=== PATIENT | female | born 1955 | race Caucasian/White ===

== ENCOUNTER → 2016-08-16 | Outpatient (CLI) | payer BC ==
[~2016-08-16] MED LIST: BUPR-79 PO; CALC600T9 PO; MISCTAB78 PO; OMEG10007 PO
== END | disposition home or self-care (01) ==
LOC: C.PAPS 11:47
PROVIDERS: ATTEND Obstetrics & Gynecology
DX: Z01.419 Encounter for gynecological examination (general) (routine) without abnormal findings (principal)

== ENCOUNTER → 2016-09-20 | Outpatient (CLI) | payer BC ==
--- NOTE | 2016-09-20 08:57 | DIAGNOSTIC IMAGING REPORT ---
ULTRASOUND OF THE THYROID GLAND CLINICAL HISTORY: Multinodular nontoxic goiter. COMPARISON STUDY: Prior thyroid ultrasounds, most recently dated 10/31/2015 an 06/17/2014. TECHNIQUE: Real-time, grayscale, and color flow sonography of the thyroid gland is performed utilizing a high-frequency linear transducer. Images are reviewed in the transverse and longitudinal planes. FINDINGS: Right lobe: The right lobe of the thyroid gland is mildly enlarged and heterogeneous in echotexture, measuring 6.3 x 2.2 x 2.4 cm. The right lobe appears hyperemic on color imaging. There are numerous nodules identified. The largest nodule is present in the mid pole and measures 2.5 x 1.9 x 2.0 cm (previously measuring 2.3 x 1.7 x 2.0 cm). This contains small internal calcifications. There are at least 3 additional solid nodules in the mid to lower pole measuring up to 10 mm. Left lobe: The left lobe of the thyroid gland is enlarged and heterogeneous in echotexture, measuring 6.8 x 3.3 I2.8 cm. There are numerous nodules identified. A solid and cystic nodule in the midpole measures 2.7 x 2.2 x 3.8 cm and a more cystic nodule immediately adjacent measures 1.8 x 1.9 x 1.9 cm (producing measured as an area nodule measuring 5.2 x 2.7 x 4.7 cm). This is unchanged from previous. An additional nodule in the posterior midpole measures 1.6 x 0.9 x 1.4 cm (producing measured 1.7 x 0.8 x 1.2 cm). Isthmus: The thyroid isthmus is thickened and measures 0.7 cm in AP diameter. IMPRESSION: 1. The thyroid gland appears mildly enlarged and heterogeneous, and demonstrates hyperemia on color imaging. The appearance suggests thyroiditis. Correlation with serum thyroid function studies will be required. 2. The thyroid gland is infiltrated by numerous nodules as detailed above. These are similar in appearance to prior studies. Electronically signed by: Nicanor Cleary M.D. 09/20/2016 8:55 AM Dictated Date/Time: 09/20/2016 8:50 AM
== END | disposition home or self-care (01) ==
LOC: C.ULTR 08:19
PROVIDERS: ATTEND Internal Medicine Endocrinology, Diabetes & Metabolism
DX: E04.2 Nontoxic 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 goiter (principal)

== ENCOUNTER → 2016-10-29 | Outpatient (CLI) | payer BC ==
[2016-10-29 15:59] LABS: THYROID STIMULATING HORMONE 0.403 uIu/ml (0.300-4.500)
== END | disposition home or self-care (01) ==
LOC: C.LAB1850 14:06
PROVIDERS: ATTEND Physician Assistant
DX: E04.2 Nontoxic 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 goiter (principal)

== ENCOUNTER → 2016-11-19 | Outpatient (CLI) | payer BC ==
--- NOTE | 2016-11-19 14:58 | MAMMOGRAPHY REPORT ---
BILATERAL DIGITAL SCREENING MAMMOGRAM WITH CAD: 11/19/2016 CLINICAL HISTORY: Routine screening. Patient has no complaints. TECHNIQUE: Current study was also evaluated with a Computer Aided Detection (CAD) system. Bilatera l CC and MLO views were obtained. COMPARISON: Comparison is made to exams dated: 11/17/2015 mammogram, 11/29/2014 mammogram, 11/13/2013 m ammogram, 11/07/2012 mammogram, and 10/26/2010 mammogram - [facility]. BREAST COMPOSITION: There are scattered areas of fibroglandular density in both breasts. FINDINGS: No suspicious masses, calcifications, or areas of architectural distortion are noted in e ither breast. There has been no significant interval change compared to prior exams. Asymmetries in the left lateral breast are stable compared to prior exams including the 2014 exams, and felt to re present normal fibroglandular tissue. A few scattered bilateral benign appearing calcifications are not significantly changed. IMPRESSION: ACR BI-RADS CATEGORY 2: BENIGN There is no mammographic evidence of malignancy. A 1 year screening mammogram is recommended. The p atient will receive written notification of the results. Approximately 10% of breast cancers are not detected with mammography. A negative mammographic repor t should not delay biopsy if a clinically suggestive mass is present. Iliana Wright M.D. /:11/19/2016 10:27:29 Dental Laboratory Assistant: Birdie Oswald, [facility] letter sent: Normal 1/2 BI-RADS Code: ACR BI-RADS Category 2: Benign
== END | disposition home or self-care (01) ==
LOC: C.MAMM 08:55
PROVIDERS: ATTEND Obstetrics & Gynecology
DX: Z12.31 Encounter for screening mammogram for malignant neoplasm of breast (principal)

== ENCOUNTER → 2017-01-03 | Outpatient (CLI) | payer BC ==
[2017-01-03 10:58] LABS: ALT/SGPT 23 U/L (12-78); AST/SGOT 16 U/L (15-37); BLOOD UREA NITROGEN 9 mg/dl (7-18); BUN/CREATININE RATIO 13.2 (10-20); CARBON DIOXIDE 25 mmol/L (21-32); CHLORIDE 102 mmol/L (98-107); CHOLESTEROL 214 mg/dl (0-200); CREATININE 0.71 mg/dl (0.60-1.20); GLUCOSE 96 mg/dl (70-99); POTASSIUM 3.6 mmol/L (3.5-5.1); SODIUM 137 mmol/L (136-145); TRIGLYCERIDES 39 mg/dl (0-150); VERY LOW DENSITY LIPOPROT CALC 8 mg/dl
[2017-01-03 11:02] LABS: CHOLESTEROL/HDL RATIO 2.1; HDL CHOLESTEROL 103 mg/dl; LDL CHOLESTEROL CALCULATED 103 mg/dl
[2017-01-03 11:18] LABS: CALCIUM 9.1 mg/dl (8.5-10.1)
== END | disposition home or self-care (01) ==
LOC: C.LAB1850 09:06
PROVIDERS: ATTEND Internal Medicine
DX: R73.9 Hyperglycemia, unspecified (principal); E78.5 Hyperlipidemia, unspecified; E55.9 Vitamin D deficiency, unspecified

== ENCOUNTER → 2017-06-29 | Outpatient (CLI) | payer BC ==
[2017-06-29 13:53] LABS: ESTIMATED AVERAGE GLUCOSE 105 mg/dl; HA1C FLAG Normal (Normal)
[2017-06-29 13:55] LABS: BLOOD UREA NITROGEN 13 mg/dl (7-18); BUN/CREATININE RATIO 22.8 (10-20); CALCIUM 8.8 mg/dl (8.5-10.1); CARBON DIOXIDE 28 mmol/L (21-32); CHLORIDE 103 mmol/L (98-107); CREATININE 0.57 mg/dl (0.60-1.20); GLUCOSE 121 mg/dl (70-99); POTASSIUM 3.5 mmol/L (3.5-5.1); SODIUM 135 mmol/L (136-145)
== END | disposition home or self-care (01) ==
LOC: C.LAB1850 12:05
PROVIDERS: ATTEND Internal Medicine
DX: R73.9 Hyperglycemia, unspecified (principal); E55.9 Vitamin D deficiency, unspecified

== ENCOUNTER → 2017-09-13 | Outpatient (CLI) | payer BC | END | disposition home or self-care (01) | LOC: C.LAB1850 11:40 | PROVIDERS: ATTEND Physician Assistant | DX: E04.2 Nontoxic 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 goiter (principal) ==

== ENCOUNTER → 2017-11-23 | Outpatient (CLI) | payer BC ==
--- NOTE | 2017-11-24 12:42 | MAMMOGRAPHY REPORT ---
BILATERAL DIGITAL SCREENING MAMMOGRAM TOMOSYNTHESIS WITH CAD: 11/23/2017 CLINICAL HISTORY: Routine screening. Patient has no complaints. TECHNIQUE: Breast tomosynthesis in addition to standard 2D mammography was performed. Current study was also evaluated with a Computer Aided Detection (CAD) system. COMPARISON: Comparison is made to exams dated: 11/19/2016 mammogram, 11/17/2015 mammogram, 05/29/2015 m ammogram, 11/29/2014 mammogram, 11/14/2014 mammogram, and 11/13/2013 mammogram - [facility]ter. BREAST COMPOSITION: There are scattered areas of fibroglandular density in both breasts. FINDINGS: There is a nodular 4 mm asymmetry seen within the left lateral breast on the cc view only, which may represent normal overlapping fibroglandular tissue although spot compression tomosynthesis views, true lateral view, and possible breast ultrasound are recommended for further evaluation. The remainder of both breasts are stable compared to prior exams, without suspicious masses, calcific ations, or areas of architectural distortion noted. Scattered bilateral benign-appearing calcificati ons are not significantly changed. Nodular 5 mm asymmetry within the left superior breast on the MLO view is stable compared to multiple prior exams including the 2010 exam and is therefore benign and may represent an intramammary lymph node. IMPRESSION: ACR BI-RADS CATEGORY 0: INCOMPLETE EVALUATION: NEED ADDITIONAL IMAGING EVALUATION Left breast asymmetry, for which additional imaging evaluation is recommended. The patient will be c alled to schedule an appointment. Approximately 10% of breast cancers are not detected with mammography. A negative mammographic report should not delay biopsy if a clinically suggestive mass is present. Iliana Wright M.D. ah/:11/23/2017 15:53:36 Intelligence Officer Basic: Rubina TEJADA(Nilesh)(Hayden)([place]), [facility] letter sent: Addl Imaging 0 BI-RADS Code: ACR BI-RADS Category 0: Incomplete Evaluation: Need Additional Imaging Evaluation
== END | disposition home or self-care (01) ==
LOC: C.MAMM 09:00
PROVIDERS: ATTEND Obstetrics & Gynecology
DX: Z12.31 Encounter for screening mammogram for malignant neoplasm of breast (principal); R92.8 Other abnormal and inconclusive findings on diagnostic imaging of breast

== ENCOUNTER → 2017-12-06 | Outpatient (CLI) | payer BC ==
--- NOTE | 2017-12-06 15:04 | MAMMOGRAPHY REPORT ---
UNILATERAL LEFT DIGITAL DIAGNOSTIC MAMMOGRAM TOMOSYNTHESIS AND TARGETED LEFT ULTRASOUND: 12/06/2017 CLINICAL HISTORY: 62-year-old woman called back from screening mammography for a 4 mm nodular asymmet ry in the lateral, middle to posterior left breast, best seen on the CC view. Patient reports no stro ng family history of breast cancer. TECHNIQUE: Spot compression CC and MLO tomosynthesis views of the left breast, and tomosynthesis ML v iew of the left breast were obtained. COMPARISON: Comparison is made to exams dated: 11/23/2017 mammogram, 11/19/2016 mammogram, 11/17/2015 ma mmogram, 05/29/2015 mammogram, 11/29/2014 mammogram, and 11/14/2014 mammogram - [facility]. BREAST COMPOSITION: There are scattered areas of fibroglandular density in the left breast. FINDINGS: There is partial effacement of the 4 mm nodular asymmetry on the supplemental spot compress ion CC view. No definite persistent area of architectural distortion is seen. No suspicious calcifi cations. No definite corresponding abnormality seen on the spot compression MLO or ML views. Furthe r evaluation with ultrasound was performed. Targeted ultrasound was performed throughout the lateral left breast. There are a few ill-defined sh adowing areas within otherwise normal-appearing tissue, likely representing the background echotextur e. No suspicious solid or cystic mass is seen.incidental note is made of 2 morphologically normal in tramammary lymph node in the 2:00 left breast, 9 cm from the nipple, measuring 5.5 mm, and in the 1:0 0 left breast, 2 cm from the nipple, measuring 4.1 mm. IMPRESSION: ACR BI-RADS CATEGORY 0: INCOMPLETE EVALUATION: NEED ADDITIONAL IMAGING EVALUATION, TARG ETED ULTRASOUND ACR BI-RADS CATEGORY 0: INCOMPLETE EVALUATION: NEED ADDITIONAL IMAGING EVALUATION There is partial effacement of the 4 mm nodular asymmetry in the lateral left breast with supplementa l spot compression tomosynthesis images, and no suspicious sonographic correlate identified. This co uld represent normal overlapping tissue although definitive characterization with a breast MRI is rec ommended to exclude the possibility of a subtle enhancing mass. Approximately 10% of breast cancers are not detected with mammography. A negative mammographic report should not delay biopsy if a clinically suggestive mass is present. Mia Casey M.D. ay/:12/06/2017 11:13:54 Type Casting Machine Operator: Elva Graves RT(R)(M), [facility] letter sent: Addl Imaging 0 BI-RADS Code: ACR BI-RADS Category 0: Incomplete Evaluation: Need Additional Imaging Evaluation Ult rasound BI-RADS: ACR BI-RADS Category 0: Incomplete Evaluation: Need Additional Imaging Evaluation
== END | disposition home or self-care (01) ==
LOC: C.MAMM 09:57
PROVIDERS: ATTEND Obstetrics & Gynecology
DX: R92.8 Other abnormal and inconclusive findings on diagnostic imaging of breast (principal); N64.89 Other specified disorders of breast

== ENCOUNTER → 2017-12-13 | Outpatient (CLI) | payer BC ==
[2017-12-13 14:55] LABS: BLOOD UREA NITROGEN 10 mg/dl (7-18); CREATININE 0.62 mg/dl (0.60-1.20)
== END | disposition home or self-care (01) ==
LOC: C.LAB1850 13:23
PROVIDERS: ATTEND Obstetrics & Gynecology
DX: Z01.818 Encounter for other preprocedural examination (principal)

== ENCOUNTER 2023-01-09 17:36 | Observation (INO) ==
[2023-01-09] MEDS ORDERED: ASPIRIN CHEW 324 MG PO STA (17:39)
[2023-01-09] MEDS ORDERED: NITROGLYCERIN SL 0.4 MG/TAB TAB SL STA ×2 (17:53→18:14)
--- NOTE | 2023-01-09 17:59 | Emergency Department Note ---
Impression & Plan Chest pain, Pneumonia, Cardiomegaly, Pleural effusion, Fever ED Provider Note HISTORY OF PRESENT ILLNESS: Patient is a 67-year-old female presenting with chest pain and shortness of breath. Patient reports that about 1 hour prior to arrival in the emergency department she was walking up a hill in her backyard when she developed left- sided chest pain and shortness of breath. Pain is a sharp sensation in her left chest that radiates under her left breast and into her left shoulder. Denies ever having symptoms like this before. Reports feeling very short of breath and reports the pain is worse with taking a deep breath. Denies any DVT or PE history. Denies any history of cardiac stents. She is not on any anticoagulation. Denies any nausea or vomiting. Denies any abdominal pain. Denies any headache or change in vision. ROS: as above PHYSICAL EXAM: Constitutional: Patient appears in no acute distress. HENT: Head: Normocephalic and atraumatic. Eyes: EOMI, PERRL Mouth/Throat: Mucous membranes moist. Neck: Trachea midline. Neck supple. Cardiovascular: Tachycardic with regular rhythm. No murmurs, rubs or gallops. Intact distal pulses. Pulmonary/Chest: No respiratory distress. Breath sounds clear and equal bilaterally. No wheezes or rales. No chest wall tenderness to palpation. Abdominal: BS +. Abdomen soft, no tenderness, rebound or guarding. Musculoskeletal: No edema, tenderness or deformity noted. Skin: Warm and dry. No rash, erythema, pallor or cyanosis Psychiatric: Appropriate mood and affect for situation. Neurological: Alert and keenly responsive. CN II-XII grossly intact, moving all extremities equally and fully. MDM: - Vitals signs showed hypertension and tachycardia - History obtained via patient. Patient presents with chest pain and shortness of breath. Patient reports about an hour prior to arrival in the emergency department she was walking up a hill when she developed left-sided chest pain and shortness of breath. Describes the pain as sharp and pleuritic in nature. Locates pain to the left chest with radiation into her left shoulder. Denies ever having symptoms like this before. Denies any DVT or PE history. Denies any history of cardiac stents. She is not on any anticoagulation. Denies any abdominal pain, headache or changes in vision - Chronic conditions affecting care: HLD - Differential diagnoses include, but are not limited to: Acute coronary syndrome; pulmonary embolism; dissection; tension pneumothorax; esophageal rupture; pneumonia - Order placed for continuous cardiac monitoring. At this time, monitor showed rate of 100 bpm with normal sinus rhythm, per my interpretation. - External medical records reviewed. - Patient was given 324 mg of aspirin p.o. in triage and brought back immediately to the examination room. - Given her continued chest pain and hypertension, given 0.4 mg SL nitro. - EKG reviewed by myself showed normal sinus rhythm. Rate 103 bpm. QTc 474. No acute ischemic changes. - Laboratory workup interpreted by myself showed leukocytosis (WBC 14.3); normal lactate; hypokalemia (K 3.4); hyponatremia (Na 131); normal magnesium; normal troponin; elevated dimer (870); normal procalcitonin - Blood cultures obtained, given patient's fever. - Biofire negative - CXR shows left-sided pleural effusion, per my interpretation. - CT PE showed dense airspace consolidation in the left lower lobe concerning for pneumonia. No evidence of a PE. No to have trace right and left pleural effusions. Noted to have cardiomegaly with some concern for pulmonary artery hypertension. Also incidentally found to have some dilatation of her ascending thoracic aorta - IV rocephin and doxycycline ordered for antibiotic coverage. - Patient given 2 sublingual nitroglycerin, with improvement in her chest pain. - HEART score 4 (+1 story; +0 EKG; +2 age; +1 risk factor; +0 troponin), amounting to a moderate risk. - Discussed results with patient and her . Chest pain and shortness of breath likely secondary to pneumonia, but patient did require nitroglycerin for her chest pain and has never had formal chest pain workup. Will admit to hospital for further workup. - Discussion was had with social insurance administrator about patient's case and need for admission - Hospitalist, Dr. Lind, consulted for admission. - Patient admitted to [facility] for further evaluation and management. ASSESSMENT AND PLAN: Diagnosis: chest pain; fever; pneumonia; cardiomegaly; bilateral pleural effusions Plan: admit Past Med/Surg History Medical History Anxiety and depression Cardiac murmur Goiter, nontoxic, 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 History of basal cell carcinoma Hyperglycemia Hyperlipidemia Osteoarthritis Tinnitus of both ears Tubular adenoma Vitamin D deficiency Surgical History History of carpal tunnel release History of mandibular surgery History of Mohs surgery for squamous cell carcinoma in situ of skin History of surgical removal of ganglion cyst History of tonsillectomy and adenoidectomy History of wisdom tooth extraction Hx of section Hx of needle biopsy Hx of tooth extraction Family History Father Colon cancer Prostate cancer Myocardial infarction Mother Hypertension Other No family history of adverse response to anesthesia Denies family history of Ovarian cancer Breast cancer Social History Smoking Status: Never smoker Second Hand Exposure: No; Do You Dip or Chew Tobacco: No; Hx Alcohol Use: Yes Alcohol type: wine Hx Substance Use: No Preferred Language: Congolese Communication Ability: Effective Visual Impairment: No Limitations Hearing Ability: Normal Industrial [employer] Serv[employer] Helper Required: No Beliefs That Will Affect Care: None marital status: Current Living Situation: Spouse current occupational status: retired Feels Safe at Home: Yes Childhood Exposure to Second-Hand Smoke: Yes Dental Care, Regularly: Yes Physical Activity Frequency: Does not Exercise Seatbelt Use: always Sunscreen Use: Yes Assistive Devices: None Allergies Allergies Allergy/AdvReac Type Severity Reaction Status Date / Time Penicillins Allergy Mild HIVES A Verified 01/09/23 19:09 CHILD Home Meds Home Medications Medication Instructions Recorded Confirmed calcium citrate 315 mg-vitamin D3 1 tab PO QPM 02/04/20 01/09/23 5 mcg (200 unit) tablet omega-3 acid ethyl esters 1 gram 1 cap PO QPM 02/04/20 01/09/23 capsule cholecalciferol (vitamin D3) 25 25 mcg PO QPM 11/20/20 01/09/23 mcg (1,000 unit) tablet (Vitamin D3) cyanocobalamin (vitamin B-12) 1,000 mcg sublingual QPM 11/20/20 01/09/23 1,000 mcg sublingual tablet rbjwvbiclbj-sfp-rifeqpenv-hrb 1 tab PO QPM 11/20/20 01/09/23 149-hyalur 500 mg-500 mg-66.7 mg tablet (Ljhojnrmorb-Asvbicbjdsh-PON (with antiox)) Previous Rx's Medication Instructions Recorded bupropion HCl 100 mg tablet,12 hr 100 mg PO BID #60 ea 01/07/23 sustained-release Results & Data (ED) Vital Signs Vital Signs - 24 hr 01/09/23 17:37 01/09/23 17:40 01/09/23 18:03 Temperature 36.5 C Temperature Source Temporal Artery Scan Pulse Rate 102 H 100 H 102 H Pulse Rate [Apical] Pulse Rate from SpO2 Sensor Pulse Rhythm [Apical] Pulse Strength [Apical] Respiratory Rate 20 21 Respiratory Effort / Characteristics Non-Labored Respiratory Depth Normal Respiratory Pattern Blood Pressure 204/94 H Blood Pressure [Right Arm] Blood Pressure Mean 130 Blood Pressure Mean [Right Arm] Pulse Oximetry 94 96 Oxygen Delivery Method Room Air Room Air Sepsis Recent Fever Within 48 Hours No Sepsis New/Unexplained Change in Mental Status N/A Sepsis Action Taken by Nursing No Action Required 01/09/23 17:53 01/09/23 18:00 01/09/23 18:18 Temperature Temperature Source Pulse Rate 106 H 99 H Pulse Rate [Apical] 92 H Pulse Rate from SpO2 Sensor 105 H 99 H Pulse Rhythm [Apical] Regular Pulse Strength [Apical] Normal Respiratory Rate 33 H 18 15 Respiratory Effort / Characteristics Non-Labored Respiratory Depth Normal Respiratory Pattern Regular Blood Pressure 173/91 H Blood Pressure [Right Arm] 169/77 H Blood Pressure Mean 118 Blood Pressure Mean [Right Arm] 107 Pulse Oximetry 95 95 94 Oxygen Delivery Method Room Air Sepsis Recent Fever Within 48 Hours Sepsis New/Unexplained Change in Mental Status Sepsis Action Taken by Nursing 01/09/23 18:26 01/09/23 18:30 01/09/23 19:30 Temperature 38.8 C H Temperature Source Oral Pulse Rate 85 82 Pulse Rate [Apical] Pulse Rate from SpO2 Sensor Pulse Rhythm [Apical] Pulse Strength [Apical] Respiratory Rate 18 Respiratory Effort / Characteristics Respiratory Depth Respiratory Pattern Blood Pressure 158/73 H 147/70 H Blood Pressure [Right Arm] Blood Pressure Mean 101 95 Blood Pressure Mean [Right Arm] Pulse Oximetry 94 94 Oxygen Delivery Method Room Air Room Air Sepsis Recent Fever Within 48 Hours Sepsis New/Unexplained Change in Mental Status Sepsis Action Taken by Nursing 01/09/23 20:00 Temperature Temperature Source Pulse Rate 82 Pulse Rate [Apical] Pulse Rate from SpO2 Sensor Pulse Rhythm [Apical] Pulse Strength [Apical] Respiratory Rate 18 Respiratory Effort / Characteristics Respiratory Depth Respiratory Pattern Blood Pressure 146/71 H Blood Pressure [Right Arm] Blood Pressure Mean 96 Blood Pressure Mean [Right Arm] Pulse Oximetry 94 Oxygen Delivery Method Room Air Sepsis Recent Fever Within 48 Hours Sepsis New/Unexplained Change in Mental Status Sepsis Action Taken by Nursing Laboratory Data 01/09/23 17:52 01/09/23 17:52 Lab Results 01/09/23 01/09/23 01/09/23 Range/Units 17:52 17:52 17:52 WBC 14.30 H (4.8-10.8) K/ul RBC 4.89 (4.20-5.40) M/uL Hgb 14.8 (12.0-16.0) g/dl Hct 42.9 (37.0-47.0) % MCV 87.7 (80.0-100.0) fL MCH 30.3 (25.0-34.0) pg MCHC 34.5 (32.0-36.0) g/dL RDW Std Deviation 41.1 (36.4-46.3) fL RDW Coeff of [place] 12.8 (11.5-14.5) % Plt Count 317 (130-400) K/uL MPV 8.6 L (9.4-12.4) fL Immature Gran % (Auto) 0.3 % Neut % (Auto) 84.4 % Lymph % (Auto) 9.4 % Blanco % (Auto) 4.9 % Eos % (Auto) 0.4 % Baso % (Auto) 0.6 % Neut # (Auto) 12.08 H (1.40-6.50) K/uL Lymph # (Auto) 1.34 (1.2-3.4) K/uL Blanco # (Auto) 0.70 H (0.11-0.59) K/uL Eos # (Auto) 0.06 (0-0.50) K/uL Baso # (Auto) 0.08 (0-0.2) K/uL Immature Gran # (Auto) 0.04 (0.01-0.20) K/uL D-Dimer 870 H* (0-500) ug/L FEU Sodium 131 L (136-145) mmol/L Potassium 3.4 L (3.5-5.1) mmol/L Chloride 98 (98-107) mmol/L Carbon Dioxide 23 (21-32) mmol/L Anion Gap 10 (3-11) BUN 11 (6-23) mg/dl Creatinine 0.59 L (0.6-1.2) mg/dl Est Cr Clr Drug Dosing 96.5 ml/min Est GFR ( Amer) 111.5 ml/min Est GFR (Non-Af Amer) 96.2 ml/min BUN/Creatinine Ratio 18.6 (10-20) Glucose 101 H (70-99(Fasting)) mg/dl Lactate (0.4-2.0) mmol/L Calcium 9.5 (8.6-10.3) mg/dl Magnesium 1.9 (1.7-2.4) mg/dl Total Bilirubin 0.6 (0.2-1.0) mg/dl AST 17 (13-39) U/L ALT 14 (7-52) U/L Alkaline Phosphatase 89 (34-104) U/L Troponin I High Sens 6.5 (0-14) pg/ml Total Protein 7.8 (6.0-8.3) gm/dl Albumin 4.7 (3.4-5.0) gm/dl Globulin 3.1 (2.5-4.0) gm/dl Albumin/Globulin Ratio 1.5 (0.9-2) Procalcitonin (0-0.5) ng/ml Adenovirus (PCR) (NotDetected) B. pertussis DNA (PCR) (NotDetected) B.parapertussis DNA PCR (NotDetected) C. pneumoniae DNA (PCR) (NotDetected) Coronavirus OC43 (PCR) (NotDetected) Coronavirus HKU1 (PCR) (NotDetected) Coronavirus 229E (PCR) (NotDetected) SARS-CoV-2 (PCR) (NotDetected) Coronavirus NL63 (PCR) (NotDetected) Human Metapneumovir PCR (NotDetected) Influenza Type A (PCR) (NotDetected) Influenza Type B (PCR) (NotDetected) M. pneumoniae (PCR) (NotDetected) Parainfluenza 1 (PCR) (NotDetected) Parainfluenza 2 (PCR) (NotDetected) Parainfluenza 3 (PCR) (NotDetected) Parainfluenza 4 (PCR) (NotDetected) RSV (PCR) (NotDetected) Entero/Rhino (PCR) (NotDetected) 01/09/23 01/09/23 01/09/23 Range/Units 18:41 19:02 19:02 WBC (4.8-10.8) K/ul RBC (4.20-5.40) M/uL Hgb (12.0-16.0) g/dl Hct (37.0-47.0) % MCV (80.0-100.0) fL MCH (25.0-34.0) pg MCHC (32.0-36.0) g/dL RDW Std Deviation (36.4-46.3) fL RDW Coeff of Thomas (11.5-14.5) % Plt Count (130-400) K/uL MPV (9.4-12.4) fL Immature Gran % (Auto) % Neut % (Auto) % Lymph % (Auto) % Blanco % (Auto) % Eos % (Auto) % Baso % (Auto) % Neut # (Auto) (1.40-6.50) K/uL Lymph # (Auto) (1.2-3.4) K/uL Blanco # (Auto) (0.11-0.59) K/uL Eos # (Auto) (0-0.50) K/uL Baso # (Auto) (0-0.2) K/uL Immature Gran # (Auto) (0.01-0.20) K/uL D-Dimer (0-500) ug/L FEU Sodium (136-145) mmol/L Potassium (3.5-5.1) mmol/L Chloride (98-107) mmol/L Carbon Dioxide (21-32) mmol/L Anion Gap (3-11) BUN (6-23) mg/dl Creatinine (0.6-1.2) mg/dl Est Cr Clr Drug Dosing ml/min Est GFR ( Amer) ml/min Est GFR (Non-Af Amer) ml/min BUN/Creatinine Ratio (10-20) Glucose (70-99(Fasting)) mg/dl Lactate 1.5 (0.4-2.0) mmol/L Calcium (8.6-10.3) mg/dl Magnesium (1.7-2.4) mg/dl Total Bilirubin (0.2-1.0) mg/dl AST (13-39) U/L ALT (7-52) U/L Alkaline Phosphatase (34-104) U/L Troponin I High Sens (0-14) pg/ml Total Protein (6.0-8.3) gm/dl Albumin (3.4-5.0) gm/dl Globulin (2.5-4.0) gm/dl Albumin/Globulin Ratio (0.9-2) Procalcitonin < 0.05 (0-0.5) ng/ml Adenovirus (PCR) Not Detected (NotDetected) B. pertussis DNA (PCR) Not Detected (NotDetected) B.parapertussis DNA PCR Not Detected (NotDetected) C. pneumoniae DNA (PCR) Not Detected (NotDetected) Coronavirus OC43 (PCR) Not Detected (NotDetected) Coronavirus HKU1 (PCR) Not Detected (NotDetected) Coronavirus 229E (PCR) Not Detected (NotDetected) SARS-CoV-2 (PCR) Not Detected (NotDetected) Coronavirus NL63 (PCR) Not Detected (NotDetected) Human Metapneumovir PCR Not Detected (NotDetected) Influenza Type A (PCR) Not Detected (NotDetected) Influenza Type B (PCR) Not Detected (NotDetected) M. pneumoniae (PCR) Not Detected (NotDetected) Parainfluenza 1 (PCR) Not Detected (NotDetected) Parainfluenza 2 (PCR) Not Detected (NotDetected) Parainfluenza 3 (PCR) Not Detected (NotDetected) Parainfluenza 4 (PCR) Not Detected (NotDetected) RSV (PCR) Not Detected (NotDetected) Entero/Rhino (PCR) Not Detected (NotDetected) Administered Medications Discontinued Medications Aspirin (Aspirin Chew 324 Mg) 324 mg PO ONE STA Stop: 01/09/23 17:40 Last Admin: 01/09/23 17:42 Dose: 324 mg Documented By: LKSelvin Sodium Chloride (Nss 1000ml) 1,000 mls @ 999 mls/hr IV .Q1H1M ONE Stop: 01/09/23 19:25 Last Infusion: 01/09/23 20:07 Dose: 0 mls/hr Documented By: Admin: 01/09/23 18:39 Dose: 999 mls/hr Documented By: ROSAURA Acetaminophen (Ofirmev) 1,000 mg in 100 mls @ 400 mls/hr IV NOW STA Stop: 01/09/23 18:39 Last Infusion: 01/09/23 19:00 Dose: 0 mls/hr Documented By: Admin: 01/09/23 18:39 Dose: 400 mls/hr Documented By: ROSAURA Ioversol (Optiray 320 125ml) 120 ml IV ONCE ONE Stop: 01/09/23 19:14 Last Admin: 01/09/23 19:13 Dose: 120 ml Documented By: DAT Nitroglycerin (Nitroglycerin Sl 0.4 Mg/Tab Tab) 0.4 mg SL NOW STA Stop: 01/09/23 17:54 Last Admin: 01/09/23 17:57 Dose: 0.4 mg Documented By: ROSAURA Nitroglycerin (Nitroglycerin Sl 0.4 Mg/Tab Tab) 0.4 mg SL NOW STA Stop: 01/09/23 18:15 Last Admin: 01/09/23 18:15 Dose: 0.4 mg Documented By: ROSAURA Imaging Data Radiologist's Impression: Chest X-Ray 01/09/23 17:40 SINGLE VIEW CHEST CLINICAL HISTORY: Atypical chest pain. FINDINGS: An AP, portable, upright chest radiograph is obtained. No prior studies are available for comparison at the time of dictation. The examination is degraded by portable technique and patient rotation. The heart is enlarged noting atherosclerotic calcification of the thoracic aorta. The pulmonary vascu lature is noncongested. There is a layering left pleural effusion with left basilar consolidation. The right lung appears clear noting dependent atelectasis. No pneumothorax is seen. The skeletal structures are osteopenic. The bony thorax is grossly intact. IMPRESSION: Layering left pleural effusion with left basilar consolidation. The appearance is typical for pneumonia/aspiration pneumonitis. Clinical correlation will be required and radiographic follow-up to resolution is recommended. ACT 112: Negative or not required by law. Electronically signed by: Nicanor Cleary M.D. 01/09/2023 6:46 PM Chest CTA 01/09/23 17:53 CT ANGIOGRAM OF THE CHEST CLINICAL HISTORY: Cough and dyspnea. COMPARISON STUDY: Chest x-ray dated 01/09/2023. TECHNIQUE: Following the IV administration of 120 cc of Optiray 320, CT angiogram of the chest was performed from the upper abdomen to the thoracic inlet utilizing the pulmonary embolus protocol. Images are reviewed in the axial, sagittal, and coronal planes. 3-D MIPS images are created and assessed. IV contrast was administered without complication. A dose lowering technique was utilized adhering to the principles of ALARA. CT DOSE: 513.37 mGy.cm FINDINGS: Thyroid: The thyroid gland is markedly enlarged and heterogeneous, typical for goiter. This was better assessed by thyroid ultrasound on 01/06/2021. Thoracic aorta: There is mild aneurysmal dilatation of the ascending thoracic aorta. This measures up to 4.4 cm in diameter. The remainder of the thoracic aorta is normal in caliber, and the arch demonstrates standard 3-vessel anatomy. No dissection is seen. Pulmonary vasculature: The main pulmonary arteries are mildly dilated suggesting pulmonary artery hypertension. There are no filling defects identified in main, lobar, or segmental pulmonary branches to suggest pulmonary embolus. Heart: The heart is enlarged and without pericardial effusion. Lungs and pleural spaces: Evaluation of the lung parenchyma is degraded by motion artifact. There is dense left lower lobe airspace consolidation. A small left pleural effusion is observed. Trace pleural fluid is seen on the right. The left upper lobe is clear. Minimal tree-in-bud opacities are seen in the right upper and lower lobes. Minimal secretions are seen in the trachea. Mediastinum: There is no mediastinal lymphadenopathy. Thania: Mildly enlarged left hilar nodes measure up to 13 mm in short axis. These are likely reactive. No right hilar adenopathy is seen. Axillae: There is no axillary lymphadenopathy. Upper abdomen: Cholelithiasis is noted. A 2 mm nonobstructing calculus is seen in the upper pole of the right kidney. Skeletal structures: The skeletal structures are osteopenic. Degenerative change and kyphoscoliosis is noted thoracic spine. There is a large hemangioma in the body of L1. No lytic or blastic bony lesions are seen. Arthritic change is note in the shoulders. IMPRESSION: 1. There is no evidence of pulmonary embolus in the main, lobar, or segmental pulmonary arteries. 2. Dense airspace consolidation throughout the left lower lobe is typical for pneumonia/aspiration pneumonitis. Clinical correlation will be required and radiographic follow-up to resolution is recommended. 3. Minimal tree-in-bud opacities in the right upper and right lower lobes are also likely infectious/inflammatory. 4. Small left and trace right pleural effusions. 5. Cardiomegaly with evidence of pulmonary artery hypertension. 6. There is aneurysmal dilatation of the ascending thoracic aorta which measures up to 4.4 cm in diameter. 7. Cholelithiasis and right-sided nephrolithiasis. 8. Additional findings as above. ACT 112: Negative or not required by law. Electronically signed by: Nicanor Cleary M.D. 01/09/2023 8:17 PM Discharge Plan Visit Data Chief Complaint: Chest Pain Stated Complaint: CHEST PAIN ED Provider: Mariann Bobo Discharge Problem: Chest pain, Pneumonia, Cardiomegaly, Pleural effusion, Fever Forms Stand Alone Forms: [facility] Room n House Prescriptions Prescriptions: No Action bupropion HCl 100 mg tablet sustained-release 12 hr 100 mg PO BID Qty: 60 3RF Rx Instructions: second dose late afternoon omega-3 acid ethyl esters 1 gram capsule 1 cap PO QPM calcium citrate-vitamin D3 315-200 mg-unit tablet 1 tab PO QPM cyanocobalamin (vitamin B-12) 1,000 mcg Tablet, Sublingual 1,000 mcg SUBLINGUAL QPM cholecalciferol (vitamin D3) [Vitamin D3] 25 mcg (1,000 unit) Tablet 25 mcg PO QPM [id number] [Ajjvln-Jftcu-PHU (with antiox)] 500-500-66.7 mg Tablet 1 tab PO QPM Referrals Referrals: Cliff Carmen MD [Primary Care Provider] -
[2023-01-09 18:06] LABS: Basophils # (auto) 0.08 K/uL (0-0.2); Basophils % (auto) 0.6 %; Eosinophils # (auto) 0.06 K/uL (0-0.50); Eosinophils % (auto) 0.4 %; Hematocrit (blood only) 42.9 % (37.0-47.0); Hemoglobin 14.8 g/dl (12.0-16.0); Immature Granulocytes # (auto) 0.04 K/uL (0.01-0.20); Immature Granulocytes % (auto) 0.3 %; Lymphocytes # (auto) 1.34 K/uL (1.2-3.4); Lymphocytes % (auto) 9.4 %; Mean Corpuscular Hemoglobin 30.3 pg (25.0-34.0); Mean Corpuscular Hgb Conc 34.5 g/dL (32.0-36.0); Mean Corpuscular Volume 87.7 fL (80.0-100.0); Mean Platelet Volume 8.6 fL (9.4-12.4); Monocytes % (auto) 4.9 %; Neutrophils # (auto) 12.08 K/uL (1.40-6.50); Neutrophils % (auto) 84.4 %; Platelet Count 317 K/uL (130-400); RDW Coefficient of Variation 12.8 % (11.5-14.5); RDW Standard Deviation 41.1 fL (36.4-46.3); Red Blood Count 4.89 M/uL (4.20-5.40)
[2023-01-09 18:22] LABS: Albumin Globulin Ratio 1.5 (0.9-2); Albumin Level 4.7 gm/dl (3.4-5.0); BUN Creatinine Ratio 18.6 (10-20); Bilirubin,Total 0.6 mg/dl (0.2-1.0); Calcium 9.5 mg/dl (8.6-10.3); Creatinine Clr Calc Pharmacy 96.5 ml/min; Est GFR (African American) 111.5 ml/min; Est GFR (Non-African American) 96.2 ml/min; Globulin 3.1 gm/dl (2.5-4.0); Magnesium 1.9 mg/dl (1.7-2.4); Potassium 3.4 mmol/L (3.5-5.1); Total Protein 7.8 gm/dl (6.0-8.3)
[2023-01-09] MEDS ORDERED: SODIUM CHLORIDE 0.9% 1000ML 1,000 ML IV ONE (18:25)
[2023-01-09] MEDS ORDERED: ACETAMINOPHEN 1,000 MG/100 ML VIAL IV STA (18:25)
[2023-01-09 18:27] LABS: Troponin I High Sensitivity 6.5 pg/ml (0-14)
[2023-01-09 18:37] LABS: D Dimer 870 ug/L FEU (0-500)
--- NOTE | 2023-01-09 18:47 | XRay Report ---
SINGLE VIEW CHEST CLINICAL HISTORY: Atypical chest pain. FINDINGS: An AP, portable, upright chest radiograph is obtained. No prior studies are available for c omparison at the time of dictation. The examination is degraded by portable technique and patient rot ation. The heart is enlarged noting atherosclerotic calcification of the thoracic aorta. The pulmona ry vasculature is noncongested. There is a layering left pleural effusion with left basilar consolida tion. The right lung appears clear noting dependent atelectasis. No pneumothorax is seen. The skeleta l structures are osteopenic. The bony thorax is grossly intact. IMPRESSION: Layering left pleural effusion with left basilar consolidation. The appearance is typica l for pneumonia/aspiration pneumonitis. Clinical correlation will be required and radiographic follow -up to resolution is recommended. ACT 112: Negative or not required by law. Electronically signed by: Nicanor Cleary M.D. 01/09/2023 6:46 PM
[2023-01-09] MEDS ORDERED: OPTIRAY 320 125ml IV ONE (19:13)
[2023-01-09 19:38] LABS: Adenovirus PCR Not Detected (NotDetected); Bordetella parapertussis PCR Not Detected (NotDetected); Bordetella pertussis PCR Not Detected (NotDetected); Chlamydia pneumoniae PCR Not Detected (NotDetected); Coronavirus 229E PCR Not Detected (NotDetected); Coronavirus CoV-2 (COVID19)PCR Not Detected (NotDetected); Coronavirus HKU1 PCR Not Detected (NotDetected); Coronavirus NL63 PCR Not Detected (NotDetected); Coronavirus OC43PCR Not Detected (NotDetected); Human Metapneumovirus PCR Not Detected (NotDetected); Influenza A PCR Not Detected (NotDetected); Influenza B PCR Not Detected (NotDetected); Mycoplasma pneumoniae PCR Not Detected (NotDetected); Parainfluenza Virus 1 PCR Not Detected (NotDetected); Parainfluenza Virus 2 PCR Not Detected (NotDetected); Parainfluenza Virus 3 PCR Not Detected (NotDetected); Parainfluenza Virus 4 PCR Not Detected (NotDetected); Respiratory Syncytial VirusPCR Not Detected (NotDetected); Rhinovirus/Enterovirus PCR Not Detected (NotDetected)
--- NOTE | 2023-01-09 20:19 | CT Scan Report ---
CT ANGIOGRAM OF THE CHEST CLINICAL HISTORY: Cough and dyspnea. COMPARISON STUDY: Chest x-ray dated 01/09/2023. TECHNIQUE: Following the IV administration of 120 cc of Optiray 320, CT angiogram of the chest was pe rformed from the upper abdomen to the thoracic inlet utilizing the pulmonary embolus protocol. Images are reviewed in the axial, sagittal, and coronal planes. 3-D MIPS images are created and assessed. I V contrast was administered without complication. A dose lowering technique was utilized adhering to the principles of ALARA. CT DOSE: 513.37 mGy.cm FINDINGS: Thyroid: The thyroid gland is markedly enlarged and heterogeneous, typical for goiter. This was emre r assessed by thyroid ultrasound on 01/06/2021. Thoracic aorta: There is mild aneurysmal dilatation of the ascending thoracic aorta. This measures up to 4.4 cm in diameter. The remainder of the thoracic aorta is normal in caliber, and the arch demons trates standard 3-vessel anatomy. No dissection is seen. Pulmonary vasculature: The main pulmonary arteries are mildly dilated suggesting pulmonary artery hyp ertension. There are no filling defects identified in main, lobar, or segmental pulmonary branches to suggest pulmonary embolus. Heart: The heart is enlarged and without pericardial effusion. Lungs and pleural spaces: Evaluation of the lung parenchyma is degraded by motion artifact. There is dense left lower lobe airspace consolidation. A small left pleural effusion is observed. Trace pleura l fluid is seen on the right. The left upper lobe is clear. Minimal tree-in-bud opacities are seen in the right upper and lower lobes. Minimal secretions are seen in the trachea. Mediastinum: There is no mediastinal lymphadenopathy. [place]: Mildly enlarged left hilar nodes measure up to 13 mm in short axis. These are likely reactive. No right hilar adenopathy is seen. Axillae: There is no axillary lymphadenopathy. Upper abdomen: Cholelithiasis is noted. A 2 mm nonobstructing calculus is seen in the upper pole of t he right kidney. Skeletal structures: The skeletal structures are osteopenic. Degenerative change and kyphoscoliosis i s noted thoracic spine. There is a large hemangioma in the body of L1. No lytic or blastic bony lesio ns are seen. Arthritic change is note in the shoulders. IMPRESSION: 1. There is no evidence of pulmonary embolus in the main, lobar, or segmental pulmonary arteries. 2. Dense airspace consolidation throughout the left lower lobe is typical for pneumonia/aspiration pn eumonitis. Clinical correlation will be required and radiographic follow-up to resolution is recommen ded. 3. Minimal tree-in-bud opacities in the right upper and right lower lobes are also likely infectious/ inflammatory. 4. Small left and trace right pleural effusions. 5. Cardiomegaly with evidence of pulmonary artery hypertension. 6. There is aneurysmal dilatation of the ascending thoracic aorta which measures up to 4.4 cm in diam eter. 7. Cholelithiasis and right-sided nephrolithiasis. 8. Additional findings as above. ACT 112: Negative or not required by law. Electronically signed by: Nicanor Cleary M.D. 01/09/2023 8:17 PM
[2023-01-09] MEDS ORDERED: cefTRIAXone SODIUM 1,000 MG in DEXTROSE 5% AD-VAN 50 ML IV STA (20:20)
[2023-01-09] MEDS ORDERED: DOXYCYCLINE HYCLATE 100 MG in DEXTROSE 5% 100 ML IV STA (20:20)
--- NOTE | 2023-01-09 21:08 | History & Physical Report ---
Date of Service January 09, 2023 Assessment & Plan (1) Pneumonia: Plan: 67yo female with URI in September, persistent intermittent fevers, cough with mucus presenting with left sided pleuritic chest pain and SOB. Found to have a dense airspace consolidation in the left lower lobe with minimal tree-in-bud opacities in the right upper and right lower lobes suggestive of PNA. Also with small left and trace right pleural effusions Cardiomegaly with evidence of PAH Suspect bacterial pneumonia. Consideration of new CHF given comment of cardiomegaly with PAH on CT -Admit to medical -Follow cultures sent from ER -Check sputum culture -Check BNP -Ceftriaxone 1gm IV daily -Doxycycline 100mg IV BID -Guaifenesin 1200mg po BID -Tylenol as needed -Check 2D echo (2) Goiter, nontoxic, 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: Plan: Noted. Patient follows with Endocrinology F/E/N - [facility]. Electrolyte WNL. Regular diet. Ppx - Low risk for DVT Code - Full Dispo - Admit to medical History of Present Illness Chief Complaint: chest pain, SOB Primary Care Provider: Cliff Carmen MD Noemy Martinez is a pleasant 67yo female with history of anxiety presenting with SOB and left sided pleuritic chest discomfort. Patient had a possible viral URI with sinusitis in September. She was treated with a course of Doxycycline. Since then she has had a persistent cough productive for clear, yellow mucus, intermittent fever/chills and body aches as well as a progressive decrease in exercise tolerance and stamina. Patient was seen in clinic 3 days ago and was told that her lungs sounded clear. This evening she developed some pleuritic chest pain under her left breast and shortness of breath. No additional complaints at this time. Patient markedly hypertensive on arrival with BP of 204/94. She was administered Nitro x 2 with improvement in BP ER Course: Nitro 0.4mg SL x 2 ASA 324mg NSS x 1L Tylenol x 1gm Allergies Allergy/AdvReac Type Severity Reaction Status Date / Time Penicillins Allergy Mild HIVES A Verified 01/09/23 19:09 CHILD Home Medications Medication Instructions Recorded Confirmed Type calcium citrate 315 mg-vitamin D3 1 tab PO QPM 02/04/20 01/09/23 History 5 mcg (200 unit) tablet omega-3 acid ethyl esters 1 gram 1 cap PO QPM 02/04/20 01/09/23 History capsule cholecalciferol (vitamin D3) 25 25 mcg PO QPM 11/20/20 01/09/23 History mcg (1,000 unit) tablet (Vitamin D3) cyanocobalamin (vitamin B-12) 1,000 mcg sublingual QPM 11/20/20 01/09/23 History 1,000 mcg sublingual tablet oqqfpnnxneh-eeo-akiyutrmp-hrb 1 tab PO QPM 11/20/20 01/09/23 History 149-hyalur 500 mg-500 mg-66.7 mg tablet (Wmmyibdcpbz-Kynolqdvdpk-QIH (with antiox)) bupropion HCl 100 mg tablet,12 hr 100 mg PO BID #60 ea 01/07/23 01/09/23 Rx sustained-release Past Med/Surg History Medical History Anxiety and depression Cardiac murmur "told a couple years ago and then had stress test done after" (thinks about 5yrs ago)--was told it was fine, no vp cardiovascular service line Goiter, nontoxic, 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 History of basal cell carcinoma scalp/tip of nose Hyperglycemia Hyperlipidemia Osteoarthritis Tinnitus of both ears Tubular adenoma Vitamin D deficiency Surgical History History of carpal tunnel release right wrist History of mandibular surgery d/t underbite History of Mohs surgery for squamous cell carcinoma in situ of skin x2 History of surgical removal of ganglion cyst left wrist History of tonsillectomy and adenoidectomy History of wisdom tooth extraction Hx of section Hx of needle biopsy thyroid--benign Hx of tooth extraction Family History Father Colon cancer Prostate cancer Myocardial infarction Mother Hypertension Other No family history of adverse response to anesthesia Denies family history of Ovarian cancer Breast cancer Social History Smoking Status: Never smoker Second Hand Exposure: No; Do You Dip or Chew Tobacco: No; Hx Alcohol Use: Yes Alcohol type: beer and wine Hx Substance Use: No Preferred Language: Canadian Communication Ability: Effective Visual Impairment: No Limitations Hearing Ability: Normal Software Application Tester Required: No Beliefs That Will Affect Care: None marital status: Current Living Situation: Spouse current occupational status: retired Feels Safe at Home: Yes Safety Concerns: Feels Safe At This Time Childhood Exposure to Second-Hand Smoke: Yes Dental Care, Regularly: Yes Physical Activity Frequency: Does not Exercise Seatbelt Use: always Sunscreen Use: Yes Assistive Devices: Glasses Review of Systems Review of Systems: All systems reviewed & are unremarkable except as noted in HPI & below Physical Exam Physical Exam: General: patient resting comfortably, NAD, non-toxic in appearance, AA&O x 4 Skin: warm, dry, intact, no rashes or lesions HEENT: NC/AT, PERRL, EOMI, anicteric sclera, conjunctiva without injection, external ear normal to inspection and nontender, nares patent, moist mucus membranes, dentition intact, no oropharyngeal lesions, neck supple, trachea midline, no LAD, +firm, nodular goiter, nontender, no JVD Heart: +S1/S2, regular, no m/r/g Lungs: equal air entry bilaterally, crackles in bilateral bases with slightly diminished breath sounds in left base, no rhonchi or wheezing Abd: +BS, soft, NT/ND, no masses/organomegaly/ascites Ext: warm, 2+ pulses in UE/LE bilaterally, no clubbing/cyanosis or edema Neuro: nonfocal, patient AA&O x 4, speech intact, no facial droop, moving all extremities on command with equal strength 5/5 Results & Data Results & Data Vital Signs (Past 12 Hours) Vital Signs Temp Pulse Pulse Resp BP BP Pulse Ox 01/09/23 21:00 85 18 150/76 H 93 01/09/23 20:30 85 18 140/71 93 01/09/23 20:00 82 18 146/71 H 94 01/09/23 19:30 82 18 147/70 H 94 01/09/23 18:30 85 158/73 H 94 01/09/23 18:26 38.8 C H 01/09/23 18:18 92 H 15 169/77 H 94 01/09/23 18:00 99 H 18 173/91 H 95 01/09/23 17:53 106 H 33 H 95 01/09/23 18:03 102 H 01/09/23 17:40 100 H 21 96 01/09/23 17:37 36.5 C 102 H 20 204/94 H 94 O2 Del Method 01/09/23 21:00 Room Air 01/09/23 20:30 Room Air 01/09/23 20:00 Room Air 01/09/23 19:30 Room Air 01/09/23 18:30 Room Air 01/09/23 18:26 01/09/23 18:18 Room Air 01/09/23 18:00 01/09/23 17:53 01/09/23 18:03 01/09/23 17:40 Room Air 01/09/23 17:37 Room Air Laboratory Results Laboratory Results WBC 14.30 K/ul (4.8-10.8) H 01/09/23 17:52 RBC 4.89 M/uL (4.20-5.40) 01/09/23 17:52 Hgb 14.8 g/dl (12.0-16.0) 01/09/23 17:52 Hct 42.9 % (37.0-47.0) 01/09/23 17:52 MCV 87.7 fL (80.0-100.0) 01/09/23 17:52 MCH 30.3 pg (25.0-34.0) 01/09/23 17:52 MCHC 34.5 g/dL (32.0-36.0) 01/09/23 17:52 RDW Std Deviation 41.1 fL (36.4-46.3) 01/09/23 17:52 RDW Coeff of Thomas 12.8 % (11.5-14.5) 01/09/23 17:52 Plt Count 317 K/uL (130-400) 01/09/23 17:52 MPV 8.6 fL (9.4-12.4) L 01/09/23 17:52 Immature Gran % (Auto) 0.3 % 01/09/23 17:52 Neut % (Auto) 84.4 % 01/09/23 17:52 Lymph % (Auto) 9.4 % 01/09/23 17:52 Duchesne % (Auto) 4.9 % 01/09/23 17:52 Eos % (Auto) 0.4 % 01/09/23 17:52 Baso % (Auto) 0.6 % 01/09/23 17:52 Neut # (Auto) 12.08 K/uL (1.40-6.50) H 01/09/23 17:52 Lymph # (Auto) 1.34 K/uL (1.2-3.4) 01/09/23 17:52 Duchesne # (Auto) 0.70 K/uL (0.11-0.59) H 01/09/23 17:52 Eos # (Auto) 0.06 K/uL (0-0.50) 01/09/23 17:52 Baso # (Auto) 0.08 K/uL (0-0.2) 01/09/23 17:52 Immature Gran # (Auto) 0.04 K/uL (0.01-0.20) 01/09/23 17:52 D-Dimer 870 ug/L FEU (0-500) H* 01/09/23 17:52 Sodium 131 mmol/L (136-145) L 01/09/23 17:52 Potassium 3.4 mmol/L (3.5-5.1) L 01/09/23 17:52 Chloride 98 mmol/L (98-107) 01/09/23 17:52 Carbon Dioxide 23 mmol/L (21-32) 01/09/23 17:52 Anion Gap 10 (3-11) 01/09/23 17:52 BUN 11 mg/dl (6-23) 01/09/23 17:52 Creatinine 0.59 mg/dl (0.6-1.2) L 01/09/23 17:52 Est Cr Clr Drug Dosing 96.5 ml/min 01/09/23 17:52 Est GFR ( Amer) 111.5 ml/min 01/09/23 17:52 Est GFR (Non-Af Amer) 96.2 ml/min 01/09/23 17:52 BUN/Creatinine Ratio 18.6 (10-20) 01/09/23 17:52 Glucose 101 mg/dl (70-99(Fasting)) H 01/09/23 17:52 Lactate 1.5 mmol/L (0.4-2.0) 01/09/23 19:02 Calcium 9.5 mg/dl (8.6-10.3) 01/09/23 17:52 Magnesium 1.9 mg/dl (1.7-2.4) 01/09/23 17:52 Total Bilirubin 0.6 mg/dl (0.2-1.0) 01/09/23 17:52 AST 17 U/L (13-39) 01/09/23 17:52 ALT 14 U/L (7-52) 01/09/23 17:52 Alkaline Phosphatase 89 U/L (34-104) 01/09/23 17:52 Troponin I High Sens 6.5 pg/ml (0-14) 01/09/23 17:52 Total Protein 7.8 gm/dl (6.0-8.3) 01/09/23 17:52 Albumin 4.7 gm/dl (3.4-5.0) 01/09/23 17:52 Globulin 3.1 gm/dl (2.5-4.0) 01/09/23 17:52 Albumin/Globulin Ratio 1.5 (0.9-2) 01/09/23 17:52 Procalcitonin < 0.05 ng/ml (0-0.5) 01/09/23 19:02 Adenovirus (PCR) Not Detected (NotDetected) 01/09/23 18:41 B. pertussis DNA (PCR) Not Detected (NotDetected) 01/09/23 18:41 B.parapertussis DNA PCR Not Detected (NotDetected) 01/09/23 18:41 C. pneumoniae DNA (PCR) Not Detected (NotDetected) 01/09/23 18:41 Coronavirus OC43 (PCR) Not Detected (NotDetected) 01/09/23 18:41 Coronavirus HKU1 (PCR) Not Detected (NotDetected) 01/09/23 18:41 Coronavirus 229E (PCR) Not Detected (NotDetected) 01/09/23 18:41 SARS-CoV-2 (PCR) Not Detected (NotDetected) 01/09/23 18:41 Coronavirus NL63 (PCR) Not Detected (NotDetected) 01/09/23 18:41 Human Metapneumovir PCR Not Detected (NotDetected) 01/09/23 18:41 Influenza Type A (PCR) Not Detected (NotDetected) 01/09/23 18:41 Influenza Type B (PCR) Not Detected (NotDetected) 01/09/23 18:41 M. pneumoniae (PCR) Not Detected (NotDetected) 01/09/23 18:41 Parainfluenza 1 (PCR) Not Detected (NotDetected) 01/09/23 18:41 Parainfluenza 2 (PCR) Not Detected (NotDetected) 01/09/23 18:41 Parainfluenza 3 (PCR) Not Detected (NotDetected) 01/09/23 18:41 Parainfluenza 4 (PCR) Not Detected (NotDetected) 01/09/23 18:41 RSV (PCR) Not Detected (NotDetected) 01/09/23 18:41 Entero/Rhino (PCR) Not Detected (NotDetected) 01/09/23 18:41 Impressions Chest X-Ray 01/09/23 17:40 SINGLE VIEW CHEST CLINICAL HISTORY: Atypical chest pain. FINDINGS: An AP, portable, upright chest radiograph is obtained. No prior studies are available for comparison at the time of dictation. The examination is degraded by portable technique and patient rotation. The heart is enlarged noting atherosclerotic calcification of the thoracic aorta. The pulmonary vasculature is noncongested. There is a layering left pleural effusion with left basilar consolidation. The right lung appears clear noting dependent atelectasis. No pneumothorax is seen. The skeletal structures are osteopenic. The bony thorax is grossly intact. IMPRESSION: Layering left pleural effusion with left basilar consolidation. The appearance is typical for pneumonia/aspiration pneumonitis. Clinical correlation will be required and radiographic follow-up to resolution is recommended. ACT 112: Negative or not required by law. Electronically signed by: Nicanor Cleary M.D. 01/09/2023 6:46 PM Chest CTA 01/09/23 17:53 CT ANGIOGRAM OF THE CHEST CLINICAL HISTORY: Cough and dyspnea. COMPARISON STUDY: Chest x-ray dated 01/09/2023. TECHNIQUE: Following the IV administration of 120 cc of Optiray 320, CT angiogram of the chest was performed from the upper abdomen to the thoracic inlet utilizing the pulmonary embolus protocol. Images are reviewed in the axial, sagittal, and coronal planes. 3-D MIPS images are created and assessed. IV contrast was administered without complication. A dose lowering technique was utilized adhering to the principles of ALARA. CT DOSE: 513.37 mGy.cm FINDINGS: Thyroid: The thyroid gland is markedly enlarged and heterogeneous, typical for goiter. This was better assessed by thyroid ultrasound on 01/06/2021. Thoracic aorta: There is mild aneurysmal dilatation of the ascending thoracic aorta. This measures up to 4.4 cm in diameter. The remainder of the thoracic aorta is normal in caliber, and the arch demonstrates standard 3-vessel anatomy. No dissection is seen. Pulmonary vasculature: The main pulmonary arteries are mildly dilated suggesting pulmonary artery hypertension. There are no filling defects identified in main, lobar, or segmental pulmonary branches to suggest pulmonary embolus. Heart: The heart is enlarged and without pericardial effusion. Lungs and pleural spaces: Evaluation of the lung parenchyma is degraded by motion artifact. There is dense left lower lobe airspace consolidation. A small left pleural effusion is observed. Trace pleural fluid is seen on the right. The left upper lobe is clear. Minimal tree-in-bud opacities are seen in the right upper and lower lobes. Minimal secretions are seen in the trachea. Mediastinum: There is no mediastinal lymphadenopathy. [place]: Mildly enlarged left hilar nodes measure up to 13 mm in short axis. These are likely reactive. No right hilar adenopathy is seen. Axillae: There is no axillary lymphadenopathy. Upper abdomen: Cholelithiasis is noted. A 2 mm nonobstructing calculus is seen in the upper pole of the right kidney. Skeletal structures: The skeletal structures are osteopenic. Degenerative change and kyphoscoliosis is noted thoracic spine. There is a large hemangioma in the body of L1. No lytic or blastic bony lesions are seen. Arthritic change is note in the shoulders. IMPRESSION: 1. There is no evidence of pulmonary embolus in the main, lobar, or segmental pulmonary arteries. 2. Dense airspace consolidation throughout the left lower lobe is typical for pneumonia/aspiration pneumonitis. Clinical correlation will be required and radiographic follow-up to resolution is recommended. 3. Minimal tree-in-bud opacities in the right upper and right lower lobes are also likely infectious/inflammatory. 4. Small left and trace right pleural effusions. 5. Cardiomegaly with evidence of pulmonary artery hypertension. 6. There is aneurysmal dilatation of the ascending thoracic aorta which measures up to 4.4 cm in diameter. 7. Cholelithiasis and right-sided nephrolithiasis. 8. Additional findings as above. ACT 112: Negative or not required by law. Electronically signed by: Nicanor Cleary M.D. 01/09/2023 8:17 PM ECG Additional Comments: EKG with ST at 103 bpm, let axis deviation, JT=568, QRS=92, CPx=687 LVH, ectopic beats PG Care Time/CCT Total # of Minutes Spent Total Time Spent with Patient: Total time spent is greater than 50% in coordination of care (as documented) at patient's floor/unit and/or counseling patient: Coding Level of Care Code 70383 INT INP/OBS CARE 2/55MIN Diagnoses Pneumonia J18.9 Goiter, nontoxic, 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 E04.2
[2023-01-09] MEDS ORDERED: ACETAMINOPHEN 325 MG TAB PO PRN (22:53)
[2023-01-09] MEDS ORDERED: POTASSIUM CHLORIDE CRTAB 20 MEQ TABCR PO STA (22:53)
[2023-01-09] MEDS ORDERED: cefTRIAXone SODIUM 1,000 MG in DEXTROSE 5% AD-VAN 50 ML IV SCH (23:00)
[2023-01-09] MEDS: buPROPion SR 100 MG TABCR PO SCH (23:28)
[2023-01-09] MEDS: DOXYCYCLINE HYCLATE 100 MG in DEXTROSE 5% 100 ML IV SCH (23:29)
[2023-01-10] MEDS ORDERED: PNEUMOCOCCAL POLYSACCHARIDES 25 MCG/0.5 ML VIAL/SYR IM ONE (02:17)
[2023-01-10 06:28] LABS: BUN Creatinine Ratio 14.5 (10-20); Calcium 8.7 mg/dl (8.6-10.3); Creatinine Clr Calc Pharmacy 102.6 ml/min; Est GFR (African American) 114.1 ml/min; Est GFR (Non-African American) 98.4 ml/min; Potassium 3.8 mmol/L (3.5-5.1)
[2023-01-10 06:32] LABS: Hematocrit (blood only) 35.8 % (37.0-47.0); Hemoglobin 12.6 g/dl (12.0-16.0); Mean Corpuscular Hemoglobin 30.6 pg (25.0-34.0); Mean Corpuscular Hgb Conc 35.2 g/dL (32.0-36.0); Mean Corpuscular Volume 86.9 fL (80.0-100.0); Mean Platelet Volume 8.9 fL (9.4-12.4); Platelet Count 265 K/uL (130-400); RDW Standard Deviation 41.1 fL (36.4-46.3); Red Blood Count 4.12 M/uL (4.20-5.40); White Blood Count 13.91 K/ul (4.8-10.8)
[2023-01-10 06:35] LABS: Troponin I High Sensitivity 13.3 pg/ml (0-14)
[2023-01-10] MEDS: buPROPion SR 100 MG TABCR PO SCH (08:05)
--- NOTE | 2023-01-10 08:32 | Hospitalist Progress Note ---
Date of Service January 10, 2023 Assessment & Plan (1) Pneumonia: Plan: -Acute, suspect bacterial pneumonia. -Consideration of new CHF given comment of cardiomegaly with PAH on CT -Follow cultures sent from ER -Check sputum culture -Check BNP -Ceftriaxone 1gm IV daily -Doxycycline 100mg IV BID -Guaifenesin 1200mg po BID -Tylenol as needed -Check 2D echo (2) Goiter, nontoxic, 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: Plan: -Chronic -Patient follows with Endocrinology Plan F/E/N - [place]. Electrolyte WNL. Regular diet. Ppx - Low risk for DVT Code - Full Dispo - Admit to medical Admission and Anticipated Discharge Date Admission Date: January 09, 2023 Results & Data Results & Data Vital Signs (Past 12 Hours) Vital Signs Temp Pulse Pulse Resp BP BP Pulse Ox 01/10/23 07:30 01/10/23 07:14 37.2 C 85 18 138/73 94 01/09/23 22:45 01/09/23 22:45 37.3 C 83 18 162/75 H 93 01/09/23 22:16 20 151/70 H 93 01/09/23 22:00 85 18 151/70 H 93 01/09/23 21:30 85 18 144/71 H 93 01/09/23 21:00 85 18 150/76 H 93 01/09/23 20:30 85 18 140/71 93 O2 Del Method 01/10/23 07:30 Room Air 01/10/23 07:14 Room Air 01/09/23 22:45 Room Air 01/09/23 22:45 Room Air 01/09/23 22:16 Room Air 01/09/23 22:00 Room Air 01/09/23 21:30 Room Air 01/09/23 21:00 Room Air 01/09/23 20:30 Room Air Laboratory Results Abnormal lab results 01/09/23 01/09/23 01/09/23 Range/Units 17:52 17:52 17:52 WBC 14.30 H (4.8-10.8) K/ul RBC (4.20-5.40) M/uL Hct (37.0-47.0) % MPV 8.6 L (9.4-12.4) fL Neut # (Auto) 12.08 H (1.40-6.50) K/uL [place] # (Auto) 0.70 H (0.11-0.59) K/uL D-Dimer 870 H* (0-500) ug/L FEU Sodium 131 L (136-145) mmol/L Potassium 3.4 L (3.5-5.1) mmol/L Creatinine 0.59 L (0.6-1.2) mg/dl Glucose 101 H (70-99(Fasting)) mg/dl B-Natriuretic Peptide (0-100) pg/ml 01/10/23 01/10/23 01/10/23 Range/Units 05:52 05:52 05:52 WBC 13.91 H (4.8-10.8) K/ul RBC 4.12 L (4.20-5.40) M/uL Hct 35.8 L (37.0-47.0) % MPV 8.9 L (9.4-12.4) fL Neut # (Auto) (1.40-6.50) K/uL [place] # (Auto) (0.11-0.59) K/uL D-Dimer (0-500) ug/L FEU Sodium 133 L (136-145) mmol/L Potassium (3.5-5.1) mmol/L Creatinine 0.55 L (0.6-1.2) mg/dl Glucose 111 H (70-99(Fasting)) mg/dl B-Natriuretic Peptide 276 H (0-100) pg/ml Diagnostic Findings Chest X-Ray 01/09/23 17:40 SINGLE VIEW CHEST CLINICAL HISTORY: Atypical chest pain. FINDINGS: An AP, portable, upright chest radiograph is obtained. No prior studies are available for comparison at the time of dictation. The examination is degraded by portable technique and patient rotation. The heart is enlarged noting atherosclerotic calcification of the thoracic aorta. The pulmonary vasculature is noncongested. There is a layering left pleural effusion with left basilar consolidation. The right lung appears clear noting dependent atelectasis. No pneumothorax is seen. The skeletal structures are osteopenic. The bony thorax is grossly intact. IMPRESSION: Layering left pleural effusion with left basilar consolidation. The appearance is typical for pneumonia/aspiration pneumonitis. Clinical correlation will be required and radiographic follow-up to resolution is recommended. ACT 112: Negative or not required by law. Electronically signed by: Nicanor Cleary M.D. 01/09/2023 6:46 PM Chest CTA 01/09/23 17:53 CT ANGIOGRAM OF THE CHEST CLINICAL HISTORY: Cough and dyspnea. COMPARISON STUDY: Chest x-ray dated 01/09/2023. TECHNIQUE: Following the IV administration of 120 cc of Optiray 320, CT angiogram of the chest was performed from the upper abdomen to the thoracic inlet utilizing the pulmonary embolus protocol. Images are reviewed in the axial, sagittal, and coronal planes. 3-D MIPS images are created and assessed. IV contrast was administered without complication. A dose lowering technique was utilized adhering to the principles of ALARA. CT DOSE: 513.37 mGy.cm FINDINGS: Thyroid: The thyroid gland is markedly enlarged and heterogeneous, typical for goiter. This was better assessed by thyroid ultrasound on 01/06/2021. Thoracic aorta: There is mild aneurysmal dilatation of the ascending thoracic aorta. This measures up to 4.4 cm in diameter. The remainder of the thoracic aorta is normal in caliber, and the arch demonstrates standard 3-vessel anatomy. No dissection is seen. Pulmonary vasculature: The main pulmonary arteries are mildly dilated suggesting pulmonary artery hypertension. There are no filling defects identified in main, lobar, or segmental pulmonary branches to suggest pulmonary embolus. Heart: The heart is enlarged and without pericardial effusion. Lungs and pleural spaces: Evaluation of the lung parenchyma is degraded by motion artifact. There is dense left lower lobe airspace consolidation. A small left pleural effusion is observed. Trace pleural fluid is seen on the right. The left upper lobe is clear. Minimal tree-in-bud opacities are seen in the right upper and lower lobes. Minimal secretions are seen in the trachea. Mediastinum: There is no mediastinal lymphadenopathy. Thania: Mildly enlarged left hilar nodes measure up to 13 mm in short axis. These are likely reactive. No right hilar adenopathy is seen. Axillae: There is no axillary lymphadenopathy. Upper abdomen: Cholelithiasis is noted. A 2 mm nonobstructing calculus is seen in the upper pole of the right kidney. Skeletal structures: The skeletal structures are osteopenic. Degenerative change and kyphoscoliosis is noted thoracic spine. There is a large hemangioma in the body of L1. No lytic or blastic bony lesions are seen. Arthritic change is note in the shoulders. IMPRESSION: 1. There is no evidence of pulmonary embolus in the main, lobar, or segmental pulmonary arteries. 2. Dense airspace consolidation throughout the left lower lobe is typical for pneumonia/aspiration pneumonitis. Clinical correlation will be required and radiographic follow-up to resolution is recommended. 3. Minimal tree-in-bud opacities in the right upper and right lower lobes are also likely infectious/inflammatory. 4. Small left and trace right pleural effusions. 5. Cardiomegaly with evidence of pulmonary artery hypertension. 6. There is aneurysmal dilatation of the ascending thoracic aorta which measures up to 4.4 cm in diameter. 7. Cholelithiasis and right-sided nephrolithiasis. 8. Additional findings as above. ACT 112: Negative or not required by law. Electronically signed by: Nicanor Cleary M.D. 01/09/2023 8:17 PM PG Care Time/CCT Total # of Minutes Spent Total Time Spent with Patient: Total time spent is greater than 50% in coordination of care (as documented) at patient's floor/unit and/or counseling patient: Coding Diagnoses Pneumonia J18.9 Goiter, nontoxic, 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 E04.2
[2023-01-10] MEDS ORDERED: guaiFENesin 600 MG TABCR PO SCH (09:00)
[2023-01-10] MEDS: DOXYCYCLINE HYCLATE 100 MG in DEXTROSE 5% 100 ML IV SCH (11:02)
--- NOTE | 2023-01-10 11:44 | XCELERA ---
[id number] [id number]
--- NOTE | 2023-01-10 12:31 | Discharge Summary ---
Date of Service January 10, 2023 Admission HPI Per Admitting Provider Noemy Martinez is a pleasant 67yo female with history of anxiety presenting with SOB and left sided pleuritic chest discomfort. Patient had a possible viral URI with sinusitis in September. She was treated with a course of Doxycycline. Since then she has had a persistent cough productive for clear, yellow mucus, intermittent fever/chills and body aches as well as a progressive decrease in exercise tolerance and stamina. Patient was seen in clinic 3 days ago and was told that her lungs sounded clear. This evening she developed some pleuritic chest pain under her left breast and shortness of breath. No additional complaints at this time. Patient markedly hypertensive on arrival with BP of 204/94. She was administered Nitro x 2 with improvement in BP ER Course: Nitro 0.4mg SL x 2 ASA 324mg NSS x 1L Tylenol x 1gm Admission Exam Per Admitting Provider General: patient resting comfortably, NAD, non-toxic in appearance, AA&O x 4 Skin: warm, dry, intact, no rashes or lesions HEENT: NC/AT, PERRL, EOMI, anicteric sclera, conjunctiva without injection, external ear normal to inspection and nontender, nares patent, moist mucus membranes, dentition intact, no oropharyngeal lesions, neck supple, trachea midline, no LAD, +firm, nodular goiter, nontender, no JVD Heart: +S1/S2, regular, no m/r/g Lungs: equal air entry bilaterally, crackles in bilateral bases with slightly diminished breath sounds in left base, no rhonchi or wheezing Abd: +BS, soft, NT/ND, no masses/organomegaly/ascites Ext: warm, 2+ pulses in UE/LE bilaterally, no clubbing/cyanosis or edema Neuro: nonfocal, patient AA&O x 4, speech intact, no facial droop, moving all extremities on command with equal strength 5/5 Principal Diagnosis community acquired pneumonia Discharge Exam Constitutional WD/WN, vitals as above Neck trachea midline, no thyromegaly Respiratory + cough and able to speak in complete sentences; no respiratory distress and no labored breathing few crackles left lower lobe cleared mostly with coughing Cardiovascular RRR, no murmur, no edema Extremities: normal capillary refill; no calf tenderness and no edema Gastrointestinal (Abdomen) normal bowel sounds, soft, nontender, no hepatosplenomegaly Skin no rashes, warm and dry Psychiatric A+Ox3, euthymic affect Discharge Data Allergies Allergy/AdvReac Type Severity Reaction Status Date / Time Penicillins Allergy Mild HIVES A Verified 01/09/23 19:09 CHILD Consultations 01/09/23 20:47 ED Decision to Admit Stat Ordered Studies 01/09/23 17:53 CT for pulmonary embolism PE [CT angio chest PE protocol] Stat Hospital Course (1) Pneumonia: -Acute, suspect bacterial pneumonia. -Consideration of new CHF given comment of cardiomegaly with PAH on CT BNP slightly elevated, D Dimer elevated but CTA chest with no evidence of PE -Sputum and blood cultures pending Treated with -Ceftriaxone 1gm IV daily -Doxycycline 100mg IV BID -Guaifenesin 1200mg po BID -Tylenol as needed -Educated patient on incentive spirometry usage Will discharge home on oral Doxycycline and Cefdinir -2D echo EF 60 -65% No RWMA Left ventricular function normal Follow up with PCP in 1-2 weeks and will need repeat imaging to check for resolution of Pneumonia and follow up on cultures Also to follow up on blood and sputum cultures and review elevated BNP and D Dimer with PCP Discussed a pneumovax while here and patient wished to follow up with PCP regarding this vaccination (2) Goiter, nontoxic, 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: -Chronic -Patient follows with Endocrinology Total Time Total Time Spent Total Time Spent (In Minutes): 40 Discharge Plan Discharge Items Patient Disposition: Home - Self-Care Reason For Visit: CHEST PAIN Discharge Diagnosis: CAP Condition on Discharge: Good Activity: Resume your previous activity Lifting: Gradually increase as tolerated Weightbearing: Full weightbearing Non-emergency contact: Primary Care Provider Call non-emergency contact if: you have any medication questions Follow-up/Referrals: Cliff aCrmen MD [Primary Care Provider] - Diet: Heart Healthy Ambulatory Orders: XR chest PA, lat, obliques (Routine) Timeframe: 2 Weeks Location: Determined by Patient Ordered By: China Weiss Attending Provider Instructions: You were admitted with complaints of chest pain. You were found to have suspected pneumonia and treated with 2 different IV antibiotics, mucinex and an incentive spirometer. You also had a CT of your chest revealing no evidence of a pulmonary embolism. You had a echo of your heart. You should follow up with your family doctor in 1-2 weeks and should also get a repeat CXR o make sure the pneumonia has resolved and also to review cultures and follow up on elevated BNP. You should continue to use the mucinex as needed, and the incentive spirometer 3 times every 4 hours for the next week. You will be discharged home on 2 different oral antibiotics. Doxycycline 100mg one 2x per day #18 pills (to start tonight) and Cefdinir 300mg one 2x per day (also to start tonight) to complete a 10 day total course. Also discussed a pneumovac vaccination and should discuss further with family doctor. Pending Studies at Discharge: Yes Studies:: blood and sputum cultures Stand-Alone Forms: My [facility] Medications and DC Order Prescriptions: New cefdinir 300 mg capsule 300 mg PO BID Qty: 18 0RF doxycycline hyclate 100 mg capsule 100 mg PO BID Qty: 18 0RF Continued bupropion HCl 100 mg tablet sustained-release 12 hr 100 mg PO BID Qty: 60 3RF Rx Instructions: second dose late afternoon omega-3 acid ethyl esters 1 gram capsule 1 cap PO QPM calcium citrate-vitamin D3 315-200 mg-unit tablet 1 tab PO QPM cyanocobalamin (vitamin B-12) 1,000 mcg Tablet, Sublingual 1,000 mcg SUBLINGUAL QPM cholecalciferol (vitamin D3) [Vitamin D3] 25 mcg (1,000 unit) Tablet 25 mcg PO QPM [id number] [[id number] (with antiox)] 500-500-66.7 mg Tablet 1 tab PO QPM Discharge Orders: Discharge Order (Routine); Ordered 01/10/23 Ordered By: China Wilson Admission Data Admit Date/Time: 01/09/23 21:07 Attending Provider: Travis Malik Admit Provider: Savannah Lind Primary Care Provider: Cliff Carmen Other Providers: Savannah Lind Coding Level of Care Code 76063 INP/OBS DISCH >30 MIN Diagnoses Pneumonia J18.9 Goiter, nontoxic, 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 E04.2 Time Spent (min) 37
--- NOTE | 2023-01-10 13:16 | Electrocardiogram Report ---
Test Reason : Blood Pressure : / mmHG Vent. Rate : 103 BPM Atrial Rate : 103 BPM P-R Int : 158 ms QRS Dur : 092 ms QT Int : 362 ms P-R-T Axes : 036 -42 053 degrees QTc Int : 474 ms Sinus tachycardia with frequent , and consecutive Premature ventricular complexes Possible Left atrial enlargement Left axis deviation Left ventricular hypertrophy ( R in aVL ) Poor R wave progression, consider anterior [place] vs. lead placement vs. LVH Nonspecific ST abnormality Abnormal ECG No previous ECGs available Confirmed by Cliff Howard ([id number]) on 01/10/2023 1:16:42 PM Referred By: REFERRED SELF Confirmed By:Cliff Howard
== END 2023-01-10 14:01 | disposition home or self-care (01) | DRG 194 ==
LOC: ED 17:36 → SUATTDRO 21:07 → 3E 21:07 → INTOOBSV 21:07 → 3E 22:16

== ENCOUNTER 2023-07-28 08:29 | Inpatient (IN) ==
[2023-07-28] MEDS ORDERED: ALBUT/IPRATROP 3MG/0.5MG NEB 3 ML VIAL INH STA (08:35)
[2023-07-28] MEDS ORDERED: SODIUM CHLORIDE 0.9% 1,000 ML IV ONE (08:40)
--- NOTE | 2023-07-28 08:40 | Emergency Department Note ---
Impression & Plan Hypoxia ADMIT ED Provider Note HPI: History obtained from patient. The patient is a 68-year-old female with history of adenocarcinoma of the lung, on 3 L nasal cannula oxygen at home, currently on chemotherapy through [facility], presents emergency department with chief complaint of chest pain and shortness of breath. Patient arrives via EMS, she was noted to be in respiratory distress in the field with saturations at 87% despite being on nasal cannula oxygen and therefore was placed on CPAP, given 2 DuoNeb breathing treatments via EMS, also given IV steroids prior to arrival. Patient did improve on CPAP and on arrival here to the ED patient is saturating at 98%. Patient states that her chest pain is "better" on arrival here to the ED. Patient states that she has had some upper respiratory symptoms over the past several days including cough, congestion, and low-grade fever. ROS: - Per HPI Differential Diagnosis: Acute bacterial pneumonia/sepsis, pulmonary embolism, metastatic disease, pleural effusion, viral upper respiratory infection with hypoxia (to include influenza A, COVID-19, amongst other pathologies), acute coronary syndrome, amongst other potential pathologies. *Outpatient medications and allergy history reviewed. PE: General: Alert HEENT: Normocephalic, trachea midline Eyes: Extraocular eye movement is intact, no scleral erythema Pulmonary: Coarse bilateral breath sounds diminished at the left lung base, tachypnea GI: Abdomen is soft to palpation : No suprapubic tenderness MSK: No evidence of trauma or malformation of the extremities, no edema Skin: No evidence of rash Neuro: Alert, no focal deficits Psychiatric: Cooperative INDEPENDENT INTERPRETATIONS: monitor and storage bin tender: (As interpreted by myself): - An order was placed for continuous cardiac monitoring - Patient was noted to be in sinus tachycardia with a rate of 133 EKG: (As interpreted by myself): Rate: 134 Rhythm: Sinus tachycardia Intervals: Within normal limits ST changes: No ST elevation Time: 0837 Chest x-ray: (As interpreted by myself): Left lower lobe consolidation similar to previous Interventions provided in ED: -BiPAP, DuoNeb breathing treatment, IV doxycycline, IV cefepime Medical Decision Making: Shortly after the patient arrived, patient was placed on BiPAP, panel monitor, given additional DuoNeb breathing treatment. Patient was given several nebulizers in the field as well as IV steroids. Lab work obtained shows venous blood gas with near normal pH is 7.34, pCO2 is normal at 50, pO2 of 80. CMP shows hyponatremia 130, chloride 97, no evidence of acute kidney injury, troponin is mildly elevated at 28.4. EKG per my interpretation shows sinus tachycardia with a rate of 134, no evidence of acute ischemic changes are noted. CT angiography of the chest was obtained that shows no evidence of pulmonary embolism but does show worsening burden of adenocarcinoma mostly in the left lower lung. Patient's viral panel testing returned positive for COVID-19 infection. Lactic acid is within normal limits, CBC is pending, procalcitonin is elevated. Patient was given IV cefepime and IV doxycycline here in the ED for possibility of pulmonary infection. Patient was given IV fluids here in the ED at 1 L and none further secondary to hemodynamic stability. I suspect that her respiratory failure is a combination of progressive cancer burden and COVID- 19 infection as opposed to sepsis or bacterial pneumonia. On my reassessment the patient's tachycardia has improved, her tachypnea has improved, she is currently stable saturating at 96% on BiPAP. I discussed the above findings with the patient and her at the bedside and they are in agreement for admission. Case was discussed with the on-call hospitalist, Dr. Torres, and the patient was placed for admission in improved condition for further care. Consultants/Discussions held with other healthcare providers: -Hospitalist, Dr. Torres Disposition discussion held by myself with: -Patient and at bedside * CRITICAL CARE TIME: ( 55 ) minutes -Stabilization of hypoxia despite supplemental oxygen requiring positive pressure ventilation for improvement, time spent at the bedside, interpretation of diagnostic studies, discussion with other healthcare providers and arrangement of admission Diagnosis: 1. Hypoxia, acute 2. COVID-19 infection, acute 3. Adenocarcinoma of the lung 4. Hyponatremia, acute 5. Fever Disposition: Admission Fritz Mead DO Emergency Medicine Past Med/Surg History Medical History Mumps Measles Fever Chest pain Tubular adenoma Osteoarthritis History of basal cell carcinoma Tinnitus of both ears Anxiety and depression Cardiac murmur Goiter, nontoxic, 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 Hyperglycemia Hyperlipidemia Vitamin D deficiency Surgical History Port-A-Cath in place (04/28/23) H/O colonoscopy History of surgical removal of ganglion cyst History of wisdom tooth extraction Hx of section History of carpal tunnel release History of tonsillectomy and adenoidectomy History of mandibular surgery Hx of tooth extraction Hx of needle biopsy History of Mohs surgery for squamous cell carcinoma in situ of skin Family History Father Colon cancer Prostate cancer Myocardial infarction Heart disease Mother Hypertension Cancer Uncle Diabetes Aunt Breast cancer Other No family history of adverse response to anesthesia Denies family history of Ovarian cancer Social History Smoking Status: Never smoker Second Hand Exposure: No; Do You Dip or Chew Tobacco: No; Tobacco Cessation Education Requested by Patient: No Hx Alcohol Use: Yes Alcohol type: wine Alcohol Intake Frequency: Monthly or Less Hx Substance Use: No Preferred Language: Ukrainian Communication Ability: Effective Visual Impairment: No Limitations Hearing Ability: Normal Turner In Required: No Beliefs That Will Affect Care: None marital status: Current Living Situation: Spouse current occupational status: retired How many Children do You have: 2 Other Information That Helps Us Care for You: No Feels Safe at Home: Yes Safety Concerns: Feels Safe At This Time Childhood Exposure to Second-Hand Smoke: Yes during the past year weight has: decreased > 10 lbs Dental Care, Regularly: Yes Physical Activity Frequency: Does not Exercise Seatbelt Use: always Sunscreen Use: Yes Assistive Devices: Glasses and Oxygen - Continuous Allergies Allergies Allergy/AdvReac Type Severity Reaction Status Date / Time azithromycin Allergy Intermediate Difficulty Verified 07/28/23 09:52 Breathing Penicillins Allergy Mild HIVES A Verified 07/22/23 15:39 CHILD Home Meds Home Medications Medication Instructions Recorded Confirmed omega-3 acid ethyl esters 1 gram 1 cap PO QAM 02/04/20 07/22/23 capsule cholecalciferol (vitamin D3) 25 25 mcg PO QAM 11/20/20 07/22/23 mcg (1,000 unit) tablet (Vitamin D3) cyanocobalamin (vitamin B-12) 1,000 mcg sublingual QAM 11/20/20 07/22/23 1,000 mcg sublingual tablet sodium chloride, sodium See Rx Instructions .Route 04/27/23 07/28/23 bicarb-nasal rinse squeeze bottle .COMPLEX PRN congestion with packet (Neilmed Sinus Rinse Complete with packet) ipratropium 0.5 mg-albuterol 3 mg 3 ml inhalation Q6 PRN as directed 06/28/23 07/28/23 (2.5 mg base)/3 mL nebulization soln ondansetron HCl 8 mg tablet 8 mg PO DIRECTED 07/28/23 07/28/23 prednisone 10 mg tablet 10 mg PO DIRECTED 07/28/23 07/28/23 prochlorperazine maleate 10 mg 10 mg PO Q6H PRN Nausea And 07/28/23 07/28/23 tablet Vomiting Previous Rx's Medication Instructions Recorded olmesartan 40 mg tablet 40 mg PO DAILY #90 tabs 02/24/23 albuterol sulfate 90 mcg/actuation 2 inh inhalation Q6H PRN shortness 04/29/23 aerosol inhaler of breath or wheezing #6.7 grams folic acid 1 mg tablet 1 mg PO QAM #30 tabs 04/29/23 oxycodone 10 mg tablet,crush 10 mg PO BID #60 tabs 04/29/23 resistant,extended release 12 hr (OxyContin) oxycodone 5 mg tablet 5 - 10 mg (1 - 2 x 5 mg) PO Q6H 04/29/23 PRN moderate to severe pain #30 tabs polyethylene glycol 3350 17 17 g PO BID constipation #238 grams 04/29/23 gram/dose oral powder (Miralax) sennosides 8.6 mg-docusate sodium 1 tab-cap PO DAILY #30 tabs 04/29/23 50 mg tablet (Colace 2-In-1) bupropion HCl 100 mg tablet,12 hr 100 mg PO BID #60 ea 06/27/23 sustained-release Results & Data (ED) Vital Signs Vital Signs - 24 hr 07/28/23 08:30 07/28/23 08:38 07/28/23 08:38 Temperature 38.7 C H Temperature Source Axillary Pulse Rate 133 H Pulse Rate [Apical] 134 H Pulse Rate from SpO2 Sensor Pulse Strength Normal Respiratory Rate 34 H 38 H Respiratory Effort / Characteristics Non-Labored Non-Labored Respiratory Depth Normal Normal Respiratory Pattern Blood Pressure 175/123 H Blood Pressure [Right Arm] Blood Pressure Mean 140 Blood Pressure Mean [Right Arm] Pulse Oximetry 96 94 Oxygen Delivery Method BiPAP BiPAP BiPAP Fraction of Inspired Oxygen Sepsis Recent Fever Within 48 Hours No Sepsis New/Unexplained Change in Mental Status No Sepsis Action Taken by Nursing Physician Notified 07/28/23 08:38 07/28/23 08:46 07/28/23 08:46 Temperature Temperature Source Pulse Rate 137 H Pulse Rate [Apical] 137 H Pulse Rate from SpO2 Sensor Pulse Strength Respiratory Rate 30 H 30 H Respiratory Effort / Characteristics Spontaneous Accessory Muscle Use Labored Short of Breath Spontaneous Accessory Muscle Use Labored Short of Breath Respiratory Depth Normal Respiratory Pattern Tachypnea Blood Pressure Blood Pressure [Right Arm] Blood Pressure Mean Blood Pressure Mean [Right Arm] Pulse Oximetry 94 95 95 Oxygen Delivery Method BiPAP BiPAP Fraction of Inspired Oxygen 50 50 Sepsis Recent Fever Within 48 Hours Sepsis New/Unexplained Change in Mental Status Sepsis Action Taken by Nursing 07/28/23 08:48 07/28/23 08:50 07/28/23 08:50 Temperature Temperature Source Pulse Rate 142 H 138 H Pulse Rate [Apical] Pulse Rate from SpO2 Sensor 136 H 138 H Pulse Strength Respiratory Rate 33 H 34 H Respiratory Effort / Characteristics Respiratory Depth Respiratory Pattern Blood Pressure 168/114 H Blood Pressure [Right Arm] Blood Pressure Mean 132 Blood Pressure Mean [Right Arm] Pulse Oximetry 97 97 Oxygen Delivery Method BiPAP BiPAP Fraction of Inspired Oxygen Sepsis Recent Fever Within 48 Hours Sepsis New/Unexplained Change in Mental Status Sepsis Action Taken by Nursing 07/28/23 08:52 07/28/23 09:00 07/28/23 09:00 Temperature Temperature Source Pulse Rate 136 H 138 H Pulse Rate [Apical] Pulse Rate from SpO2 Sensor 137 H Pulse Strength Respiratory Rate 35 H Respiratory Effort / Characteristics Respiratory Depth Respiratory Pattern Blood Pressure 162/106 H Blood Pressure [Right Arm] Blood Pressure Mean 119 Blood Pressure Mean [Right Arm] Pulse Oximetry 97 Oxygen Delivery Method BiPAP Fraction of Inspired Oxygen Sepsis Recent Fever Within 48 Hours Sepsis New/Unexplained Change in Mental Status Sepsis Action Taken by Nursing 07/28/23 09:15 07/28/23 09:30 07/28/23 09:30 Temperature Temperature Source Pulse Rate 139 H 133 H Pulse Rate [Apical] Pulse Rate from SpO2 Sensor 132 H 134 H Pulse Strength Respiratory Rate 29 H 32 H Respiratory Effort / Characteristics Respiratory Depth Respiratory Pattern Blood Pressure 160/91 H Blood Pressure [Right Arm] Blood Pressure Mean 120 Blood Pressure Mean [Right Arm] Pulse Oximetry 95 93 Oxygen Delivery Method BiPAP Fraction of Inspired Oxygen Sepsis Recent Fever Within 48 Hours Sepsis New/Unexplained Change in Mental Status Sepsis Action Taken by Nursing 07/28/23 10:26 07/28/23 10:31 Temperature 38.0 C H 38.0 C H Temperature Source Axillary Axillary Pulse Rate Pulse Rate [Apical] 125 H 125 H Pulse Rate from SpO2 Sensor Pulse Strength Respiratory Rate 28 H 28 H Respiratory Effort / Characteristics Non-Labored Non-Labored Respiratory Depth Normal Normal Respiratory Pattern Blood Pressure Blood Pressure [Right Arm] 132/81 150/94 H Blood Pressure Mean Blood Pressure Mean [Right Arm] 98 112 Pulse Oximetry 97 97 Oxygen Delivery Method BiPAP BiPAP Fraction of Inspired Oxygen Sepsis Recent Fever Within 48 Hours Sepsis New/Unexplained Change in Mental Status Sepsis Action Taken by Nursing Laboratory Data 07/28/23 09:05 07/28/23 09:05 Lab Results 07/28/23 07/28/23 07/28/23 Range/Units 08:40 09:05 09:08 POC Hgb 10.2 L (12.0-16.0) g/dl POC Hct 30 L (37-47) % PT 12.3 H (9.0-12.0) Seconds INR 1.1 (0.9-1.1) APTT 29 (21-31) Seconds PTT Ratio 1.0 VBG pH 7.34 L (7.36-7.41) VBG pCO2 50 (38-50) mmHg VBG pO2 80 mmHg VBG HCO3 27 mmol/L VBG O2 Saturation 96.5 % VBG Base Excess 0.7 mEq/L POC Sodium 130 L (135-144) mmol/L Sodium 130 L (136-145) mmol/L POC Potassium 4.4 (3.3-5.0) mmol/L Potassium 4.4 (3.5-5.1) mmol/L POC Chloride 96 L (101-112) mmol/L Chloride 97 L (98-107) mmol/L Carbon Dioxide 25 (21-32) mmol/L POC Total CO2 23 L (24-31) mmol/L Anion Gap 8 (3-11) POC Anion Gap 16.0 (16-25) mmol/L POC BUN 11 (7-18) mg/dl BUN 13 (6-23) mg/dl Creatinine 0.40 L (0.6-1.2) mg/dl POC Creatinine 0.3 L (0.6-1.3) mg/dl Est Cr Clr Drug Dosing 140.4 ml/min Est GFR ( Amer) 125.8 ml/min Est GFR (Non-Af Amer) 108.5 ml/min BUN/Creatinine Ratio 32.5 H (10-20) Glucose 101 H (70-99(Fasting)) mg/dl POC Glucose (other) 104 H (70-99) mg/dl Lactate 0.9 (0.4-2.0) mmol/L Calcium 8.6 (8.6-10.3) mg/dl POC Ioniz Calcium Muriel 1.07 L (1.12-1.32) mmol/l Total Bilirubin 1.3 H (0.2-1.0) mg/dl AST 15 (13-39) U/L ALT 19 (7-52) U/L Alkaline Phosphatase 68 (34-104) U/L Troponin I High Sens 28.4 H (0-14) pg/ml B-Natriuretic Peptide 98 (0-100) pg/ml Total Protein 6.6 (6.0-8.3) gm/dl Albumin 3.4 (3.4-5.0) gm/dl Globulin 3.2 (2.5-4.0) gm/dl Albumin/Globulin Ratio 1.1 (0.9-2) Procalcitonin 1.00 H (0-0.5) ng/ml Urine Color Urine Appearance (Clear) Urine pH (4.5-7.5) Ur Specific [place] (1.000-1.030) Urine Protein (Negative) Urine Glucose (UA) (Negative) Urine Ketones (Negative) Urine Blood (Negative) Urine Nitrite (Negative) Urine Bilirubin (Negative) Urine Urobilinogen (Negative) Ur Leukocyte Esterase (Negative) Urine WBC (Auto) (0-5) /hpf Urine RBC (Auto) (0-4) /hpf U Hyaline Cast (Auto) (0-5) /lpf U Epithel Cells (Auto) (0-5) /lpf Urine Bacteria (Auto) (Negative) Adenovirus (PCR) Not Detected (NotDetected) B. pertussis DNA (PCR) Not Detected (NotDetected) B.parapertussis DNA PCR Not Detected (NotDetected) C. pneumoniae DNA (PCR) Not Detected (NotDetected) Coronavirus OC43 (PCR) Not Detected (NotDetected) Coronavirus HKU1 (PCR) Not Detected (NotDetected) Coronavirus 229E (PCR) Not Detected (NotDetected) SARS-CoV-2 (PCR) DETECTED A* (NotDetected) Coronavirus NL63 (PCR) Not Detected (NotDetected) Human Metapneumovir PCR Not Detected (NotDetected) Influenza Type A (PCR) Not Detected (NotDetected) Influenza Type B (PCR) Not Detected (NotDetected) M. pneumoniae (PCR) Not Detected (NotDetected) Parainfluenza 1 (PCR) Not Detected (NotDetected) Parainfluenza 2 (PCR) Not Detected (NotDetected) Parainfluenza 3 (PCR) Not Detected (NotDetected) Parainfluenza 4 (PCR) Not Detected (NotDetected) RSV (PCR) Not Detected (NotDetected) Entero/Rhino (PCR) Not Detected (NotDetected) 07/28/23 Range/Units 09:14 POC Hgb (12.0-16.0) g/dl POC Hct (37-47) % PT (9.0-12.0) Seconds INR (0.9-1.1) APTT (21-31) Seconds PTT Ratio VBG pH (7.36-7.41) VBG pCO2 (38-50) mmHg VBG pO2 mmHg VBG HCO3 mmol/L VBG O2 Saturation % VBG Base Excess mEq/L POC Sodium (135-144) mmol/L Sodium (136-145) mmol/L POC Potassium (3.3-5.0) mmol/L Potassium (3.5-5.1) mmol/L POC Chloride (101-112) mmol/L Chloride (98-107) mmol/L Carbon Dioxide (21-32) mmol/L POC Total CO2 (24-31) mmol/L Anion Gap (3-11) POC Anion Gap (16-25) mmol/L POC BUN (7-18) mg/dl BUN (6-23) mg/dl Creatinine (0.6-1.2) mg/dl POC Creatinine (0.6-1.3) mg/dl Est Cr Clr Drug Dosing ml/min Est GFR ( Amer) ml/min Est GFR (Non-Af Amer) ml/min BUN/Creatinine Ratio (10-20) Glucose (70-99(Fasting)) mg/dl POC Glucose (other) (70-99) mg/dl Lactate (0.4-2.0) mmol/L Calcium (8.6-10.3) mg/dl POC Ioniz Calcium Muriel (1.12-1.32) mmol/l Total Bilirubin (0.2-1.0) mg/dl AST (13-39) U/L ALT (7-52) U/L Alkaline Phosphatase (34-104) U/L Troponin I High Sens (0-14) pg/ml B-Natriuretic Peptide (0-100) pg/ml Total Protein (6.0-8.3) gm/dl Albumin (3.4-5.0) gm/dl Globulin (2.5-4.0) gm/dl Albumin/Globulin Ratio (0.9-2) Procalcitonin (0-0.5) ng/ml Urine Color Yellow Urine Appearance Clear (Clear) Urine pH 7.0 (4.5-7.5) Ur Specific [place] 1.015 (1.000-1.030) Urine Protein 1+ H (Negative) Urine Glucose (UA) Negative (Negative) Urine Ketones Trace H (Negative) Urine Blood Negative (Negative) Urine Nitrite Negative (Negative) Urine Bilirubin Negative (Negative) Urine Urobilinogen Negative (Negative) Ur Leukocyte Esterase Negative (Negative) Urine WBC (Auto) 1-5 (0-5) /hpf Urine RBC (Auto) 0-4 (0-4) /hpf U Hyaline Cast (Auto) 1-5 (0-5) /lpf U Epithel Cells (Auto) 10-20 H (0-5) /lpf Urine Bacteria (Auto) Negative (Negative) Adenovirus (PCR) (NotDetected) B. pertussis DNA (PCR) (NotDetected) B.parapertussis DNA PCR (NotDetected) C. pneumoniae DNA (PCR) (NotDetected) Coronavirus OC43 (PCR) (NotDetected) Coronavirus HKU1 (PCR) (NotDetected) Coronavirus 229E (PCR) (NotDetected) SARS-CoV-2 (PCR) (NotDetected) Coronavirus NL63 (PCR) (NotDetected) Human Metapneumovir PCR (NotDetected) Influenza Type A (PCR) (NotDetected) Influenza Type B (PCR) (NotDetected) M. pneumoniae (PCR) (NotDetected) Parainfluenza 1 (PCR) (NotDetected) Parainfluenza 2 (PCR) (NotDetected) Parainfluenza 3 (PCR) (NotDetected) Parainfluenza 4 (PCR) (NotDetected) RSV (PCR) (NotDetected) Entero/Rhino (PCR) (NotDetected) Administered Medications Discontinued Medications Albuterol (Albut/Ipratrop 3mg/0.5mg Neb 3 Ml Vial) 3 ml INH NOW STA Stop: 07/28/23 08:36 Last Admin: 07/28/23 08:46 Dose: 3 ml Documented By: JUAN CARLOS Sodium Chloride (Nss) 1,000 mls @ 999 mls/hr IV .Q1H1M ONE Stop: 07/28/23 09:40 Last Infusion: 07/28/23 09:42 Dose: Infused Documented By: Admin: 07/28/23 08:48 Dose: 999 mls/hr Documented By: KATHI Acetaminophen (Ofirmev) 1,000 mg in 100 mls @ 400 mls/hr IV NOW STA Stop: 07/28/23 09:13 Last Infusion: 07/28/23 09:42 Dose: Infused Documented By: Admin: 07/28/23 09:30 Dose: 400 mls/hr Documented By: ELSI Cefepime HCl (Maxipime) 2,000 mg in 20 mls @ 5 mls/min IV NOW STA; Protocol Stop: 07/28/23 09:19 Last Admin: 07/28/23 09:42 Dose: 5 mls/min Documented By: KATHI Azithromycin 500 mg/ Dextrose 255 mls @ 127.5 mls/hr IV NOW STA Stop: 07/28/23 11:15 Last Admin: 07/28/23 09:53 Dose: Not Given Documented By: KATHI Ioversol (Optiray 320 125ml) 78 ml IV ONCE ONE Stop: 07/28/23 09:28 Last Admin: 07/28/23 09:28 Dose: 78 ml Documented By: NELLY Imaging Data Radiologist's Impression: Chest CTA 07/28/23 08:35 CT angio chest PE protocol HISTORY: 68 years-old Female with Dyspnea. Acute shortness of breath TECHNIQUE: Multiple CTA images of the chest were obtained after the intravenous administration of 78 ml Optiray. Coronal and sagittal MIPS were obtained from the axial data set and were submitted for review. All measurements were obtained according to NASCET criteria. A dose lowering technique was utilized adhering to the principles of ALARA. COMPARISON: Chest radiograph 07/28/2023, CTA chest 06/28/2023, 04/27/2023 FINDINGS: CTA: Mild/moderate cardiomegaly. No pericardial effusion. Unremarkable thoracic aorta. No pulmonary emboli identified. Left subclavian Tfquav-n-Wfst catheter distal tip terminates within the SVC. No pulmonary emboli identified. CT CHEST: Unchanged appearance of the thyroid order. 11 mm precarinal lymph node with borderline enlarged subcarinal lymph nodes, generally stable. Borderline- enlarged hilar lymph nodes. Trace right and small left pleural effusions. There is no pneumothorax. Intralobular septal thickening with extensive centrilobular nodular densities, intermixed ground glass opacities with dense consolidation. Cavitation/cystic change again noted within the left greater than right lung in a lower lobe predominant distribution. These findings have progressively worsened from 06/28/2023. No acute upper abdominal abnormality. Unremarkable soft tissues. No acute fracture or destructive bone lesion. IMPRESSION: 1. No pulmonary emboli identified. 2. Extensive left greater than right consolidation with bibasilar predominant cavitation again noted which continues to progress. As previously stated, these findings likely represent multifocal adenocarcinoma. A superimposed pneumonia would be difficult to exclude. 3. Unchanged mild mediastinal and hilar lymphadenopathy. 4. Trace right and small left pleural effusions. ACT 112: Negative or not required by law. The above report was generated using voice recognition software. It may contain grammatical, syntax or spelling errors. Electronically signed by: Huber Menjivar M.D. 07/28/2023 10:00 AM Chest X-Ray 07/28/23 08:35 SINGLE VIEW CHEST CLINICAL HISTORY: Dyspnea. FINDINGS: An AP, portable, upright chest radiograph is compared to study dated 06/27/2023 and correlated with chest CT dated 06/28/2023. A left subclavian central venous port is unchanged in position. The heart is enlarged noting atherosclerotic calcification of the thoracic aorta. Emphysema and chronic interstitial thickening is similar to previous. Extensive confluent airspace consolidation throughout the left mid to lower lung is similar to previous. Airspace consolidation in the right mid to lower lung is unchanged to modestly increased from previous. There is a left pleural effusion. There is no pneumothorax. The skeletal structures are osteopenic. The bony thorax appears intact. IMPRESSION: 1. Cardiomegaly and emphysema. 2. Dense airspace consolidation in left mid to lower lung is similar to prior examinations. Airspace consolidation in the right mid to lower lung is unchanged modest increased from 06/27/2023. Some of this corresponds to known multifocal lung cancer. A superimposed pneumonia would be impossible to exclude by imaging. Clinical correlation will be required. 3. Small left pleural effusion. ACT 112: Negative or not required by law. Electronically signed by: Nicanor Cleary M.D. 07/28/2023 9:09 AM Discharge Plan Visit Data Chief Complaint: Respiratory Distress ED Provider: Fritz Mead Discharge Problem: Hypoxia Forms Stand Alone Forms: [facility] [employer] Prescriptions Prescriptions: No Action olmesartan 40 mg tablet 40 mg PO DAILY Qty: 90 1RF Hold Instructions: hypotension bupropion HCl 100 mg tablet sustained-release 12 hr 100 mg PO BID Qty: 60 3RF Rx Instructions: second dose late afternoon omega-3 acid ethyl esters 1 gram capsule 1 cap PO QAM cyanocobalamin (vitamin B-12) 1,000 mcg Tablet, Sublingual 1,000 mcg SUBLINGUAL QAM cholecalciferol (vitamin D3) [Vitamin D3] 25 mcg (1,000 unit) Tablet 25 mcg PO QAM Neilmed Sinus Rinse Complete Packet With Rinse Device See Rx Instructions .Route .COMPLEX PRN (Reason: congestion) Rx Instructions: use daily; oxycodone 5 mg Tablet 5 - 10 mg PO Q6H PRN (Reason: moderate to severe pain) Qty: 30 0RF Rx Instructions: 1 tablet for moderate pain 2 tablets for severe pain folic acid 1 mg Tablet 1 mg PO QAM Qty: 30 0RF oxycodone [OxyContin] 10 mg tablet,oral only,ext.rel.12 hr 10 mg PO BID Qty: 60 0RF albuterol sulfate 90 mcg/actuation HFA aerosol inhaler 2 inh inhalation Q6H PRN (Reason: shortness of breath or wheezing) Qty: 6.7 0RF sennosides-docusate sodium [Colace 2-In-1] 8.6-50 mg tablet 1 tab-cap PO DAILY Qty: 30 0RF polyethylene glycol 3350 [Miralax] 17 gram/dose powder 17 g PO BID Qty: 238 0RF ipratropium-albuterol 0.5 mg-3 mg(2.5 mg base)/3 mL solution for nebulization 3 ml inhalation Q6 PRN (Reason: as directed) prednisone 10 mg tablet 10 mg PO DIRECTED ondansetron HCl 8 mg tablet 8 mg PO DIRECTED prochlorperazine maleate 10 mg tablet 10 mg PO Q6H PRN (Reason: Nausea And Vomiting) Referrals Referrals: ,Cliff Elias MD [Primary Care Provider] -
[2023-07-28] MEDS ORDERED: ACETAMINOPHEN 1,000 MG/100 ML VIAL IV STA (08:59)
--- NOTE | 2023-07-28 09:11 | XRay Report ---
SINGLE VIEW CHEST CLINICAL HISTORY: Dyspnea. FINDINGS: An AP, portable, upright chest radiograph is compared to study dated 06/27/2023 and correlat ed with chest CT dated 06/28/2023. A left subclavian central venous port is unchanged in position. The heart is enlarged noting atherosclerotic calcification of the thoracic aorta. Emphysema and chronic interstitial thickening is similar to previous. Extensive confluent airspace consolidation throughout the left mid to lower lung is similar to previous. Airspace consolidation in the right mid to lower lung is unchanged to modestly increased from previous. There is a left pleural effusion. There is no pneumothorax. The skeletal structures are osteopenic. The bony thorax appears intact. IMPRESSION: 1. Cardiomegaly and emphysema. 2. Dense airspace consolidation in left mid to lower lung is similar to prior examinations. Airspace consolidation in the right mid to lower lung is unchanged modest increased from 06/27/2023. Some of th is corresponds to known multifocal lung cancer. A superimposed pneumonia would be impossible to exclu de by imaging. Clinical correlation will be required. 3. Small left pleural effusion. ACT 112: Negative or not required by law. Electronically signed by: Nicanor Cleary M.D. 07/28/2023 9:09 AM
[2023-07-28 09:13] LABS: Base Excess VBG 0.7 mEq/L; HCO3 VBG 27 mmol/L; Oxygen Saturation VBG 96.5 %; PCO2 VBG 50 mmHg (38-50); PO2 VBG 80 mmHg; pH VBG 7.34 (7.36-7.41)
[2023-07-28] MEDS ORDERED: CEFEPIME 2,000 MG/20 ML VIAL IV STA (09:16)
[2023-07-28] MEDS ORDERED: AZITHROMYCIN 500 MG in DEXTROSE 5% 250 ML IV STA (09:16)
[2023-07-28 09:27] LABS: iSTAT Creatinine 0.3 mg/dl (0.6-1.3); iSTAT Hemoglobin 10.2 g/dl (12.0-16.0); iSTAT Ionized Calcium 1.07 mmol/l (1.12-1.32); iSTAT Potassium 4.4 mmol/L (3.3-5.0)
[2023-07-28] MEDS ORDERED: OPTIRAY 320 125ml IV ONE (09:27)
[2023-07-28 09:34] LABS: Albumin Globulin Ratio 1.1 (0.9-2); Albumin Level 3.4 gm/dl (3.4-5.0); BUN Creatinine Ratio 32.5 (10-20); Bilirubin,Total 1.3 mg/dl (0.2-1.0); Calcium 8.6 mg/dl (8.6-10.3); Creatinine Clr Calc Pharmacy 140.4 ml/min; Est GFR (African American) 125.8 ml/min; Est GFR (Non-African American) 108.5 ml/min; Globulin 3.2 gm/dl (2.5-4.0); Potassium 4.4 mmol/L (3.5-5.1); Total Protein 6.6 gm/dl (6.0-8.3)
[2023-07-28 09:40] LABS: Troponin I High Sensitivity 28.4 pg/ml (0-14)
[2023-07-28 09:47] LABS: INR 1.1 (0.9-1.1); Partial Thromboplastin Time 29 Seconds (21-31); Prothrombin Time 12.3 Seconds (9.0-12.0)
[2023-07-28 09:48] LABS: Adenovirus PCR Not Detected (NotDetected); Bordetella parapertussis PCR Not Detected (NotDetected); Bordetella pertussis PCR Not Detected (NotDetected); Chlamydia pneumoniae PCR Not Detected (NotDetected); Coronavirus 229E PCR Not Detected (NotDetected); Coronavirus HKU1 PCR Not Detected (NotDetected); Coronavirus NL63 PCR Not Detected (NotDetected); Coronavirus OC43PCR Not Detected (NotDetected); Human Metapneumovirus PCR Not Detected (NotDetected); Influenza A PCR Not Detected (NotDetected); Influenza B PCR Not Detected (NotDetected); Mycoplasma pneumoniae PCR Not Detected (NotDetected); Parainfluenza Virus 1 PCR Not Detected (NotDetected); Parainfluenza Virus 2 PCR Not Detected (NotDetected); Parainfluenza Virus 3 PCR Not Detected (NotDetected); Parainfluenza Virus 4 PCR Not Detected (NotDetected); Respiratory Syncytial VirusPCR Not Detected (NotDetected); Rhinovirus/Enterovirus PCR Not Detected (NotDetected)
[2023-07-28 09:50] LABS: Appearance Urine Clear (Clear); Bacteria Urine Automated Negative (Negative); Bilirubin Urine Negative (Negative); Blood Urine Negative (Negative); Color Urine Yellow; Glucose Urine UA Negative (Negative); Ketones Urine Trace (Negative); Leukocyte Esterase Urine Negative (Negative); Nitrite Urine Negative (Negative); Protein Urine 1+ (Negative); RBC Urine Automated 0-4 /hpf (0-4); Specific Gravity Urine 1.015 (1.000-1.030); Urobilinogen Urine Negative (Negative)
[2023-07-28] MEDS ORDERED: DOXYCYCLINE HYCLATE 100 MG in DEXTROSE 5% MINI-B 100 ML IV STA (09:51)
[2023-07-28 09:54] LABS: Coronavirus CoV-2 (COVID19)PCR DETECTED (NotDetected)
--- NOTE | 2023-07-28 10:03 | CT Scan Report ---
CT angio chest PE protocol HISTORY: 68 years-old Female with Dyspnea. Acute shortness of breath TECHNIQUE: Multiple CTA images of the chest were obtained after the intravenous administration of 78 ml Optiray. Coronal and sagittal MIPS were obtained from the axial data set and were submitted for ePARw. All measurements were obtained according to NASCET criteria. A dose lowering technique was ut ilized adhering to the principles of ALARA. COMPARISON: Chest radiograph 07/28/2023, CTA chest 06/28/2023, 04/27/2023 FINDINGS: CTA: Mild/moderate cardiomegaly. No pericardial effusion. Unremarkable thoracic aorta. No pulmonary emboli identified. Left subclavian Tkaroo-v-Gdop catheter distal tip terminates within the SVC. No pulmonar y emboli identified. CT CHEST: Unchanged appearance of the thyroid order. 11 mm precarinal lymph node with borderline enlarged subca rinal lymph nodes, generally stable. Borderline-enlarged hilar lymph nodes. Trace right and small lef t pleural effusions. There is no pneumothorax. Intralobular septal thickening with extensive centrilo bular nodular densities, intermixed ground glass opacities with dense consolidation. Cavitation/cysti c change again noted within the left greater than right lung in a lower lobe predominant distribution . These findings have progressively worsened from 06/28/2023. No acute upper abdominal abnormality. Unremarkable soft tissues. No acute fracture or destructive bon e lesion. IMPRESSION: 1. No pulmonary emboli identified. 2. Extensive left greater than right consolidation with bibasilar predominant cavitation again noted which continues to progress. As previously stated, these findings likely represent multifocal adenoca rcinoma. A superimposed pneumonia would be difficult to exclude. 3. Unchanged mild mediastinal and hilar lymphadenopathy. 4. Trace right and small left pleural effusions. ACT 112: Negative or not required by law. The above report was generated using voice recognition software. It may contain grammatical, syntax o r spelling errors. Electronically signed by: Huber Menjivar M.D. 07/28/2023 10:00 AM
--- NOTE | 2023-07-28 10:42 | History & Physical Report ---
Date of Service July 28, 2023 Assessment & Plan (1) Acute respiratory failure with hypoxia: Plan: Acute on chronic hypoxic respiratory failure due to COVID-pneumonia, and adenocarcinoma of the lung With stage IV comorbid lung adenocarcinoma as noted Continue cefepime/doxycycline. Patient initially ordered azithromycin this was not given as she had a hypersensitivity/flushing reaction the last time she took azithromycin. Sputum culture pending Blood cultures pending No history of CHF, no pulmonary edema. +trace/small pleural effusions likely exudative, do not suspect volume overload -S/p 1 L NSS while in the ER, received 500 cc prehospital at bolus rate. 30 cc/kg ideal body weight 1772.7 cc. Clinically with downtrending heart rate after fluids and appears slightly contracted and without edema, additional 500 cc ordered for a total of 2 L bolus resuscitation Lactate is not elevated Creatinine is normal, ratio contracted, ABG 7.30/45/121/22.9 at [id number]-iv-[id number] recheck, BiPAP parameters decreased to 10/5 at 40. Patient with good tidal volumes Patient is neutropenic on admission. Discussed with vianey/sher, Imelda pend ing as noted. Patient was covered broadly due to neutropenia, fever, and high risk of bacterial superinfection. Baricitinib/tocilizumab contraindicated due to her neutropenia. Renal function is normal, will start remdesivir Steroids continued, patient received methylprednisolone 125 mg prehospital. 2/2 high comorbidity will transitioned to increase dose of dexamethasone, dexamethasone 6 mg twice daily x 10-day course Patient has had reduced sputum expectoration. Hypertonic saline, pulmonary toilet/flutter vest. No indication for bronchoscopy at this time. Discussed with pulm, can consult if worsening / bronch is needed. Greatly improved on reassessment, pulse rate downtrending to approximately 110 after fluids, respiratory rate improved to 18/19, and BiPAP settings able to be adjusted to 10/5 at 40% as noted. Okay for admission to PCU (2) COVID-19: Plan: - As noted (3) Adenocarcinoma of lung: Plan: Lung adenocarcinoma - Stave 4 NSCLC. 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 Pending orders for Neulasta, appreciate recommendations. Agree w/ broad spectrum coverage at this time. - Chemo currently contraindicated 2/2 active infection (4) Hypertension: Plan: Home antihypertensives continued, renal function is at baseline BP borderline (5) Hyponatremia: Plan: Patient has had hyponatremia over the past several weeks and reports she takes salt tablets at home Highly suspicious for malignancy induced SIADH. BMP trended every 6 hours. Urine sodium, urine osmolality, serum osmolality pending. If these are consistent with SIADH may worsen due to IV fluids for initial resuscitation and patient will need to be free fluid restricted to 1500 cc daily. Salt tablets continued Plan DVT prophylaxis: Lovenox Disposition: PCU CODE STATUS: Full code Diet: N.p.o. while requiring BiPAP, may progress to fluid restricted regular diet once able to be taken off BiPAP History of Present Illness Primary Care Provider: Cliff Carmen MD Noemy is a 68-year-old female with a past medical history of lung adenocarcinoma on chemotherapy, anxiety/depression who presented to the ER with chest pain and shortness of breath and who was found to have an SpO2 of 87% via EMS and had subsequent improvable while on CPAP and post DuoNebs. Patient has had a prodrome of URI symptoms and fever. PER ER: Noemy is newly COVID-positive while in the ER. Procalcitonin is acutely elevated at 1.0 CTA: No PE, extensive left greater than right consolidation with bibasilar cavitation progressed from prior likely representing multifocal adenocarcinoma but from which a superimposed pneumonia cannot be excluded. Mild mediastinal and hilar lymphadenopathy persist, trace right and small left pleural effusions are present Empirically covered in the ER with broad-spectrum antibiotics given underlying immunocompromise and severe level of illness, given cefepime/doxycycline/azithromycin while in the ER. Renal function is normal. High-sensitivity troponin is mildly elevated at 28.4 suspicious for demand, BNP is not elevated. Patient is tachycardic, tachypneic, and febrile in the ER Worsen symptoms over last 36 hours. +Fever, chills, productive cough. On 3L NC at home, up to 5L with SoB and still 86%. Nebs + Methylpred 125mg and 2 nebs int he field. 500nss in the field + 1L in the ER. L lung diminished Full Code Per Patient/: Swtched from 2 [place] of pem/carbo to docetaxcel first dose last Thrs Patient seen with her at bedside. She reports she has had a low-grade fever around to slightly below 100 for 3 days, and increased weakness, cough, fatigue, and shortness of breath for 1-2 days. She notes she normally coughs up a very large amount of sputum up to a liter a day due to her mucinous adenocarcinoma, in the last 24 hours her sputum has actually decreased slightly although she feels worse and like she has difficulty expectorating. She has had some intermittent diarrhea recently, none in the last 24 hours. She had chest pain last night which has resolved today. She denies lightheadedness, dizziness, syncope, presyncope. She has no abdominal pain. No dysuria. Has continued to pee daily, maybe a little bit less in the last day. She follows and receives her chemo treatments at [place]. She was recently switched after 2 cycles of chemo to her first dose of Doxil Taxol last due to concern for increased size of malignancy despite being on the initial 2 cycles. She was pending outpatient blood work to evaluate her neutrophil count, had not had this completed as outpatient. At time of admission her ANC is less than 100. Medical History: Reviewed Medications: Reviewed Surgical History: Reviewed Family history: Reviewed Allergies: Reviewed. Allergic to azithromycin, Flushing reaction last time this was given Social History: No tobacco, no etoh use Code Status: Full Allergies Allergy/AdvReac Type Severity Reaction Status Date / Time azithromycin Allergy Intermediate Difficulty Verified 07/28/23 09:52 Breathing Penicillins Allergy Mild HIVES A Verified 07/22/23 15:39 CHILD Home Medications Medication Instructions Recorded Confirmed Type omega-3 acid ethyl esters 1 gram 1 cap PO QAM 02/04/20 07/22/23 History capsule cholecalciferol (vitamin D3) 25 25 mcg PO QAM 11/20/20 07/22/23 History mcg (1,000 unit) tablet (Vitamin D3) cyanocobalamin (vitamin B-12) 1,000 mcg sublingual QAM 11/20/20 07/22/23 History 1,000 mcg sublingual tablet olmesartan 40 mg tablet 40 mg PO DAILY #90 tabs 02/24/23 07/28/23 Rx sodium chloride, sodium See Rx Instructions .Route 04/27/23 07/28/23 History bicarb-nasal rinse squeeze bottle .COMPLEX PRN congestion with packet (Neilmed Sinus Rinse Complete with packet) albuterol sulfate 90 mcg/actuation 2 inh inhalation Q6H PRN shortness 04/29/23 07/28/23 Rx aerosol inhaler of breath or wheezing #6.7 grams folic acid 1 mg tablet 1 mg PO QAM #30 tabs 04/29/23 07/28/23 Rx oxycodone 10 mg tablet,crush 10 mg PO BID #60 tabs 04/29/23 07/28/23 Rx resistant,extended release 12 hr (OxyContin) oxycodone 5 mg tablet 5 - 10 mg (1 - 2 x 5 mg) PO Q6H 04/29/23 07/28/23 Rx PRN moderate to severe pain #30 tabs polyethylene glycol 3350 17 17 g PO BID constipation #238 grams 04/29/23 07/28/23 Rx gram/dose oral powder (Miralax) sennosides 8.6 mg-docusate sodium 1 tab-cap PO DAILY #30 tabs 04/29/23 07/22/23 Rx 50 mg tablet (Colace 2-In-1) bupropion HCl 100 mg tablet,12 hr 100 mg PO BID #60 ea 06/27/23 07/28/23 Rx sustained-release ipratropium 0.5 mg-albuterol 3 mg 3 ml inhalation Q6 PRN as directed 06/28/23 07/28/23 History (2.5 mg base)/3 mL nebulization soln ondansetron HCl 8 mg tablet 8 mg PO DIRECTED 07/28/23 07/28/23 History prednisone 10 mg tablet 10 mg PO DIRECTED 07/28/23 07/28/23 History prochlorperazine maleate 10 mg 10 mg PO Q6H PRN Nausea And 07/28/23 07/28/23 History tablet Vomiting Past Med/Surg History Medical History Mumps Measles Fever Chest pain Tubular adenoma Osteoarthritis History of basal cell carcinoma Tinnitus of both ears Anxiety and depression Cardiac murmur Goiter, nontoxic, 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 Hyperglycemia Hyperlipidemia Vitamin D deficiency Surgical History Port-A-Cath in place (04/28/23) H/O colonoscopy History of surgical removal of ganglion cyst History of wisdom tooth extraction Hx of section History of carpal tunnel release History of tonsillectomy and adenoidectomy History of mandibular surgery Hx of tooth extraction Hx of needle biopsy History of Mohs surgery for squamous cell carcinoma in situ of skin Family History Father Colon cancer Prostate cancer Myocardial infarction Heart disease Mother Hypertension Cancer Uncle Diabetes Aunt Breast cancer Other No family history of adverse response to anesthesia Denies family history of Ovarian cancer Social History Smoking Status: Never smoker Second Hand Exposure: No; Do You Dip or Chew Tobacco: No; Tobacco Cessation Education Requested by Patient: No Hx Alcohol Use: Yes Alcohol type: wine Alcohol Intake Frequency: Monthly or Less Hx Substance Use: No Preferred Language: Amharic Communication Ability: Effective Visual Impairment: No Limitations Hearing Ability: Normal Thermal Spray Operator Required: No Beliefs That Will Affect Care: None marital status: Current Living Situation: Spouse current occupational status: retired How many Children do You have: 2 Other Information That Helps Us Care for You: No Feels Safe at Home: Yes Safety Concerns: Feels Safe At This Time Childhood Exposure to Second-Hand Smoke: Yes during the past year weight has: decreased > 10 lbs Dental Care, Regularly: Yes Physical Activity Frequency: Does not Exercise Seatbelt Use: always Sunscreen Use: Yes Assistive Devices: Glasses and Oxygen - Continuous Physical Exam Physical Exam: General: A&Ox3. Appears ill but nontoxic on BiPAP. Cooperative and answers questions appropriately with good level of alertness HEENT: Atraumatic, normocephalic. On BiPAP. Pulm: Bibasilar crackles otherwise near absent breath sounds in left lower quadrant, left mid/upper quadrant course. Right lung steele with moderate air movement trace expiratory wheezing, coarse at the base. Symmetrical chest rise. No increased work of breathing. No respiratory distress. Cardiac: Regular, tachycardic, -mrg. Radial pulses intact and symmetrical. Abdominal: Nontender, nondistended, soft. BS present. Extremities: Warm, dry. No pitting edema. [employer] strength, ankle dorsiflexion/plantarflexion intact without deficit, sensation in hands and feet intact without asymmetry Results & Data Results & Data Vital Signs (Past 12 Hours) Vital Signs Temp Pulse Pulse Resp BP BP Pulse Ox 07/28/23 10:31 38.0 C H 125 H 28 H 150/94 H 97 07/28/23 10:26 38.0 C H 125 H 28 H 132/81 97 07/28/23 09:30 133 H 32 H 93 07/28/23 09:30 160/91 H 07/28/23 09:15 139 H 29 H 95 07/28/23 09:00 138 H 35 H 97 07/28/23 09:00 162/106 H 07/28/23 08:52 136 H 07/28/23 08:50 138 H 34 H 97 07/28/23 08:50 168/114 H 07/28/23 08:48 142 H 33 H 97 07/28/23 08:46 137 H 30 H 95 07/28/23 08:46 137 H 30 H 95 07/28/23 08:38 94 07/28/23 08:38 134 H 38 H 94 07/28/23 08:38 07/28/23 08:30 38.7 C H 133 H 34 H 175/123 H 96 O2 Del Method FiO2 07/28/23 10:31 BiPAP 07/28/23 10:26 BiPAP 07/28/23 09:30 BiPAP 07/28/23 09:30 07/28/23 09:15 07/28/23 09:00 BiPAP 07/28/23 09:00 07/28/23 08:52 07/28/23 08:50 BiPAP 07/28/23 08:50 07/28/23 08:48 BiPAP 07/28/23 08:46 50 07/28/23 08:46 BiPAP 50 07/28/23 08:38 BiPAP 07/28/23 08:38 BiPAP 07/28/23 08:38 BiPAP 07/28/23 08:30 BiPAP PG Care Time/CCT Total # of Minutes Spent Total Time Spent with Patient: Total time spent is greater than 50% in coordination of care (as documented) at patient's floor/unit and/or counseling patient: Coding Level of Care Code 72832 INT INP/OBS CARE 3MIN Diagnoses Acute respiratory failure with hypoxia J96.01 COVID-19 U07.1 Adenocarcinoma of lung C34.90 Hypertension I10 Hyponatremia E87.1
[2023-07-28 11:04] LABS: Hemoglobin 10.3 g/dl (12.0-16.0); Mean Corpuscular Hemoglobin 29.3 pg (25.0-34.0); Mean Corpuscular Hgb Conc 32.2 g/dL (32.0-36.0); Mean Corpuscular Volume 90.9 fL (80.0-100.0); Mean Platelet Volume 9.1 fL (9.4-12.4); Platelet Count 293 K/uL (130-400); RDW Coefficient of Variation 15.7 % (11.5-14.5); Red Blood Count 3.52 M/uL (4.20-5.40)
[2023-07-28] MEDS ORDERED: SODIUM CHLORIDE 0.9% 500 ML IV ONE (11:07)
[2023-07-28 11:24] LABS: White Blood Count 0.73 K/ul (4.8-10.8)
[2023-07-28 11:51] LABS: iSTAT Arterial Blood Gas HCO3 23 meg/L (19-24); iSTAT Arterial Blood Gas pCO2 46 mmHg (35-46); iSTAT Arterial Blood Gas pH 7.31 (7.35-7.45); iSTAT Arterial Blood Gas pO2 121 mmHg (80-95); iSTAT Carbon Dioxide 24 mmol/L (24-31); iSTAT Hematocrit 28 % (37-47); iSTAT Hemoglobin 9.5 g/dl (12.0-16.0); iSTAT Potassium 4.3 mmol/L (3.3-5.0); iSTAT Sodium 130 mmol/L (135-144)
[2023-07-28 11:54] LABS: Basophils # (manual) 0.03 K/uL (0-0.2); Basophils % (manual) 4 %; Eosinophils # (manual) 0.02 K/uL (0-0.50); Eosinophils % (manual) 3 %; Lymphocytes # (manual) 0.36 K/uL (1.2-3.4); Lymphocytes % (manual) 49 %; Monocytes # (manual) 0.08 K/uL (0.11-0.59); Monocytes % (manual) 11 %; Neutrophils % (manual) 14 %; Reactive Lymphocytes # (manual) 0.14 K/uL; Reactive Lymphocytes % (manual) 19 %
--- NOTE | 2023-07-28 11:55 | Progress Note ---
Date of Service July 28, 2023 Assessment & Plan (1) COVID-19: (2) Acute respiratory failure with hypoxia: Plan Neutropenic fever: ANC of 100 in the setting of severe COVID-19 infection. Would benefit from G-CSF with filgrastim 5 mcg/kg per day x 3 days. Agree with broad-spectrum antibiotic coverage and management of COVID-19 infection. Subjective Patient not physically seen. This is a brief note regarding neutropenic fever in the setting of COVID-19 infection. She is a previous patient of mine but now follows with oncologist at [facility] for metastatic lung cancer. Per discussion with hospital medicine attending, she received cycle 1 of second line treatment with IV docetaxel earlier this week and presented with COVID-19 infection with WBC of 0.73 and ANC of 100. Results & Data Vital Signs (Past 12 Hours) Vital Signs Temp Pulse Pulse Resp BP BP Pulse Ox 07/28/23 11:43 112 H 24 144/83 H 96 07/28/23 11:23 117 H 18 96 07/28/23 10:31 38.0 C H 125 H 28 H 150/94 H 97 07/28/23 10:26 38.0 C H 125 H 28 H 132/81 97 07/28/23 09:30 133 H 32 H 93 07/28/23 09:30 160/91 H 07/28/23 09:15 139 H 29 H 95 07/28/23 09:00 138 H 35 H 97 07/28/23 09:00 162/106 H 07/28/23 08:52 136 H 07/28/23 08:50 138 H 34 H 97 07/28/23 08:50 168/114 H 07/28/23 08:48 142 H 33 H 97 07/28/23 08:46 137 H 30 H 95 07/28/23 08:46 137 H 30 H 95 07/28/23 08:38 94 07/28/23 08:38 134 H 38 H 94 07/28/23 08:38 07/28/23 08:30 38.7 C H 133 H 34 H 175/123 H 96 O2 Del Method FiO2 07/28/23 11:43 BiPAP 07/28/23 11:23 50 07/28/23 10:31 BiPAP 07/28/23 10:26 BiPAP 07/28/23 09:30 BiPAP 07/28/23 09:30 07/28/23 09:15 07/28/23 09:00 BiPAP 07/28/23 09:00 07/28/23 08:52 07/28/23 08:50 BiPAP 07/28/23 08:50 07/28/23 08:48 BiPAP 07/28/23 08:46 50 07/28/23 08:46 BiPAP 50 07/28/23 08:38 BiPAP 07/28/23 08:38 BiPAP 07/28/23 08:38 BiPAP 07/28/23 08:30 BiPAP
[2023-07-28] MEDS ORDERED: REMDESIVIR 200 MG in SODIUM CHLORIDE 0.9% 210 ML IV STA (11:57)
[2023-07-28] MEDS ORDERED: PLASMA-LYTE A 1,000 ML IV SCH ×2 (13:15→13:41)
[2023-07-28] MEDS ORDERED: oxyCODONE HCL IR 5 MG TAB (IMMEDIATE RELEASE) PO PRN (13:41)
[2023-07-28] MEDS ORDERED: ALBUT/IPRATROP 3MG/0.5MG NEB 3 ML VIAL NEB PRN (13:41)
[2023-07-28] MEDS ORDERED: DOXYCYCLINE HYCLATE 100 MG in DEXTROSE 5% MINI-B 100 ML IV SCH (14:00)
[2023-07-28] MEDS ORDERED: LEVALBUTEROL 1.25 MG/3 ML NEB ONE (14:10)
--- NOTE | 2023-07-28 14:46 | Electrocardiogram Report ---
Test Reason : Blood Pressure : / mmHG Vent. Rate : 134 BPM Atrial Rate : 134 BPM P-R Int : 138 ms QRS Dur : 066 ms QT Int : 298 ms P-R-T Axes : 033 -39 073 degrees QTc Int : 445 ms Sinus tachycardia with occasional Premature ventricular complexes Left axis deviation Anteroseptal infarct (cited on or before 28-JUL-2023) Abnormal ECG When compared with ECG of 28-JUN-2023 13:38, Questionable change in initial forces of Septal leads T wave inversion more evident in Anterior leads Confirmed by Cliff Howard ([id number]) on 07/28/2023 2:45:43 PM Referred By: Confirmed By:Cliff Howard
[2023-07-28] MEDS ORDERED: ACETAMINOPHEN 1,000 MG/100 ML VIAL IV PRN (17:00)
[2023-07-28 17:36] LABS: Base Excess VBG -2.9 mEq/L; HCO3 VBG 24 mmol/L; Oxygen Saturation VBG 82.9 %; PCO2 VBG 47 mmHg (38-50); PO2 VBG 53 mmHg; pH VBG 7.31 (7.36-7.41)
[2023-07-28 17:48] LABS: BUN Creatinine Ratio 33.3 (10-20); Calcium 9.1 mg/dl (8.6-10.3); Est GFR (African American) 130.2 ml/min; Est GFR (Non-African American) 112.4 ml/min; Potassium 4.2 mmol/L (3.5-5.1)
[2023-07-28] MEDS: FILGRASTIM 480 MCG/1.6 ML VIAL SC SCH ×2 (18:18→19:38)
[2023-07-28] MEDS: CEFEPIME 2,000 MG in SYRINGE 0 ML IV SCH (19:38)
[2023-07-28] MEDS: SODIUM CHLOR 7% 4 ML NEB NEB SCH (20:08)
[2023-07-28] MEDS: POLYETHYLENE (MIRALAX) 17 GM PACK PO SCH (20:17)
[2023-07-28] MEDS: buPROPion SR 100 MG TABCR PO SCH (20:17)
[2023-07-28] MEDS ORDERED: HYDROmorphone INJ 1 MG/ML SYRINGE IV PRN (20:19)
[2023-07-28] MEDS ORDERED: HYDROmorphone INJ 0.5 MG/0.5 ML SYR IV PRN (20:19)
[2023-07-28] MEDS: SODIUM CHLORIDE 1 GM TABLET PO SCH (20:27)
[2023-07-28] MEDS: ACETAMINOPHEN 1,000 MG/100 ML VIAL IV SCH (20:31)
[2023-07-28] MEDS: dexAMETHasone 6 MG in SYRINGE 0 ML IV SCH (20:32)
[2023-07-28] MEDS ORDERED: oxyCODONE HCL 10 MG TABCR (OxyCONTIN) PO SCH (21:00)
[2023-07-28 22:07] LABS: HCO3 VBG 25 mmol/L; Oxygen Saturation VBG 75.5 %; PCO2 VBG 51 mmHg (38-50); PO2 VBG 46 mmHg
[2023-07-28 22:39] LABS: Calcium 9.3 mg/dl (8.6-10.3); Est GFR (African American) 126.8 ml/min; Est GFR (Non-African American) 109.4 ml/min; Potassium 4.4 mmol/L (3.5-5.1)
[2023-07-28] MEDS: DOXYCYCLINE HYCLATE 100 MG in DEXTROSE 5% MINI-B 100 ML IV SCH (23:34)
[2023-07-29] MEDS: LEVALBUTEROL 1.25 MG/3 ML NEB NEB SCH ×4 (00:26→19:34)
[2023-07-29] MEDS: CEFEPIME 2,000 MG in SYRINGE 0 ML IV SCH ×3 (00:28→18:10)
[2023-07-29 04:07] LABS: Base Excess VBG -0.9 mEq/L; HCO3 VBG 26 mmol/L; Oxygen Saturation VBG 73.9 %; PCO2 VBG 50 mmHg (38-50); PO2 VBG 45 mmHg; pH VBG 7.32 (7.36-7.41)
[2023-07-29 04:21] LABS: Hematocrit (blood only) 28.6 % (37.0-47.0); Hemoglobin 9.3 g/dl (12.0-16.0); Mean Corpuscular Hemoglobin 29.4 pg (25.0-34.0); Mean Corpuscular Hgb Conc 32.5 g/dL (32.0-36.0); Mean Corpuscular Volume 90.5 fL (80.0-100.0); Mean Platelet Volume 9.3 fL (9.4-12.4); Platelet Count 300 K/uL (130-400); RDW Coefficient of Variation 15.7 % (11.5-14.5); RDW Standard Deviation 52.3 fL (36.4-46.3); Red Blood Count 3.16 M/uL (4.20-5.40); White Blood Count 1.82 K/ul (4.8-10.8)
[2023-07-29 04:29] LABS: Calcium 9.5 mg/dl (8.6-10.3); Creatinine Clr Calc Pharmacy 140.4 ml/min; Est GFR (African American) 125.8 ml/min; Est GFR (Non-African American) 108.5 ml/min; Potassium 4.4 mmol/L (3.5-5.1)
[2023-07-29 04:40] LABS: Troponin I High Sensitivity 19.2 pg/ml (0-14)
[2023-07-29 05:09] LABS: ALC (manual) 0.66 K/uL (1.2-3.4); ANC (manual) 0.49 K/uL (1.4-6.5); Basophils # (manual) 0.02 K/uL (0-0.2); Basophils % (manual) 1 %; Lymphocytes # (manual) 0.66 K/uL (1.2-3.4); Lymphocytes % (manual) 36 %; Metamyelocytes # (manual) 0.09 K/uL (0-0); Metamyelocytes % (manual) 5 %; Monocytes # (manual) 0.56 K/uL (0.11-0.59); Monocytes % (manual) 31 %; Neutrophils # (manual) 0.49 K/uL (1.40-6.50); Neutrophils % (manual) 27 %; Polychromasia 1+
[2023-07-29] MEDS: ACETAMINOPHEN 1,000 MG/100 ML VIAL IV SCH ×3 (05:21→20:10)
--- NOTE | 2023-07-29 07:11 | Hospitalist Progress Note ---
Date of Service July 29, 2023 Assessment & Plan (1) Acute respiratory failure with hypoxia: Plan: Acute on chronic hypoxic respiratory failure due to COVID-pneumonia, and adenocarcinoma of the lung recently recieved second line chemotherapy pancytopenia due to chemotherapy With stage IV comorbid lung adenocarcinoma extensive pulmonary involvement Cefepime/doxycycline. Sputum culture pending Blood cultures pending Patient is neutropenic on admission. oncology recommended 3 days of neupogen Baricitinib/tocilizumab contraindicated due to her neutropenia. Covid infection started on remdesivir Steroids continued, patient received methylprednisolone 125 mg prehospital. dexamethasone 6 mg twice daily x 10-day course (2) COVID-19: Plan: -on Remdesivir and Dexamethasone (3) Adenocarcinoma of lung: Plan: Lung adenocarcinoma - Stave 4 NSCLC. 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, diagnosed 02/2023 PET scan showing extensive [id number] opacities to the lungs most prominent in the left lower lobe, highly suspicious for progressive multifocal malignancy 04/21 received pembrolizumab/carboplatin x2 cycles then switched to doxitaxel with first treatment 07/21 ( prior to admission) due to concern for progression (4) Hypertension: Plan: Home antihypertensives continued, renal function is at baseline BP borderline (5) Hyponatremia: Plan: Patient has had hyponatremia over the past several weeks and reports she takes salt tablets at home Highly suspicious for malignancy induced SIADH. -improved Plan DVT prophylaxis: Lovenox CODE STATUS: Full code Admission and Anticipated Discharge Date Admission Date: July 28, 2023 Results & Data Results & Data Vital Signs (Past 12 Hours) Vital Signs Temp Pulse Pulse Resp BP Pulse Ox O2 Del Method 07/29/23 05:00 98.1 F 104 H 19 150/85 H 94 07/29/23 04:00 97.7 F 111 H 22 167/88 H 95 07/29/23 03:02 114 H 21 97 07/29/23 03:00 97.3 F L 109 H 25 H 155/86 H 95 07/29/23 02:00 98.1 F 105 H 17 107/68 96 07/29/23 01:00 98.2 F 109 H 20 148/83 H 96 07/29/23 00:26 106 H 18 98 BiPAP 07/29/23 00:06 111 H 07/29/23 00:00 98.4 F 109 H 20 136/79 97 07/28/23 23:00 98.6 F 108 H 23 148/77 H 98 07/28/23 22:41 115 H 30 H 95 07/28/23 22:00 98.8 F 106 H 20 140/77 98 07/28/23 21:00 99.0 F 122 H 25 H 144/107 H 97 07/28/23 20:39 BiPAP 07/28/23 20:00 99.1 F 117 H 23 150/81 H 98 07/28/23 19:43 124 H 27 H 97 07/28/23 19:30 123 H 31 H 97 FiO2 07/29/23 05:00 07/29/23 04:00 07/29/23 03:02 40 07/29/23 03:00 07/29/23 02:00 07/29/23 01:00 07/29/23 00:26 50 07/29/23 00:06 07/29/23 00:00 07/28/23 23:00 07/28/23 22:41 50 07/28/23 22:00 07/28/23 21:00 07/28/23 20:39 60 07/28/23 20:00 07/28/23 19:43 60 07/28/23 19:30 PG Care Time/CCT Total # of Minutes Spent Total Time Spent with Patient: Total time spent is greater than 50% in coordination of care (as documented) at patient's floor/unit and/or counseling patient: Coding Diagnoses Acute respiratory failure with hypoxia J96.01 COVID-19 U07.1 Adenocarcinoma of lung C34.90 Hypertension I10 Hyponatremia E87.1
[2023-07-29] MEDS: SODIUM CHLOR 7% 4 ML NEB NEB SCH ×2 (08:00→19:49)
[2023-07-29] MEDS: SODIUM CHLORIDE 1 GM TABLET PO SCH ×2 (08:26→20:05)
[2023-07-29] MEDS: LOSARTAN POTASSIUM 50 MG TAB PO SCH (08:27)
[2023-07-29] MEDS: FOLIC ACID 1 MG TAB PO SCH (08:27)
[2023-07-29] MEDS: ENOXAPARIN INJ 40 MG/0.4 ML SYR SQ SCH ×2 (08:27→09:31)
[2023-07-29] MEDS: POLYETHYLENE (MIRALAX) 17 GM PACK PO SCH ×2 (08:27→20:05)
[2023-07-29] MEDS: dexAMETHasone 6 MG in SYRINGE 0 ML IV SCH (08:30)
[2023-07-29] MEDS: buPROPion SR 100 MG TABCR PO SCH ×2 (09:30→20:05)
[2023-07-29 10:06] LABS: Base Excess VBG 0.8 mEq/L; HCO3 VBG 27 mmol/L; Oxygen Saturation VBG 70.7 %; PCO2 VBG 46 mmHg (38-50); PO2 VBG 40 mmHg; pH VBG 7.37 (7.36-7.41)
--- NOTE | 2023-07-29 11:06 | Hospitalist Progress Note ---
Date of Service July 29, 2023 Assessment & Plan (1) Acute respiratory failure with hypoxia: Plan: Acute on chronic hypoxic respiratory failure due to COVID-pneumonia, and adenocarcinoma of the lung recently recieved second line chemotherapy pancytopenia due to chemotherapy. Follows with oncology at [facility]. Family to contact them today. With stage IV comorbid lung adenocarcinoma extensive pulmonary involvement Cefepime/doxycycline. Sputum culture pending Blood cultures pending Patient is neutropenic on admission. oncology recommended 3 days of neupogen. Orders placed by oncology. She has received 2 doses. Lab values seem to be improving. Continue neutropenic precautions Baricitinib/tocilizumab contraindicated due to her neutropenia. Covid infection started on remdesivir Patient received methylprednisolone 125 mg prehospital. Dexamethasone 6 mg twice daily x 10-day course ordered. Can decrease to daily Pulmonary function testing performed 04/05/2023 showed proportional reduction in FVC and FEV1 with a preserved ratio of 100%. No significant air trapping. Diffusion capacity normal at 90% of predicted. -Maintain SpO2 greater than 92% (2) COVID-19: Plan: -on Remdesivir and Dexamethasone -No history of other pulmonary disease. Continue bronchodilators as needed - Maintain SpO2 greater than 92% -Maintain positive fluid balance (3) Adenocarcinoma of lung: Plan: Lung adenocarcinoma - Stave 4 NSCLC. 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 aware the patient is admitted. Family specifically spoke to him regarding anticoagulation. Okay to continue with Lovenox (enoxaparin) (4) Hypertension: Plan: Home antihypertensives continued, renal function is at baseline BP borderline (5) Hyponatremia: Plan: Patient has had hyponatremia over the past several weeks and reports she takes salt tablets at home since April Highly suspicious for malignancy induced SIADH. - Improved from 129-134. -Follow daily labs. -Will decrease salt tablets from twice daily to daily to minimize sodium uptick to lessen 7 mmol/L per 24-hour. Adjust sodium chloride tablet intake based on daily labs Plan DVT prophylaxis: Lovenox approved per oncology at [facility] Increase activity as tolerated within the room Continue precautions for COVID-19 CODE STATUS: Full code Admission and Anticipated Discharge Date Admission Date: July 28, 2023 Subjective Attending: Dr. Quiles This is a 68-year-old female that presented on 07/28/2023 with acute respiratory failure with hypoxia. Patient does have adenocarcinoma of the lung. She previously followed with Dr. Duke and now follows with oncologist at [facility] for metastatic lung cancer. Per discussion with hospital medicine attending, she received cycle 1 of second line treatment with IV docetaxel earlier this week and presented with COVID-19 infection with WBC of 0.73 and ANC of 100. On admission, patient was placed on cefepime and doxycycline. She complained of difficulty with expectoration of sputum and was started on hypertonic saline, pulmonary toilet with percussion vest. Patient is positive for COVID and was placed in an isolation room in the ICU with PCU status. G-CSF with filgrastim 5 mcg/kg per day x 3 days was suggested and ordered by oncology. First dose administered 07/28/2023 at 19:38 Tmax of 38.7 C. Blood cultures are negative x 2. Urine is 1+ for protein. Trace ketones are present. 10-20 epithelial cells. Urine osmolality is low at 380 mOsm/kilogram. Random sodium in the urine is 39 mmol/L CTA of the chest performed 06/28/2023 personally reviewed. There appears to be extensive left greater than right consolidation with bibasilar predominant cavitation. This is previously noted. It appears to be progressive. This could represent multifocal adenocarcinoma versus a superimposed pneumonia. Patient does have mild mediastinal and hilar lymphadenopathy. Mild FDG uptake of the lymph nodes on PET/CT of 04/13/2023 WBC on admission 0.73. Repeat lab today after receiving Neupogen yesterday is 1.82. Mild drop in hemoglobin from 10.3 to 9.3 g/Orlin. Neutrophils increased from 0.1 k/uL to 0.49 this morning ABG on admission revealed mild acidosis with a pH of 7.31. pCO2 was 46. pO2 was 121. HCO3 23. Total CO2 24. VBG from this morning correcting. Sodium 07/28/2023 was 138 mmol/L. This is close to her baseline since April 2023. Today she is at 134 mmol/L. Will try and limit increase to 7 mmol per 24 hours. Patient's creatinine remained stable at 0.4 with a BUN of 20. Continue with fluid hydration. Patient alert and oriented. Daughter and son present. She is feeling much better today. Still requiring supplemental oxygen. She denies fever. Clear sputum production with cough. She has no acute complaints at this time. Review of Systems 2 Review of Systems: A total of 10 systems was reviewed and is negative other than as listed in the HPI Physical Exam 2 Physical Exam: GENERAL : No acute distress EYES: No icterus, gaze conjugate NOSE: No evidence of epistaxis MOUTH: No lesions or candidiasis NECK: Supple LUNGS: Decreased breath sounds globally. Rhonchi. No bronchospasm. HEART: Regular, rate controlled ABDOMEN: Soft, NT, ND, BS Present EXTREMITIES: No LE edema, pedal pulses intact NEURO: A&OX3 Results & Data Results & Data Vital Signs (Past 12 Hours) Vital Signs Temp Pulse Pulse Resp BP Pulse Ox O2 Del Method 07/29/23 09:00 36.7 C 116 H 29 H 97 Nasal Cannula 07/29/23 08:31 Nasal Cannula 07/29/23 08:00 36.6 C 119 H 29 H 99 07/29/23 08:00 131/83 07/29/23 08:00 118 H 22 92 Nasal Cannula 07/29/23 07:00 130/77 07/29/23 07:00 36.7 C 105 H 19 96 07/29/23 05:00 36.7 C 104 H 19 150/85 H 94 07/29/23 04:00 36.5 C 111 H 22 167/88 H 95 07/29/23 03:02 114 H 21 97 07/29/23 03:00 36.3 C L 109 H 25 H 155/86 H 95 07/29/23 02:00 36.7 C 105 H 17 107/68 96 07/29/23 01:00 36.8 C 109 H 20 148/83 H 96 07/29/23 00:26 106 H 18 98 BiPAP 07/29/23 00:06 111 H 07/29/23 00:00 36.9 C 109 H 20 136/79 97 O2 Flow Rate FiO2 07/29/23 09:00 6 07/29/23 08:31 6 07/29/23 08:00 07/29/23 08:00 07/29/23 08:00 3 07/29/23 07:00 07/29/23 07:00 07/29/23 05:00 07/29/23 04:00 07/29/23 03:02 40 07/29/23 03:00 07/29/23 02:00 07/29/23 01:00 07/29/23 00:26 50 07/29/23 00:06 07/29/23 00:00 Laboratory Results Abnormal lab results 07/28/23 07/28/23 07/28/23 Range/Units 09:05 11:24 11:41 WBC 0.73 L* (4.8-10.8) K/ul RBC 3.52 L (4.20-5.40) M/uL Hgb 10.3 L (12.0-16.0) g/dl POC Hgb 9.5 L (12.0-16.0) g/dl Hct 32.0 L (37.0-47.0) % POC Hct 28 L (37-47) % RDW Std Deviation 52.0 H (36.4-46.3) fL RDW Coeff of Thomas 15.7 H (11.5-14.5) % MPV 9.1 L (9.4-12.4) fL Neutrophils # (Manual) 0.10 L (1.40-6.50) K/uL Total Absolute Neuts 0.10 L* (1.4-6.5) K/uL Lymphocytes # (Manual) 0.36 L (1.2-3.4) K/uL Total Abs Lymphocytes 0.50 L (1.2-3.4) K/uL Monocytes # (Manual) 0.08 L (0.11-0.59) K/uL Metamyelocytes # (Man) (0-0) K/uL POC pH 7.31 L (7.35-7.45) POC pO2 121 H (80-95) mmHg POC ABG O2 Sat 98.0 H (90-95) % VBG pH (7.36-7.41) VBG pCO2 (38-50) mmHg POC Sodium 130 L (135-144) mmol/L Sodium (136-145) mmol/L Creatinine (0.6-1.2) mg/dl BUN/Creatinine Ratio (10-20) Glucose (70-99(Fasting)) mg/dl Osmolality 271 L (280-300) mOsm/kg Troponin I High Sens 44.3 H D (0-14) pg/ml Urine Osmolality (500-800) mOsm/kg 07/28/23 07/28/23 07/28/23 Range/Units 17:13 21:39 Unknown WBC (4.8-10.8) K/ul RBC (4.20-5.40) M/uL Hgb (12.0-16.0) g/dl POC Hgb (12.0-16.0) g/dl Hct (37.0-47.0) % POC Hct (37-47) % RDW Std Deviation (36.4-46.3) fL RDW Coeff of Thomas (11.5-14.5) % MPV (9.4-12.4) fL Neutrophils # (Manual) (1.40-6.50) K/uL Total Absolute Neuts (1.4-6.5) K/uL Lymphocytes # (Manual) (1.2-3.4) K/uL Total Abs Lymphocytes (1.2-3.4) K/uL Monocytes # (Manual) (0.11-0.59) K/uL Metamyelocytes # (Man) (0-0) K/uL POC pH (7.35-7.45) POC pO2 (80-95) mmHg POC ABG O2 Sat (90-95) % VBG pH 7.31 L 7.30 L (7.36-7.41) VBG pCO2 51 H (38-50) mmHg POC Sodium (135-144) mmol/L Sodium 135 L 134 L (136-145) mmol/L Creatinine 0.36 L 0.39 L (0.6-1.2) mg/dl BUN/Creatinine Ratio 33.3 H 41.0 H (10-20) Glucose 121 H 126 H (70-99(Fasting)) mg/dl Osmolality (280-300) mOsm/kg Troponin I High Sens 31.6 H D (0-14) pg/ml Urine Osmolality 380 L (500-800) mOsm/kg 07/29/23 07/29/23 Range/Units 03:53 09:51 WBC 1.82 L (4.8-10.8) K/ul RBC 3.16 L (4.20-5.40) M/uL Hgb 9.3 L (12.0-16.0) g/dl POC Hgb (12.0-16.0) g/dl Hct 28.6 L (37.0-47.0) % POC Hct (37-47) % RDW Std Deviation 52.3 H (36.4-46.3) fL RDW Coeff of Thomas 15.7 H (11.5-14.5) % MPV 9.3 L (9.4-12.4) fL Neutrophils # (Manual) 0.49 L (1.40-6.50) K/uL Total Absolute Neuts 0.49 L* (1.4-6.5) K/uL Lymphocytes # (Manual) 0.66 L (1.2-3.4) K/uL Total Abs Lymphocytes 0.66 L (1.2-3.4) K/uL Monocytes # (Manual) (0.11-0.59) K/uL Metamyelocytes # (Man) 0.09 H (0-0) K/uL POC pH (7.35-7.45) POC pO2 (80-95) mmHg POC ABG O2 Sat (90-95) % VBG pH 7.32 L (7.36-7.41) VBG pCO2 (38-50) mmHg POC Sodium (135-144) mmol/L Sodium 134 L (136-145) mmol/L Creatinine 0.40 L (0.6-1.2) mg/dl BUN/Creatinine Ratio 50.0 H (10-20) Glucose 128 H (70-99(Fasting)) mg/dl Osmolality (280-300) mOsm/kg Troponin I High Sens 19.2 H D 18.1 H (0-14) pg/ml Urine Osmolality (500-800) mOsm/kg 07/29/23 03:53 07/29/23 03:53 Diagnostic Findings Chest CTA 07/28/23 08:35 CT angio chest PE protocol HISTORY: 68 years-old Female with Dyspnea. Acute shortness of breath TECHNIQUE: Multiple CTA images of the chest were obtained after the intravenous administration of 78 ml Optiray. Coronal and sagittal MIPS were obtained from the axial data set and were submitted for review. All measurements were obtained according to NASCET criteria. A dose lowering technique was utilized adhering to the principles of ALARA. COMPARISON: Chest radiograph 07/28/2023, CTA chest 06/28/2023, 04/27/2023 FINDINGS: CTA: Mild/moderate cardiomegaly. No pericardial effusion. Unremarkable thoracic aorta. No pulmonary emboli identified. Left subclavian Xcrpnf-t-Aahf catheter distal tip terminates within the SVC. No pulmonary emboli identified. CT CHEST: Unchanged appearance of the thyroid order. 11 mm precarinal lymph node with borderline enlarged subcarinal lymph nodes, generally stable. Borderline- enlarged hilar lymph nodes. Trace right and small left pleural effusions. There is no pneumothorax. Intralobular septal thickening with extensive centrilobular nodular densities, intermixed ground glass opacities with dense consolidation. Cavitation/cystic change again noted within the left greater than right lung in a lower lobe predominant distribution. These findings have progressively worsened from 06/28/2023. No acute upper abdominal abnormality. Unremarkable soft tissues. No acute fracture or destructive bone lesion. IMPRESSION: 1. No pulmonary emboli identified. 2. Extensive left greater than right consolidation with bibasilar predominant cavitation again noted which continues to progress. As previously stated, these findings likely represent multifocal adenocarcinoma. A superimposed pneumonia would be difficult to exclude. 3. Unchanged mild mediastinal and hilar lymphadenopathy. 4. Trace right and small left pleural effusions. ACT 112: Negative or not required by law. The above report was generated using voice recognition software. It may contain grammatical, syntax or spelling errors. Electronically signed by: Huber Menjivar M.D. 07/28/2023 10:00 AM Chest X-Ray 07/28/23 08:35 SINGLE VIEW CHEST CLINICAL HISTORY: Dyspnea. FINDINGS: An AP, portable, upright chest radiograph is compared to study dated 06/27/2023 and correlated with chest CT dated 06/28/2023. A left subclavian central venous port is unchanged in position. The heart is enlarged noting atherosclerotic calcification of the thoracic aorta. Emphysema and chronic interstitial thickening is similar to previous. Extensive confluent airspace consolidation throughout the left mid to lower lung is similar to previous. Airspace consolidation in the right mid to lower lung is unchanged to modestly increased from previous. There is a left pleural effusion. There is no pneumothorax. The skeletal structures are osteopenic. The bony thorax appears intact. IMPRESSION: 1. Cardiomegaly and emphysema. 2. Dense airspace consolidation in left mid to lower lung is similar to prior examinations. Airspace consolidation in the right mid to lower lung is unchanged modest increased from 06/27/2023. Some of this corresponds to known multifocal lung cancer. A superimposed pneumonia would be impossible to exclude by imaging. Clinical correlation will be required. 3. Small left pleural effusion. ACT 112: Negative or not required by law. Electronically signed by: Nicanor Cleary M.D. 07/28/2023 9:09 AM PG Care Time/CCT Total # of Minutes Spent Total Time Spent with Patient: Total time spent is greater than 50% in coordination of care (as documented) at patient's floor/unit and/or counseling patient:30 minutres including face to face discussion with patient and family at bedside Coding Level of Care Code 45326 SUB INP/OBS CARE 08/18MIN Diagnoses Acute respiratory failure with hypoxia J96.01 COVID-19 U07.1 Adenocarcinoma of lung C34.90 Hypertension I10 Hyponatremia E87.1 Time Spent (min) 30
[2023-07-29] MEDS: FILGRASTIM 480 MCG/1.6 ML VIAL SC SCH (12:50)
[2023-07-29] MEDS: DOXYCYCLINE HYCLATE 100 MG in DEXTROSE 5% MINI-B 100 ML IV SCH ×2 (12:50→22:47)
[2023-07-29] MEDS ORDERED: REMDESIVIR 100 MG in SODIUM CHLORIDE 0.9% 230 ML IV SCH (13:30)
[2023-07-30] MEDS: LEVALBUTEROL 1.25 MG/3 ML NEB NEB SCH ×4 (00:36→19:47)
[2023-07-30] MEDS: CEFEPIME 2,000 MG in SYRINGE 0 ML IV SCH ×3 (00:44→17:21)
[2023-07-30] MEDS: ACETAMINOPHEN 1,000 MG/100 ML VIAL IV SCH ×3 (04:02→19:34)
[2023-07-30 04:46] LABS: BUN Creatinine Ratio 52.2 (10-20); Calcium 9.2 mg/dl (8.6-10.3); Creatinine Clr Calc Pharmacy 112.6 ml/min; Est GFR (African American) 120.1 ml/min; Est GFR (Non-African American) 103.7 ml/min; Potassium 4.4 mmol/L (3.5-5.1)
[2023-07-30 05:00] LABS: Basophils # (auto) 0.01 K/uL (0.00-0.20); Basophils % (auto) 0.1 %; Dohle Bodies 1+; Hematocrit (blood only) 26.6 % (37.0-47.0); Hemoglobin 8.5 g/dl (12.0-16.0); Immature Granulocytes # (auto) 0.83 K/uL (0.01-0.20); Immature Granulocytes % (auto) 7.4 %; Lymphocytes # (auto) 1.21 K/uL (1.20-3.40); Lymphocytes % (auto) 10.7 %; Mean Corpuscular Hemoglobin 29.1 pg (25.0-34.0); Mean Corpuscular Volume 91.1 fL (80.0-100.0); Mean Platelet Volume 9.5 fL (9.4-12.4); Monocytes # (auto) 2.57 K/uL (0.11-0.59); Monocytes % (auto) 22.8 %; Neutrophils # (auto) 6.67 K/uL (1.40-6.50); Nucleated RBC # (auto) 0.23 K/uL (0.00-0.12); Platelet Count 327 K/uL (130-400); Polychromasia 1+; RDW Coefficient of Variation 15.9 % (11.5-14.5); Red Blood Count 2.92 M/uL (4.20-5.40); Toxic Granulation 1+; White Blood Count 11.29 K/ul (4.8-10.8)
--- NOTE | 2023-07-30 07:22 | Hospitalist Progress Note ---
Date of Service July 30, 2023 Assessment & Plan (1) Acute respiratory failure with hypoxia: Plan: Acute on chronic hypoxic respiratory failure due to COVID-pneumonia, and adenocarcinoma of the lung recently recieved second line chemotherapy pancytopenia due to chemotherapy With stage IV comorbid lung adenocarcinoma extensive pulmonary involvement Cefepime/doxycycline. Sputum culture pending Blood cultures pending Patient is neutropenic on admission. anc now improved after 2 doses of neupogen, anc now>6000 Baricitinib/tocilizumab contraindicated due to her neutropenia. Covid infection started on remdesivir Steroids continued, patient received methylprednisolone 125 mg prehospital. dexamethasone 6 mg twice daily x 10-day course (2) COVID-19: Plan: -on Remdesivir and Dexamethasone (3) Adenocarcinoma of lung: Plan: Lung adenocarcinoma - Stave 4 NSCLC. 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 Family specifically spoke to him regarding anticoagulation. Okay to continue with Lovenox (enoxaparin) (4) Hypertension: Plan: Home antihypertensives continued, renal function is at baseline (5) Hyponatremia: Plan: Patient has had hyponatremia over the past several weeks and reports she takes salt tablets at home Highly suspicious for malignancy induced SIADH. -improved, decrease salt tablets from twice daily to daily to minimize sodium uptick to lessen 7 mmol/L per 24-hour. Adjust sodium chloride tablet intake based on daily labs Plan DVT prophylaxis: Lovenox CODE STATUS: Full code Admission and Anticipated Discharge Date Admission Date: July 28, 2023 Subjective pt is much improved has returned to home oxygen of 2 L had move to chair without significant respiratory distress neutropenia has resolved, issues of some constipation Physical Exam Physical Exam: pt without significant distress lungs diminished at both bases L> R cardiac exam is regular Results & Data Results & Data Vital Signs (Past 12 Hours) Vital Signs Temp Pulse Pulse Resp BP Pulse Ox O2 Del Method 07/30/23 00:37 100 H 18 98 Nasal Cannula 07/29/23 23:33 105 H 07/29/23 23:06 98.4 F 104 H 20 137/102 H 97 Nasal Cannula 07/29/23 22:01 Nasal Cannula 07/29/23 19:35 106 H 18 94 Nasal Cannula O2 Flow Rate 07/30/23 00:37 3 07/29/23 23:33 07/29/23 23:06 3 07/29/23 22:01 3 07/29/23 19:35 3 Laboratory Results reviewed cbc with diff reviewed chemistry PG Care Time/CCT Total # of Minutes Spent Total Time Spent with Patient: Total time spent is greater than 50% in coordination of care (as documented) at patient's floor/unit and/or counseling patient: Coding Level of Care Code 75207 SUB INP/OBS CARE 3/50MIN Diagnoses Acute respiratory failure with hypoxia J96.01 COVID-19 U07.1 Adenocarcinoma of lung C34.90 Hypertension I10 Hyponatremia E87.1
[2023-07-30] MEDS: SODIUM CHLOR 7% 4 ML NEB NEB SCH ×2 (07:23→19:47)
[2023-07-30] MEDS: buPROPion SR 100 MG TABCR PO SCH ×2 (08:43→19:34)
[2023-07-30] MEDS: dexAMETHasone 6 MG in SYRINGE 0 ML IV SCH (08:44)
[2023-07-30] MEDS: ENOXAPARIN INJ 40 MG/0.4 ML SYR SQ SCH (08:44)
[2023-07-30] MEDS: SODIUM CHLORIDE 1 GM TABLET PO SCH ×2 (08:45→19:34)
[2023-07-30] MEDS: FOLIC ACID 1 MG TAB PO SCH (08:45)
[2023-07-30] MEDS: LOSARTAN POTASSIUM 50 MG TAB PO SCH (08:45)
[2023-07-30] MEDS: POLYETHYLENE (MIRALAX) 17 GM PACK PO SCH ×2 (08:55→20:58)
[2023-07-30] MEDS: FILGRASTIM 480 MCG/1.6 ML VIAL SC SCH (11:04)
[2023-07-30] MEDS: DOXYCYCLINE HYCLATE 100 MG in DEXTROSE 5% MINI-B 100 ML IV SCH ×2 (11:07→23:10)
[2023-07-30] MEDS ORDERED: SENNOSIDES 8.8 MG/5 ML UDC PO ONE (12:18)
[2023-07-31] MEDS: LEVALBUTEROL 1.25 MG/3 ML NEB NEB SCH ×2 (00:46→06:54)
[2023-07-31] MEDS: CEFEPIME 2,000 MG in SYRINGE 0 ML IV SCH ×2 (01:01→10:07)
[2023-07-31] MEDS: ACETAMINOPHEN 1,000 MG/100 ML VIAL IV SCH (03:48)
[2023-07-31 05:07] LABS: Hematocrit (blood only) 26.9 % (37.0-47.0); Hemoglobin 8.6 g/dl (12.0-16.0); Mean Corpuscular Hemoglobin 29.5 pg (25.0-34.0); Mean Corpuscular Volume 92.1 fL (80.0-100.0); Mean Platelet Volume 9.4 fL (9.4-12.4); Nucleated RBC # (auto) 0.08 K/uL (0.00-0.12); Nucleated RBC % (auto) 0.2 %; Platelet Count 320 K/uL (130-400); RDW Coefficient of Variation 16.3 % (11.5-14.5); RDW Standard Deviation 55.3 fL (36.4-46.3); Red Blood Count 2.92 M/uL (4.20-5.40); White Blood Count 37.33 K/ul (4.8-10.8)
[2023-07-31 05:15] LABS: BUN Creatinine Ratio 51.2 (10-20); Calcium 8.7 mg/dl (8.6-10.3); Creatinine Clr Calc Pharmacy 126.4 ml/min; Est GFR (African American) 124.8 ml/min; Est GFR (Non-African American) 107.7 ml/min; Potassium 4.5 mmol/L (3.5-5.1)
[2023-07-31 05:23] LABS: ALC (manual) 4.48 K/uL (1.2-3.4); ANC (manual) 25.76 K/uL (1.4-6.5); Dohle Bodies 1+; Lymphocytes # (manual) 4.48 K/uL (1.2-3.4); Lymphocytes % (manual) 12 %; Metamyelocytes # (manual) 2.24 K/uL (0-0); Metamyelocytes % (manual) 6 %; Monocytes # (manual) 2.61 K/uL (0.11-0.59); Monocytes % (manual) 7 %; Myelocytes # (manual) 2.24 K/uL (0-0); Myelocytes % (manual) 6 %; Neutrophils # (manual) 25.76 K/uL (1.40-6.50); Neutrophils % (manual) 69 %; Polychromasia 1+
[2023-07-31] MEDS: SODIUM CHLOR 7% 4 ML NEB NEB SCH (06:54)
[2023-07-31] MEDS: buPROPion SR 100 MG TABCR PO SCH (08:27)
[2023-07-31] MEDS: dexAMETHasone 6 MG in SYRINGE 0 ML IV SCH (08:29)
[2023-07-31] MEDS: FOLIC ACID 1 MG TAB PO SCH (08:29)
[2023-07-31] MEDS: ENOXAPARIN INJ 40 MG/0.4 ML SYR SQ SCH (08:29)
[2023-07-31] MEDS: POLYETHYLENE (MIRALAX) 17 GM PACK PO SCH (08:30)
[2023-07-31] MEDS: SODIUM CHLORIDE 1 GM TABLET PO SCH (08:30)
[2023-07-31] MEDS: LOSARTAN POTASSIUM 50 MG TAB PO SCH (08:30)
[2023-07-31] MEDS ORDERED: SODIUM CHLORIDE 0.65% NA SOLN 45 ML (OCEAN) ONE (08:31)
[2023-07-31] MEDS ORDERED: SENNA 8.6 MG TAB PO SCH (09:00)
--- NOTE | 2023-07-31 11:02 | XRay Report ---
XR chest 1V portable HISTORY: eval right-sided sided chest pain h/o CA COMPARISON: Chest x-ray and chest CTA 07/28/2023. FINDINGS: No pneumothorax. Trace right and small left pleural effusions persist. Ultimately focal chantal ateral airspace opacities most pronounced within the left lung are not significantly changed. A left subclavian Port-A-Cath terminates in the proximal SVC. The heart is stable in size. No acute fracture s identified. IMPRESSION: 1. No significant change compared to the prior study. 2. Bilateral airspace opacities, left greater than right, persist. This may represent the patient's k nown malignancy. ACT 112: Negative or not required by law. Electronically signed by: Boo Lechuga M.D. 07/31/2023 11:00 AM
[2023-07-31] MEDS: DOXYCYCLINE HYCLATE 100 MG in DEXTROSE 5% MINI-B 100 ML IV SCH (11:14)
--- NOTE | 2023-07-31 15:19 | Discharge Summary ---
Date of Service July 31, 2023 Admission HPI Per Admitting Provider Noemy is a 68-year-old female with a past medical history of lung adenocarcinoma on chemotherapy, anxiety/depression who presented to the ER with chest pain and shortness of breath and who was found to have an SpO2 of 87% via EMS and had subsequent improvable while on CPAP and post DuoNebs. Patient has had a prodrome of URI symptoms and fever. PER ER: Noemy is newly COVID-positive while in the ER. Procalcitonin is acutely elevated at 1.0 CTA: No PE, extensive left greater than right consolidation with bibasilar cavitation progressed from prior likely representing multifocal adenocarcinoma but from which a superimposed pneumonia cannot be excluded. Mild mediastinal and hilar lymphadenopathy persist, trace right and small left pleural effusions are present Empirically covered in the ER with broad-spectrum antibiotics given underlying immunocompromise and severe level of illness, given cefepime/doxycycline/azithromycin while in the ER. Renal function is normal. High-sensitivity troponin is mildly elevated at 28.4 suspicious for demand, BNP is not elevated. Patient is tachycardic, tachypneic, and febrile in the ER Worsen symptoms over last 36 hours. +Fever, chills, productive cough. On 3L NC at home, up to 5L with SoB and still 86%. Nebs + Methylpred 125mg and 2 nebs int he field. 500nss in the field + 1L in the ER. L lung diminished Full Code Per Patient/: Swtched from 2 [place] of pem/carbo to docetaxcel first dose last Thrs Patient seen with her at bedside. She reports she has had a low-grade fever around to slightly below 100 for 3 days, and increased weakness, cough, fatigue, and shortness of breath for 1-2 days. She notes she normally coughs up a very large amount of sputum up to a liter a day due to her mucinous adenocarcinoma, in the last 24 hours her sputum has actually decreased slightly although she feels worse and like she has difficulty expectorating. She has had some intermittent diarrhea recently, none in the last 24 hours. She had chest pain last night which has resolved today. She denies lightheadedness, dizziness, syncope, presyncope. She has no abdominal pain. No dysuria. Has continued to pee daily, maybe a little bit less in the last day. She follows and receives her chemo treatments at [place]. She was recently switched after 2 cycles of chemo to her first dose of Doxil Taxol last due to concern for increased size of malignancy despite being on the initial 2 cycles. She was pending outpatient blood work to evaluate her neutrophil count, had not had this completed as outpatient. At time of admission her ANC is less than 100. Medical History: Reviewed Medications: Reviewed Surgical History: Reviewed Family history: Reviewed Allergies: Reviewed. Allergic to azithromycin, Flushing reaction last time this was given Social History: No tobacco, no etoh use Code Status: Full Principal Diagnosis covid pneumonia neutropenic fever pancytopenia from chemotherapy Discharge Exam awake and alert, lungs are diminshed at the bases moreso on the left Discharge Data Allergies Allergy/AdvReac Type Severity Reaction Status Date / Time azithromycin Allergy Intermediate Difficulty Verified 07/28/23 09:52 Breathing Penicillins Allergy Mild HIVES A Verified 07/22/23 15:39 CHILD Consultations 07/28/23 10:24 ED Decision to Admit Stat Ordered Studies 07/28/23 08:35 CT angio chest PE protocol Stat Hospital Course (1) Acute respiratory failure with hypoxia: Acute on chronic hypoxic respiratory failure due to COVID-pneumonia, and stage IV adenocarcinoma of the lung wiht extensive pulmonary involvement, recently received second line chemotherapy pancytopenia due to chemotherapy rescued with Neulasta x 2 doses Cefepime/doxycycline. converted to po Doxycylline at or Blood cultures negative at discharge Baricitinib/tocilizumab contraindicated due to her neutropenia. Covid infection started on remdesivir Steroids continued, patient received methylprednisolone 125 mg prehospital. dexamethasone 6 mg twice daily x 10-day course (2) COVID-19: -on Remdesivir and Dexamethasone (3) Adenocarcinoma of lung: Lung adenocarcinoma - Stave 4 NSCLC. 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 aware the patient is admitted. Family specifically spoke to him regarding anticoagulation. Okay to continue with Lovenox (enoxaparin) (4) Hypertension: Home antihypertensives continued, renal function is at baseline (5) Hyponatremia: Patient has had hyponatremia over the past several weeks and reports she takes salt tablets at home Highly suspicious for malignancy induced SIADH. -improved, decrease salt tablets from twice daily to daily to minimize sodium uptick to lessen 7 mmol/L per 24-hour. Adjust sodium chloride tablet intake based on daily labs Plan CODE STATUS: Full code Total Time Total Time Spent Total Time Spent (In Minutes): It required greater than 30 minutes to prepare this patient for discharge. Discharge Plan Discharge Items Patient Disposition: Home - Self-Care Reason For Visit: COVID, RESPIRATORY FAILURE Discharge Diagnosis: covid pneumonia secondary bacterial pneumonia Activity: Per Instructions section Non-emergency contact: Primary Care Provider and Specialist Call non-emergency contact if: your symptoms worsen Follow-up/Referrals: Tati Hemphill PA-C [[employer]ician [employer] Associate] - 08/09/23 11:00 am Diet: Regular Addtl Attending Provider Instructions: please complete a 10 day course of dexamethasone and a 7 day course of Doxycycline Please follow up with your specialist the bone marrow rescue medication has had a robust affect on your bone marrow, please have some lab work at our specialist office Addtl Chucking 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 Quarantine means attempting to stay away from people who have not had an active covid infection in the past, and if you have to be around others to wear a mask even if you are indoors, do not share a room to sleep in with others until you are out of quarantine. If you still have symptoms at the 10th day, continue to quarantine until you are symptom free for 48 hours Pending Studies at Discharge: No Stand-Alone Forms: [employer], Smoking Cessation Medications and DC Order Prescriptions: New dexamethasone 6 mg tablet 6 mg PO DAILY Qty: 6 0RF doxycycline hyclate 100 mg capsule 100 mg PO BID 3 Days Qty: 6 0RF Continued olmesartan 40 mg tablet 40 mg PO DAILY Qty: 90 1RF Hold Instructions: hypotension bupropion HCl 100 mg tablet sustained-release 12 hr 100 mg PO BID Qty: 60 3RF Rx Instructions: second dose late afternoon omega-3 acid ethyl esters 1 gram capsule 1 cap PO QAM cyanocobalamin (vitamin B-12) 1,000 mcg Tablet, Sublingual 1,000 mcg SUBLINGUAL QAM cholecalciferol (vitamin D3) [Vitamin D3] 25 mcg (1,000 unit) Tablet 25 mcg PO QAM Neilmed Sinus Rinse Complete Packet With Rinse Device See Rx Instructions .Route .COMPLEX PRN (Reason: congestion) Rx Instructions: use daily; oxycodone 5 mg Tablet 5 - 10 mg PO Q6H PRN (Reason: moderate to severe pain) Qty: 30 0RF Rx Instructions: 1 tablet for moderate pain 2 tablets for severe pain folic acid 1 mg Tablet 1 mg PO QAM Qty: 30 0RF oxycodone [OxyContin] 10 mg tablet,oral only,ext.rel.12 hr 10 mg PO BID Qty: 60 0RF albuterol sulfate 90 mcg/actuation HFA aerosol inhaler 2 inh inhalation Q6H PRN (Reason: shortness of breath or wheezing) Qty: 6.7 0RF sennosides-docusate sodium [Colace 2-In-1] 8.6-50 mg tablet 1 tab-cap PO DAILY Qty: 30 0RF polyethylene glycol 3350 [Miralax] 17 gram/dose powder 17 g PO BID Qty: 238 0RF ipratropium-albuterol 0.5 mg-3 mg(2.5 mg base)/3 mL solution for nebulization 3 ml inhalation Q6 PRN (Reason: as directed) ondansetron HCl 8 mg tablet 8 mg PO DIRECTED prochlorperazine maleate 10 mg tablet 10 mg PO Q6H PRN (Reason: Nausea And Vomiting) Held prednisone 10 mg tablet 10 mg PO DIRECTED Hold Instructions: Resume on 08/07/23. Discharge Orders: Discharge Order (Routine); Ordered 07/31/23 Ordered By: Jair Quiles Admission Data Admit Date/Time: 07/28/23 11:51 Attending Provider: Jair Quiles Admit Provider: Jeremiah Torres Primary Care Provider: Cliff Carmen Other Providers: Jeremiah Torres Other Interventions: Discharge Summary Assessment (RN) Last Done: 07/31/23 12:26 Coding Level of Care Code 60004 INP/OBS DISCH >30 MIN Diagnoses Acute respiratory failure with hypoxia J96.01 COVID-19 U07.1 Adenocarcinoma of lung C34.90 Hypertension I10 Hyponatremia E87.1
== END 2023-07-31 14:11 | disposition home or self-care (01) | DRG 177 ==
LOC: ED 08:29 → EDINP 11:51 → SUATTDRO 11:51 → 1E 17:58

== ENCOUNTER 2023-08-23 16:54 | Inpatient (IN) ==
--- NOTE | 2023-08-23 17:04 | ED Triage Note ---
Date of Service August 23, 2023 Provider in Triage Author: Robbie Bryant History of Present Illness This patient was briefly evaluated while in triage. An abbreviated physical exam was performed. This patient is a 68-year-old Female who presents to the ED for evaluation of elevated heart rate. Pt is a cancer patient and had chemo treatement at [facility] today. Had Holter recently placed for palpitations. Evidently is now in new onset afib/aflutter and was referred to ER for new evaluation. Physical Exam Limited Triage Exam: VITALS: Vitals are noted on the nurse's note and reviewed by myself. Vital signs with slight tachycardia. GENERAL: White female in a wheelchair. HEART: Irregular rate LUNGS: Clear to auscultation bilaterally without wheezes, rales or rhonchi. NEURO: Patient was alert and oriented to person place and time. CN II through XII grossly intact. Initial orders for labs and / or imaging were placed and patient was placed in the waiting area until a bed is available. Please see further documentation for the full ED course. MDM / Impression Impression Impression: Atrial flutter, Adenocarcinoma, lung, Chronic hypoxic respiratory failure Impression: Atrial flutter Qualifiers: Atrial flutter type: unspecified Qualified Code(s): I48.92 - Unspecified atrial flutter Adenocarcinoma, lung Qualifiers: Laterality: left Qualified Code(s): C34.92 - Malignant neoplasm of unspecified part of left bronchus or lung
--- NOTE | 2023-08-23 17:32 | Emergency Department Note ---
Impression & Plan Atrial flutter, Adenocarcinoma, lung, Chronic hypoxic respiratory failure ED Provider Note Provider: Robbie Bryant MD DATE OF SERVICE: 08/23/2023 CHIEF COMPLAINT: Abnormal Holter monitor HISTORY OF PRESENT ILLNESS: Patient is a 68-year-old female past medical history unfortunately of lung adenocarcinoma on chemotherapy following at [facility] presenting here today after having an abnormal report on white sugar syrup operator/Holter monitor placed over the weekend. Evidently on Tuesday had an episode where she had an elevated heart rate. Had a chemotherapy at [facility] yesterday without issue. No recent fevers. Patient denies any chest pain or shortness of breath or significant symptoms now or on Tuesday when this episode supposedly happened. States Holter monitor was related to some intermittent high heart rates or palpitations he is felt in the past. Talked with the primary care office and came here for evaluation as there may be some abnormalities of her heart monitor. Patient denies any significant cardiac history by report. PAST MEDICAL HISTORY: As noted above MEDICATIONS: Reviewed home medications SOCIAL HISTORY: Non-smoker PHYSICAL EXAM: GENERAL: alert and oriented in no acute distress on stretcher Head: normocephalic and atraumatic EYES: No injection, discharge or icterus. NECK: Trachea midline. ENT: Mucous membranes pink and moist. LUNGS: Airway patent. No retractions. Breath sounds clear with good air entry bilaterally. HEART: Regular rate and rhythm. No chest wall tenderness ABDOMEN: Soft and non-tender, without guarding or rebound. SKIN: Acyanotic, warm, dry, without rashes EXTREMITIES: Without swelling, tenderness or deformity NEUROLOGICAL: No focal deficits. No aphasia. No facial droop or slurred speech. Ambulatory. EK bpm sinus rhythm rare PAC. No acute ST segment elevation or depression with some anterior T wave inversions noted. Left anterior fascicular block noted. QTc 409. EKG 2: 160 bpm atrial flutter occasional PVC. No clear acute ST segment elevation with left axis and some T wave changes. CONTINUOUS CARDIAC MONITORING: was ordered and showed a heart rate of 90s-180s bpm in sinus rhythm with PACs later to atrial flutter Patient's laboratory studies and imaging reviewed. Differential includes Premature contractions, electrolyte abnormality, cardiac dysrhythmia, thyroid dysfunction, pulmonary embolism, infection, gastrointestinal, as well as other pathologies. IMPRESSION/MEDICAL DECISION MAKING: Patient not newly hypoxic or febrile. Heart rate around 100 which is not all that atypical by report. Patient denies significant symptoms. Heart monitor reportedly with some elevated heart rates. Basic labs were checked given her history of chemotherapy and treatment although reports she has been having intake. Will look for any significant electrolyte abnormality or signs of thyroid dysfunction at this time. Does not appear to be in A-fib at this point. Shortly thereafter transitions to rapid tachycardia appears to be atrial flutter. 5 mg IV push of metoprolol was initially given without real improvement. Patient is stable without significant symptoms. Without significant improvement in metoprolol some diltiazem utilized and drip started. Heart rate without a lot of variation however is around the 150s and I do not believe this represents SVT. Occasional PVCs noted. Blood work here with minimal anemia. Normal platelet count. No significant leukopenia or leukocytosis. Troponin is normal. Chest x-ray per radiology stable to slightly progressed alveolar opacities likely related to malignancy and I doubt this is infectious related at this time. Between the chemotherapy and cancer believe this likely provoke some irritability causing the arrhythmia. Again the patient is hemodynamically stable and without significant complaint but is noted to be tachycardic. TSH is minimally off. Will defer anticoagulation to the inpatient team. Discussed with him staying for further care given the tachycardia although again the patient denies significant symptoms. DIAGNOSIS: Atrial flutter new onset rapid, lung cancer with chronic respiratory failure DISPOSITION: Hospitalist will evaluate Patient was agreeable with this plan. Critical Care I have personally spent 31 minutes of critical care time in the direct management of this patient. This includes bedside care, interpretation of diagnostic studies, and testing, discussion with consultants, patient, and family members, and other required patient management activities. These 31 minutes is in excess of all separately billable procedures. 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 Hyperlipidemia Vitamin D deficiency Surgical History Port-A-Cath in place (04/28/23) Left Subclavian Mediport Insertion(Left) - Donal Maldonado DO H/O colonoscopy History of surgical removal of ganglion cyst left wrist History of wisdom tooth extraction Hx of section History of carpal tunnel release right wrist History of tonsillectomy and adenoidectomy History of mandibular surgery d/t underbite Hx of tooth extraction Hx of needle biopsy thyroid--benign History of Mohs surgery for squamous cell carcinoma in situ of skin x2 Family History Father Colon cancer Prostate cancer Myocardial infarction Heart disease Mother Hypertension Cancer Uncle Diabetes Aunt Breast cancer Other No family history of adverse response to anesthesia Denies family history of Ovarian cancer Social History Smoking Status: Never smoker Second Hand Exposure: No; Do You Dip or Chew Tobacco: No; Hx Alcohol Use: Yes Alcohol type: wine Alcohol Intake Frequency: Monthly or Less Hx Substance Use: No Preferred Language: [place] Communication Ability: Effective Visual Impairment: No Limitations Hearing Ability: Normal Music Producer Required: No Beliefs That Will Affect Care: None marital status: Current Living Situation: Spouse current occupational status: retired How many Children do You have: 2 Feels Safe at Home: Yes Childhood Exposure to Second-Hand Smoke: Yes during the past year weight has: decreased > 10 lbs Dental Care, Regularly: Yes Physical Activity Frequency: Does not Exercise Seatbelt Use: always Sunscreen Use: Yes Assistive Devices: Oxygen - at Night and Oxygen - Continuous Allergies Allergies Allergy/AdvReac Type Severity Reaction Status Date / Time azithromycin Allergy Severe Difficulty Verified 08/23/23 18:16 Breathing Penicillins Allergy Intermediate HIVES A Verified 08/23/23 18:16 CHILD Home Meds Home Medications Medication Instructions Recorded Confirmed omega-3 acid ethyl esters 1 gram 1 cap PO QAM 02/04/20 08/23/23 capsule cholecalciferol (vitamin D3) 25 25 mcg PO QAM 11/20/20 08/23/23 mcg (1,000 unit) tablet (Vitamin D3) cyanocobalamin (vitamin B-12) 1,000 mcg sublingual QAM 11/20/20 08/23/23 1,000 mcg sublingual tablet sodium chloride, sodium See Rx Instructions .Route 04/27/23 08/23/23 bicarb-nasal rinse squeeze bottle .COMPLEX PRN congestion with packet (Neilmed Sinus Rinse Complete with packet) ipratropium 0.5 mg-albuterol 3 mg 3 ml inhalation Q6 PRN as directed 06/28/23 08/23/23 (2.5 mg base)/3 mL nebulization soln ondansetron HCl 8 mg tablet 8 mg PO DIRECTED 07/28/23 08/23/23 prednisone 10 mg tablet 10 mg PO DIRECTED 07/28/23 08/23/23 prochlorperazine maleate 10 mg 10 mg PO Q6H PRN Nausea And 07/28/23 08/23/23 tablet Vomiting polyethylene glycol 3350 17 17 g PO BID PRN constipation 08/01/23 08/23/23 gram/dose oral powder (Miralax) sennosides 8.6 mg-docusate sodium 1 tab-cap PO DAILY PRN Constipation 08/01/23 08/23/23 50 mg tablet (Colace 2-In-1) dexamethasone 6 mg tablet 6 mg PO DIRECTED 08/23/23 08/23/23 Previous Rx's Medication Instructions Recorded albuterol sulfate 90 mcg/actuation 2 inh inhalation Q6H PRN shortness 04/29/23 aerosol inhaler of breath or wheezing #6.7 grams folic acid 1 mg tablet 1 mg PO QAM #30 tabs 04/29/23 oxycodone 10 mg tablet,crush 10 mg PO BID #60 tabs 04/29/23 resistant,extended release 12 hr (OxyContin) oxycodone 5 mg tablet 5 - 10 mg (1 - 2 x 5 mg) PO Q6H 04/29/23 PRN moderate to severe pain #30 tabs Oxygen Home #1 ea 08/18/23 Vibration Vest #1 ea 08/18/23 budesonide 0.5 mg/2 mL suspension 0.5 mg (2 mL) inhalation BID #60 mL 08/19/23 for nebulization formoterol fumarate 20 mcg/2 mL 2 ml inhalation BID #120 mL 08/19/23 solution for nebulization (Perforomist) sodium chloride 3 % for 4 ml inhalation Q8H PRN secretions 08/19/23 nebulization #240 mL Results & Data (ED) Vital Signs Vital Signs - 24 hr 08/23/23 17:01 08/23/23 17:57 08/23/23 18:01 Temperature 36.7 C Temperature Source Temporal Artery Scan Pulse Rate 101 H 180 H 175 H Pulse Rate [Apical] Pulse Rate from SpO2 Sensor Pulse Rhythm Respiratory Rate 20 30 H Respiratory Effort / Characteristics Respiratory Depth Blood Pressure 120/75 129/97 129/97 Blood Pressure [Right Arm] Blood Pressure Mean 90 115 Blood Pressure Mean [Right Arm] Pulse Oximetry 99 99 Oxygen Delivery Method Nasal Cannula Oxygen Flow Rate 3 Sepsis Recent Fever Within 48 Hours No Sepsis New/Unexplained Change in Mental Status N/A Sepsis Action Taken by Nursing No Action Required 08/23/23 18:05 08/23/23 18:11 08/23/23 18:11 Temperature Temperature Source Pulse Rate 100 H 159 H Pulse Rate [Apical] 160 H Pulse Rate from SpO2 Sensor Pulse Rhythm Regular Respiratory Rate 22 18 Respiratory Effort / Characteristics Non-Labored Respiratory Depth Normal Blood Pressure Blood Pressure [Right Arm] 108/77 Blood Pressure Mean Blood Pressure Mean [Right Arm] 87 Pulse Oximetry 96 95 Oxygen Delivery Method Room Air Nasal Cannula Oxygen Flow Rate 3 Sepsis Recent Fever Within 48 Hours Sepsis New/Unexplained Change in Mental Status Sepsis Action Taken by Nursing 08/23/23 18:31 08/23/23 18:39 08/23/23 18:41 Temperature Temperature Source Pulse Rate 160 H 165 H Pulse Rate [Apical] 166 H Pulse Rate from SpO2 Sensor Pulse Rhythm Respiratory Rate 26 H 26 H 22 Respiratory Effort / Characteristics Respiratory Depth Normal Blood Pressure 112/87 99/80 L Blood Pressure [Right Arm] 106/62 Blood Pressure Mean 99 91 Blood Pressure Mean [Right Arm] 76 Pulse Oximetry 94 94 95 Oxygen Delivery Method Nasal Cannula Nasal Cannula Nasal Cannula Oxygen Flow Rate 3 3 3 Sepsis Recent Fever Within 48 Hours Sepsis New/Unexplained Change in Mental Status Sepsis Action Taken by Nursing 08/23/23 18:41 08/23/23 18:50 08/23/23 18:52 Temperature Temperature Source Pulse Rate 164 H 164 H 165 H Pulse Rate [Apical] Pulse Rate from SpO2 Sensor 166 H Pulse Rhythm Respiratory Rate 30 H 26 H 26 H Respiratory Effort / Characteristics Respiratory Depth Blood Pressure 106/62 106/79 106/79 Blood Pressure [Right Arm] Blood Pressure Mean 77 88 90 Blood Pressure Mean [Right Arm] Pulse Oximetry 92 91 91 Oxygen Delivery Method Nasal Cannula Nasal Cannula Nasal Cannula Oxygen Flow Rate 3 3 3 Sepsis Recent Fever Within 48 Hours Sepsis New/Unexplained Change in Mental Status Sepsis Action Taken by Nursing 08/23/23 18:59 08/23/23 19:00 08/23/23 19:09 Temperature Temperature Source Pulse Rate 165 H 165 H Pulse Rate [Apical] 167 H Pulse Rate from SpO2 Sensor 166 H 164 H Pulse Rhythm Respiratory Rate 26 H 23 24 Respiratory Effort / Characteristics Non-Labored Respiratory Depth Normal Blood Pressure 103/76 97/77 L Blood Pressure [Right Arm] 106/79 Blood Pressure Mean 90 83 Blood Pressure Mean [Right Arm] 88 Pulse Oximetry 91 90 91 Oxygen Delivery Method Nasal Cannula Nasal Cannula Nasal Cannula Oxygen Flow Rate 3 3 3 Sepsis Recent Fever Within 48 Hours Sepsis New/Unexplained Change in Mental Status Sepsis Action Taken by Nursing 08/23/23 19:10 08/23/23 19:15 08/23/23 19:20 Temperature Temperature Source Pulse Rate 166 H 167 H 165 H Pulse Rate [Apical] Pulse Rate from SpO2 Sensor Pulse Rhythm Respiratory Rate 22 Respiratory Effort / Characteristics Respiratory Depth Blood Pressure 97/77 L 96/80 L 100/84 Blood Pressure [Right Arm] Blood Pressure Mean 88 87 89 Blood Pressure Mean [Right Arm] Pulse Oximetry 92 Oxygen Delivery Method Nasal Cannula Oxygen Flow Rate 3 Sepsis Recent Fever Within 48 Hours Sepsis New/Unexplained Change in Mental Status Sepsis Action Taken by Nursing 08/23/23 19:31 08/23/23 19:35 08/23/23 19:40 Temperature Temperature Source Pulse Rate 162 H 169 H 163 H Pulse Rate [Apical] Pulse Rate from SpO2 Sensor Pulse Rhythm Respiratory Rate 24 26 H Respiratory Effort / Characteristics Respiratory Depth Blood Pressure 91/75 L 95/76 L 98/75 L Blood Pressure [Right Arm] Blood Pressure Mean 80 80 87 Blood Pressure Mean [Right Arm] Pulse Oximetry 91 90 90 Oxygen Delivery Method Nasal Cannula Nasal Cannula Nasal Cannula Oxygen Flow Rate 3 3 3 Sepsis Recent Fever Within 48 Hours Sepsis New/Unexplained Change in Mental Status Sepsis Action Taken by Nursing 08/23/23 19:45 08/23/23 19:50 Temperature Temperature Source Pulse Rate 165 H 170 H Pulse Rate [Apical] Pulse Rate from SpO2 Sensor Pulse Rhythm Respiratory Rate 24 25 H Respiratory Effort / Characteristics Respiratory Depth Blood Pressure 106/76 81/54 L Blood Pressure [Right Arm] Blood Pressure Mean 96 57 Blood Pressure Mean [Right Arm] Pulse Oximetry 91 92 Oxygen Delivery Method Nasal Cannula Nasal Cannula Oxygen Flow Rate 3 3 Sepsis Recent Fever Within 48 Hours Sepsis New/Unexplained Change in Mental Status Sepsis Action Taken by Nursing Laboratory Data 08/23/23 17:40 08/23/23 17:40 Lab Results 08/23/23 08/23/23 Range/Units 17:40 18:45 WBC 9.14 (4.8-10.8) K/ul RBC 3.53 L (4.20-5.40) M/uL Hgb 11.0 L (12.0-16.0) g/dl Hct 32.4 L (37.0-47.0) % MCV 91.8 (80.0-100.0) fL MCH 31.2 (25.0-34.0) pg MCHC 34.0 (32.0-36.0) g/dL RDW Std Deviation 51.9 H (36.4-46.3) fL RDW Coeff of Thomas 15.5 H (11.5-14.5) % Plt Count 357 (130-400) K/uL MPV 8.7 L (9.4-12.4) fL Immature Gran % (Auto) 0.5 % Neut % (Auto) 90.1 % Lymph % (Auto) 3.2 % [place] % (Auto) 6.1 % Eos % (Auto) 0.0 % Baso % (Auto) 0.1 % Neut # (Auto) 8.23 H (1.40-6.50) K/uL Lymph # (Auto) 0.29 L (1.20-3.40) K/uL [place] # (Auto) 0.56 (0.11-0.59) K/uL Eos # (Auto) 0.00 (0.00-0.50) K/uL Baso # (Auto) 0.01 (0.00-0.20) K/uL Immature Gran # (Auto) 0.05 (0.01-0.20) K/uL APTT 24 (21-31) Seconds PTT Ratio 0.9 Sodium 125 L (136-145) mmol/L Potassium 5.4 H (3.5-5.1) mmol/L Chloride 88 L (98-107) mmol/L Carbon Dioxide 31 (21-32) mmol/L Anion Gap 6 (3-11) BUN 18 (6-23) mg/dl Creatinine 0.35 L (0.6-1.2) mg/dl Est Cr Clr Drug Dosing 136.5 ml/min Est GFR ( Amer) 131.4 ml/min Est GFR (Non-Af Amer) 113.4 ml/min BUN/Creatinine Ratio 51.4 H (10-20) Glucose 111 H (70-99(Fasting)) mg/dl Calcium 9.0 (8.6-10.3) mg/dl Magnesium 1.8 (1.7-2.4) mg/dl Total Bilirubin 0.3 (0.2-1.0) mg/dl AST 26 (13-39) U/L ALT 37 (7-52) U/L Alkaline Phosphatase 65 (34-104) U/L Troponin I High Sens 12.1 (0-14) pg/ml Total Protein 6.4 (6.0-8.3) gm/dl Albumin 3.6 (3.4-5.0) gm/dl Globulin 2.8 (2.5-4.0) gm/dl Albumin/Globulin Ratio 1.3 (0.9-2) Lipase 81 (11-82) U/L TSH 0.259 L (0.300-4.500) uIu/ml Free T4 1.54 (0.61-1.60) ng/dl Adenovirus (PCR) Not Detected (NotDetected) B. pertussis DNA (PCR) Not Detected (NotDetected) B.parapertussis DNA PCR Not Detected (NotDetected) C. pneumoniae DNA (PCR) Not Detected (NotDetected) Coronavirus OC43 (PCR) Not Detected (NotDetected) Coronavirus HKU1 (PCR) Not Detected (NotDetected) Coronavirus 229E (PCR) Not Detected (NotDetected) SARS-CoV-2 (PCR) Not Detected (NotDetected) Coronavirus NL63 (PCR) Not Detected (NotDetected) Human Metapneumovir PCR Not Detected (NotDetected) Influenza Type A (PCR) Not Detected (NotDetected) Influenza Type B (PCR) Not Detected (NotDetected) M. pneumoniae (PCR) Not Detected (NotDetected) Parainfluenza 1 (PCR) Not Detected (NotDetected) Parainfluenza 2 (PCR) Not Detected (NotDetected) Parainfluenza 3 (PCR) Not Detected (NotDetected) Parainfluenza 4 (PCR) Not Detected (NotDetected) RSV (PCR) Not Detected (NotDetected) Entero/Rhino (PCR) Not Detected (NotDetected) Administered Medications Diltiazem HCl 125 mg/ Dextrose 125 mls @ 5 mls/hr IV .Q24H [facility]; Protocol Stop: 09/22/23 18:29 Last Titration: 08/23/23 22:00 Dose: 5 mg/hr, 5 mls/hr Documented By: MMG Co-signed By: ASW Titration: 08/23/23 21:00 Dose: 5 mg/hr, 5 mls/hr Documented By: MMG Co-signed By: ASW Titration: 08/23/23 20:00 Dose: 5 mg/hr, 5 mls/hr Documented By: MMG Co-signed By: NRHenrry Titration: 08/23/23 19:03 Dose: 10 mg/hr, 10 mls/hr Documented By: MMG Co-signed By: NRHenrry Admin: 08/23/23 18:37 Dose: 5 mg/hr, 5 mls/hr Documented By: ERIC Co-signed By: GAILK Heparin Sodium/Dextrose (Heparin Sodium/Dextrose) 25,000 units in 500 mls @ 21 mls/hr IV .[id number] [facility]; Protocol Stop: 09/22/23 22:13 Last Admin: 08/23/23 22:47 Dose: 1,050 units/hr, 21 mls/hr Documented By: MMQuinton Co-signed By: RENUKA Discontinued Medications Dexamethasone (Dexamethasone 4 Mg Tab) 6 mg PO NOW STA Stop: 08/23/23 22:24 Last Admin: 08/23/23 22:47 Dose: 6 mg Documented By: VIKTORIA Diltiazem HCl (Diltiazem Hcl 5 Mg/Ml 5 Ml Vial) 10 mg IV NOW STA Stop: 08/23/23 18:22 Last Admin: 08/23/23 18:29 Dose: 10 mg Documented By: NICKIE Co-signed By: VIKTORIA Heparin Sodium (Porcine) (Heparin Sod (Porcine) 1000 Unit/Ml) 5,000 units IV NOW ONE Stop: 08/23/23 22:15 Last Admin: 08/23/23 22:47 Dose: 5,000 units Documented By: MMG Co-signed By: RENUKA Sodium Chloride (Nss) 250 mls @ 999 mls/hr IV .Q16M ONE Stop: 08/23/23 18:58 Last Infusion: 08/23/23 19:07 Dose: Infused Documented By: Admin: 08/23/23 18:46 Dose: 999 mls/hr Documented By: VIKTORIA Sodium Chloride (Nss) 250 mls @ 999 mls/hr IV .Q16M ONE Stop: 08/23/23 20:12 Last Infusion: 08/23/23 20:51 Dose: Infused Documented By: Admin: 08/23/23 20:07 Dose: 999 mls/hr Documented By: VIKTORIA Magnesium Sulfate/Dextrose (Magnesium Sulfate / D5w) 1 gm in 100 mls @ 200 mls/hr IV Q30M CAROLYN Stop: 08/23/23 21:36 Last Admin: 08/23/23 21:55 Dose: 200 mls/hr Documented By: Infusion: 08/23/23 21:55 Dose: Infused Documented By: Admin: 08/23/23 21:26 Dose: 200 mls/hr Documented By: VIKTORIA Digoxin 500 mcg/ Syringe 10 mls @ 2 mls/min IV NOW STA Stop: 08/23/23 22:38 Last Admin: 08/23/23 22:51 Dose: 2 mls/min Documented By: VIKTORIA Metoprolol Tartrate (Metoprolol Tartrate 1 Mg/Ml Vial) Confirm Administered Dose 5 mg IV .STK-MED ONE Stop: 08/23/23 18:00 Last Admin: 08/23/23 18:01 Dose: 5 mg Documented By: NICKIE Metoprolol Tartrate (Metoprolol Tartrate 1 Mg/Ml Vial) 5 mg IV NOW STA Stop: 08/23/23 18:05 Last Admin: 08/23/23 18:13 Dose: Not Given Documented By: VIKTORIA Metoprolol Tartrate (Metoprolol Tartrate 1 Mg/Ml Vial) 5 mg IV NOW STA Stop: 08/23/23 21:43 Last Admin: 08/23/23 21:55 Dose: 5 mg Documented By: VIKTORIA Oxycodone HCl (Oxycodone Hcl 10 Mg Tabcr (Oxycontin)) 10 mg PO BID CAROLYN Stop: 09/06/23 22:13 Last Admin: 08/23/23 22:45 Dose: Not Given Documented By: RENUKA Imaging Data Radiologist's Impression: Chest X-Ray 08/23/23 17:05 XR chest 1V portable HISTORY: 68 years-old Female Chest pain, nonspecific COMPARISON: 07/31/2023 TECHNIQUE: AP view of the chest FINDINGS: Cardiac silhouette is enlarged. The patient is rotated towards the left. Left subclavian [id number] catheter. Battery pack projects of the left chest. No pneumothorax. Extensive left greater than right mixed interstitial and alveolar opacities with left greater than right pleural effusions and dense left basilar consolidation redemonstrated, slightly progressed. Bones appear grossly intact. IMPRESSION: Extensive left greater than right mixed interstitial and alveolar opacities redemonstrated which appear to be stable to slightly progressed and likely related to the patient's underlying known malignancy. ACT 112: Negative or not required by law. The above report was generated using voice recognition software. It may contain grammatical, syntax or spelling errors. Electronically signed by: Huber Menjivar M.D. 08/23/2023 5:54 PM Discharge Plan Visit Data Chief Complaint: Tachycardia Stated Complaint: HIGH PULSE RATE ED Provider: Robbie Bryant Discharge Problem: Atrial flutter, Adenocarcinoma, lung, Chronic hypoxic respiratory failure Patient Disposition: Being Evaluated by Hospitalist Discharge Instructions Interventions: ED Discharge Assessment Last Done: 08/23/23 22:15 Discharge Problem: Atrial flutter Qualifiers: Atrial flutter type: unspecified Qualified Code(s): I48.92 - Unspecified atrial flutter Adenocarcinoma, lung Qualifiers: Laterality: left Qualified Code(s): C34.92 - Malignant neoplasm of unspecified part of left bronchus or lung
--- NOTE | 2023-08-23 17:56 | XRay Report ---
XR chest 1V portable HISTORY: 68 years-old Female Chest pain, nonspecific COMPARISON: 07/31/2023 TECHNIQUE: AP view of the chest FINDINGS: Cardiac silhouette is enlarged. The patient is rotated towards the left. Left subclavian [id number] t catheter. Battery pack projects of the left chest. No pneumothorax. Extensive left greater than rig ht mixed interstitial and alveolar opacities with left greater than right pleural effusions and dense left basilar consolidation redemonstrated, slightly progressed. Bones appear grossly intact. IMPRESSION: Extensive left greater than right mixed interstitial and alveolar opacities redemonstrate d which appear to be stable to slightly progressed and likely related to the patient's underlying kno wn malignancy. ACT 112: Negative or not required by law. The above report was generated using voice recognition software. It may contain grammatical, syntax o r spelling errors. Electronically signed by: Huber Menjivar M.D. 08/23/2023 5:54 PM
[2023-08-23] MEDS ORDERED: METOPROLOL TARTRATE 1 MG/ML VIAL IV ONE (17:59)
[2023-08-23 18:01] LABS: Hematocrit (blood only) 32.4 % (37.0-47.0); Mean Corpuscular Hemoglobin 31.2 pg (25.0-34.0); Mean Corpuscular Volume 91.8 fL (80.0-100.0); Mean Platelet Volume 8.7 fL (9.4-12.4); Platelet Count 357 K/uL (130-400); RDW Coefficient of Variation 15.5 % (11.5-14.5); RDW Standard Deviation 51.9 fL (36.4-46.3); Red Blood Count 3.53 M/uL (4.20-5.40); White Blood Count 9.14 K/ul (4.8-10.8)
[2023-08-23] MEDS ORDERED: METOPROLOL TARTRATE 1 MG/ML VIAL IV STA ×2 (18:04→21:42)
[2023-08-23] MEDS ORDERED: STAT IV Infusion **Titration per Protocol STA (18:21)
[2023-08-23] MEDS ORDERED: dilTIAZem HCl 5 MG/ML 5 ML VIAL IV STA (18:21)
[2023-08-23 18:24] LABS: Troponin I High Sensitivity 12.1 pg/ml (0-14)
[2023-08-23 18:26] LABS: Basophils # (auto) 0.01 K/uL (0.00-0.20); Basophils % (auto) 0.1 %; Immature Granulocytes # (auto) 0.05 K/uL (0.01-0.20); Immature Granulocytes % (auto) 0.5 %; Lymphocytes # (auto) 0.29 K/uL (1.20-3.40); Lymphocytes % (auto) 3.2 %; Monocytes # (auto) 0.56 K/uL (0.11-0.59); Monocytes % (auto) 6.1 %; Neutrophils # (auto) 8.23 K/uL (1.40-6.50); Neutrophils % (auto) 90.1 %
[2023-08-23] MEDS ORDERED: dilTIAZem HCL 125 MG in DEXTROSE 5% 100 ML IV SCH (18:30)
[2023-08-23 18:31] LABS: Thyroid Stimulating Hormone 0.259 uIu/ml (0.300-4.500)
[2023-08-23] MEDS ORDERED: SODIUM CHLORIDE 0.9% 250 ML IV ONE ×2 (18:43→19:57)
[2023-08-23 18:54] LABS: Albumin Globulin Ratio 1.3 (0.9-2); Albumin Level 3.6 gm/dl (3.4-5.0); BUN Creatinine Ratio 51.4 (10-20); Bilirubin,Total 0.3 mg/dl (0.2-1.0); Creatinine Clr Calc Pharmacy 136.5 ml/min; Est GFR (African American) 131.4 ml/min; Est GFR (Non-African American) 113.4 ml/min; Globulin 2.8 gm/dl (2.5-4.0); Magnesium 1.8 mg/dl (1.7-2.4); Potassium 5.4 mmol/L (3.5-5.1); Total Protein 6.4 gm/dl (6.0-8.3)
[2023-08-23 19:11] LABS: T4 Free Thyroxine 1.54 ng/dl (0.61-1.60)
[2023-08-23 19:43] LABS: Adenovirus PCR Not Detected (NotDetected); Bordetella parapertussis PCR Not Detected (NotDetected); Bordetella pertussis PCR Not Detected (NotDetected); Chlamydia pneumoniae PCR Not Detected (NotDetected); Coronavirus 229E PCR Not Detected (NotDetected); Coronavirus CoV-2 (COVID19)PCR Not Detected (NotDetected); Coronavirus HKU1 PCR Not Detected (NotDetected); Coronavirus NL63 PCR Not Detected (NotDetected); Coronavirus OC43PCR Not Detected (NotDetected); Human Metapneumovirus PCR Not Detected (NotDetected); Influenza A PCR Not Detected (NotDetected); Influenza B PCR Not Detected (NotDetected); Mycoplasma pneumoniae PCR Not Detected (NotDetected); Parainfluenza Virus 1 PCR Not Detected (NotDetected); Parainfluenza Virus 2 PCR Not Detected (NotDetected); Parainfluenza Virus 3 PCR Not Detected (NotDetected); Parainfluenza Virus 4 PCR Not Detected (NotDetected); Respiratory Syncytial VirusPCR Not Detected (NotDetected); Rhinovirus/Enterovirus PCR Not Detected (NotDetected)
--- NOTE | 2023-08-23 19:55 | History & Physical Report ---
Date of Service August 23, 2023 Assessment & Plan (1) Atrial flutter: Plan: 68yo female with Stage IV adenocarcinoma of the lung presenting with tachycardia - likely atrial flutter. Rates presently 140-160's. She has been given Metoprolol 5mg IV as well as Diltiazem 10mg IV and is currently on Diltiazem gtt. HR persistently elevated with minimal response yet. TSH is low with normal T4. Electrolytes Patient asymptomatic. Blood pressure has remained acceptable. -Admit to PCU -Continue Diltiazem gtt -Initiate heparin gtt for anticoagulation -Magnesium 2gm IV -Check 2D echo (2) Adenocarcinoma of lung: Plan: Patient follows with [facility]. Last chemotherapy treatment on 08/22/23. -Dexamethasone 6mg PO tonight and x 3 additional doses -Zofran PRN -Continue pulmonary toilet, incentive spirometer and flutter valve -Vibration vest to assist with secretions -Continue supplemental O2 - 3L continuous -DuoNebs q 6 hours PRN -Formoterol BID -Budesonide BID -Albuterol PRN -Maintain neutropenic precautions -Oxycodone PRN pain History of Present Illness Chief Complaint: palpitations Primary Care Provider: Cliff Carmen MD Noemy Martinez is a 68yo female with Stage IV adenocarcinoma of the lung on chemotherapy through [facility] presenting with elevated heart rate. Patient has experienced intermittent palpitations over the last several weeks which have been lasting 10-20 minutes. She recently had a pvc monitor placed - was notified on 08/21/23 of arrhythmia. She was then instructed by her PCP to come to the ER for further workup. Patient reports that she has noted that her resting heart rate has recently increased from the 70's to the 90's. Her blood pressure is always on the low side 90's - 100's. She is currently asymptomatic. She denies chest pain, palpitations, dizziness, shortness of breath or confusion. She has a chronic cough productive for copious, thick white mucus which is baseline. She has Stage IV lung cancer which was diagnosed in March 2022- follows with [facility]. It is largely lipidic. She is on chemotherapy - last treatment 08/22/23. She received Dexamethasone and Zofran yesterday and it is to be continued for three more days. She follows with Pulmonary - was recently started on Performist and Budesonide inhaled as well as hypertonic saline nebs in addition to her DuoNebs QID PRN. Upon arrival to the ER patient tachycardic with HR in the low 100's - sinus on EKG. Then became more tachycardic in 140-180's, thought to be atrial flutter. She was administered Diltiazem bolus and drip initiated. ER Course: NSS 250mL x 2 boluses Diltiazem 10mg IV then gtt Metoprolol 5mg IV Allergies Allergy/AdvReac Type Severity Reaction Status Date / Time azithromycin Allergy Severe Difficulty Verified 08/23/23 18:16 Breathing Penicillins Allergy Intermediate HIVES A Verified 08/23/23 18:16 CHILD Home Medications Medication Instructions Recorded Confirmed Type omega-3 acid ethyl esters 1 gram 1 cap PO QAM 02/04/20 08/23/23 History capsule cholecalciferol (vitamin D3) 25 25 mcg PO QAM 11/20/20 08/23/23 History mcg (1,000 unit) tablet (Vitamin D3) cyanocobalamin (vitamin B-12) 1,000 mcg sublingual QAM 11/20/20 08/23/23 History 1,000 mcg sublingual tablet sodium chloride, sodium See Rx Instructions .Route 04/27/23 08/23/23 History bicarb-nasal rinse squeeze bottle .COMPLEX PRN congestion with packet (Neilmed Sinus Rinse Complete with packet) albuterol sulfate 90 mcg/actuation 2 inh inhalation Q6H PRN shortness 04/29/23 08/23/23 Rx aerosol inhaler of breath or wheezing #6.7 grams folic acid 1 mg tablet 1 mg PO QAM #30 tabs 04/29/23 08/23/23 Rx oxycodone 10 mg tablet,crush 10 mg PO BID #60 tabs 04/29/23 08/23/23 Rx resistant,extended release 12 hr (OxyContin) oxycodone 5 mg tablet 5 - 10 mg (1 - 2 x 5 mg) PO Q6H 04/29/23 08/23/23 Rx PRN moderate to severe pain #30 tabs ipratropium 0.5 mg-albuterol 3 mg 3 ml inhalation Q6 PRN as directed 06/28/23 08/23/23 History (2.5 mg base)/3 mL nebulization soln ondansetron HCl 8 mg tablet 8 mg PO DIRECTED 07/28/23 08/23/23 History prednisone 10 mg tablet 10 mg PO DIRECTED 07/28/23 08/23/23 History prochlorperazine maleate 10 mg 10 mg PO Q6H PRN Nausea And 07/28/23 08/23/23 History tablet Vomiting polyethylene glycol 3350 17 17 g PO BID PRN constipation 08/01/23 08/23/23 History gram/dose oral powder (Miralax) sennosides 8.6 mg-docusate sodium 1 tab-cap PO DAILY PRN Constipation 08/01/23 08/23/23 History 50 mg tablet (Colace 2-In-1) Oxygen Home #1 ea 08/18/23 08/18/23 Rx Vibration Vest #1 ea 08/18/23 08/18/23 Rx budesonide 0.5 mg/2 mL suspension 0.5 mg (2 mL) inhalation BID #60 mL 08/19/23 08/23/23 Rx for nebulization formoterol fumarate 20 mcg/2 mL 2 ml inhalation BID #120 mL 08/19/23 08/23/23 Rx solution for nebulization (Perforomist) sodium chloride 3 % for 4 ml inhalation Q8H PRN secretions 08/19/23 08/23/23 Rx nebulization #240 mL dexamethasone 6 mg tablet 6 mg PO DIRECTED 08/23/23 08/23/23 History Past Med/Surg History Medical History (Updated 08/23/23 @ 20:25 by Savannah Lind DO) Adenocarcinoma of lung Tubular adenoma Osteoarthritis History of basal cell carcinoma scalp/tip of nose Tinnitus of both ears Anxiety and depression Goiter, nontoxic, 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 Hyperlipidemia Vitamin D deficiency Surgical History Port-A-Cath in place (04/28/23) Left Subclavian Mediport Insertion(Left) - Donal Maldonado DO H/O colonoscopy History of surgical removal of ganglion cyst left wrist History of wisdom tooth extraction Hx of section History of carpal tunnel release right wrist History of tonsillectomy and adenoidectomy History of mandibular surgery d/t underbite Hx of tooth extraction Hx of needle biopsy thyroid--benign History of Mohs surgery for squamous cell carcinoma in situ of skin x2 Family History Father Colon cancer Prostate cancer Myocardial infarction Heart disease Mother Hypertension Cancer Uncle Diabetes Aunt Breast cancer Other No family history of adverse response to anesthesia Denies family history of Ovarian cancer Social History Smoking Status: Never smoker Second Hand Exposure: No; Do You Dip or Chew Tobacco: No; Hx Alcohol Use: Yes Alcohol type: wine Alcohol Intake Frequency: Monthly or Less Hx Substance Use: No Preferred Language: [place] Communication Ability: Effective Visual Impairment: No Limitations Hearing Ability: Normal Taxi Dancer Required: No Beliefs That Will Affect Care: None marital status: Current Living Situation: Spouse current occupational status: retired How many Children do You have: 2 Feels Safe at Home: Yes Childhood Exposure to Second-Hand Smoke: Yes during the past year weight has: decreased > 10 lbs Dental Care, Regularly: Yes Physical Activity Frequency: Does not Exercise Seatbelt Use: always Sunscreen Use: Yes Assistive Devices: Oxygen - at Night and Oxygen - Continuous Review of Systems Review of Systems: All systems reviewed & are unremarkable except as noted in HPI & below Physical Exam Physical Exam: General: chronically ill appearing female patient resting comfortably, NAD, AA&O x 4 Skin: warm, dry, intact, no rashes or lesions HEENT: NC/AT, PERRL, EOMI, anicteric sclera, conjunctiva without injection, external ear normal to inspection and nontender, nares patent, moist mucus membranes, dentition intact, no oropharyngeal lesions, neck supple, trachea midline, no LAD, no thyromegaly, no JVD Heart: +S1/S2, regular with ectopy, tachycardic, no m/r/g, Port in left chest, non-tender Lungs: equal air entry bilaterally, coarse breath sounds bilaterally, R > L, slightly diminished on left with scattered end-expiratory wheezing, +cough with foamy white/yellow sputum Abd: +BS, soft, NT/ND, no masses/organomegaly/ascites Ext: warm, 2+ pulses in UE/LE bilaterally, no clubbing/cyanosis or edema Neuro: nonfocal, patient AA&O x 4, speech intact, no facial droop, moving all extremities on command with equal strength 5/5 Results & Data Results & Data Vital Signs (Past 12 Hours) Vital Signs Temp Pulse Pulse Resp BP BP Pulse Ox 08/23/23 19:35 169 H 95/76 L 90 08/23/23 19:31 162 H 24 91/75 L 91 08/23/23 19:20 165 H 22 100/84 92 08/23/23 19:15 167 H 96/80 L 08/23/23 19:10 166 H 97/77 L 08/23/23 19:09 165 H 24 97/77 L 91 08/23/23 19:00 165 H 23 103/76 90 08/23/23 18:59 167 H 26 H 106/79 91 08/23/23 18:52 165 H 26 H 106/79 91 08/23/23 18:50 164 H 26 H 106/79 91 08/23/23 18:41 164 H 30 H 106/62 92 08/23/23 18:41 166 H 22 106/62 95 08/23/23 18:39 165 H 26 H 99/80 L 94 08/23/23 18:31 160 H 26 H 112/87 94 08/23/23 18:11 159 H 18 95 08/23/23 18:11 160 H 22 108/77 96 08/23/23 18:05 100 H 08/23/23 18:01 175 H 129/97 08/23/23 17:57 180 H 30 H 129/97 99 08/23/23 17:01 36.7 C 101 H 20 120/75 99 O2 Del Method O2 Flow Rate 08/23/23 19:35 Nasal Cannula 3 08/23/23 19:31 Nasal Cannula 3 08/23/23 19:20 Nasal Cannula 3 08/23/23 19:15 08/23/23 19:10 08/23/23 19:09 Nasal Cannula 3 08/23/23 19:00 Nasal Cannula 3 08/23/23 18:59 Nasal Cannula 3 08/23/23 18:52 Nasal Cannula 3 08/23/23 18:50 Nasal Cannula 3 08/23/23 18:41 Nasal Cannula 3 08/23/23 18:41 Nasal Cannula 3 08/23/23 18:39 Nasal Cannula 3 08/23/23 18:31 Nasal Cannula 3 08/23/23 18:11 Nasal Cannula 3 08/23/23 18:11 Room Air 08/23/23 18:05 08/23/23 18:01 08/23/23 17:57 Nasal Cannula 3 08/23/23 17:01 Laboratory Results Laboratory Results WBC 9.14 K/ul (4.8-10.8) 08/23/23 17:40 RBC 3.53 M/uL (4.20-5.40) L 08/23/23 17:40 Hgb 11.0 g/dl (12.0-16.0) L 08/23/23 17:40 Hct 32.4 % (37.0-47.0) L 08/23/23 17:40 MCV 91.8 fL (80.0-100.0) 08/23/23 17:40 MCH 31.2 pg (25.0-34.0) 08/23/23 17:40 MCHC 34.0 g/dL (32.0-36.0) 08/23/23 17:40 RDW Std Deviation 51.9 fL (36.4-46.3) H 08/23/23 17:40 RDW Coeff of Thomas 15.5 % (11.5-14.5) H 08/23/23 17:40 Plt Count 357 K/uL (130-400) 08/23/23 17:40 MPV 8.7 fL (9.4-12.4) L 08/23/23 17:40 Immature Gran % (Auto) 0.5 % 08/23/23 17:40 Neut % (Auto) 90.1 % 08/23/23 17:40 Lymph % (Auto) 3.2 % 08/23/23 17:40 Hardeman % (Auto) 6.1 % 08/23/23 17:40 Eos % (Auto) 0.0 % 08/23/23 17:40 Baso % (Auto) 0.1 % 08/23/23 17:40 Neut # (Auto) 8.23 K/uL (1.40-6.50) H 08/23/23 17:40 Lymph # (Auto) 0.29 K/uL (1.20-3.40) L 08/23/23 17:40 Hardeman # (Auto) 0.56 K/uL (0.11-0.59) 08/23/23 17:40 Eos # (Auto) 0.00 K/uL (0.00-0.50) 08/23/23 17:40 Baso # (Auto) 0.01 K/uL (0.00-0.20) 08/23/23 17:40 Immature Gran # (Auto) 0.05 K/uL (0.01-0.20) 08/23/23 17:40 Sodium 125 mmol/L (136-145) L 08/23/23 17:40 Potassium 5.4 mmol/L (3.5-5.1) H 08/23/23 17:40 Chloride 88 mmol/L (98-107) L 08/23/23 17:40 Carbon Dioxide 31 mmol/L (21-32) 08/23/23 17:40 Anion Gap 6 (3-11) 08/23/23 17:40 BUN 18 mg/dl (6-23) 08/23/23 17:40 Creatinine 0.35 mg/dl (0.6-1.2) L 08/23/23 17:40 Est Cr Clr Drug Dosing 136.5 ml/min 08/23/23 17:40 Est GFR ( Amer) 131.4 ml/min 08/23/23 17:40 Est GFR (Non-Af Amer) 113.4 ml/min 08/23/23 17:40 BUN/Creatinine Ratio 51.4 (10-20) H 08/23/23 17:40 Glucose 111 mg/dl (70-99(Fasting)) H 08/23/23 17:40 Calcium 9.0 mg/dl (8.6-10.3) 08/23/23 17:40 Magnesium 1.8 mg/dl (1.7-2.4) 08/23/23 17:40 Total Bilirubin 0.3 mg/dl (0.2-1.0) 08/23/23 17:40 AST 26 U/L (13-39) 08/23/23 17:40 ALT 37 U/L (7-52) 08/23/23 17:40 Alkaline Phosphatase 65 U/L (34-104) 08/23/23 17:40 Troponin I High Sens 12.1 pg/ml (0-14) 08/23/23 17:40 Total Protein 6.4 gm/dl (6.0-8.3) 08/23/23 17:40 Albumin 3.6 gm/dl (3.4-5.0) 08/23/23 17:40 Globulin 2.8 gm/dl (2.5-4.0) 08/23/23 17:40 Albumin/Globulin Ratio 1.3 (0.9-2) 08/23/23 17:40 Lipase 81 U/L (11-82) 08/23/23 17:40 TSH 0.259 uIu/ml (0.300-4.500) L 08/23/23 17:40 Free T4 1.54 ng/dl (0.61-1.60) 08/23/23 17:40 Adenovirus (PCR) Not Detected (NotDetected) 08/23/23 18:45 B. pertussis DNA (PCR) Not Detected (NotDetected) 08/23/23 18:45 B.parapertussis DNA PCR Not Detected (NotDetected) 08/23/23 18:45 C. pneumoniae DNA (PCR) Not Detected (NotDetected) 08/23/23 18:45 Coronavirus OC43 (PCR) Not Detected (NotDetected) 08/23/23 18:45 Coronavirus HKU1 (PCR) Not Detected (NotDetected) 08/23/23 18:45 Coronavirus 229E (PCR) Not Detected (NotDetected) 08/23/23 18:45 SARS-CoV-2 (PCR) Not Detected (NotDetected) 08/23/23 18:45 Coronavirus NL63 (PCR) Not Detected (NotDetected) 08/23/23 18:45 Human Metapneumovir PCR Not Detected (NotDetected) 08/23/23 18:45 Influenza Type A (PCR) Not Detected (NotDetected) 08/23/23 18:45 Influenza Type B (PCR) Not Detected (NotDetected) 08/23/23 18:45 M. pneumoniae (PCR) Not Detected (NotDetected) 08/23/23 18:45 Parainfluenza 1 (PCR) Not Detected (NotDetected) 08/23/23 18:45 Parainfluenza 2 (PCR) Not Detected (NotDetected) 08/23/23 18:45 Parainfluenza 3 (PCR) Not Detected (NotDetected) 08/23/23 18:45 Parainfluenza 4 (PCR) Not Detected (NotDetected) 08/23/23 18:45 RSV (PCR) Not Detected (NotDetected) 08/23/23 18:45 Entero/Rhino (PCR) Not Detected (NotDetected) 08/23/23 18:45 Impressions Chest X-Ray 08/23/23 17:05 XR chest 1V portable HISTORY: 68 years-old Female Chest pain, nonspecific COMPARISON: 07/31/2023 TECHNIQUE: AP view of the chest FINDINGS: Cardiac silhouette is enlarged. The patient is rotated towards the left. Left subclavian Rrynev-j-Rkdo catheter. Battery pack projects of the left chest. No pneumothorax. Extensive left greater than right mixed interstitial and alveolar opacities with left greater than right pleural effusions and dense left basilar consolidation redemonstrated, slightly progressed. Bones appear grossly intact. IMPRESSION: Extensive left greater than right mixed interstitial and alveolar opacities redemonstrated which appear to be stable to slightly progressed and likely related to the patient's underlying known malignancy. ACT 112: Negative or not required by law. The above report was generated using voice recognition software. It may contain grammatical, syntax or spelling errors. Electronically signed by: Huber Menjivar M.D. 08/23/2023 5:54 PM ECG Additional Comments: EKG with sinus rhythm at 96bpm, ON=929, QRS=86, KIp=453, no acute ischemic changes Code Status & VTE Plan VTE Prophylaxis Plan VTE Prophylaxis will be ordered: Yes PG Care Time/CCT Total # of Minutes Spent Total Time Spent with Patient: Total time spent is greater than 50% in coordination of care (as documented) at patient's floor/unit and/or counseling patient: Coding Level of Care Code 74110 INT INP/OBS CARE 2/55MIN Diagnoses Atrial flutter I48.92 Adenocarcinoma of lung C34.90
[2023-08-23] MEDS: MAGNESIUM SULFATE / D5W 1 GM/100 ML BAG IV SCH ×2 (21:26→21:55)
[2023-08-23] MEDS ORDERED: ALBUTEROL HFA 8 GM INHALER INH PRN (22:14)
[2023-08-23] MEDS ORDERED: oxyCODONE HCL 10 MG TABCR (OxyCONTIN) PO SCH (22:14)
[2023-08-23] MEDS ORDERED: Heparin IV Adult Wt-Based Standard w/ INITIAL Bolus Protocol IV STA (22:14)
[2023-08-23] MEDS ORDERED: HEPARIN SODIUM/DEXTROSE 25,000 UNITS/500 ML BAG IV SCH (22:14)
[2023-08-23] MEDS ORDERED: ALBUT/IPRATROP 3MG/0.5MG NEB 3 ML VIAL INH PRN (22:14)
[2023-08-23] MEDS ORDERED: oxyCODONE HCL IR 5 MG TAB (IMMEDIATE RELEASE) PO PRN (22:14)
[2023-08-23] MEDS ORDERED: HEPARIN SOD (PORCINE) 1000 UNIT/ML IV ONE (22:14)
[2023-08-23] MEDS ORDERED: POLYETHYLENE (MIRALAX) 17 GM PACK PO PRN (22:14)
[2023-08-23] MEDS ORDERED: ACETAMINOPHEN 325 MG TAB PO PRN (22:14)
[2023-08-23] MEDS ORDERED: dexAMETHasone 4 MG TAB PO STA (22:23)
[2023-08-23] MEDS ORDERED: DIGOXIN 500 MCG in SYRINGE 8 ML IV STA (22:34)
[2023-08-23 22:43] LABS: Partial Thromboplastin Ratio 0.9; Partial Thromboplastin Time 24 Seconds (21-31)
[2023-08-23] MEDS ORDERED: oxyCODONE HCL 10 MG TABCR (OxyCONTIN) PO PRN (22:49)
[2023-08-24] MEDS: ONDANSETRON INJ 2 MG/ML 2 ML VIAL IV PRN ×3 (00:12→21:43)
[2023-08-24] MEDS: FORMOTEROL 20 MCG/2 ML VIAL INH SCH ×3 (00:37→19:44)
[2023-08-24] MEDS: BUDESONIDE 0.5 MG/2 ML VIAL (PULMICORT) INH SCH ×3 (00:38→19:44)
[2023-08-24] MEDS ORDERED: OPTIRAY 320 125ml IV ONE (04:01)
[2023-08-24] MEDS ORDERED: DIGOXIN 250 MCG in SYRINGE 9 ML IV ONE (04:30)
[2023-08-24 05:46] LABS: Hematocrit (blood only) 32.7 % (37.0-47.0); Hemoglobin 10.7 g/dl (12.0-16.0); Mean Corpuscular Hemoglobin 30.4 pg (25.0-34.0); Mean Corpuscular Hgb Conc 32.7 g/dL (32.0-36.0); Mean Corpuscular Volume 92.9 fL (80.0-100.0); Mean Platelet Volume 8.6 fL (9.4-12.4); Platelet Count 330 K/uL (130-400); RDW Coefficient of Variation 15.7 % (11.5-14.5); RDW Standard Deviation 53.3 fL (36.4-46.3); Red Blood Count 3.52 M/uL (4.20-5.40); White Blood Count 9.76 K/ul (4.8-10.8)
[2023-08-24 05:59] LABS: BUN Creatinine Ratio 37.1 (10-20); Calcium 8.4 mg/dl (8.6-10.3); Creatinine Clr Calc Pharmacy 136.5 ml/min; Est GFR (African American) 131.4 ml/min; Est GFR (Non-African American) 113.4 ml/min; Magnesium 2.1 mg/dl (1.7-2.4); Phosphorus 3.5 mg/dl (2.5-4.9); Potassium 5.3 mmol/L (3.5-5.1)
[2023-08-24 06:22] LABS: ANTI-Xa, UFH(UnfractionatedHep 0.36 IU/ml (0.3-0.7)
--- NOTE | 2023-08-24 07:06 | CT Scan Report ---
CT ANGIOGRAM OF THE CHEST CLINICAL HISTORY: Atypical chest pain. Pneumonia. COMPARISON STUDY: Chest CT dated 07/28/2023. Chest x-ray dated 08/23/2023. TECHNIQUE: Following the IV administration of 116 cc of Optiray 320, CT angiogram of the chest was pe rformed from the upper abdomen to the thoracic inlet utilizing the pulmonary embolus protocol. Images are reviewed in the axial, sagittal, and coronal planes. 3-D MIPS images are created and assessed. I V contrast was administered without complication. A dose lowering technique was utilized adhering to the principles of ALARA. CT DOSE: 632.94 mGy.cm FINDINGS: Thyroid: Enlarged and heterogeneous, typical for goiter. Thoracic aorta: There is aneurysmal dilatation of the ascending thoracic aorta which measures up to 4 .3 cm in diameter. The remainder of the thoracic aorta is normal in caliber comment the arch demonstr ates standard 3-vessel anatomy. No dissection is seen. Pulmonary vasculature: The pulmonary trunk is normal in caliber. There are no filling defects identif ied in main, lobar, or segmental pulmonary branches to suggest pulmonary embolus. Heart: The heart is mildly enlarged and without pericardial effusion. There are scattered coronary ar alida calcifications. Lungs and pleural spaces: There is extensive//diffuse multifocal airspace consolidation seen througho ut both lungs. This is nearly confluent at the left lung, and is confluent at the right lung base. Tr janie pleural effusions are noted. Secretions/debris fill the left lower lobe airways which appear comp ressed centrally. There is also debris/mucus plugging within the right lower lobe bronchi. Cavitation is again seen in the left lower lung. Mediastinum: There is no significant mediastinal lymphadenopathy. Thania: The left hilum is largely obscured. No right hilar adenopathy is identified. Axillae: There is no axillary lymphadenopathy. Upper abdomen: Excreted IV contrast is seen within the partially visualized renal collecting systems. Partially visualized upper abdominal viscera is otherwise grossly unremarkable. Skeletal structures: The skeletal structures are osteopenic. Degenerative changes and kyphoscoliosis is noted in the thoracic spine. Arthritic change is noted in the shoulders. No lytic or blastic bony lesions are seen. IMPRESSION: 1. There is no evidence of pulmonary embolus in the main, lobar, or segmental pulmonary arteries. 2. Cardiomegaly. 3. Extensive/diffuse multifocal airspace consolidation is again seen throughout both lungs, left grea ter than right. This has progressed as compared to 07/28/2023, with cavitation again seen at the left l kristal base. The majority of this likely represents known multifocal adenocarcinoma. Increasing opacitie s could represent progression of disease. A superimposed pneumonia/aspiration pneumonitis would be im possible to exclude. Clinical correlation will be essential. 4. Trace pleural effusions 5. There is aneurysmal dilatation of the ascending thoracic aorta which measures up to 4.3 cm. 6. Additional findings as above. ACT 112: Negative or not required by law. Electronically signed by: Nicanor Cleary M.D. 08/24/2023 7:04 AM
[2023-08-24] MEDS ORDERED: dexAMETHasone 4 MG TAB PO SCH (09:00)
--- NOTE | 2023-08-24 09:43 | XCELERA ---
[id number]
[2023-08-24] MEDS ORDERED: SODIUM CHLORIDE 0.65% NA SOLN 45 ML (OCEAN) ONE (11:11)
--- NOTE | 2023-08-24 13:15 | Cardiology Consultation ---
Date of Consultation August 24, 2023 Assessment & Plan (1) Atrial flutter: -she converted back to sinus rhythm this morning. -her dysrhythmia is asymptomatic. -her ventricular response was difficult to control. -feel that she will do better clinically if she remains in sinus rhythm. -would initiate amiodarone drip times 24 hours, then amiodarone 200 mg p.o. daily. -she may be high risk for long-term anticoagulation realizing her comorbidities. -we may ask for her oncologist's opinion regarding long-term anticoagulation. (2) Hypertension: -adequate control currently. History of Present Illness Attending Physician: Travis Malik History of Present Illness Mrs. Martinez is a 68-year-old female admitted yesterday with atrial flutter and a rapid ventricular response. This consultation was ordered to assist in her cardiac management. The patient's recent history began approximately 1 month ago when she began to note intermittent, but sustained, tachycardia which would last 10-15 minutes. She was able to detect this on her I watch. She did not experienced any palpitations. She was placed on a long-term event recorder which, on August 21, noted an episode of atrial flutter with a rapid ventricular response. She was then referred to the emergency room. On arrival here, patient was again noted to be in atrial flutter with 2-1 AV conduction. She was completely asymptomatic. Hospitalization was recommended. She has never known of a cardiac event nor cardiac arrhythmia. Of note, she did have a COVID infection prior to the intermittent tachycardia as described. Currently, patient is resting comfortably in bed without complaints. She did convert to sinus rhythm at approximately 7:30 a.m. this morning. Past medical and surgical history 1. Paroxysmal atrial flutter-July 2023 2. Hypercholesterolemia 3. Stage IV adenocarcinoma of the lung 4. Goiter 5. Vitamin-D deficiency 6. Colonic polyps 7. Anxiety/depression 8. Port-A-Cath 9. Carpal tunnel release 10. Tonsillectomy 11. Social history and lives with her No tobacco Rare alcohol Family history No early coronary artery disease Review of systems A 10 point review of systems was undertaken and negative except that described above. Allergies Allergy/AdvReac Type Severity Reaction Status Date / Time azithromycin Allergy Severe Difficulty Verified 08/23/23 18:16 Breathing Penicillins Allergy Intermediate HIVES A Verified 08/23/23 18:16 CHILD Home Medications Medication Instructions Recorded Confirmed Type omega-3 acid ethyl esters 1 gram 1 cap PO QAM 02/04/20 08/23/23 History capsule cholecalciferol (vitamin D3) 25 25 mcg PO QAM 11/20/20 08/23/23 History mcg (1,000 unit) tablet (Vitamin D3) cyanocobalamin (vitamin B-12) 1,000 mcg sublingual QAM 11/20/20 08/23/23 History 1,000 mcg sublingual tablet sodium chloride, sodium See Rx Instructions .Route 04/27/23 08/23/23 History bicarb-nasal rinse squeeze bottle .COMPLEX PRN congestion with packet (Neilmed Sinus Rinse Complete with packet) albuterol sulfate 90 mcg/actuation 2 inh inhalation Q6H PRN shortness 04/29/23 08/23/23 Rx aerosol inhaler of breath or wheezing #6.7 grams folic acid 1 mg tablet 1 mg PO QAM #30 tabs 04/29/23 08/23/23 Rx oxycodone 10 mg tablet,crush 10 mg PO BID #60 tabs 04/29/23 08/23/23 Rx resistant,extended release 12 hr (OxyContin) oxycodone 5 mg tablet 5 - 10 mg (1 - 2 x 5 mg) PO Q6H 04/29/23 08/23/23 Rx PRN moderate to severe pain #30 tabs ipratropium 0.5 mg-albuterol 3 mg 3 ml inhalation Q6 PRN as directed 06/28/23 08/23/23 History (2.5 mg base)/3 mL nebulization soln ondansetron HCl 8 mg tablet 8 mg PO DIRECTED 07/28/23 08/23/23 History prednisone 10 mg tablet 10 mg PO DIRECTED 07/28/23 08/23/23 History prochlorperazine maleate 10 mg 10 mg PO Q6H PRN Nausea And 07/28/23 08/23/23 History tablet Vomiting polyethylene glycol 3350 17 17 g PO BID PRN constipation 08/01/23 08/23/23 History gram/dose oral powder (Miralax) sennosides 8.6 mg-docusate sodium 1 tab-cap PO DAILY PRN Constipation 08/01/23 08/23/23 History 50 mg tablet (Colace 2-In-1) Oxygen Home #1 ea 08/18/23 08/18/23 Rx Vibration Vest #1 ea 08/18/23 08/18/23 Rx budesonide 0.5 mg/2 mL suspension 0.5 mg (2 mL) inhalation BID #60 mL 08/19/23 08/23/23 Rx for nebulization formoterol fumarate 20 mcg/2 mL 2 ml inhalation BID #120 mL 08/19/23 08/23/23 Rx solution for nebulization (Perforomist) sodium chloride 3 % for 4 ml inhalation Q8H PRN secretions 08/19/23 08/23/23 Rx nebulization #240 mL dexamethasone 6 mg tablet 6 mg PO DIRECTED 08/23/23 08/23/23 History Patient History Medical History (Updated 08/23/23 @ 22:07 by Robbie Bryant M.D.) Adenocarcinoma of lung Tubular adenoma Osteoarthritis History of basal cell carcinoma scalp/tip of nose Tinnitus of both ears Anxiety and depression Goiter, nontoxic, 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 before school babysitter Hyperlipidemia Vitamin D deficiency Surgical History Port-A-Cath in place (04/28/23) Left Subclavian Mediport Insertion(Left) - Donal Maldonado DO H/O colonoscopy History of surgical removal of ganglion cyst left wrist History of wisdom tooth extraction Hx of section History of carpal tunnel release right wrist History of tonsillectomy and adenoidectomy History of mandibular surgery d/t underbite Hx of tooth extraction Hx of needle biopsy thyroid--benign History of Mohs surgery for squamous cell carcinoma in situ of skin x2 Family History Father Colon cancer Prostate cancer Myocardial infarction Heart disease Mother Hypertension Cancer Uncle Diabetes Aunt Breast cancer Other No family history of adverse response to anesthesia Denies family history of Ovarian cancer Social History Smoking Status: Never smoker Second Hand Exposure: No; Do You Dip or Chew Tobacco: No; Hx Alcohol Use: Yes Alcohol type: wine Alcohol Intake Frequency: Monthly or Less Hx Substance Use: No Preferred Language: Jordanian Communication Ability: Effective Visual Impairment: No Limitations Hearing Ability: Normal Bursar Required: No Beliefs That Will Affect Care: None marital status: Current Living Situation: Spouse and Family current occupational status: retired How many Children do You have: 2 Feels Safe at Home: Yes Childhood Exposure to Second-Hand Smoke: Yes during the past year weight has: decreased > 10 lbs Dental Care, Regularly: Yes Physical Activity Frequency: Does not Exercise Seatbelt Use: always Sunscreen Use: Yes Assistive Devices: Oxygen - Continuous, Walker and Wheelchair Physical Exam Physical Exam: In general is a well-developed well-nourished white female in no acute distress. HEENT exam is negative. Neck is supple with full carotid upstrokes. No carotid bruits. Jugular is pressure is flat at 90. There is no thyromegaly. Cardiovascular exam reveals a regular rhythm with distant heart sounds. No ob vious murmurs. Lungs note diffuse rhonchi. Abdomen is soft. Extremities reveal intact radial artery pulses bilaterally. There is no peripheral edema. Results & Data Vital Signs (Past 12 Hours) Vital Signs Temp Pulse Pulse Resp BP BP BP 08/24/23 11:13 36.3 C L 86 21 103/67 08/24/23 08:07 99 H 24 08/24/23 07:35 70 08/24/23 07:00 166 H 08/24/23 05:15 151 H 20 111/78 08/24/23 04:47 164 H 08/24/23 02:00 162 H 08/24/23 02:00 08/24/23 02:00 36.6 C 167 H 105/67 08/24/23 01:05 162 H 23 104/60 Pulse Ox O2 Del Method O2 Flow Rate 08/24/23 11:13 95 Oxymask 8 08/24/23 08:07 94 Oxymask 8 08/24/23 07:35 08/24/23 07:00 08/24/23 05:15 94 Oxymask 7 08/24/23 04:47 08/24/23 02:00 08/24/23 02:00 Oxymask 7 08/24/23 02:00 95 Oxymask 7 08/24/23 01:05 95 Oxymask 7 Laboratory Results CBC notes hemoglobin of 10.7, hematocrit 32.7, white count 9.7, and platelet count [id number]. Electrolytes note a sodium of 123, potassium 5.3, chloride 87, bicarb 31, BUN 13, creatinine 0.35, glucose of 135. Magnesium level is normal at 2.1 as the phosphorus is 3.5. High sensitivity troponin is normal 12.1. Diagnostic Findings Echocardiogram notes normal left ventricular systolic function with ejection fraction of 65-70%. There was mild LVH along with mild aortic insufficiency. ECG notes atrial flutter with a rapid and variable ventricular response. Chest x-ray shows left greater than right interstitial opacities. PG Care Time/CCT Total # of Minutes Spent Total Time Spent with Patient: Total time spent is greater than 50% in coordination of care (as documented) at patient's floor/unit and/or counseling patient: Coding Level of Care Code 96417 INT INP/OBS CARE 3/75MIN Diagnoses Atrial flutter I48.92 Atrial flutter type: unspecified Hypertension I10 (1) Atrial flutter Atrial flutter type: unspecified Qualified Code(s): I48.92 - Unspecified atrial flutter
--- NOTE | 2023-08-24 15:05 | Electrocardiogram Report ---
Test Reason : Blood Pressure : / mmHG Vent. Rate : 096 BPM Atrial Rate : 096 BPM P-R Int : 134 ms QRS Dur : 086 ms QT Int : 324 ms P-R-T Axes : 053 -50 073 degrees QTc Int : 409 ms Sinus rhythm with Premature atrial complexes Possible Left atrial enlargement Left anterior fascicular block Minimal voltage criteria for LVH, may be normal variant Possible Anterior infarct (cited on or before 28-JUL-2023) Abnormal ECG When compared with ECG of 28-JUL-2023 08:37, Premature ventricular complexes are no longer Present Premature atrial complexes are now Present Criteria for Anteroseptal infarct are no longer Present T wave inversion less evident in Anterior leads Confirmed by Cliff Howard ([id number]) on 08/24/2023 3:04:54 PM Referred By: REFERRED SELF Confirmed By:Cliff Howard
--- NOTE | 2023-08-24 15:08 | Electrocardiogram Report ---
Test Reason : Blood Pressure : / mmHG Vent. Rate : 160 BPM Atrial Rate : 319 BPM P-R Int : 000 ms QRS Dur : 082 ms QT Int : 314 ms P-R-T Axes : 265 -77 081 degrees QTc Int : 512 ms Atrial flutter with variable A-V block with premature ventricular or aberrantly conducted complexes Left axis deviation Anterior infarct (cited on or before 28-JUL-2023) T wave abnormality, consider lateral ischemia Abnormal ECG When compared with ECG of 23-AUG-2023 17:16, (unconfirmed) Significant changes have occurred Confirmed by Cliff Howard ([id number]) on 08/24/2023 3:08:31 PM Referred By: REFERRED SELF Confirmed By:Cliff Howard
[2023-08-24] MEDS ORDERED: AMIODARONE / D5W 150 MG/100 ML BAG IV STA (18:03)
[2023-08-24] MEDS ORDERED: AMIODARONE IV BOLUS & DRIP IV STA (18:03)
[2023-08-24] MEDS ORDERED: STAT IV Infusion **Titration per Protocol STA (18:03)
[2023-08-24] MEDS ORDERED: 0.2 MICRON FILTER SET 1 EACH IV STA (18:03)
[2023-08-24] MEDS ORDERED: AMIODARONE / D5W 360 MG/200 ML BAG IV ONE (18:13)
--- NOTE | 2023-08-24 18:37 | Hospitalist Progress Note ---
Date of Service August 24, 2023 Assessment & Plan (1) Atrial flutter: Plan: 68yo female with Stage IV adenocarcinoma of the lung presenting with tachycardia - likely atrial flutter. Rates presently 140-160's. She has been given Metoprolol 5mg IV as well as Diltiazem 10mg IV and is currently on Diltiazem gtt. HR persistently elevated with minimal response yet. TSH is low with normal T4. Electrolytes Patient asymptomatic. Blood pressure has remained acceptable. -Admit to PCU Now converted to sinus, will switch to diltiazem to amiodarone gtt Will also stop heparin drip. will consider placing lovenox on 08/25 Concern that hypoxia, could have led to her atrial flutter. Family though does not appear concerned about her increased oxygen needs and feel she will be better once she is home. @D echo ordered. (2) Adenocarcinoma of lung: Plan: Patient follows with [facility]. Last chemotherapy treatment on 08/22/23. -Dexamethasone 6mg PO tonight and x 3 additional doses -Zofran PRN -Continue pulmonary toilet, incentive spirometer and flutter valve -Vibration vest to assist with secretions -Continue supplemental O2 - 3L continuous -DuoNebs q 6 hours PRN -Formoterol BID -Budesonide BID -Albuterol PRN -Maintain neutropenic precautions -Oxycodone PRN pain Admission and Anticipated Discharge Date Admission Date: August 23, 2023 Subjective Patient appears very fatigued. Family at bedside, reports there main concern is the heart rate, they state they will discharge patient tomorrow once PO amiodarone starts. They are not concerned about increased o2 supplementation. Review of Systems Review of Systems: All systems reviewed & are unremarkable except as noted in HPI & below Physical Exam Physical Exam: General: chronically ill appearing female patient resting comfortably, NAD, AA&O x 4 Skin: warm, dry, intact, no rashes or lesions HEENT: NC/AT Heart: +S1/S2, regular with ectopy, tachycardic, no m/r/g, Port in left chest, non-tender Lungs: equal air entry bilaterally, coarse breath sounds bilaterally, R > L, Neuro: nonfocal, patient AA&O x 4, speech intact, no facial droop Results & Data Results & Data Vital Signs (Past 12 Hours) Vital Signs Temp Pulse Pulse Resp BP Pulse Ox O2 Del Method 08/24/23 16:50 36.4 C L 90 20 124/73 95 Oxymask 08/24/23 11:13 36.3 C L 86 21 103/67 95 Oxymask 08/24/23 08:07 99 H 24 94 Oxymask 08/24/23 07:35 70 08/24/23 07:00 166 H O2 Flow Rate 08/24/23 16:50 8 08/24/23 11:13 8 08/24/23 08:07 8 08/24/23 07:35 08/24/23 07:00 PG Care Time/CCT Total # of Minutes Spent Total Time Spent with Patient: Total time spent is greater than 50% in coordination of care (as documented) at patient's floor/unit and/or counseling patient: Coding Level of Care Code 99756 SUB INP/OBS CARE 2/35MIN Diagnoses Atrial flutter I48.92 Atrial flutter type: unspecified Adenocarcinoma of lung C34.92 Laterality: left (1) Atrial flutter Atrial flutter type: unspecified Qualified Code(s): I48.92 - Unspecified atrial flutter (2) Adenocarcinoma of lung Laterality: left Qualified Code(s): C34.92 - Malignant neoplasm of unspecified part of left bronchus or lung
[2023-08-24] MEDS: dexAMETHasone 4 MG TAB PO SCH (21:42)
[2023-08-25] MEDS ORDERED: AMIODARONE / D5W 360 MG/200 ML BAG IV SCH (00:15)
[2023-08-25] MEDS: BUDESONIDE 0.5 MG/2 ML VIAL (PULMICORT) INH SCH (07:04)
[2023-08-25] MEDS: FORMOTEROL 20 MCG/2 ML VIAL INH SCH (07:04)
[2023-08-25 07:39] LABS: ANTI-Xa, UFH(UnfractionatedHep < 0.10 IU/ml (0.3-0.7)
[2023-08-25] MEDS: ONDANSETRON INJ 2 MG/ML 2 ML VIAL IV PRN (08:21)
[2023-08-25] MEDS: dexAMETHasone 4 MG TAB PO SCH (08:21)
--- NOTE | 2023-08-25 09:07 | Hospitalist Progress Note ---
Date of Service August 25, 2023 Assessment & Plan (1) Atrial flutter: Plan: 68yo female with Stage IV adenocarcinoma of the lung presenting with tachycardia - atrial flutter. Required amiodarone gtt converted to NSR TSH is low with normal T4. Electrolytes lovenox on 08/25 Concern that acute hypoxic respiratory failure, secondary to viral pneumonia and lung cancer, could have led to her atrial flutter. Family though does not appear concerned about her increased oxygen needs and feel she will be better once she is home. ECHO NL EF, no RWMA (2) Adenocarcinoma of lung: Plan: Patient follows with [facility]. Last chemotherapy treatment on 08/22/23. -Dexamethasone 6mg PO last dose 08/26/23 -Zofran PRN -Continue pulmonary toilet, incentive spirometer and flutter valve -Vibration vest to assist with secretions -Continue supplemental O2 - 3L continuous -DuoNebs q 6 hours PRN -Formoterol BID -Budesonide BID -Albuterol PRN -Maintain neutropenic precautions -Oxycodone PRN pain Admission and Anticipated Discharge Date Admission Date: August 23, 2023 Results & Data Results & Data Vital Signs (Past 12 Hours) Vital Signs Temp Pulse Pulse Resp BP BP Pulse Ox 08/25/23 08:00 08/25/23 07:43 97.9 F 100 H 20 131/83 96 08/25/23 07:07 97 H 20 96 08/25/23 07:00 90 08/25/23 03:26 97.3 F L 88 21 130/80 98 08/25/23 00:00 84 08/24/23 22:48 97.5 F L 91 H 22 166/88 H 96 O2 Del Method O2 Flow Rate 08/25/23 08:00 Nasal Cannula 6 08/25/23 07:43 Nasal Cannula 08/25/23 07:07 Nasal Cannula 8 08/25/23 07:00 08/25/23 03:26 Nasal Cannula 10 08/25/23 00:00 08/24/23 22:48 Oxymask 9 PG Care Time/CCT Total # of Minutes Spent Total Time Spent with Patient: Total time spent is greater than 50% in coordination of care (as documented) at patient's floor/unit and/or counseling patient: Coding Diagnoses Atrial flutter I48.92 Atrial flutter type: unspecified Adenocarcinoma of lung C34.92 Laterality: left (1) Atrial flutter Atrial flutter type: unspecified Qualified Code(s): I48.92 - Unspecified atrial flutter (2) Adenocarcinoma of lung Laterality: left Qualified Code(s): C34.92 - Malignant neoplasm of unspecified part of left bronchus or lung
[2023-08-25] MEDS ORDERED: AMIODARONE 200 MG TAB PO SCH (09:10)
--- NOTE | 2023-08-25 10:44 | Cardiology Consultation ---
Date of Consultation August 25, 2023 Assessment & Plan (1) Atrial flutter: -remains in sinus rhythm on intravenous amiodarone. -could convert to amiodarone 200 mg daily for hospital discharge. - History of Present Illness Attending Physician: Jair Quiles MD History of Present Illness The patient is resting comfortably in complaints chest pain, dyspnea, or palpitations. Her daughter is at the bedside. Allergies Allergy/AdvReac Type Severity Reaction Status Date / Time azithromycin Allergy Severe Difficulty Verified 08/23/23 18:16 Breathing Penicillins Allergy Intermediate HIVES A Verified 08/23/23 18:16 CHILD Home Medications Medication Instructions Recorded Confirmed Type omega-3 acid ethyl esters 1 gram 1 cap PO QAM 02/04/20 08/23/23 History capsule cholecalciferol (vitamin D3) 25 25 mcg PO QAM 11/20/20 08/23/23 History mcg (1,000 unit) tablet (Vitamin D3) cyanocobalamin (vitamin B-12) 1,000 mcg sublingual QAM 11/20/20 08/23/23 History 1,000 mcg sublingual tablet sodium chloride, sodium See Rx Instructions .Route 04/27/23 08/23/23 History bicarb-nasal rinse squeeze bottle .COMPLEX PRN congestion with packet (Neilmed Sinus Rinse Complete with packet) albuterol sulfate 90 mcg/actuation 2 inh inhalation Q6H PRN shortness 04/29/23 08/23/23 Rx aerosol inhaler of breath or wheezing #6.7 grams folic acid 1 mg tablet 1 mg PO QAM #30 tabs 04/29/23 08/23/23 Rx oxycodone 10 mg tablet,crush 10 mg PO BID #60 tabs 04/29/23 08/23/23 Rx resistant,extended release 12 hr (OxyContin) oxycodone 5 mg tablet 5 - 10 mg (1 - 2 x 5 mg) PO Q6H 04/29/23 08/23/23 Rx PRN moderate to severe pain #30 tabs ipratropium 0.5 mg-albuterol 3 mg 3 ml inhalation Q6 PRN as directed 06/28/23 08/23/23 History (2.5 mg base)/3 mL nebulization soln ondansetron HCl 8 mg tablet 8 mg PO DIRECTED 07/28/23 08/23/23 History prednisone 10 mg tablet 10 mg PO DIRECTED 07/28/23 08/23/23 History prochlorperazine maleate 10 mg 10 mg PO Q6H PRN Nausea And 07/28/23 08/23/23 History tablet Vomiting polyethylene glycol 3350 17 17 g PO BID PRN constipation 08/01/23 08/23/23 History gram/dose oral powder (Miralax) sennosides 8.6 mg-docusate sodium 1 tab-cap PO DAILY PRN Constipation 08/01/23 08/23/23 History 50 mg tablet (Colace 2-In-1) Oxygen Home #1 ea 08/18/23 08/18/23 Rx Vibration Vest #1 ea 08/18/23 08/18/23 Rx budesonide 0.5 mg/2 mL suspension 0.5 mg (2 mL) inhalation BID #60 mL 08/19/23 08/23/23 Rx for nebulization formoterol fumarate 20 mcg/2 mL 2 ml inhalation BID #120 mL 08/19/23 08/23/23 Rx solution for nebulization (Perforomist) sodium chloride 3 % for 4 ml inhalation Q8H PRN secretions 08/19/23 08/23/23 Rx nebulization #240 mL dexamethasone 6 mg tablet 6 mg PO DIRECTED 08/23/23 08/23/23 History Patient History Medical History (Updated 08/23/23 @ 22:07 by Robbie Bryant M.D.) Adenocarcinoma of lung Tubular adenoma Osteoarthritis History of basal cell carcinoma scalp/tip of nose Tinnitus of both ears Anxiety and depression Goiter, nontoxic, 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 furnace feeder Hyperlipidemia Vitamin D deficiency Surgical History Port-A-Cath in place (04/28/23) Left Subclavian Mediport Insertion(Left) - Donal Maldonado DO H/O colonoscopy History of surgical removal of ganglion cyst left wrist History of wisdom tooth extraction Hx of section History of carpal tunnel release right wrist History of tonsillectomy and adenoidectomy History of mandibular surgery d/t underbite Hx of tooth extraction Hx of needle biopsy thyroid--benign History of Mohs surgery for squamous cell carcinoma in situ of skin x2 Family History Father Colon cancer Prostate cancer Myocardial infarction Heart disease Mother Hypertension Cancer Uncle Diabetes Aunt Breast cancer Other No family history of adverse response to anesthesia Denies family history of Ovarian cancer Social History Smoking Status: Never smoker Second Hand Exposure: No; Do You Dip or Chew Tobacco: No; Hx Alcohol Use: Yes Alcohol type: wine Alcohol Intake Frequency: Monthly or Less Hx Substance Use: No Preferred Language: Romanian Communication Ability: Effective Visual Impairment: No Limitations Hearing Ability: Normal Multiple Drill Operator Required: No Beliefs That Will Affect Care: None marital status: Current Living Situation: Spouse and Family current occupational status: retired How many Children do You have: 2 Feels Safe at Home: Yes Childhood Exposure to Second-Hand Smoke: Yes during the past year weight has: decreased > 10 lbs Dental Care, Regularly: Yes Physical Activity Frequency: Does not Exercise Seatbelt Use: always Sunscreen Use: Yes Assistive Devices: Oxygen - Continuous, Walker and Wheelchair Physical Exam Physical Exam: In general is a well-developed well-nourished white female in no acute distress. HEENT exam is negative. Neck is supple with full carotid upstrokes. No carotid bruits. Jugular is pressure is flat at 90. There is no thyromegaly. Cardiovascular exam reveals a regular rhythm with distant heart sounds. No obvious murmurs. Lungs note diffuse rhonchi. Abdomen is soft. Extremities reveal intact radial artery pulses bilaterally. There is no peripheral edema. Results & Data Vital Signs (Past 12 Hours) Vital Signs Temp Pulse Pulse Resp BP BP Pulse Ox 08/25/23 08:00 08/25/23 07:43 36.6 C 100 H 20 131/83 96 08/25/23 07:07 97 H 20 96 08/25/23 07:00 90 08/25/23 03:26 36.3 C L 88 21 130/80 98 08/25/23 00:00 84 08/24/23 22:48 36.4 C L 91 H 22 166/88 H 96 O2 Del Method O2 Flow Rate 08/25/23 08:00 Nasal Cannula 6 08/25/23 07:43 Nasal Cannula 08/25/23 07:07 Nasal Cannula 8 08/25/23 07:00 08/25/23 03:26 Nasal Cannula 10 08/25/23 00:00 08/24/23 22:48 Oxymask 9 Diagnostic Findings bus monitor notes normal sinus. No recurrent atrial fibrillation/flutter. PG Care Time/CCT Total # of Minutes Spent Total Time Spent with Patient: Total time spent is greater than 50% in coordination of care (as documented) at patient's floor/unit and/or counseling patient: Coding Diagnoses Atrial flutter I48.92 Atrial flutter type: unspecified (1) Atrial flutter Atrial flutter type: unspecified Qualified Code(s): I48.92 - Unspecified atrial flutter
--- NOTE | 2023-08-25 10:54 | Cardiology Progress Note ---
Date of Service August 25, 2023 Assessment & Plan (1) Atrial flutter: Plan: -remains in sinus rhythm on intravenous amiodarone. -can convert to oral amiodarone 200 mg daily. -seems too high risk for long-term anticoagulation realizing her kirstin rbidities. -will discuss this further with her oncologist, Lona Hernandez MD ([phone]) at [facility]. -I am happy to see the patient in follow-up as an outpatient. Admission and Anticipated Discharge Date Admission Date: August 23, 2023 Subjective The patient is resting comfortably in bed without complaints of chest pain, dyspnea, or palpitations. Her daughter is at the bedside. Physical Exam Physical Exam: In general is a well-developed well-nourished white female in no acute distress. HEENT exam is negative. Neck is supple with full carotid upstrokes. No carotid bruits. Jugular is pressure is flat at 90. There is no thyromegaly. Cardiovascular exam reveals a regular rhythm with distant heart sounds. No obvious murmurs. Lungs note diffuse rhonchi. Abdomen is soft. Extremities reveal intact radial artery pulses bilaterally. There is no peripheral edema. Results & Data Vital Signs (Past 12 Hours) Vital Signs Temp Pulse Pulse Resp BP BP Pulse Ox 08/25/23 08:00 08/25/23 07:43 36.6 C 100 H 20 131/83 96 08/25/23 07:07 97 H 20 96 08/25/23 07:00 90 08/25/23 03:26 36.3 C L 88 21 130/80 98 08/25/23 00:00 84 O2 Del Method O2 Flow Rate 08/25/23 08:00 Nasal Cannula 6 08/25/23 07:43 Nasal Cannula 08/25/23 07:07 Nasal Cannula 8 08/25/23 07:00 08/25/23 03:26 Nasal Cannula 10 08/25/23 00:00 Diagnostic Findings playground monitor notes normal sinus rhythm. No recurrence of atrial fibrillation/flutter. PG Care Time/CCT Total # of Minutes Spent Total Time Spent with Patient: Total time spent is greater than 50% in coordination of care (as documented) at patient's floor/unit and/or counseling patient: Coding Level of Care Code 02588 SUB INP/OBS CARE 3/50MIN Diagnoses Atrial flutter I48.92 Atrial flutter type: unspecified (1) Atrial flutter Atrial flutter type: unspecified Qualified Code(s): I48.92 - Unspecified atrial flutter
--- NOTE | 2023-08-25 17:38 | Discharge Summary ---
Date of Service August 25, 2023 Admission HPI Per Admitting Provider Noemy Martinez is a 68yo female with Stage IV adenocarcinoma of the lung on chemotherapy through [facility] presenting with elevated heart rate. Patient has experienced intermittent palpitations over the last several weeks which have been lasting 10-20 minutes. She recently had a quality assurance monitor chassis placed - was notified on 08/21/23 of arrhythmia. She was then instructed by her PCP to come to the ER for further workup. Patient reports that she has noted that her resting heart rate has recently increased from the 70's to the 90's. Her blood pressure is always on the low side 90's - 100's. She is currently asymptomatic. She denies chest pain, palpitations, dizziness, shortness of breath or confusion. She has a chronic cough productive for copious, thick white mucus which is baseline. She has Stage IV lung cancer which was diagnosed in March 2022- follows with [facility]. It is largely lipidic. She is on chemotherapy - last treatment 08/22/23. She received Dexamethasone and Zofran yesterday and it is to be continued for three more days. She follows with Pulmonary - was recently started on Performist and Budesonide inhaled as well as hypertonic saline nebs in addition to her DuoNebs QID PRN. Upon arrival to the ER patient tachycardic with HR in the low 100's - sinus on EKG. Then became more tachycardic in 140-180's, thought to be atrial flutter. She was administered Diltiazem bolus and drip initiated. ER Course: NSS 250mL x 2 boluses Diltiazem 10mg IV then gtt Metoprolol 5mg IV Principal Diagnosis atrial flutter with RVR now returned to sinus refusal of anticoagulation for aflutter acute on chronic hypoxic respiratory failure metastatic adenocarcinoma of lung Discharge Exam Chronically ill-appearing female Tachypnea with no acute respiratory distress likely some chronic respiratory distress Lungs with coarse breath sounds most clear breath sounds heard at the right upper lobe absent breath sounds bilateral bases Cardiac exam is rate controlled no murmurs are heard Discharge Data Allergies Allergy/AdvReac Type Severity Reaction Status Date / Time azithromycin Allergy Severe Difficulty Verified 08/23/23 18:16 Breathing Penicillins Allergy Intermediate HIVES A Verified 08/23/23 18:16 CHILD Consultations 08/23/23 19:18 ED Decision to Admit Stat 08/23/23 22:25 Consult Cardiology Routine Ordered Studies Chest X-Ray 08/23/23 17:05 XR chest 1V portable HISTORY: 68 years-old Female Chest pain, nonspecific COMPARISON: 07/31/2023 TECHNIQUE: AP view of the chest FINDINGS: Cardiac silhouette is enlarged. The patient is rotated towards the left. Left subclavian Kaewij-o-Vhjr catheter. Battery pack projects of the left chest. No pneumothorax. Extensive left greater than right mixed interstitial and alveolar opacities with left greater than right pleural effusions and dense left basilar consolidation redemonstrated, slightly progressed. Bones appear grossly intact. IMPRESSION: Extensive left greater than right mixed interstitial and alveolar opacities redemonstrated which appear to be stable to slightly progressed and likely related to the patient's underlying known malignancy. ACT 112: Negative or not required by law. The above report was generated using voice recognition software. It may contain grammatical, syntax or spelling errors. Electronically signed by: Huber Menjivar M.D. 08/23/2023 5:54 PM Chest CTA 08/24/23 01:24 CT ANGIOGRAM OF THE CHEST CLINICAL HISTORY: Atypical chest pain. Pneumonia. COMPARISON STUDY: Chest CT dated 07/28/2023. Chest x-ray dated 08/23/2023. FINDINGS: Thyroid: Enlarged and heterogeneous, typical for goiter. Thoracic aorta: There is aneurysmal dilatation of the ascending thoracic aorta which measures up to 4.3 cm in diameter. The remainder of the thoracic aorta is normal in caliber comment the arch demonstrates standard 3-vessel anatomy. No dissection is seen. Pulmonary vasculature: The pulmonary trunk is normal in caliber. There are no filling defects identified in main, lobar, or segmental pulmonary branches to suggest pulmonary embolus. Heart: The heart is mildly enlarged and without pericardial effusion. There are scattered coronary artery calcifications. Lungs and pleural spaces: There is extensive//diffuse multifocal airspace consolidation seen throughout both lungs. This is nearly confluent at the left lung, and is confluent at the right lung base. Trace pleural effusions are noted. Secretions/debris fill the left lower lobe airways which appear compressed centrally. There is also debris/mucus plugging within the right lower lobe bronchi. Cavitation is again seen in the left lower lung. Mediastinum: There is no significant mediastinal lymphadenopathy. Thania: The left hilum is largely obscured. No right hilar adenopathy is identified. Axillae: There is no axillary lymphadenopathy. Upper abdomen: Excreted IV contrast is seen within the partially visualized renal collecting systems. Partially visualized upper abdominal viscera is otherwise grossly unremarkable. Skeletal structures: The skeletal structures are osteopenic. Degenerative changes and kyphoscoliosis is noted in the thoracic spine. Arthritic change is noted in the shoulders. No lytic or blastic bony lesions are seen. IMPRESSION: 1. There is no evidence of pulmonary embolus in the main, lobar, or segmental pulmonary arteries. 2. Cardiomegaly. 3. Extensive/diffuse multifocal airspace consolidation is again seen throughout both lungs, left greater than right. This has progressed as compared to 07/28/2023, with cavitation again seen at the left lung base. The majority of this likely represents known multifocal adenocarcinoma. Increasing opacities could represent progression of disease. A superimposed pneumonia/aspiration pneumonitis would be impossible to exclude. Clinical correlation will be essential. 4. Trace pleural effusions 5. There is aneurysmal dilatation of the ascending thoracic aorta which measures up to 4.3 cm. 6. Additional findings as above. Electronically signed by: Nicanor Cleary M.D. 08/24/2023 7:04 AM Hospital Course (1) Atrial flutter: 68yo female with Stage IV adenocarcinoma of the lung presenting with tachycardia - atrial flutter. Required amiodarone gtt discharge on po amiodarone converted to NSR TSH is low with normal T4. Electrolytes lovenox on 08/25, pt refused thromboembolic prophylaxis, understands risk Concern that acute hypoxic respiratory failure, secondary to viral pneumonia and lung cancer, could have led to her atrial flutter. Family though does not appear concerned about her increased oxygen needs and feel she will be better once she is home. cxr and Ct show significant changes ECHO NL EF, no RWMA (2) Adenocarcinoma of lung: Patient follows with [facility]. Last chemotherapy treatment on 08/22/23. -Dexamethasone 6mg PO last dose 08/26/23 as per home chemotherapy instruction from [facility] -Zofran PRN -Continue pulmonary toilet, incentive spirometer and flutter valve -Vibration vest to assist with secretions, Dr jacobs has home unit for patient -Continue supplemental O2 - 4-6L continuous -DuoNebs -Formoterol BID -Budesonide BID -Albuterol PRN -Oxycodone PRN pain Plan [place] is guarded will follow up with Cardiology and current oncology team Total Time Total Time Spent Total Time Spent (In Minutes): It required greater than 30 minutes to prepare this patient for discharge. Discharge Plan Discharge Items Patient Disposition: Home - Self-Care Reason For Visit: ATRIAL FLUTTER Discharge Diagnosis: atrial flutter low blood oxygen level increased sinus drainage current treatment of metastatic cancer Activity: Per Instructions section Activity Comment: please follow post cancer treatment activity guidelines Non-emergency contact: Primary Care Provider, Specialist and Commercial Sales Consultant Call non-emergency contact if: your symptoms worsen Follow-up/Referrals: Cliff Howard MD [Physician] - (Office will reach out to schedule) Cliff Carmen MD [Primary Care Provider] - 08/30/23 11:00 am Diet: Regular Addtl Attending Provider Instructions: What is atrial flutter?Atrial flutter is a heart problem in which the heart beats much faster than normal. Atrial flutter puts people at risk for stroke and other problems. In atrial flutter, the electrical signals that control the heartbeat become abnormal. As a result, the heart's upper chambers stop pumping effectively. Blood that should move out of these chambers gets left behind. As the blood pools, it can start to form clots. These clots can travel up to the brain through the blood vessels, and cause strokes. Atrial flutter happens most often in people who had recent heart surgery or who have certain heart conditions, such as a heart valve problem. What are the symptoms of atrial flutter?Some people have no symptoms. When symptoms do happen, they can include: Feeling like your heart is beating fast, beating hard, or skipping beats Feeling tired Feeling lightheaded or dizzy Trouble breathing Chest pain Fainting, or feeling like you are going to faint Is there a test for atrial flutter?Yes. Your doctor or nurse will do an electrocardiogram (also called an "ECG"), which measures the electrical activity in your heart ( Your doctor will also do other tests to look for heart problems that could be causing your atrial flutter. How is atrial flutter treated?Treatment depends on your symptoms and what's causing your atrial flutter. People who have no symptoms might not need treatment. This is because atrial flutter sometimes changes back to a normal heart rhythm without treatment (after days or weeks). When treatment is needed, it can include 1 or more of the following: Medicines to change the heart rhythm back to normal, or control the speed or rhythm of the heartbeat- You have been started on amiodarone Medicines to prevent blood clots from forming, this maybe too risky for you at this time. Cardioversion This procedure involves applying an electrical current to the heart to fix its rhythm. Ablation During this procedure, the doctor uses heat or cold to destroy the small part of the heart that is sending the abnormal electrical signals. A pacemaker This is a device that goes under the skin near a person's heart. It sends electrical signals to the heart to control the heartbeat. What will my life be like?Many people with atrial flutter are able to live fairly normal lives. Still, it is important that you take your medicines every day, as prescribed by your doctor. Taking your medicines will help lower the chances that your atrial flutter will cause a stroke. Even so, it's a good idea to learn the signs and symptoms of a stroke ( Addtl Antenna Rigger Provider Instructions: take your amiodarone 200mg one twice a day thru 08/30 then use once a day consider over the counter atropine nasal spray to help reduce nasal secretions Pending Studies at Discharge: No Stand-Alone Forms: My [facility] [employer], Smoking Cessation Medications and DC Order Prescriptions: New amiodarone 200 mg Tablet 200 mg PO QAM Qty: 30 5RF Continued budesonide 0.5 mg/2 mL suspension for nebulization 0.5 mg inhalation BID Qty: 60 2RF formoterol fumarate [Perforomist] 20 mcg/2 mL solution for nebulization 2 ml inhalation BID Qty: 120 2RF sodium chloride 3 % solution for nebulization 4 ml inhalation Q8H PRN (Reason: secretions) Qty: 240 0RF omega-3 acid ethyl esters 1 gram capsule 1 cap PO QAM polyethylene glycol 3350 [Miralax] 17 gram/dose powder 17 g PO BID PRN (Reason: constipation) sennosides-docusate sodium [Colace 2-In-1] 8.6-50 mg tablet 1 tab-cap PO DAILY PRN (Reason: Constipation) (DME) Oxygen Home Liters Per Minute See Rx Instructions .MEDSUPPLY Qty: 1 0RF Rx Instructions: Please evaluate patient for oxygen conserving device/pulse oxygen delivery system: [employer] (DME) Vibration Vest Misc See Rx Instructions .Route Qty: 1 0RF Rx Instructions: Perform chest physiotherapy with vest twice daily cyanocobalamin (vitamin B-12) 1,000 mcg Tablet, Sublingual 1,000 mcg SUBLINGUAL QAM cholecalciferol (vitamin D3) [Vitamin D3] 25 mcg (1,000 unit) Tablet 25 mcg PO QAM Neilmed Sinus Rinse Complete Packet With Rinse Device See Rx Instructions .Route .COMPLEX PRN (Reason: congestion) Rx Instructions: use daily; oxycodone 5 mg Tablet 5 - 10 mg PO Q6H PRN (Reason: moderate to severe pain) Qty: 30 0RF Rx Instructions: 1 tablet for moderate pain 2 tablets for severe pain folic acid 1 mg Tablet 1 mg PO QAM Qty: 30 0RF oxycodone [OxyContin] 10 mg tablet,oral only,ext.rel.12 hr 10 mg PO BID Qty: 60 0RF albuterol sulfate 90 mcg/actuation HFA aerosol inhaler 2 inh inhalation Q6H PRN (Reason: shortness of breath or wheezing) Qty: 6.7 0RF ipratropium-albuterol 0.5 mg-3 mg(2.5 mg base)/3 mL solution for nebulization 3 ml inhalation Q6 PRN (Reason: as directed) dexamethasone 6 mg tablet 6 mg PO DIRECTED prednisone 10 mg tablet 10 mg PO DIRECTED Hold Instructions: Resume on 08/07/23. ondansetron HCl 8 mg tablet 8 mg PO DIRECTED prochlorperazine maleate 10 mg tablet 10 mg PO Q6H PRN (Reason: Nausea And Vomiting) Discharge Orders: Discharge Order (Routine); Ordered 08/25/23 Ordered By: Jair Quiles Admission Data Admit Date/Time: 08/23/23 19:51 Attending Provider: Jair Quiles Admit Provider: Savannah Lind Primary Care Provider: Cliff Carmen Other Providers: Savannah Lind; Fuad Rodarte Other Interventions: Discharge Summary Assessment (RN) Last Done: 08/25/23 13:32 Coding Level of Care Code 27023 INP/OBS DISCH >30 MIN Diagnoses Atrial flutter I48.92 Atrial flutter type: unspecified Adenocarcinoma of lung C34.92 Laterality: left
== END 2023-08-25 14:16 | disposition home or self-care (01) | DRG 308 ==
LOC: ED 16:54 → SUATTDRO 19:51 → EDINP 19:51 → 2S 22:15

== ENCOUNTER 2023-08-29 23:41 | Inpatient (IN) ==
[2023-08-30 01:28] LABS: Albumin Globulin Ratio 1.1 (0.9-2); Albumin Level 2.8 gm/dl (3.4-5.0); BUN Creatinine Ratio 38.9 (10-20); Bilirubin,Total 0.6 mg/dl (0.2-1.0); Creatinine Clr Calc Pharmacy 132.7 ml/min; Est GFR (African American) 130.2 ml/min; Est GFR (Non-African American) 112.4 ml/min; Globulin 2.6 gm/dl (2.5-4.0); Potassium 4.2 mmol/L (3.5-5.1); Total Protein 5.4 gm/dl (6.0-8.3)
[2023-08-30 02:30] LABS: Hematocrit (blood only) 27.7 % (37.0-47.0); Hemoglobin 9.3 g/dl (12.0-16.0); Mean Corpuscular Hemoglobin 30.5 pg (25.0-34.0); Mean Corpuscular Hgb Conc 33.6 g/dL (32.0-36.0); Mean Corpuscular Volume 90.8 fL (80.0-100.0); Mean Platelet Volume 9.2 fL (9.4-12.4); Nucleated RBC # (auto) 0.02 K/uL (0.00-0.12); Nucleated RBC % (auto) 0.9 %; Platelet Count 321 K/uL (130-400); RDW Coefficient of Variation 15.1 % (11.5-14.5); RDW Standard Deviation 50.2 fL (36.4-46.3); Red Blood Count 3.05 M/uL (4.20-5.40); White Blood Count 2.13 K/ul (4.8-10.8)
[2023-08-30 02:51] LABS: Dohle Bodies 1+; Toxic Granulation 1+
[2023-08-30 02:53] LABS: Basophils # (auto) 0.02 K/uL (0.00-0.20); Basophils % (auto) 0.9 %; Eosinophils # (auto) 0.03 K/uL (0.00-0.50); Eosinophils % (auto) 1.4 %; Immature Granulocytes # (auto) 0.09 K/uL (0.01-0.20); Immature Granulocytes % (auto) 4.2 %; Lymphocytes # (auto) 0.56 K/uL (1.20-3.40); Lymphocytes % (auto) 26.3 %; Monocytes # (auto) 0.54 K/uL (0.11-0.59); Monocytes % (auto) 25.4 %; Neutrophils # (auto) 0.89 K/uL (1.40-6.50); Neutrophils % (auto) 41.8 %
[2023-08-30] MEDS ORDERED: VANCOMYCIN CONSULT ACTIVE PRN ×2 (03:02→04:49)
[2023-08-30] MEDS: CEFEPIME 2,000 MG/20 ML VIAL IV STA (03:08)
[2023-08-30] MEDS: SODIUM CHLORIDE 0.9% 1,000 ML IV ONE (03:08)
--- NOTE | 2023-08-30 03:22 | History & Physical Report ---
Date of Service August 30, 2023 Assessment & Plan (1) Acute on chronic respiratory failure with hypoxia: (2) Atrial flutter with rapid ventricular response: (3) Adenocarcinoma of lung: (4) Hyponatremia: (5) Hypotension: (6) Pleural effusion: (7) Neutropenia associated with infection: (8) Aphthous ulcer of tongue: (9) Atrial flutter: Plan Acute on chronic respiratory failure with hypoxia/lung cancer/pneumonia and pleural effusion/neutropenia- Broad-spectrum antibiotic coverage: Vancomycin IV per pharmacokinetic monitoring Cefepime 2 g IV every 8 hours Duonebs every 4 hours while awake and every 2 hours when necessary. Oxygen titrated to keep pulse ox around 95% Receiving chemotherapy at [facility] Neutropenia associated with chemotherapy- Total WBC 2.13, with ANC 0.89 Neupogen 480 mcg subcu x 1 this evening Follow serial CBC with differential Neutropenic precautions Hypotension/sepsis- Antibiotics as noted above Received 1 L normal saline bolus in the ED NSS + KCl 20 mill equivalents at 125mls per hour Give albumin 50 g IV Hypotension was present before atrial flutter with RVR occurred Atrial flutter with RVR- Recurrent, as first noted at last admission from 08/23-08/25/2023 Did not tolerate Cardizem drip and/or metoprolol Was started on amiodarone 20 mg every morning last visit Placed on amiodarone bolus/drip per protocol Start heparin drip low-dose without bolus per protocol Most recent echo on 08/24/2023 showed ejection fraction 65-70%, with mild aortic regurgitation, and no significant change compared to 01/10/2023 Hyponatremia- The patient was advised to stay in the hospital at last admission, but chose to leave on 08/25/2023 without complete workup Sodium was 123 on discharge, and presently 122 Check serum and urine osmolality Question whether neuroendocrine tumor. Unlikely excessive water intake, as patient has very sore mucous membranes She has been without her sodium chloride 1 g p.o. twice daily for about 1 week, due to prescription access. It will be restarted on hospital [facility]- Consult wound care History of Present Illness Chief Complaint: The patient presents to the emergency department due to worsening generalized fatigue, weakness, shortness of breath, decreased oral intake. Her is with her in the emergency department, and helps to contribute to her review of systems and HPI Primary Care Provider: Cliff Carmen MD The patient is a 68-year-old female with a past medical history including adenocarcinoma of lung treated at [place], atrial flutter, Port-A-Cath in place left chest wall, hyponatremia, hypertension, anxiety and depression, mild ascending aorta dilatation, 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 nontoxic goiter, cardiomegaly and pleural effusion. She was most recently mated to [facility] from 08/24- 08/25/2023, at which time she left earlier than desired by medical staff, due to wanting to be home. Since she was in the hospital for that admission, she did go to [facility], and received chemotherapy treatment. Since that time she has become progressively weaker evidence and symptoms as noted above. Workup in the emergency department included chest x-ray which showed worsening left lung metastatic lung cancer and probable secondary pneumonia, with right lower lobe involvement. Significant laboratories: Sodium 122, chloride 85, bicarb 31, glucose 101, WBC 2.13 with ANC 0.89, hemoglobin 9.3, hematocrit 27.7. First EKG showed normal sinus rhythm, but while in the emergency department went into atrial flutter with 2-1 block, at a rate of 152. Her notes that she is a right buttock wound, for which she had been seeing wound care, and feels better lying on her left side Allergies Allergy/AdvReac Type Severity Reaction Status Date / Time azithromycin Allergy Severe Difficulty Verified 08/23/23 18:16 Breathing Penicillins Allergy Intermediate HIVES A Verified 08/23/23 18:16 CHILD Home Medications Medication Instructions Recorded Confirmed Type omega-3 acid ethyl esters 1 gram 1 cap PO QAM 02/04/20 08/30/23 History capsule cholecalciferol (vitamin D3) 25 25 mcg PO QAM 11/20/20 08/30/23 History mcg (1,000 unit) tablet (Vitamin D3) cyanocobalamin (vitamin B-12) 1,000 mcg sublingual QAM 11/20/20 08/30/23 History 1,000 mcg sublingual tablet sodium chloride, sodium See Rx Instructions .Route 04/27/23 08/30/23 History bicarb-nasal rinse squeeze bottle .COMPLEX PRN congestion with packet (Neilmed Sinus Rinse Complete with packet) albuterol sulfate 90 mcg/actuation 2 inh inhalation Q6H PRN shortness 04/29/23 08/30/23 Rx aerosol inhaler of breath or wheezing #6.7 grams folic acid 1 mg tablet 1 mg PO QAM #30 tabs 04/29/23 08/30/23 Rx ipratropium 0.5 mg-albuterol 3 mg 3 ml inhalation Q6 PRN as directed 06/28/23 08/30/23 History (2.5 mg base)/3 mL nebulization soln prochlorperazine maleate 10 mg 10 mg PO Q6H PRN Nausea And 07/28/23 08/30/23 History tablet Vomiting polyethylene glycol 3350 17 17 g PO BID PRN constipation 08/01/23 08/30/23 History gram/dose oral powder (Miralax) sennosides 8.6 mg-docusate sodium 1 tab-cap PO DAILY PRN Constipation 08/01/23 08/30/23 History 50 mg tablet (Colace 2-In-1) Oxygen Home #1 ea 08/18/23 08/30/23 Rx Vibration Vest #1 ea 08/18/23 08/30/23 Rx budesonide 0.5 mg/2 mL suspension 0.5 mg (2 mL) inhalation BID #60 mL 08/19/23 08/30/23 Rx for nebulization formoterol fumarate 20 mcg/2 mL 2 ml inhalation BID #120 mL 08/19/23 08/30/23 Rx solution for nebulization (Perforomist) sodium chloride 3 % for 4 ml inhalation Q8H PRN secretions 08/19/23 08/30/23 Rx nebulization #240 mL dexamethasone 6 mg tablet 6 mg PO DIRECTED 08/23/23 08/30/23 History amiodarone 200 mg tablet 200 mg PO QAM #30 tabs 08/25/23 08/30/23 Rx ondansetron HCl 8 mg tablet 8 mg PO Q8H #20 tabs 08/26/23 08/30/23 Rx oxycodone 10 mg tablet,crush 10 mg PO BID #60 tabs 08/26/23 08/30/23 Rx resistant,extended release 12 hr (OxyContin) oxycodone 5 mg tablet 5 - 10 mg (1 - 2 x 5 mg) PO Q6H 08/26/23 08/30/23 Rx PRN moderate to severe pain #30 tabs ipratropium bromide 42 mcg (0.06 2 spray intranasal TID #15 mL 08/27/23 08/30/23 Rx %) nasal spray Magic Mouthwash 300 mL mouthwash 5 ml mucous membrane Q6H PRN mouth 08/29/23 08/30/23 Rx pain #300 mL Past Med/Surg History Medical History (Updated 08/30/23 @ 04:31 by Yoshi Ricketts MD) Adenocarcinoma of lung Tubular adenoma Osteoarthritis History of basal cell carcinoma scalp/tip of nose Tinnitus of both ears Anxiety and depression 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, 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, 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 Hyperlipidemia Vitamin D deficiency Surgical History Port-A-Cath in place (04/28/23) Left Subclavian Mediport Insertion(Left) - Donal Maldonado DO H/O colonoscopy History of surgical removal of ganglion cyst left wrist History of wisdom tooth extraction Hx of section History of carpal tunnel release right wrist History of tonsillectomy and adenoidectomy History of mandibular surgery d/t underbite Hx of tooth extraction Hx of needle biopsy thyroid--benign History of Mohs surgery for squamous cell carcinoma in situ of skin x2 Family History Father Colon cancer Prostate cancer Myocardial infarction Heart disease Mother Hypertension Cancer Uncle Diabetes Aunt Breast cancer Other No family history of adverse response to anesthesia Denies family history of Ovarian cancer Social History Smoking Status: Never smoker Second Hand Exposure: No; Do You Dip or Chew Tobacco: No; Hx Alcohol Use: Yes Alcohol type: wine Alcohol Intake Frequency: Monthly or Less Hx Substance Use: No Preferred Language: Pashto Communication Ability: Effective Visual Impairment: No Limitations Hearing Ability: Normal Donor Specialist Required: No Beliefs That Will Affect Care: None marital status: Current Living Situation: Spouse and Family current occupational status: retired How many Children do You have: 2 Feels Safe at Home: Yes Childhood Exposure to Second-Hand Smoke: Yes during the past year weight has: decreased > 10 lbs Dental Care, Regularly: Yes Physical Activity Frequency: Does not Exercise Seatbelt Use: always Sunscreen Use: Yes Assistive Devices: Oxygen - Continuous, Walker and Wheelchair Review of Systems Review of Systems: The patient denies chest pain, palpitations, lower extremity swelling, sore throat, fevers, chills, sweats, vomiting, diarrhea , constipation, abdominal pain, pelvic pain, blood in urine or stool, dysuria, urinary frequency or urgency, lightheadedness, dizziness, headache, memory loss, loss of consciousness, rash, abnormal bruising or bleeding, focal weakness, numbness or tingling in arms or legs, generalized arthralgias or myalgias, back or neck pain, or night sweats. The review of systems is otherwise negative other than for that already noted above, and at least 10 systems have been reviewed. Physical Exam 2 Physical Exam: The patient is awake, alert and very fatigued, normocephalic and atraumatic, lying in bed on her left side, and in no acute distress. HEENT--PERRL, EOMI, mucous membranes and oropharynx dry, with multiple aphthous lesions on tongue and buccal mucosa Neck--supple. No JVD. No bruits. Thyroid normal, trachea midline, no adenopathy. Heart--normal S1 and S2. No murmurs, rubs or gallops. Lungs--decreased breath sounds left lower two thirds, with crackles right base. No respiratory distress, no accessory muscle use. Abdomen--normal bowel sounds and soft. Nontender. Nondistended, no hernias or masses, no organomegaly. Extremities--no cyanosis or clubbing. No edema. Dermatologic--normal skin turgor, normal color, no abnormal lymph nodes, no rash. Neurologic--cranial nerves II through XII grossly intact. Rheumatologic--limited exam due to fatigue Psychiatric--normal affect. Results & Data Results & Data Vital Signs (Past 12 Hours) Vital Signs Temp Pulse Pulse Resp BP BP Pulse Ox 08/30/23 01:58 98 H 24 91/58 L 96 08/30/23 01:01 95 08/29/23 23:57 37.0 C 110 H 24 108/67 93 08/29/23 23:47 117 H O2 Del Method O2 Flow Rate 08/30/23 01:58 Non-rebreather 13 08/30/23 01:01 Non-rebreather 13 08/29/23 23:57 Non-rebreather 13 08/29/23 23:47 Laboratory Results Laboratory Results WBC 2.13 K/ul (4.8-10.8) L 08/30/23 00:58 RBC 3.05 M/uL (4.20-5.40) L 08/30/23 00:58 Hgb 9.3 g/dl (12.0-16.0) L 08/30/23 00:58 Hct 27.7 % (37.0-47.0) L 08/30/23 00:58 MCV 90.8 fL (80.0-100.0) 08/30/23 00:58 MCH 30.5 pg (25.0-34.0) 08/30/23 00:58 MCHC 33.6 g/dL (32.0-36.0) 08/30/23 00:58 RDW Std Deviation 50.2 fL (36.4-46.3) H 08/30/23 00:58 RDW Coeff of Thomas 15.1 % (11.5-14.5) H 08/30/23 00:58 Plt Count 321 K/uL (130-400) 08/30/23 00:58 MPV 9.2 fL (9.4-12.4) L 08/30/23 00:58 Immature Gran % (Auto) 4.2 % 08/30/23 00:58 Neut % (Auto) 41.8 % 08/30/23 00:58 Lymph % (Auto) 26.3 % 08/30/23 00:58 Larue % (Auto) 25.4 % 08/30/23 00:58 Eos % (Auto) 1.4 % 08/30/23 00:58 Baso % (Auto) 0.9 % 08/30/23 00:58 Neut # (Auto) 0.89 K/uL (1.40-6.50) L* 08/30/23 00:58 Lymph # (Auto) 0.56 K/uL (1.20-3.40) L 08/30/23 00:58 Larue # (Auto) 0.54 K/uL (0.11-0.59) 08/30/23 00:58 Eos # (Auto) 0.03 K/uL (0.00-0.50) 08/30/23 00:58 Baso # (Auto) 0.02 K/uL (0.00-0.20) 08/30/23 00:58 Immature Gran # (Auto) 0.09 K/uL (0.01-0.20) 08/30/23 00:58 Absolute Nucleated RBC 0.02 K/uL (0.00-0.12) 08/30/23 00:58 Nucleated RBC % (auto) 0.9 % 08/30/23 00:58 Toxic Granulation 1+ 08/30/23 00:58 Dohle Bodies 1+ 08/30/23 00:58 PT 11.8 Seconds (9.0-12.0) 08/30/23 00:58 INR 1.1 (0.9-1.1) 08/30/23 00:58 APTT 46 Seconds (21-31) H 08/30/23 00:58 PTT Ratio 1.6 08/30/23 00:58 Sodium 122 mmol/L (136-145) L 08/30/23 00:58 Potassium 4.2 mmol/L (3.5-5.1) 08/30/23 00:58 Chloride 85 mmol/L (98-107) L 08/30/23 00:58 Carbon Dioxide 31 mmol/L (21-32) 08/30/23 00:58 Anion Gap 6 (3-11) 08/30/23 00:58 BUN 14 mg/dl (6-23) 08/30/23 00:58 Creatinine 0.36 mg/dl (0.6-1.2) L 08/30/23 00:58 Est Cr Clr Drug Dosing 132.7 ml/min 08/30/23 00:58 Est GFR ( Amer) 130.2 ml/min 08/30/23 00:58 Est GFR (Non-Af Amer) 112.4 ml/min 08/30/23 00:58 BUN/Creatinine Ratio 38.9 (10-20) H 08/30/23 00:58 Glucose 101 mg/dl (70-99(Fasting)) H 08/30/23 00:58 Calcium 9.0 mg/dl (8.6-10.3) 08/30/23 00:58 Total Bilirubin 0.6 mg/dl (0.2-1.0) 08/30/23 00:58 AST 14 U/L (13-39) 08/30/23 00:58 ALT 22 U/L (7-52) 08/30/23 00:58 Alkaline Phosphatase 52 U/L (34-104) 08/30/23 00:58 Total Protein 5.4 gm/dl (6.0-8.3) L 08/30/23 00:58 Albumin 2.8 gm/dl (3.4-5.0) L 08/30/23 00:58 Globulin 2.6 gm/dl (2.5-4.0) 08/30/23 00:58 Albumin/Globulin Ratio 1.1 (0.9-2) 08/30/23 00:58 Code Status & VTE Plan Code Status Full code VTE Prophylaxis Plan VTE Prophylaxis will be ordered: Yes PG Care Time/CCT Total # of Minutes Spent Total Time Spent with Patient: Total time spent is greater than 50% in coordination of care (as documented) at patient's floor/unit and/or counseling patient: Coding Level of Care Code 40321 INT INP/OBS CARE 3/75MIN Diagnoses Acute on chronic respiratory failure with hypoxia J96.21 Atrial flutter with rapid ventricular response I48.92 Adenocarcinoma of lung C34.92 Laterality: left Hyponatremia E87.1 Hypotension I95.9 Pleural effusion J90 Neutropenia associated with infection D70.3 Aphthous ulcer of tongue K12.0 Atrial flutter I48.92 Atrial flutter type: unspecified (3) Adenocarcinoma of lung Laterality: left Qualified Code(s): C34.92 - Malignant neoplasm of unspecified part of left bronchus or lung (9) Atrial flutter Atrial flutter type: unspecified Qualified Code(s): I48.92 - Unspecified atrial flutter
[2023-08-30] MEDS ORDERED: STAT IV Infusion **Titration per Protocol STA ×2 (03:31→07:27)
[2023-08-30] MEDS ORDERED: AMIODARONE IV BOLUS & DRIP IV STA ×2 (03:31→07:27)
[2023-08-30] MEDS ORDERED: 0.2 MICRON FILTER SET 1 EACH IV STA ×2 (03:31→07:31)
[2023-08-30] MEDS: AMIODARONE / D5W 150 MG/100 ML BAG IV STA ×2 (03:42→09:31)
[2023-08-30] MEDS: DEXAMETHASONE SOD INJ 4 MG/ML VIAL IV STA (03:53)
[2023-08-30] MEDS: FILGRASTIM 480 MCG/1.6 ML VIAL SC ONE (04:00)
[2023-08-30] MEDS: AMIODARONE / D5W 360 MG/200 ML BAG IV ONE ×2 (04:04→09:32)
[2023-08-30 04:11] LABS: INR 1.1 (0.9-1.1); Partial Thromboplastin Ratio 1.6; Partial Thromboplastin Time 46 Seconds (21-31); Prothrombin Time 11.8 Seconds (9.0-12.0)
[2023-08-30] MEDS: ALBUMIN 25% 25 GM/100 ML VIAL IV SCH (04:11)
[2023-08-30] MEDS: HEPARIN SODIUM/DEXTROSE 25,000 UNITS/500 ML BAG IV SCH (04:41)
[2023-08-30] MEDS ORDERED: DOCUSATE SODIUM/SENNA 50/8.6MG TAB PO PRN (04:49)
[2023-08-30] MEDS ORDERED: oxyCODONE HCL IR 5 MG TAB (IMMEDIATE RELEASE) PO PRN (04:49)
[2023-08-30] MEDS ORDERED: ONDANSETRON INJ 2 MG/ML 2 ML VIAL IV PRN (04:49)
[2023-08-30] MEDS ORDERED: POLYETHYLENE (MIRALAX) 17 GM PACK PO PRN (04:49)
[2023-08-30] MEDS ORDERED: NSS + 20MEQ KCL 20 MEQ/1,000 ML BAG IV SCH (04:49)
[2023-08-30 05:06] LABS: Magnesium 1.5 mg/dl (1.7-2.4)
--- NOTE | 2023-08-30 05:10 | Emergency Department Note ---
Impression & Plan Acute and chronic respiratory failure ([id number]), Hyponatremia, Neutropenia Admit to the [facility] ED Provider Note NAME: ANA PATTERSON AGE: 68 SEX: Female INFORMANT: Patient ED PROVIDER(S): Michaelle Storm DO CHIEF COMPLAINT: Worsening hypoxia PLAN: Disposition: Admit to the [facility] MEDICAL DECISION MAKING: Patient's explains that they were monitoring her oxygen saturation at home and it began to fall and therefore they brought her here for evaluation. Patient was noted to be significantly hyponatremic. Sodium level was even lower than what it was upon her discharge last week. Patient is now neutropenic. A septic protocol was performed. Patient was treated with IV normal saline bolus as she was hypotensive and started on IV cefepime. Care/management discussed with: project manager interior design and the [facility] Triage Nursing notes: Reviewed and agree with them. Vital Signs: reviewed and remarkable for patient became hypotensive and tachycardic Additional History obtained from: Patient's is at the bedside Chronic Medical/Social Conditions affecting care: Lung cancer Prior/ Outside/ External records reviewed: Reviewed her recent admission to the hospital where she was hyponatremic Differential Diagnosis: Pneumonia, pneumothorax, CHF, sepsis Diagnostics, independently interpreted by me: ECG: Sinus tachycardia at 120 with PACs. There is no ST segment elevation or signs of ischemia. Repeat ECG: Atrial flutter at a rate of 150. The ST segment is now depressed in the inferior and anterior lateral leads. Cardiac Monitoring: Sinus tachycardia at a rate of 120 Imaging studies: Portable chest x-ray: Extensive bilateral opacities with the left being greater than the right as per my independent interpretation HPI: 68 year old Female arrives for evaluation of decreased O2 saturation. Patient is on home oxygen and they monitor her saturations frequently. It was noted that her saturations had dropped and her heart rate was elevating. She was brought to the emergency department for evaluation. She has an extensive past medical history including lung cancer. PAST MEDICAL HISTORY: See Below, PAST SURGICAL HISTORY: See Below, SOCIAL HISTORY: See Below, HOME MEDICATIONS: See list ALLERGIES: See list VITALS: See Below PHYSICAL EXAMINATION: HEENT: Head - normocephalic and atraumatic. Pupils are equal, round, and reactive to light. Extraocular eye muscles are intact, and sclera are anicteric. Nose - moist nasal mucosa without discharge. Mouth - moist buccal mucosa. Oropharynx is nonerythematous and there is no tonsillar exudate or edema noted. Neck: Supple; no JVD or cervical lymphadenopathy Heart: Regular rate and rhythm. There is a normal S1 and S2 with no murmurs, clicks, or gallops appreciated. Lungs: Diminished breath sounds throughout all lung steele Abdomen: Soft, completely nontender, nondistended, with good bowel sounds. There are no palpable pulsatile masses or hepatosplenomegaly. There is no guarding, rigidity, or rebound noted. Extremities: No evidence of cyanosis, clubbing, or edema. There are easily palpable peripheral pulses. Skin: Pale, warm and dry with good turgor and no rashes. Emergency department treatment: night monitor, IV normal saline bolus, IV cefepime, IV vancomycin Emergency department course: The patient was evaluated in room A-2. A complete history and physical was performed. Twelve-lead EKG was obtained. An order was placed for continuous cardiac monitoring. The patient was in a sinus tachycardia at a rate of 120. Patient was on a nonrebreather mask and O2 saturations were stable. A septic protocol was performed. Portable chest x-ray was performed. Patient was bolused with a liter of normal saline solution. She was given a dose of IV cefepime. The patient was noted to be neutropenic and placed in neutropenic precautions. I discussed the case with the [facility] Hospitalist. We added IV vancomycin. Patient was given a second liter of normal saline solution as she remained hypotensive. Her blood pressure did respond to this second liter of crystalloid. I have personally spent greater than 45 minutes of critical care time in the direct management of this patient. This includes bedside care, interpretation of diagnostic studies, and testing, discussion with consultants, patient, and family members, and other required patient management activities. This 45 minutes is in excess of all separately billable procedures. Past Med/Surg History Medical History (Updated 08/31/23 @ 07:43 by Michaelle Storm DO) Hypertension Adenocarcinoma of lung Tubular adenoma Osteoarthritis History of basal cell carcinoma scalp/tip of nose Tinnitus of both ears Anxiety and depression Goiter, nontoxic, 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 patient experience coordinator Hyperlipidemia Vitamin D deficiency Surgical History Port-A-Cath in place (04/28/23) Left Subclavian Mediport Insertion(Left) - Donal Maldonado DO H/O colonoscopy History of surgical removal of ganglion cyst left wrist History of wisdom tooth extraction Hx of section History of carpal tunnel release right wrist History of tonsillectomy and adenoidectomy History of mandibular surgery d/t underbite Hx of tooth extraction Hx of needle biopsy thyroid--benign History of Mohs surgery for squamous cell carcinoma in situ of skin x2 Family History Father Colon cancer Prostate cancer Myocardial infarction Heart disease Mother Hypertension Cancer Uncle Diabetes Aunt Breast cancer Other No family history of adverse response to anesthesia Denies family history of Ovarian cancer Social History Smoking Status: Never smoker Second Hand Exposure: No; Do You Dip or Chew Tobacco: No; Hx Alcohol Use: Yes Alcohol type: wine Alcohol Intake Frequency: Monthly or Less Hx Substance Use: No Preferred Language: Belarusian Communication Ability: Effective Visual Impairment: No Limitations Hearing Ability: Normal Wheat Shipper Required: No Beliefs That Will Affect Care: None marital status: Current Living Situation: Spouse current occupational status: retired How many Children do You have: 2 Feels Safe at Home: Yes Childhood Exposure to Second-Hand Smoke: Yes during the past year weight has: decreased > 10 lbs Dental Care, Regularly: Yes Physical Activity Frequency: Does not Exercise Seatbelt Use: always Sunscreen Use: Yes Assistive Devices: Oxygen - Continuous, Walker and Wheelchair Allergies Allergies Allergy/AdvReac Type Severity Reaction Status Date / Time azithromycin Allergy Severe Difficulty Verified 08/23/23 18:16 Breathing Penicillins Allergy Intermediate HIVES A Verified 08/23/23 18:16 CHILD Home Meds Home Medications Medication Instructions Recorded Confirmed omega-3 acid ethyl esters 1 gram 1 cap PO QAM 02/04/20 08/30/23 capsule cholecalciferol (vitamin D3) 25 25 mcg PO QAM 11/20/20 08/30/23 mcg (1,000 unit) tablet (Vitamin D3) cyanocobalamin (vitamin B-12) 1,000 mcg sublingual QAM 11/20/20 08/30/23 1,000 mcg sublingual tablet sodium chloride, sodium See Rx Instructions .Route 04/27/23 08/30/23 bicarb-nasal rinse squeeze bottle .COMPLEX PRN congestion with packet (Neilmed Sinus Rinse Complete with packet) ipratropium 0.5 mg-albuterol 3 mg 3 ml inhalation Q6 PRN as directed 06/28/23 08/30/23 (2.5 mg base)/3 mL nebulization soln prochlorperazine maleate 10 mg 10 mg PO Q6H PRN Nausea And 07/28/23 08/30/23 tablet Vomiting polyethylene glycol 3350 17 17 g PO BID PRN constipation 08/01/23 08/30/23 gram/dose oral powder (Miralax) sennosides 8.6 mg-docusate sodium 1 tab-cap PO DAILY PRN Constipation 08/01/23 08/30/23 50 mg tablet (Colace 2-In-1) dexamethasone 6 mg tablet 6 mg PO DIRECTED 08/23/23 08/30/23 Previous Rx's Medication Instructions Recorded albuterol sulfate 90 mcg/actuation 2 inh inhalation Q6H PRN shortness 04/29/23 aerosol inhaler of breath or wheezing #6.7 grams folic acid 1 mg tablet 1 mg PO QAM #30 tabs 04/29/23 Oxygen Home #1 ea 08/18/23 Vibration Vest #1 ea 08/18/23 budesonide 0.5 mg/2 mL suspension 0.5 mg (2 mL) inhalation BID #60 mL 08/19/23 for nebulization formoterol fumarate 20 mcg/2 mL 2 ml inhalation BID #120 mL 08/19/23 solution for nebulization (Perforomist) sodium chloride 3 % for 4 ml inhalation Q8H PRN secretions 08/19/23 nebulization #240 mL amiodarone 200 mg tablet 200 mg PO QAM #30 tabs 08/25/23 ondansetron HCl 8 mg tablet 8 mg PO Q8H #20 tabs 08/26/23 oxycodone 10 mg tablet,crush 10 mg PO BID #60 tabs 08/26/23 resistant,extended release 12 hr (OxyContin) oxycodone 5 mg tablet 5 - 10 mg (1 - 2 x 5 mg) PO Q6H 08/26/23 PRN moderate to severe pain #30 tabs ipratropium bromide 42 mcg (0.06 2 spray intranasal TID #15 mL 08/27/23 %) nasal spray Magic Mouthwash 300 mL mouthwash 5 ml mucous membrane Q6H PRN mouth 08/30/23 pain #300 mL Results & Data (ED) Vital Signs Vital Signs - 24 hr 08/29/23 23:47 08/29/23 23:57 08/30/23 01:01 Temperature 37.0 C Temperature Source Oral Pulse Rate 117 H 110 H Pulse Rate [Apical] Respiratory Rate 24 Respiratory Effort / Characteristics Respiratory Depth Respiratory Pattern Blood Pressure 108/67 Blood Pressure [Left Arm] Blood Pressure Mean 80 Blood Pressure Mean [Left Arm] Pulse Oximetry 93 95 Oxygen Delivery Method Non-rebreather Non-rebreather Oxygen Flow Rate 13 13 Sepsis Recent Fever Within 48 Hours No Sepsis New/Unexplained Change in Mental Status No Sepsis Action Taken by Nursing No Action Required 08/30/23 01:58 Temperature Temperature Source Pulse Rate Pulse Rate [Apical] 98 H Respiratory Rate 24 Respiratory Effort / Characteristics Non-Labored Spontaneous Respiratory Depth Normal Respiratory Pattern Regular Blood Pressure Blood Pressure [Left Arm] 91/58 L Blood Pressure Mean Blood Pressure Mean [Left Arm] 69 Pulse Oximetry 96 Oxygen Delivery Method Non-rebreather Oxygen Flow Rate 13 Sepsis Recent Fever Within 48 Hours Sepsis New/Unexplained Change in Mental Status Sepsis Action Taken by Nursing Laboratory Data 08/31/23 06:30 08/31/23 06:30 Lab Results 08/30/23 Range/Units 00:58 WBC 2.13 L (4.8-10.8) K/ul RBC 3.05 L (4.20-5.40) M/uL Hgb 9.3 L (12.0-16.0) g/dl Hct 27.7 L (37.0-47.0) % MCV 90.8 (80.0-100.0) fL MCH 30.5 (25.0-34.0) pg MCHC 33.6 (32.0-36.0) g/dL RDW Std Deviation 50.2 H (36.4-46.3) fL RDW Coeff of Thomas 15.1 H (11.5-14.5) % Plt Count 321 (130-400) K/uL MPV 9.2 L (9.4-12.4) fL Immature Gran % (Auto) 4.2 % Neut % (Auto) 41.8 % Lymph % (Auto) 26.3 % Dillingham % (Auto) 25.4 % Eos % (Auto) 1.4 % Baso % (Auto) 0.9 % Neut # (Auto) 0.89 L* (1.40-6.50) K/uL Lymph # (Auto) 0.56 L (1.20-3.40) K/uL D[place]ham # (Auto) 0.54 (0.11-0.59) K/uL Eos # (Auto) 0.03 (0.00-0.50) K/uL Baso # (Auto) 0.02 (0.00-0.20) K/uL Immature Gran # (Auto) 0.09 (0.01-0.20) K/uL Absolute Nucleated RBC 0.02 (0.00-0.12) K/uL Nucleated RBC % (auto) 0.9 % Toxic Granulation 1+ Dohle Bodies 1+ PT 11.8 (9.0-12.0) Seconds INR 1.1 (0.9-1.1) APTT 46 H (21-31) Seconds PTT Ratio 1.6 Sodium 122 L (136-145) mmol/L Potassium 4.2 (3.5-5.1) mmol/L Chloride 85 L (98-107) mmol/L Carbon Dioxide 31 (21-32) mmol/L Anion Gap 6 (3-11) BUN 14 (6-23) mg/dl Creatinine 0.36 L (0.6-1.2) mg/dl Est Cr Clr Drug Dosing 132.7 ml/min Est GFR ( Amer) 130.2 ml/min Est GFR (Non-Af Amer) 112.4 ml/min BUN/Creatinine Ratio 38.9 H (10-20) Glucose 101 H (70-99(Fasting)) mg/dl Osmolality 261 L (280-300) mOsm/kg Calcium 9.0 (8.6-10.3) mg/dl Magnesium 1.5 L (1.7-2.4) mg/dl Total Bilirubin 0.6 (0.2-1.0) mg/dl AST 14 (13-39) U/L ALT 22 (7-52) U/L Alkaline Phosphatase 52 (34-104) U/L Total Protein 5.4 L (6.0-8.3) gm/dl Albumin 2.8 L (3.4-5.0) gm/dl Globulin 2.6 (2.5-4.0) gm/dl Albumin/Globulin Ratio 1.1 (0.9-2) Administered Medications Albuterol (Albut/Ipratrop 3mg/0.5mg Neb 3 Ml Vial) 3 ml NEB QIDR [facility]; Protocol Stop: 09/29/23 06:59 Last Admin: 08/31/23 07:15 Dose: Not Given Documented By: Admin: 08/30/23 20:20 Dose: Not Given Documented By: Admin: 08/30/23 15:41 Dose: Not Given Documented By: Admin: 08/30/23 11:01 Dose: 3 ml Documented By: Admin: 08/30/23 07:22 Dose: Not Given Documented By: QUINN Budesonide (Budesonide 0.5 Mg/2 Ml Vial (Pulmicort)) 0.5 mg INH BIDR [facility] Stop: 09/29/23 06:59 Last Admin: 08/31/23 07:15 Dose: Not Given Documented By: Admin: 08/30/23 20:20 Dose: Not Given Documented By: Admin: 08/30/23 07:22 Dose: Not Given Documented By: QUINN Cyanocobalamin (Cyanocobalamin (B-12) 500 Mcg Tablet) 1,000 mcg PO [facility] Stop: 09/29/23 08:59 Last Admin: 08/30/23 09:48 Dose: 1,000 mcg Documented By: DELVIS Folic Acid (Folic Acid 1 Mg Tab) 1 mg PO [facility] Stop: 09/29/23 08:59 Last Admin: 08/30/23 09:48 Dose: 1 mg Documented By: DELVIS Formoterol Fumarate (Formoterol 20 Mcg/2 Ml Vial) 20 mcg INH BIDR [facility] Stop: 09/29/23 06:59 Last Admin: 08/31/23 07:16 Dose: Not Given Documented By: Admin: 08/30/23 20:20 Dose: Not Given Documented By: Admin: 08/30/23 07:22 Dose: Not Given Documented By: KMS Amiodarone HCl/Dextrose (Nexterone / D5w) 360 mg in 200 mls @ 16.667 mls/hr IV .Q12H [facility] Stop: 09/29/23 09:44 Last Infusion: 08/31/23 07:07 Dose: 0.5 mg/min, 16.7 mls/hr Documented By: Co-signed By: ESHA Admin: 08/30/23 22:54 Dose: 0.5 mg/min, 16.7 mls/hr Documented By: LSG Co-signed By: NAB Infusion: 08/30/23 22:54 Dose: Infused Documented By: LSG Co-signed By: NAB Infusion: 08/30/23 19:25 Dose: 0.5 mg/min, 16.7 mls/hr Documented By: SS Co-signed By: ESHA Admin: 08/30/23 10:33 Dose: 0.5 mg/min, 16.7 mls/hr Documented By: SS Co-signed By: CMP Heparin Sodium/Dextrose (Heparin Sodium/Dextrose) 25,000 units in 500 mls @ 22 mls/hr IV .[id number] CAROLYN; Protocol Stop: 09/29/23 03:59 Last Admin: 08/31/23 07:34 Dose: 1,100 units/hr, 22 mls/hr Documented By: ESHA Co-signed By: Titration: 08/31/23 07:34 Dose: Infused Documented By: LSG Co-signed By: Titration: 08/31/23 00:58 Dose: 1,100 units/hr, 22 mls/hr Documented By: ESHA Co-signed By: CLOVER Titration: 08/30/23 19:24 Dose: 1,000 units/hr, 20 mls/hr Documented By: SS Co-signed By: LSG Titration: 08/30/23 17:47 Dose: 1,000 units/hr, 20 mls/hr Documented By: SS Co-signed By: CRW Titration: 08/30/23 12:01 Dose: 850 units/hr, 17 mls/hr Documented By: SS Co-signed By: AJB Titration: 08/30/23 08:23 Dose: 700 units/hr, 14 mls/hr Documented By: SS Co-signed By: MMZ Admin: 08/30/23 04:41 Dose: 700 units/hr, 14 mls/hr Documented By: MED Co-signed By: KEZIA Potassium Chloride/Sodium Chloride (Normal Saline W/20 Meq Kcl) 20 meq in 1,000 mls @ 100 mls/hr IV .Q10H CAROLYN; Protocol Stop: 09/29/23 05:59 Last Admin: 08/31/23 05:51 Dose: 100 mls/hr Documented By: Infusion: 08/31/23 05:24 Dose: Infused Documented By: Admin: 08/30/23 19:24 Dose: 100 mls/hr Documented By: Infusion: 08/30/23 19:24 Dose: Infused Documented By: Admin: 08/30/23 16:03 Dose: 100 mls/hr Documented By: Infusion: 08/30/23 15:25 Dose: Infused Documented By: Admin: 08/30/23 06:25 Dose: 125 mls/hr Documented By: BILLY Pantoprazole Sodium 40 mg/ (Syringe) 10 mls @ 5 mls/min IV DAILY@1100 CAROLYN Stop: 09/29/23 10:59 Last Admin: 08/30/23 10:05 Dose: 5 mls/min Documented By: DELVIS Cefepime HCl 2,000 mg/ Syringe 20 mls @ 5 mls/min IV Q8H CAROLYN; Protocol Stop: 09/06/23 09:59 Last Admin: 08/31/23 01:30 Dose: 5 mls/min Documented By: Admin: 08/30/23 17:46 Dose: 5 mls/min Documented By: Admin: 08/30/23 10:53 Dose: 5 mls/min Documented By: DELVIS Vancomycin HCl 1,000 mg/ (Sodium Chloride) 270 mls @ 200 mls/hr IV Q8H CAROLYN Stop: 09/06/23 13:59 Last Admin: 08/31/23 06:19 Dose: 200 mls/hr Documented By: Infusion: 08/31/23 00:25 Dose: Infused Documented By: Admin: 08/30/23 23:04 Dose: 200 mls/hr Documented By: Infusion: 08/30/23 15:09 Dose: Infused Documented By: Admin: 08/30/23 13:48 Dose: 200 mls/hr Documented By: JONO Co-signed By: DEONTE Ipratropium [place] (Ipratropium [place] Nasal [place] 0.06% 15ml) 2 sprays TIM TID [facility] Stop: 09/29/23 08:59 Last Admin: 08/30/23 21:58 Dose: 2 sprays Documented By: Admin: 08/30/23 13:45 Dose: 2 sprays Documented By: JONO Co-signed By: DEONTE Admin: 08/30/23 09:48 Dose: 2 sprays Documented By: DELVIS Metoprolol Tartrate (Metoprolol Tartrate 1 Mg/Ml Vial) 5 mg IV Q4 PRN PRN Reason: sbp > 185, dbp >95, HR >120 Stop: 09/29/23 10:57 Last Admin: 08/31/23 03:02 Dose: 5 mg Documented By: Admin: 08/30/23 22:57 Dose: 5 mg Documented By: Admin: 08/30/23 18:46 Dose: 5 mg Documented By: Admin: 08/30/23 13:01 Dose: 5 mg Documented By: DELVIS Nystatin (Nystatin Susp 500,000 U/5 Ml Udc) 5 ml PO QID [facility] Stop: 09/09/23 12:59 Last Admin: 08/30/23 20:50 Dose: 5 ml Documented By: Admin: 08/30/23 17:47 Dose: 5 ml Documented By: Admin: 08/30/23 12:09 Dose: 5 ml Documented By: DELVIS Sodium Chloride (Sodium Chloride 1 Gm Tablet) 1 gm PO BID [facility] Stop: 09/29/23 08:59 Last Admin: 08/30/23 20:50 Dose: 1 gm Documented By: Admin: 08/30/23 09:48 Dose: 1 gm Documented By: DELVIS Sodium Chloride (Sodium Chlor 7% 4 Ml Neb) 4 ml INH Q8R PRN PRN Reason: secretions Stop: 09/29/23 05:41 Last Admin: 08/30/23 21:42 Dose: 4 ml Documented By: AMINAH Triamcinolone Acetonide (Triamcinolone Acet 0.1% Orabase 5 Gm Tube) 1 appln MT Q4HWA [facility] Stop: 09/29/23 07:59 Last Admin: 08/30/23 20:47 Dose: Not Given Documented By: Admin: 08/30/23 16:17 Dose: 1 appln Documented By: Admin: 08/30/23 12:09 Dose: 1 appln Documented By: Admin: 08/30/23 09:47 Dose: 1 appln Documented By: DELVIS Vitamin D (Cholecalciferol 25 Mcg (1000 Units) Tab) 25 mcg PO QAM [facility] Stop: 09/29/23 08:59 Last Admin: 08/30/23 09:48 Dose: 25 mcg Documented By: DELVIS Discontinued Medications Dexamethasone (Dexamethasone Sod Inj 4 Mg/Ml Vial) 6 mg IV NOW STA Stop: 08/30/23 03:15 Last Admin: 08/30/23 03:53 Dose: 6 mg Documented By: MED Filgrastim (Filgrastim 480 Mcg/1.6 Ml Vial) 480 mcg SC ONE ONE Stop: 08/30/23 03:05 Last Admin: 08/30/23 04:00 Dose: 480 mcg Documented By: BILLY Heparin Sodium (Porcine) (Heparin Sod (Porcine) 1000 Unit/Ml) 4,000 units IV NOW ONE Stop: 08/30/23 12:16 Last Admin: 08/30/23 13:13 Dose: 4,000 units Documented By: DELVIS Co-signed By: SAMEERA Heparin Sodium (Porcine) (Heparin Sod (Porcine) 1000 Unit/Ml) 4,000 units IV NOW ONE Stop: 08/30/23 18:16 Last Admin: 08/30/23 18:17 Dose: 4,000 units Documented By: DELVIS Co-signed By: SAMEERA Heparin Sodium (Porcine) (Heparin Sod (Porcine) 1000 Unit/Ml) 2,000 units IV NOW ONE Stop: 08/31/23 01:16 Last Admin: 08/31/23 01:29 Dose: 2,000 units Documented By: ESHA Co-signed By: CLOVER Heparin Sodium/Dextrose (Heparin Iv Adult Wt-Based Low-Dose *No* Initial Bolus Protocol) 1 each IV ONE STA; Protocol Stop: 08/30/23 03:38 Last Admin: 08/30/23 09:34 Dose: Not Given Documented By: DELVIS Sodium Chloride (Nss) 1,000 mls @ 999 mls/hr IV .Q1H1M ONE Stop: 08/30/23 03:51 Last Infusion: 08/30/23 06:45 Dose: Infused Documented By: subsurface augmentee elint operator: 08/30/23 03:08 Dose: 999 mls/hr Documented By: BILLY Vancomycin HCl 1,250 mg/ (Sodium Chloride) 525 mls @ 200 mls/hr IV NOW ONE Stop: 08/30/23 05:39 Last Infusion: 08/30/23 08:56 Dose: Infused Documented By: Admin: 08/30/23 06:18 Dose: 200 mls/hr Documented By: MED Cefepime HCl (Maxipime) 2,000 mg in 20 mls @ 5 mls/min IV NOW STA; Protocol Stop: 08/30/23 03:05 Last Admin: 08/30/23 03:08 Dose: 5 mls/min Documented By: BILLY Albumin Human (Albumin 25%) 25 gm in 100 mls @ 50 mls/hr IV Q2H CAROLYN Stop: 08/30/23 07:14 Last Infusion: 08/30/23 06:44 Dose: Infused Documented By: subsurface augmentee elint operator: 08/30/23 05:34 Dose: 50 mls/hr Documented By: Infusion: 08/30/23 05:34 Dose: Infused Documented By: subsurface augmentee elint operator: 08/30/23 04:11 Dose: 50 mls/hr Documented By: BILLY Amiodarone HCl/Dextrose (Nexterone / D5w) 360 mg in 200 mls @ 33.333 mls/hr IV ONE ONE Stop: 08/30/23 09:41 Last Infusion: 08/30/23 10:05 Dose: Infused Documented By: SS Co-signed By: LINK Admin: 08/30/23 04:04 Dose: 1 mg/min, 33.3 mls/hr Documented By: MED Co-signed By: KEZIA Amiodarone HCl/Dextrose (Nexterone / D5w) 150 mg in 100 mls @ 600 mls/hr IV NOW STA Stop: 08/30/23 03:40 Last Infusion: 08/30/23 04:09 Dose: Infused Documented By: MED Co-signed By: KEZIA Admin: 08/30/23 03:42 Dose: 600 mls/hr Documented By: MED Co-signed By: ESAU Magnesium Sulfate/Dextrose (Magnesium Sulfate / D5w) 1 gm in 100 mls @ 50 mls/hr IV ONE ONE Stop: 08/30/23 09:16 Last Infusion: 08/30/23 11:34 Dose: Infused Documented By: Admin: 08/30/23 09:34 Dose: 50 mls/hr Documented By: SS Sodium Chloride (Hypertonic Saline 3%) 100 mls @ 600 mls/hr IV .Q10M ONE; Protocol Stop: 08/30/23 07:28 Last Infusion: 08/30/23 09:44 Dose: Infused Documented By: SS Co-signed By: MRT Admin: 08/30/23 09:33 Dose: 600 mls/hr Documented By: SS Co-signed By: KGY Amiodarone HCl/Dextrose (Nexterone / D5w) 360 mg in 200 mls @ 33.333 mls/hr IV ONE ONE Stop: 08/30/23 13:44 Last Admin: 08/30/23 09:32 Dose: Not Given Documented By: SS Amiodarone HCl/Dextrose (Nexterone / D5w) 150 mg in 100 mls @ 600 mls/hr IV NOW STA Stop: 08/30/23 07:40 Last Admin: 08/30/23 09:31 Dose: Not Given Documented By: DELVIS Sodium Chloride (Nss) 500 mls @ 125 mls/hr IV .Q4H CAROLYN Stop: 08/30/23 14:59 Last Infusion: 08/30/23 16:08 Dose: Infused Documented By: Admin: 08/30/23 12:08 Dose: 125 mls/hr Documented By: SS Magnesium Sulfate/Dextrose (Magnesium Sulfate / D5w) 1 gm in 100 mls @ 50 mls/hr IV ONE ONE Stop: 08/30/23 18:14 Last Infusion: 08/30/23 18:51 Dose: Infused Documented By: Admin: 08/30/23 16:51 Dose: 50 mls/hr Documented By: RKW Co-signed By: NBR Sodium Chloride (Hypertonic Saline 3%) 100 mls @ 600 mls/hr IV .Q10M ONE; Protocol Stop: 08/30/23 16:04 Last Infusion: 08/30/23 16:38 Dose: Infused Documented By: SS Co-signed By: AK Admin: 08/30/23 16:12 Dose: 600 mls/hr Documented By: SS Co-signed By: KGY Oxycodone HCl (Oxycodone Hcl 10 Mg Tabcr (Oxycontin)) 10 mg PO BID CAROLYN Stop: 09/13/23 08:59 Last Admin: 08/30/23 09:50 Dose: Not Given Documented By: SS Discharge Plan Visit Data Chief Complaint: Shortness of Breath/Dyspnea Stated Complaint: SHORTNESS OF BREATH, CARDIAC ISSUES ED Provider: Michaelle Storm Discharge Problem: Acute and chronic respiratory failure ([id number]), Hyponatremia, Neutropenia Patient Disposition: Admitted As Inpatient Discharge Instructions Interventions: ED Discharge Assessment Last Done: 08/30/23 04:49
[2023-08-30] MEDS: VANCOMYCIN HCL 1,250 MG in SODIUM CHLORIDE 0.9% 500 ML IV ONE (06:18)
[2023-08-30] MEDS: NSS + 20MEQ KCL 20 MEQ/1,000 ML BAG IV SCH (06:25)
--- NOTE | 2023-08-30 07:08 | XRay Report ---
XR chest 1V portable HISTORY: 68 years-old Female Dyspnea acute shortness of breath COMPARISON: CTA chest 08/24/2023 TECHNIQUE: AP view of the chest FINDINGS: Left subclavian [id number] catheter redemonstrated. No pneumothorax. Mild cardiomegaly. Extensive mixed interstitial and alveolar opacities with reticular nodular densities, left greater than right. Possible underlying pleural effusions. Bones appear grossly intact. No significant change from the pr ior study. IMPRESSION: Stable appearance of the chest with extensive mixed interstitial and alveolar opacities w ith reticular nodular densities likely associated with multifocal adenocarcinoma. A superimposed pneu monia would be difficult to exclude. ACT 112: Negative or not required by law. The above report was generated using voice recognition software. It may contain grammatical, syntax o r spelling errors. Electronically signed by: Huber Menjivar M.D. 08/30/2023 7:06 AM
[2023-08-30] MEDS ORDERED: STAT IV/IM STA ×2 (07:19→15:55)
[2023-08-30] MEDS: BUDESONIDE 0.5 MG/2 ML VIAL (PULMICORT) INH SCH (07:22)
[2023-08-30] MEDS: FORMOTEROL 20 MCG/2 ML VIAL INH SCH (07:22)
[2023-08-30] MEDS: ALBUT/IPRATROP 3MG/0.5MG NEB 3 ML VIAL NEB SCH (07:22)
--- NOTE | 2023-08-30 07:27 | Hospitalist Progress Note ---
Date of Service August 30, 2023 Assessment & Plan (1) Acute on chronic respiratory failure with hypoxia: Plan: pt with metastatic adenocardinoma of lung undergoing chemotherapy at [facility] last chemotherapy 08/22/23 pt with ANC 890 did have neupogen, follow sees local pulmonary with vibration vest and formoterol/vilanterolol/budensondie on vancomycin and Cefepime for concern of healthcare acquired pneumonia, covering MRSA and Gram negatives (2) Atrial flutter with rapid ventricular response: Plan: Last admission did convert with amiodarone GTT, lower blood pressures limit choices of medicines, will return to amiodarone gtt again Start heparin drip low-dose without bolus per protocol Most recent echo on 08/24/2023 showed ejection fraction 65-70%, with mild aortic regurgitation, and no significant change compared to 01/10/2023 augmenting magnesium as low on initial check (3) Hyponatremia: Plan: Pt with significant hyponatremia, likely influenced by cancer fluid restrict intermittent bolus' of hypertonic saline, with frequent chemistry checks (4) Hypotension: Plan: Multifactoral cannot rule out her a flutter with rapid rate, and possible sepsis control aflutter rate volume resuscitation treat infection (5) Aphthous ulcer of tongue: Plan: local wound care consider thrush, starting nystatin Plan right buttock decubitus ulcer on presentation, will have wound care moderate malnutrition likely affects skin integrity Admission and Anticipated Discharge Date Admission Date: August 30, 2023 Subjective the pt is with mild distress, remain in afib/flutter RVR, mild sob, weakened Physical Exam Physical Exam: pt appears chronically ill she has rapid heart rate, no murmur lungs are decreased at the bases mildly labored extremities are warm to touch Results & Data Results & Data Vital Signs (Past 12 Hours) Vital Signs Temp Pulse Pulse Resp BP BP Pulse Ox 08/30/23 07:03 139 H 08/30/23 06:41 140 H 22 101/76 95 08/30/23 05:49 148 H 23 92/65 L 96 08/30/23 04:53 145 H 34 H 87/57 L 94 08/30/23 04:48 153 H 22 90/64 L 98 08/30/23 04:18 149 H 30 H 87/63 L 94 08/30/23 03:37 156 H 08/30/23 01:58 98 H 24 91/58 L 96 08/30/23 01:01 95 08/29/23 23:57 98.6 F 110 H 24 108/67 93 08/29/23 23:47 117 H O2 Del Method O2 Flow Rate 08/30/23 07:03 08/30/23 06:41 Non-rebreather 6 08/30/23 05:49 Non-rebreather 15 08/30/23 04:53 Non-rebreather 6 08/30/23 04:48 Non-rebreather 15 08/30/23 04:18 Non-rebreather 15 08/30/23 03:37 08/30/23 01:58 Non-rebreather 15 08/30/23 01:01 Non-rebreather 13 08/29/23 23:57 Non-rebreather 13 08/29/23 23:47 Laboratory Results reviewed cbc reviewed chemistry PG Care Time/CCT Total # of Minutes Spent Total Time Spent with Patient: Total time spent is greater than 50% in coordination of care (as documented) at patient's floor/unit and/or counseling patient: Coding Level of Care Code 86237 SUB INP/OBS CARE 3/50MIN Diagnoses Acute on chronic respiratory failure with hypoxia J96.21 Atrial flutter with rapid ventricular response I48.92 Hyponatremia E87.1 Hypotension I95.9 Aphthous ulcer of tongue K12.0
--- NOTE | 2023-08-30 08:12 | Electrocardiogram Report ---
Test Reason : Blood Pressure : / mmHG Vent. Rate : 120 BPM Atrial Rate : 120 BPM P-R Int : 150 ms QRS Dur : 086 ms QT Int : 308 ms P-R-T Axes : 021 -20 041 degrees QTc Int : 435 ms Sinus tachycardia with Premature atrial complexes with Aberrant conduction Old Anterolateral infarct (cited on or before 28-JUL-2023) Abnormal ECG When compared with ECG of 23-AUG-2023 17:57, Sinus rhythm has replaced Atrial flutter HR has decreased by 40 bpm Confirmed by Ramana Nam ([id number]) on 08/30/2023 8:12:34 AM Referred By: REFERRED SELF Confirmed By:Ramana Nam
--- NOTE | 2023-08-30 08:15 | Electrocardiogram Report ---
Test Reason : Blood Pressure : / mmHG Vent. Rate : 151 BPM Atrial Rate : 302 BPM P-R Int : 000 ms QRS Dur : 082 ms QT Int : 226 ms P-R-T Axes : 240 -14 106 degrees QTc Int : 358 ms Atrial flutter with variable A-V block Old Anterior infarct (cited on or before 28-JUL-2023) Abnormal ECG When compared with ECG of 29-AUG-2023 23:53, Atrial flutter has replaced Sinus rhythm HR has increased by 31 bpm Confirmed by Ramana Nam ([id number]) on 08/30/2023 8:15:28 AM Referred By: REFERRED SELF Confirmed By:Ramana Nam
[2023-08-30] MEDS ORDERED: AMIODARONE 200 MG TAB PO SCH (09:00)
[2023-08-30] MEDS: SODIUM CHLORIDE 3 % 100 ML IV ONE ×2 (09:33→16:12)
[2023-08-30] MEDS: MAGNESIUM SULFATE / D5W 1 GM/100 ML BAG IV ONE ×2 (09:34→16:51)
[2023-08-30] MEDS: Heparin IV Adult Wt-Based Low-Dose *NO* INITIAL Bolus Protocol IV STA (09:34)
[2023-08-30] MEDS: TRIAMCINOLONE ACET 0.1% ORABASE 5 GM TUBE MT SCH (09:47)
[2023-08-30] MEDS: oxyCODONE HCL 10 MG TABCR (OxyCONTIN) PO SCH (09:47)
[2023-08-30] MEDS: SODIUM CHLORIDE 1 GM TABLET PO SCH (09:48)
[2023-08-30] MEDS: FOLIC ACID 1 MG TAB PO SCH (09:48)
[2023-08-30] MEDS: CHOLECALCIFEROL 25 MCG (1000 UNITS) TAB PO SCH (09:48)
[2023-08-30] MEDS: CYANOCOBALAMIN (B-12) 500 MCG TABLET PO SCH (09:48)
[2023-08-30] MEDS: IPRATROPIUM BROMIDE NASAL SPRAY 0.06% 15ML NAE SCH (09:48)
[2023-08-30] MEDS: PANTOprazole 40 MG in SYRINGE 0 ML IV SCH (10:05)
[2023-08-30] MEDS: AMIODARONE / D5W 360 MG/200 ML BAG IV SCH (10:33)
[2023-08-30] MEDS: CEFEPIME 2,000 MG in SYRINGE 0 ML IV SCH (10:53)
[2023-08-30] MEDS ORDERED: VANCOMYCIN HCL 1,000 MG in SODIUM CHLORIDE 0.9% 500 ML IV SCH (11:00)
[2023-08-30 11:28] LABS: ANTI-Xa, UFH(UnfractionatedHep < 0.10 IU/ml (0.3-0.7)
--- NOTE | 2023-08-30 11:39 | Pharmacy Report ---
Pharmacy PK ABX Note - Date of Service August 30, 2023 - Assessment and Plan Assessment * 68 year old F receiving VANCOMYCIN + CEFEPIME for treatment of febrile neutropenia, pneumonia. * Patient has h/o lung CA with receipt of chemotherapy on 08/22/23. ANC 890 on admission. Afebrile since admission (per recorded temps) * Pertinent microbiologic data includes: MRSA nasal swab ordered, not yet collected; no other cultures obtained at this time * Day # 1 of antimicrobial therapy. Plan Vancomycin * Loading dose: 1250 mg IV x 1 * Maintenance dose: 1000 mg IV every 8 hours * Regimen is predicted to achieve target AUC/JOE of 400-600 mg/L.hr * Trough level ordered for: 2/7 AM prior to 3rd maint dose Pharmacy will continue to follow and will adjust dose/frequency as necessary. Thank you. Pharmacy has transitioned to AUC monitoring for vancomycin. AUC/JOE is the preferred PK/PD target and is associated with decreased risk of nephrotoxicity compared to traditional trough targets.
[2023-08-30] MEDS: SODIUM CHLORIDE 0.9% 500 ML IV SCH (12:08)
[2023-08-30] MEDS: NYSTATIN SUSP 500,000 U/5 ML UDC PO SCH (12:09)
[2023-08-30] MEDS: METOPROLOL TARTRATE 1 MG/ML VIAL IV PRN (13:01)
[2023-08-30] MEDS: HEPARIN SOD (PORCINE) 1000 UNIT/ML IV ONE ×2 (13:13→18:17)
[2023-08-30] MEDS ORDERED: AMIODARONE / D5W 360 MG/200 ML BAG IV SCH (13:45)
[2023-08-30] MEDS: VANCOMYCIN HCL 1,000 MG in SODIUM CHLORIDE 0.9% 250 ML IV SCH (13:48)
[2023-08-30 14:45] LABS: BUN Creatinine Ratio 38.7 (10-20); Calcium 8.4 mg/dl (8.6-10.3); Creatinine Clr Calc Pharmacy 154.2 ml/min; Est GFR (African American) 136.8 ml/min; Potassium 4.4 mmol/L (3.5-5.1)
[2023-08-30 17:32] LABS: ANTI-Xa, LMWH(Low Molecular Wt < 0.10 IU/ML (< 0.10)
[2023-08-30 18:12] LABS: Calcium 8.3 mg/dl (8.6-10.3); Creatinine Clr Calc Pharmacy 159.3 ml/min; Est GFR (African American) 138.3 ml/min; Est GFR (Non-African American) 119.3 ml/min; Potassium 4.2 mmol/L (3.5-5.1)
[2023-08-30] MEDS ORDERED: SODIUM CHLORIDE 0.9% NEBU SOLN 3 ML NEB PRN (21:02)
[2023-08-30] MEDS: SODIUM CHLOR 7% 4 ML NEB INH PRN (21:42)
[2023-08-31] MEDS: HEPARIN SOD (PORCINE) 1000 UNIT/ML IV ONE (01:29)
[2023-08-31] MEDS: VANCOMYCIN LEVEL ONE (06:20)
[2023-08-31 07:30] LABS: Albumin Level 2.9 gm/dl (3.4-5.0); Calcium 8.6 mg/dl (8.6-10.3); Magnesium 1.7 mg/dl (1.7-2.4); Potassium 4.4 mmol/L (3.5-5.1)
[2023-08-31 07:34] LABS: Hematocrit (blood only) 26.5 % (37.0-47.0); Hemoglobin 8.9 g/dl (12.0-16.0); Mean Corpuscular Hemoglobin 30.7 pg (25.0-34.0); Mean Corpuscular Hgb Conc 33.6 g/dL (32.0-36.0); Mean Corpuscular Volume 91.4 fL (80.0-100.0); Mean Platelet Volume 9.3 fL (9.4-12.4); Nucleated RBC # (auto) 0.07 K/uL (0.00-0.12); Nucleated RBC % (auto) 0.4 %; Platelet Count 341 K/uL (130-400); RDW Coefficient of Variation 15.3 % (11.5-14.5); RDW Standard Deviation 51.3 fL (36.4-46.3); White Blood Count 18.37 K/ul (4.8-10.8)
[2023-08-31 07:36] LABS: BUN Creatinine Ratio 36.7 (10-20); Creatinine Clr Calc Pharmacy 173.8 ml/min; Est GFR (African American) 138.3 ml/min; Est GFR (Non-African American) 119.3 ml/min
[2023-08-31] MEDS: ACETAMINOPHEN 1000 MG/100 ML IV IV PRN (07:56)
[2023-08-31 08:04] LABS: ALC (manual) 1.84 K/uL (1.2-3.4); ANC (manual) 11.94 K/uL (1.4-6.5); Dohle Bodies 1+; Lymphocytes # (manual) 1.84 K/uL (1.2-3.4); Lymphocytes % (manual) 10 %; Metamyelocytes # (manual) 1.47 K/uL (0-0); Metamyelocytes % (manual) 8 %; Monocytes # (manual) 2.76 K/uL (0.11-0.59); Monocytes % (manual) 15 %; Myelocytes # (manual) 0.37 K/uL (0-0); Myelocytes % (manual) 2 %; Neutrophils # (manual) 11.94 K/uL (1.40-6.50); Neutrophils % (manual) 65 %; Toxic Granulation 1+
[2023-08-31] MEDS ORDERED: STAT IV/IM STA (09:01)
[2023-08-31] MEDS: SODIUM CHLORIDE 3 % 100 ML IV ONE (09:55)
[2023-08-31] MEDS: FUROSEMIDE INJ 20 MG/2 ML VIAL IV ONE (11:44)
[2023-08-31] MEDS: SCOPOLAMINE 1 MG TDSY TD SCH (12:03)
--- NOTE | 2023-08-31 12:10 | XRay Report ---
XR chest 1V portable HISTORY: escalating hypoxia COMPARISON: Chest 08/30/2023. FINDINGS: No pneumothorax. There is a left Port-A-Cath which originates in the SVC. Extensive bilater al airspace opacities most pronounced on the left have slightly progressed. No acute fractures identi fied. The heart is likely mildly enlarged. Pleural effusions would be difficult to exclude but not cl early identified on this study. IMPRESSION: Extensive bilateral airspace opacities most pronounced on the left have slightly progressed. ACT 112: Negative or not required by law. Electronically signed by: Boo Lechuga M.D. 08/31/2023 12:09 PM
--- NOTE | 2023-08-31 14:26 | Cardiology Consultation ---
Date of Consultation August 31, 2023 Assessment & Plan (1) Atrial flutter with rapid ventricular response: (2) Hypotension: (3) Adenocarcinoma of lung: Plan 68-year-old woman with stage IV adenocarcinoma of the lung who recently developed atrial flutter and now presents with recurrence. She received approximately 1 gram of amiodarone during earlier hospitalization via intravenous infusion, oral dosing added another 1-2 grams over the past week, thus she has room for further amiodarone loading to achieve goal of at least 4-6 grams loading dose. Continue current rate of IV amiodarone infusion. Would add metoprolol to tartrate 25 mg every 6 hours with hold orders only for systolic blood pressure less than 85 mmHg, since she chronically runs a low BP and shows no evidence of hypoperfusion and better rate control is desired. If she remains in atrial flutter overnight, will proceed with electrical cardioversion after further amiodarone loading and additional doses of beta- becky are on board. Fortunately, she is tolerating the tachydysrhythmia very well with no evidence of myocardial ischemia, heart failure, or cerebral hypoperfusion. She is on heparin for anticoagulation, apparently concerns regarding her bleeding risk precluded chronic anticoagulation, but would favor continuing heparin for now at least until she undergoes electrical cardioversion. Will inform Dr. Howard of her status, as he did her initial evaluation for atrial flutter and had plan to see her as an outpatient. History of Present Illness Reason for Consultation: A-fib RVR Requesting Physician: Jair Quiles MD Attending Physician: Jiar Quiles MD History of Present Illness 68-year-old woman with stage IV adenocarcinoma of the lung and recent onset of paroxysmal atrial flutter was admitted 08/30/2023 with progressive dyspnea and weakness and found to have recurrent atrial flutter with rapid ventricular response. She is undergoing active treatment for her advanced lung carcinoma, last month she was hospitalized after she was noted to have tachydysrhythmia consistent with atrial flutter with rapid ventricular response. She was placed on IV amiodarone and converted to sinus rhythm spontaneously, discharged on oral amiodarone. She was scheduled to follow-up with Dr. Howard, but she developed recurrent tachycardia with fatigue and dyspnea, initial ECG showed sinus tachycardia with runs of atrial flutter, subsequent ECG showed atrial flutter with ventricular rate 151 bpm. Telemetry shows her atrial flutter persisted overnight, predominantly with 2:1 conduction (140-150 bpm) with brief periods of 3:1 conduction (100 bpm). Despite her rapid rate, she denies any tachypalpitations, dyspnea at rest, chest discomfort, lightheadedness, presyncope, or syncope. She had no somatic complaints at the time of my evaluation earlier today. Allergies Allergy/AdvReac Type Severity Reaction Status Date / Time azithromycin Allergy Severe Difficulty Verified 08/23/23 18:16 Breathing Penicillins Allergy Intermediate HIVES A Verified 08/23/23 18:16 CHILD Home Medications Medication Instructions Recorded Confirmed Type omega-3 acid ethyl esters 1 gram 1 cap PO QAM 02/04/20 08/30/23 History capsule cholecalciferol (vitamin D3) 25 25 mcg PO QAM 11/20/20 08/30/23 History mcg (1,000 unit) tablet (Vitamin D3) cyanocobalamin (vitamin B-12) 1,000 mcg sublingual QAM 11/20/20 08/30/23 History 1,000 mcg sublingual tablet sodium chloride, sodium See Rx Instructions .Route 04/27/23 08/30/23 History bicarb-nasal rinse squeeze bottle .COMPLEX PRN congestion with packet (Neilmed Sinus Rinse Complete with packet) albuterol sulfate 90 mcg/actuation 2 inh inhalation Q6H PRN shortness 04/29/23 08/30/23 Rx aerosol inhaler of breath or wheezing #6.7 grams folic acid 1 mg tablet 1 mg PO QAM #30 tabs 04/29/23 08/30/23 Rx ipratropium 0.5 mg-albuterol 3 mg 3 ml inhalation Q6 PRN as directed 06/28/23 08/30/23 History (2.5 mg base)/3 mL nebulization soln prochlorperazine maleate 10 mg 10 mg PO Q6H PRN Nausea And 07/28/23 08/30/23 History tablet Vomiting polyethylene glycol 3350 17 17 g PO BID PRN constipation 08/01/23 08/30/23 Histo ry gram/dose oral powder (Miralax) sennosides 8.6 mg-docusate sodium 1 tab-cap PO DAILY PRN Constipation 08/01/23 08/30/23 History 50 mg tablet (Colace 2-In-1) Oxygen Home #1 ea 08/18/23 08/30/23 Rx Vibration Vest #1 ea 08/18/23 08/30/23 Rx budesonide 0.5 mg/2 mL suspension 0.5 mg (2 mL) inhalation BID #60 mL 08/19/23 08/30/23 Rx for nebulization formoterol fumarate 20 mcg/2 mL 2 ml inhalation BID #120 mL 08/19/23 08/30/23 Rx solution for nebulization (Perforomist) sodium chloride 3 % for 4 ml inhalation Q8H PRN secretions 08/19/23 08/30/23 Rx nebulization #240 mL dexamethasone 6 mg tablet 6 mg PO DIRECTED 08/23/23 08/30/23 History amiodarone 200 mg tablet 200 mg PO QAM #30 tabs 08/25/23 08/30/23 Rx ondansetron HCl 8 mg tablet 8 mg PO Q8H #20 tabs 08/26/23 08/30/23 Rx oxycodone 10 mg tablet,crush 10 mg PO BID #60 tabs 08/26/23 08/30/23 Rx resistant,extended release 12 hr (OxyContin) oxycodone 5 mg tablet 5 - 10 mg (1 - 2 x 5 mg) PO Q6H 08/26/23 08/30/23 Rx PRN moderate to severe pain #30 tabs ipratropium bromide 42 mcg (0.06 2 spray intranasal TID #15 mL 08/27/23 08/30/23 Rx %) nasal spray Magic Mouthwash 300 mL mouthwash 5 ml mucous membrane Q6H PRN mouth 08/30/23 Rx pain #300 mL Patient History Medical History Hypertension Adenocarcinoma of lung Tubular adenoma Osteoarthritis History of basal cell carcinoma scalp/tip of nose Tinnitus of both ears Anxiety and depression Goiter, nontoxic, 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 small package and bundle sorter clerk Hyperlipidemia Vitamin D deficiency Surgical History Port-A-Cath in place (04/28/23) Left Subclavian Mediport Insertion(Left) - Donal Maldonado DO H/O colonoscopy History of surgical removal of ganglion cyst left wrist History of wisdom tooth extraction Hx of section History of carpal tunnel release right wrist History of tonsillectomy and adenoidectomy History of mandibular surgery d/t underbite Hx of tooth extraction Hx of needle biopsy thyroid--benign History of Mohs surgery for squamous cell carcinoma in situ of skin x2 Family History Father Colon cancer Prostate cancer Myocardial infarction Heart disease Mother Hypertension Cancer Uncle Diabetes Aunt Breast cancer Other No family history of adverse response to anesthesia Denies family history of Ovarian cancer Social History Smoking Status: Never smoker Second Hand Exposure: No; Do You Dip or Chew Tobacco: No; Hx Alcohol Use: Yes Alcohol type: wine Alcohol Intake Frequency: Monthly or Less Hx Substance Use: No Preferred Language: [place] Communication Ability: Effective Visual Impairment: No Limitations Hearing Ability: Normal Sewage Disposal Worker Required: No Beliefs That Will Affect Care: None marital status: Current Living Situation: Spouse current occupational status: retired How many Children do You have: 2 Feels Safe at Home: Yes Childhood Exposure to Second-Hand Smoke: Yes during the past year weight has: decreased > 10 lbs Dental Care, Regularly: Yes Physical Activity Frequency: Does not Exercise Seatbelt Use: always Sunscreen Use: Yes Assistive Devices: Oxygen - Continuous, Walker and Wheelchair Physical Exam Physical Exam: Chronically ill-appearing adult white female in no acute distress. BMI 25. BP low normal. Pulse 140 bpm. Respirations 26 but unlabored. Skin: no generalized lesions. HEENT: unremarkable. Neck: JVP at the clavicle at 90 degrees, no carotid bruits. Lungs: Decreased breath sounds right base, diffuse "dry" crackles both lung steele. No wheezing or accessory muscle use. Cardiac: regular/tachycardic rhythm, normal S1-2, no obvious murmur. Abdomen: benign. Extremities: no edema, pulses intact. Neurologic: normal affect and conversation, nonfocal. Results & Data Laboratory Results Hemoglobin 8.9, will WBC 18.37. Sodium 127, potassium 4.4, BUN 11, creatinine 0.3. Magnesium level initially 1.5, now 1.7 Diagnostic Findings Chest x-ray showed extensive bilateral airspace opacities most pronounced on the left, progressing compared with prior studies. ECGs as noted in HPI, poor R wave progression but no major ST deviation. PG Care Time/CCT Total # of Minutes Spent Total Time Spent with Patient: Total time spent is greater than 50% in coordination of care (as documented) at patient's floor/unit and/or counseling patient: Coding Level of Care Code 98758 IN/OBS CONSULT LVL 4,60M Diagnoses Atrial flutter with rapid ventricular response I48.92 Hypotension I95.9 Adenocarcinoma of lung C34.92 Laterality: left (3) Adenocarcinoma of lung Laterality: left Qualified Code(s): C34.92 - Malignant neoplasm of unspecified part of left bronchus or lung
[2023-08-31] MEDS: METOPROLOL TARTRATE 25 MG TAB PO ONE (14:28)
[2023-08-31 15:12] LABS: Calcium 8.7 mg/dl (8.6-10.3); Potassium 3.9 mmol/L (3.5-5.1)
[2023-08-31 15:17] LABS: BUN Creatinine Ratio 35.1 (10-20); Est GFR (African American) 129.1 ml/min; Est GFR (Non-African American) 111.4 ml/min
--- NOTE | 2023-08-31 15:57 | Hospitalist Progress Note ---
Date of Service August 31, 2023 Assessment & Plan (1) Acute on chronic respiratory failure with hypoxia: Plan: pt with metastatic adenocardinoma of lung undergoing chemotherapy at [facility] last chemotherapy 08/22/23 pt with ANC 890 on presentation did have neupogen, now rebound leukocytosis sees local pulmonary with vibration vest and formoterol/vilanterolol/budensondie on xopenex on vancomycin and Cefepime for concern of healthcare acquired pneumonia, covering MRSA and Gram negatives (2) Atrial flutter with rapid ventricular response: Plan: Last admission did convert with amiodarone GTT, lower blood pressures limit choices of medicines, will return to amiodarone gtt again Started heparin drip low-dose without bolus per protocol Most recent echo on 08/24/2023 showed ejection fraction 65-70%, with mild aortic regurgitation, and no significant change compared to 01/10/2023 augmenting magnesium as low on initial check Cardiology supports amiodarone and add metoprolol may cardiovert in am 09/01 if still in aflutter rvr (3) Hyponatremia: Plan: Pt with significant hyponatremia,CXR looks progressed, will try lasix, add xopenex, use transderm scop to help secretions fluid restrict intermittent bolus' of hypertonic saline, with frequent chemistry checks (4) Hypotension: Plan: Multifactoral cannot rule out her a flutter with rapid rate, and possible sepsis control aflutter rate volume resuscitation treat infection (5) Aphthous ulcer of tongue: Plan: local wound care consider thrush, nystatin Plan right buttock decubitus ulcer on presentation, will have wound care moderate malnutrition likely affects skin integrity Admission and Anticipated Discharge Date Admission Date: August 30, 2023 Subjective pt feels worse, more shortness of breath, more secretions remains in aflutter with RVR no chest pain Physical Exam Physical Exam: pt looks chronically ill cardiac is tachycardic and regular lungs are decreased at the bases and coarse rales everywhere else extremities are with trace edema Results & Data Results & Data Vital Signs (Past 12 Hours) Vital Signs Temp Pulse Pulse Resp BP BP Pulse Ox 08/31/23 15:32 148 H 08/31/23 15:23 97.3 F L 153 H 26 H 100/68 93 08/31/23 12:01 97.3 F L 140 H 26 H 110/73 92 08/31/23 11:12 140 H 110/73 08/31/23 10:57 144 H 117/80 08/31/23 08:00 08/31/23 07:46 97.5 F L 110 H 26 H 113/78 94 08/31/23 07:45 139 H O2 Del Method O2 Flow Rate 08/31/23 15:32 08/31/23 15:23 Nasal Cannula 08/31/23 12:01 Nasal Cannula 08/31/23 11:12 08/31/23 10:57 08/31/23 08:00 Nasal Cannula 6 08/31/23 07:46 Nasal Cannula 08/31/23 07:45 Laboratory Results review CBC Review chemistry Diagnostic Findings CXR shows progression PG Care Time/CCT Total # of Minutes Spent Total Time Spent with Patient: Total time spent is greater than 50% in coordination of care (as documented) at patient's floor/unit and/or counseling patient: Coding Level of Care Code 86571 SUB INP/OBS CARE 3/50MIN Diagnoses Acute on chronic respiratory failure with hypoxia J96.21 Atrial flutter with rapid ventricular response I48.92 Hyponatremia E87.1 Hypotension I95.9 Aphthous ulcer of tongue K12.0
[2023-08-31] MEDS: CHECK SCOPOLAMINE PATCH PLACEMENT SCH (16:20)
[2023-08-31] MEDS: MAGNESIUM SULFATE / D5W 1 GM/100 ML BAG IV SCH (16:20)
[2023-08-31] MEDS: METOPROLOL TARTRATE 25 MG TAB PO SCH (18:12)
[2023-08-31] MEDS ORDERED: XOPENEX/ATROVENT 1.25mg/0.5MG NEB COMBO NEB SCH (19:00)
[2023-08-31] MEDS: IPRATROPIUM BROMIDE NEB SOLN 0.02% 0.5MG/2.5ML VIAL INH SCH (20:39)
[2023-08-31] MEDS: LEVALBUTEROL 1.25 MG/3 ML NEB NEB SCH (20:39)
[2023-09-01 06:04] LABS: Albumin Level 2.8 gm/dl (3.4-5.0); BUN Creatinine Ratio 37.1 (10-20); Calcium 8.3 mg/dl (8.6-10.3); Creatinine Clr Calc Pharmacy 148.8 ml/min; Est GFR (African American) 131.4 ml/min; Est GFR (Non-African American) 113.4 ml/min; Magnesium 1.8 mg/dl (1.7-2.4); Phosphorus 2.8 mg/dl (2.5-4.9); Potassium 4.1 mmol/L (3.5-5.1)
[2023-09-01 06:11] LABS: ANTI-Xa, UFH(UnfractionatedHep 0.34 IU/ml (0.3-0.7)
[2023-09-01 06:54] LABS: ALC (manual) 2.31 K/uL (1.2-3.4); ANC (manual) 21.65 K/uL (1.4-6.5); Dohle Bodies 1+; Hematocrit (blood only) 26.7 % (37.0-47.0); Hemoglobin 8.8 g/dl (12.0-16.0); Lymphocytes # (manual) 2.31 K/uL (1.2-3.4); Lymphocytes % (manual) 8 %; Mean Corpuscular Hemoglobin 30.4 pg (25.0-34.0); Mean Corpuscular Volume 92.4 fL (80.0-100.0); Mean Platelet Volume 9.1 fL (9.4-12.4); Metamyelocytes # (manual) 0.87 K/uL (0-0); Metamyelocytes % (manual) 3 %; Monocytes % (manual) 9 %; Myelocytes # (manual) 1.44 K/uL (0-0); Myelocytes % (manual) 5 %; Neutrophils # (manual) 21.65 K/uL (1.40-6.50); Neutrophils % (manual) 75 %; Nucleated RBC # (auto) 0.06 K/uL (0.00-0.12); Nucleated RBC % (auto) 0.2 %; Platelet Count 325 K/uL (130-400); Polychromasia 1+; RDW Coefficient of Variation 15.7 % (11.5-14.5); RDW Standard Deviation 52.8 fL (36.4-46.3); Red Blood Count 2.89 M/uL (4.20-5.40); Toxic Granulation 1+; White Blood Count 28.87 K/ul (4.8-10.8)
--- NOTE | 2023-09-01 07:39 | Anesthesiology Consultation ---
Date of Service September 01, 2023 Assessment & Plan Chart Review Chart Review: Acceptable Risk for Surgery and Patient NOT seen in Pre Admission Testing Consults Requested none ASA ASA3 Proposed Anesthesia Anesthesia Type: MAC Risk / Benefits Reviewed With: PT / POA / Parent / Guardian, Accepts Plan and Informed Consent Obtained History Surgery Operation Date: 09/01/23 07:45 Proposed Procedures p Cardioversion Transportation Consultant w/Anesthesia - Ramana Nam MD Height/Weight Height: 5 ft 4 in Weight: 67 kg Allergies Allergy/AdvReac Type Severity Reaction Status Date / Time azithromycin Allergy Severe Difficulty Verified 08/23/23 18:16 Breathing Penicillins Allergy Intermediate HIVES A Verified 08/23/23 18:16 CHILD Medications Home Medications Medication Instructions Recorded Confirmed Last Taken omega-3 acid ethyl esters 1 gram 1 cap PO QAM 02/04/20 08/30/23 08/23/23 capsule cholecalciferol (vitamin D3) 25 25 mcg PO QAM 11/20/20 08/30/23 08/23/23 mcg (1,000 unit) tablet (Vitamin D3) cyanocobalamin (vitamin B-12) 1,000 mcg sublingual QAM 11/20/20 08/30/23 08/23/23 1,000 mcg sublingual tablet sodium chloride, sodium See Rx Instructions .Route 04/27/23 08/30/23 Unknown bicarb-nasal rinse squeeze bottle .COMPLEX PRN congestion with packet (Neilmed Sinus Rinse Complete with packet) albuterol sulfate 90 mcg/actuation 2 inh inhalation Q6H PRN shortness 04/29/23 08/30/23 Unknown aerosol inhaler of breath or wheezing #6.7 grams folic acid 1 mg tablet 1 mg PO QAM #30 tabs 04/29/23 08/30/23 08/23/23 ipratropium 0.5 mg-albuterol 3 mg 3 ml inhalation Q6 PRN as directed 06/28/23 08/30/23 Unknown (2.5 mg base)/3 mL nebulization soln prochlorperazine maleate 10 mg 10 mg PO Q6H PRN Nausea And 07/28/23 08/30/23 Unknown tablet Vomiting polyethylene glycol 3350 17 17 g PO BID PRN constipation 08/01/23 08/30/23 Unknown gram/dose oral powder (Miralax) sennosides 8.6 mg-docusate sodium 1 tab-cap PO DAILY PRN Constipation 08/01/23 08/30/23 Unknown 50 mg tablet (Colace 2-In-1) Oxygen Home #1 ea 08/18/23 08/30/23 Unknown Vibration Vest #1 ea 08/18/23 08/30/23 Unknown budesonide 0.5 mg/2 mL suspension 0.5 mg (2 mL) inhalation BID #60 mL 08/19/23 08/30/23 08/23/23 08:00 for nebulization formoterol fumarate 20 mcg/2 mL 2 ml inhalation BID #120 mL 08/19/23 08/30/23 08/23/23 08:00 solution for nebulization (Perforomist) sodium chloride 3 % for 4 ml inhalation Q8H PRN secretions 08/19/23 08/30/23 Unknown nebulization #240 mL dexamethasone 6 mg tablet 6 mg PO DIRECTED 08/23/23 08/30/23 Unknown amiodarone 200 mg tablet 200 mg PO QAM #30 tabs 08/25/23 08/30/23 Unknown ondansetron HCl 8 mg tablet 8 mg PO Q8H #20 tabs 08/26/23 08/30/23 Unknown oxycodone 10 mg tablet,crush 10 mg PO BID #60 tabs 08/26/23 08/30/23 Unknown resistant,extended release 12 hr (OxyContin) oxycodone 5 mg tablet 5 - 10 mg (1 - 2 x 5 mg) PO Q6H 08/26/23 08/30/23 Unknown PRN moderate to severe pain #30 tabs ipratropium bromide 42 mcg (0.06 2 spray intranasal TID #15 mL 08/27/23 08/30/23 Unknown %) nasal spray Magic Mouthwash 300 mL mouthwash 5 ml mucous membrane Q6H PRN mouth 08/30/23 Unknown pain #300 mL Active Medications Generic Name Dose Route Start Last Admin Trade Name Freq PRN Reason Stop Dose Admin Acetaminophen 1,000 mg 08/30/23 04:49 08/31/23 23:40 Acetaminophen 1000 Mg/100 Ml Iv IV 09/02/23 04:48 1,000 mg Q8H PRN Administration Pain or Fever Budesonide 0.5 mg 08/30/23 07:00 09/01/23 07:10 Budesonide 0.5 Mg/2 Ml Vial (Pulmicort) INH 09/29/23 06:59 Not Given BIDR CAROLYN Cyanocobalamin 1,000 mcg 08/30/23 09:00 08/31/23 08:00 Cyanocobalamin (B-12) 500 Mcg Tablet PO 09/29/23 08:59 1,000 mcg QAM CAROLYN Administration Folic Acid 1 mg 08/30/23 09:00 08/31/23 08:00 Folic Acid 1 Mg Tab PO 09/29/23 08:59 1 mg QAM CAROLYN Administration Formoterol Fumarate 20 mcg 08/30/23 07:00 09/01/23 07:10 Formoterol 20 Mcg/2 Ml Vial INH 09/29/23 06:59 Not Given BIDR CAROLYN Amiodarone HCl/Dextrose 360 mg in 200 mls @ 16.667 mls/hr 08/30/23 09:45 08/31/23 21:42 Nexterone / D5w IV 09/29/23 09:44 0.5 mg/min .Q12H CAROLYN 16.7 mls/hr Administration 0.5 MG/MIN Heparin Sodium/Dextrose 25,000 units in 500 mls @ 22 mls/hr 08/30/23 04:00 09/01/23 07:22 Heparin Sodium/Dextrose IV 09/29/23 03:59 1,100 units/hr .[id number] CAROLYN 22 mls/hr Titration Protocol 1,100 UNITS/HR Pantoprazole Sodium 40 mg/ 10 mls @ 5 mls/min 08/30/23 11:00 08/31/23 10:43 Syringe IV 09/29/23 10:59 5 mls/min DAILY@1100 CAROLYN Administration Cefepime HCl 2,000 mg/ Syringe 20 mls @ 5 mls/min 08/30/23 10:00 09/01/23 01:25 IV 09/06/23 09:59 5 mls/min Q8H CAROLYN Administration Protocol Ipratropium [place] 2 sprays 08/30/23 09:00 08/31/23 20:57 Ipratropium [place] Nasal [place] 0.06% 15ml TIM 09/29/23 08:59 2 sprays TID CAROLYN Administration Ipratropium [place] 0.5 mg 08/31/23 19:00 09/01/23 07:10 Ipratropium [place] Neb Soln 0.02% 0.5mg/2.5ml Vial INH 09/30/23 18:59 Not Given Q6R CAROLYN Levalbuterol HCl 1.25 mg 08/31/23 19:00 09/01/23 07:10 Levalbuterol 1.25 Mg/3 Ml Neb NEB 09/30/23 18:59 Not Given Q6R CAROLYN Metoprolol Tartrate 5 mg 08/30/23 10:58 08/31/23 10:57 Metoprolol Tartrate 1 Mg/Ml Vial IV 09/29/23 10:57 5 mg Q4 PRN Administration sbp > 185, dbp >95, HR >120 Metoprolol Tartrate 25 mg 08/31/23 18:00 09/01/23 06:30 Metoprolol Tartrate 25 Mg Tab PO 09/30/23 17:59 25 mg Q6H CAROLYN Administration Miscellaneous 1 each 08/31/23 16:00 09/01/23 00:45 Check Scopolamine Patch Placement N/A 09/30/23 15:59 1 each QS CAROLYN Administration Nystatin 5 ml 08/30/23 13:00 08/31/23 20:57 Nystatin Susp 500,000 U/5 Ml Udc PO 09/09/23 12:59 5 ml QID CAROLYN Administration Scopolamine 1 mg 08/31/23 11:45 08/31/23 12:03 Scopolamine 1 Mg Tdsy TD 09/30/23 11:44 1 mg Q72H CAROLYN Administration Sodium Chloride 1 gm 08/30/23 09:00 08/31/23 20:57 Sodium Chloride 1 Gm Tablet PO 09/29/23 08:59 1 gm BID CAROLYN Administration Sodium Chloride 4 ml 08/30/23 05:42 08/30/23 21:42 Sodium Chlor 7% 4 Ml Neb INH 09/29/23 05:41 4 ml Q8R PRN Administration secretions Vitamin D 25 mcg 08/30/23 09:00 08/31/23 08:00 Cholecalciferol 25 Mcg (1000 Units) Tab PO 09/29/23 08:59 25 mcg QAM CAROLYN Administration NPO Date Last Intake of Fluids: 09/01/23 Time Last Intake of Fluids: 06:00 Last Intake of Fluids Comment: sip of water with meds Date Last Intake of Solids: 08/31/23 Time Last Intake of Solids: 19:00 Past Medical History Medical History Hypertension Adenocarcinoma of lung Tubular adenoma Osteoarthritis History of basal cell carcinoma scalp/tip of nose Tinnitus of both ears Anxiety and depression Goiter, nontoxic, 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 Hyperlipidemia Vitamin D deficiency Exercise / Class Metabolic Activity III < 4 Walking/Shop/Light housework Past Family History Family History Father Colon cancer Prostate cancer Myocardial infarction Heart disease Mother Hypertension Cancer Uncle Diabetes Aunt Breast cancer Other No family history of adverse response to anesthesia Denies family history of Ovarian cancer Past Surgical History Surgical History Port-A-Cath in place (04/28/23) Left Subclavian Mediport Insertion(Left) - Donal Maldonado, H/O colonoscopy History of surgical removal of ganglion cyst left wrist History of wisdom tooth extraction Hx of section History of carpal tunnel release right wrist History of tonsillectomy and adenoidectomy History of mandibular surgery d/t underbite Hx of tooth extraction Hx of needle biopsy thyroid--benign History of Mohs surgery for squamous cell carcinoma in situ of skin x2 Past Anesthesia History No Hx of Anesthesia Complications and No Family Hx of Anesthesia Complications Social History Smoking Status: Never smoker Do You Dip or Chew Tobacco: No Hx Alcohol Use: Yes Alcohol type: wine alcohol intake frequency: holidays/special occasions only Hx Substance Use: No substance use type: does not use Review of Systems ROS Unobtainable: All systems reviewed & are unremarkable except as noted in HPI & below Physical Exam Vital Signs Last Vital Signs Temp 36.7 C 09/01/23 07:25 Pulse 97 H 09/01/23 07:25 Resp 18 09/01/23 07:25 BP 99/58 L 09/01/23 07:25 Pulse Ox 94 09/01/23 07:25 O2 Del Method Nasal Cannula 09/01/23 07:25 O2 Flow Rate 6 09/01/23 07:25 FiO2 93 08/30/23 21:29 Constitutional no acute distress ENMT Mouth: no TMJ abnormality Thyromental Distance: > or= 3.5 Finger Breadths Mallampati Class: II Neck normal visual inspection and trachea midline; neck extension not limited Respiratory normal respiratory effort Auscultation: + crackles, + rales and + rhonchi Cardiovascular Rate/Rhythm: regular rate and regular rhythm Heart Sounds: no murmur Musculoskeletal Spine: normal cervical ROM Extremities: full ROM of extremities Neurologic moves all extremities Psychiatric Orientation: alert and oriented x 3 Testing Laboratory Results 09/01/23 05:19 09/01/23 05:19 PT 11.8 Seconds (9.0-12.0) 08/30/23 00:58 INR 1.1 (0.9-1.1) 08/30/23 00:58 APTT 46 Seconds (21-31) H 08/30/23 00:58 Electrocardiogram Date: 08/30/23 Atrial flutter with variable A-V block Old Anterior infarct (cited on or before 28-JUL-2023) Abnormal ECG When compared with ECG of 29-AUG-2023 23:53, Atrial flutter has replaced Sinus rhythm HR has increased by 31 bpm Echocardiogram Date: 08/24/23 EF: 65-70
--- NOTE | 2023-09-01 08:11 | Anesthesiology Progress Note ---
Date of Service September 01, 2023 Anesthesia Post Procedure Vital Signs Vital Signs: Temp Pulse Pulse Resp BP BP Pulse Ox 09/01/23 07:58 36.8 C 58 L 18 111/68 95 09/01/23 07:42 36.8 C 68 18 98/67 L 96 09/01/23 07:25 36.7 C 97 H 18 99/58 L 94 09/01/23 03:01 37.5 C 142 H 18 110/84 91 08/31/23 23:04 36.8 C 138 H 20 110/64 95 08/31/23 21:00 08/31/23 20:39 151 H 18 93 08/31/23 19:33 36.5 C 149 H 18 108/77 93 08/31/23 15:32 148 H 08/31/23 15:23 36.3 C L 153 H 26 H 100/68 93 08/31/23 12:01 36.3 C L 140 H 26 H 110/73 92 08/31/23 11:12 140 H 110/73 08/31/23 10:57 144 H 117/80 O2 Del Method O2 Flow Rate 09/01/23 07:58 Oxymask 6 09/01/23 07:42 Oxymask 10 09/01/23 07:25 Nasal Cannula 6 09/01/23 03:01 Nasal Cannula 6 08/31/23 23:04 Nasal Cannula 6 08/31/23 21:00 High Flow Nasal Cannula 7 08/31/23 20:39 Nasal Cannula 7 08/31/23 19:33 Nasal Cannula 7 08/31/23 15:32 08/31/23 15:23 Nasal Cannula 08/31/23 12:01 Nasal Cannula 08/31/23 11:12 08/31/23 10:57 Pain Intensity Back: Pain Intensity: 5 Transfer of Care Handoff Completed per policy Notes Mental Status: alert / awake / arousable Patient Amnestic to Procedure: Yes Nausea / Vomiting: adequately controlled Pain: adequately controlled Airway Patency, RR, SpO2: stable & adequate BP & HR: stable & adequate Hydration State: stable & adequate Anesthetic Complications: no major complications apparent and Pt Satisfied with anesthetic care
[2023-09-01] MEDS: PROPOFOL IV EMULSION 10 MG/ML 20 ML VIAL IV ONE (08:44)
[2023-09-01] MEDS: LIDOCAINE 2% 2 ML VIAL/AMP(20MG/ML) INFIL ONE (08:44)
--- NOTE | 2023-09-01 11:43 | Cardiology Progress Note ---
Date of Service September 01, 2023 Assessment & Plan (1) Atrial flutter with rapid ventricular response: (2) Hypotension: (3) Adenocarcinoma of lung: Plan Symptomatic improvement with electrical cardioversion from atrial flutter to sinus rhythm. She had not noted tachypalpitations when in a flutter but was dyspneic, her dyspneic symptoms have improved. No chest pain at any time. Can switch from IV to oral amiodarone, would dose at 200 mg twice daily. Prefer higher dose to maintain sinus rhythm since she is prone to recurrence and is not a good long-term anticoagulation candidate. Would also continue beta-becky to reduce degree of tachycardia should her atrial flutter recur, could consolidate from metoprolol tartrate to metoprolol succinate at 50 mg daily and, if BP tolerates, continue this as outpatient. Given stage IV lung carcinoma with extensive pulmonary involvement there were concerns regarding chronic anticoagulation, however in the absence of any active bleeding would favor a short course (few weeks) of anticoagulation with apixaban 5 mg twice daily post cardioversion to reduce near term risk of thromboembolic event (since mechanical contraction can lag behind electrical conversion). Patient will follow-up with Dr. Howard upon discharge. Admission and Anticipated Discharge Date Admission Date: August 30, 2023 Subjective She notes that she is breathing easier post electrical cardioversion this morning. Rhythm remains sinus. No somatic complaints at rest. Physical Exam Physical Exam: No distress. Normotensive BP. Pulse 74 bpm and regular without significant ectopy. Respirations 17 and unlabored. Skin: no generalized lesions. HEENT: unremarkable. Neck: JVP at the clavicle at 90 degrees, no carotid bruits. Lungs: Decreased breath sounds right base, diffuse "dry" crackles both lung steele. No wheezing or accessory muscle use. Cardiac: regular rhythm, normal S1-2, no obvious murmur. Abdomen: benign. Extremities: no edema, pulses intact. Neurologic: normal affect and conversation, nonfocal. Results & Data Vital Signs (Past 12 Hours) Vital Signs Temp Pulse Resp BP Pulse Ox O2 Del Method O2 Flow Rate 09/01/23 11:10 74 17 94 Nasal Cannula 6 09/01/23 10:00 Nasal Cannula 6 09/01/23 07:58 98.2 F 58 L 18 111/68 95 Oxymask 6 09/01/23 07:42 98.2 F 68 18 98/67 L 96 Oxymask 10 09/01/23 07:25 98.1 F 97 H 18 99/58 L 94 Nasal Cannula 6 09/01/23 03:01 99.5 F 142 H 18 110/84 91 Nasal Cannula 6 Laboratory Results Sodium 125, potassium 4.1 and magnesium 1.8. BUN 13, creatinine 0.35. PG Care Time/CCT Total # of Minutes Spent Total Time Spent with Patient: Total time spent is greater than 50% in coordination of care (as documented) at patient's floor/unit and/or counseling patient: Coding Level of Care Code 34795 SUB INP/OBS CARE 3/50MIN Diagnoses Atrial flutter with rapid ventricular response I48.92 Hypotension I95.9 Adenocarcinoma of lung C34.92 Laterality: left (3) Adenocarcinoma of lung Laterality: left Qualified Code(s): C34.92 - Malignant neoplasm of unspecified part of left bronchus or lung
--- NOTE | 2023-09-01 13:48 | Electrocardiogram Report ---
Test Reason : Blood Pressure : / mmHG Vent. Rate : 075 BPM Atrial Rate : 075 BPM P-R Int : 164 ms QRS Dur : 094 ms QT Int : 380 ms P-R-T Axes : 033 -03 037 degrees QTc Int : 424 ms Normal sinus rhythm Possible Old Anterolateral infarct (cited on or before 28-JUL-2023) Abnormal ECG When compared with ECG of 30-AUG-2023 03:30, Sinus rhythm has replaced Atrial flutter Vent. rate has decreased BY 76 BPM Confirmed by Ramana Nam ([id number]) on 09/01/2023 1:47:57 PM Referred By: REFERRED SELF Confirmed By:Ramana Nam
[2023-09-01] MEDS: AMIODARONE 200 MG TAB PO ONE (14:13)
[2023-09-01] MEDS: AMIODARONE 200 MG TAB PO SCH (17:35)
[2023-09-01] MEDS: APIXABAN 5 MG TABLET PO SCH (20:51)
[2023-09-01] MEDS: METOPROLOL TARTRATE 50 MG TAB PO SCH (20:52)
[2023-09-01] MEDS ORDERED: METOPROLOL TARTRATE 25 MG TAB PO SCH (21:00)
--- NOTE | 2023-09-01 22:06 | Hospitalist Progress Note ---
Date of Service September 01, 2023 Assessment & Plan (1) Acute on chronic respiratory failure with hypoxia: Plan: pt with metastatic adenocardinoma of lung undergoing chemotherapy at [facility] last chemotherapy 08/22/23 pt with ANC 890 on presentation did have neupogen, now rebound leukocytosis sees local pulmonary with vibration vest and formoterol/vilanterolol/budensondie on xopenex on vancomycin and Cefepime for concern of healthcare acquired pneumonia, covering MRSA and Gram negatives Patient is requiring 7 liters at rest which is more than what she normally takes at home. Her lesions in her lungs appear to progress which is likely explaining her worsening respiratory function. Patient was cardioverted and her heart rate has improved, patient symptomatically is feeling better but is now on 7 liters. 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 THis also carries a poor prognosis. Patient has sttaed she is not ready for hospice. Concern that despite chemotherapy, her cancer is progressing and now she require s 7 liters nasal cannula while also having hyponatremia. WIll consult nephrology. Will consider pulmonary (2) Atrial flutter with rapid ventricular response: Plan: Last admission did convert with amiodarone GTT, lower blood pressures limit choices of medicines, will return to amiodarone gtt again Started heparin drip low-dose without bolus per protocol Most recent echo on 08/24/2023 showed ejection fraction 65-70%, with mild aortic regurgitation, and no significant change compared to 01/10/2023 augmenting magnesium as low on initial check Cardiology supports amiodarone and add metoprolol S/P conversion. COncerntrated metoprolol and switchec drip to oral amiodarone. transitioned heparin to eliquis. (3) Hyponatremia: Plan: Pt with significant hyponatremia,CXR looks progressed, will try lasix, add xopenex, use transderm scop to help secretions fluid restrict intermittent bolus' of hypertonic saline, with frequent chemistry checks consult nephro. (4) Hypotension: Plan: Multifactoral cannot rule out her a flutter with rapid rate, and possible sepsis control aflutter rate volume resuscitation treat infection (5) Aphthous ulcer of tongue: Plan: local wound care consider thrush, nystatin Plan right buttock decubitus ulcer on presentation, will have wound care moderate malnutrition likely affects skin integrity Admission and Anticipated Discharge Date Admission Date: August 30, 2023 Subjective 68 yo female reports breathing better. SHe has no new complaints. Review of Systems Review of Systems: All systems reviewed & are unremarkable except as noted in HPI & below Physical Exam Physical Exam: pt looks chronically ill cardiac is RRR lungs are decreased at the bases and coarse rales bilaterally extremities are with trace edema Results & Data Results & Data Vital Signs (Past 12 Hours) Vital Signs Temp Pulse Pulse Resp BP BP Pulse Ox 09/01/23 21:54 36.5 C 86 20 118/71 94 09/01/23 19:40 36.6 C 82 20 120/62 96 09/01/23 19:04 80 18 95 09/01/23 16:02 75 09/01/23 15:46 36.7 C 79 19 107/67 95 09/01/23 11:35 36.5 C 83 21 111/65 95 09/01/23 11:10 74 17 94 O2 Del Method O2 Flow Rate 09/01/23 21:54 Nasal Cannula 7 09/01/23 19:40 Nasal Cannula 7 09/01/23 19:04 Nasal Cannula 7 09/01/23 16:02 09/01/23 15:46 Room Air 09/01/23 11:35 Nasal Cannula 6 09/01/23 11:10 Nasal Cannula 6 PG Care Time/CCT Total # of Minutes Spent Total Time Spent with Patient: Total time spent is greater than 50% in coordination of care (as documented) at patient's floor/unit and/or counseling patient: Coding Level of Care Code 63005 SUB INP/OBS CARE 3/50MIN Diagnoses Acute on chronic respiratory failure with hypoxia J96.21 Atrial flutter with rapid ventricular response I48.92 Hyponatremia E87.1 Hypotension I95.9 Aphthous ulcer of tongue K12.0
[2023-09-02 08:08] LABS: Albumin Level 2.8 gm/dl (3.4-5.0); BUN Creatinine Ratio 28.6 (10-20); Calcium 8.5 mg/dl (8.6-10.3); Creatinine Clr Calc Pharmacy 149.6 ml/min; Est GFR (African American) 131.4 ml/min; Est GFR (Non-African American) 113.4 ml/min; Magnesium 1.6 mg/dl (1.7-2.4); Potassium 3.9 mmol/L (3.5-5.1)
[2023-09-02 08:20] LABS: Hematocrit (blood only) 27.2 % (37.0-47.0); Mean Corpuscular Hemoglobin 30.3 pg (25.0-34.0); Mean Corpuscular Hgb Conc 33.1 g/dL (32.0-36.0); Mean Corpuscular Volume 91.6 fL (80.0-100.0); Mean Platelet Volume 9.1 fL (9.4-12.4); Nucleated RBC # (auto) 0.04 K/uL (0.00-0.12); Nucleated RBC % (auto) 0.1 %; Platelet Count 319 K/uL (130-400); RDW Coefficient of Variation 15.8 % (11.5-14.5); RDW Standard Deviation 53.1 fL (36.4-46.3); Red Blood Count 2.97 M/uL (4.20-5.40); White Blood Count 30.29 K/ul (4.8-10.8)
[2023-09-02 08:39] LABS: ALC (manual) 1.82 K/uL (1.2-3.4); Dohle Bodies 1+; Lymphocytes # (manual) 1.82 K/uL (1.2-3.4); Lymphocytes % (manual) 6 %; Metamyelocytes # (manual) 2.73 K/uL (0-0); Metamyelocytes % (manual) 9 %; Monocytes # (manual) 2.12 K/uL (0.11-0.59); Monocytes % (manual) 7 %; Myelocytes # (manual) 2.42 K/uL (0-0); Myelocytes % (manual) 8 %; Neutrophils % (manual) 70 %
[2023-09-02 09:14] LABS: ANTI-Xa, UFH(UnfractionatedHep 0.57 IU/ml (0.3-0.7)
[2023-09-02] MEDS: FUROSEMIDE 40 MG/4 ML VIAL IV ONE (10:58)
--- NOTE | 2023-09-02 11:48 | Nephrology Consultation ---
Date of Consultation September 02, 2023 Assessment & Plan (1) Hyponatremia: (2) Acute on chronic respiratory failure with hypoxia: (3) Atrial flutter with rapid ventricular response: (4) Adenocarcinoma, lung: (5) Left lower lobe consolidation: Plan 68 yo F with chronic hyponatremia for last more than 6 months in the setting of adenocarcinoma of lung, on chemotherapy, admitted with hypoxic respiratory failure with A flutter and RVR. Sodium was 122 on admission which improved to 129 this morning,, has been on salt tablet. Urine osmolality was 530. 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 She was in significant respiratory distress this morning and requiring 6 L of nasal cannula oxygen. -- Lasix 40 mg IV x 1 dose now and then continue on 20 mg orally once daily -- Fluid restriction to less than 50 ounces a day, continue on salt tablet 1 g twice a day Will sign off, please contact if further assistance needed. Thank you for the consultation. History of Present Illness Reason for Consultation: Hyponatremia Attending Physician: Travis Malik History of Present Illness Ms. Noemy Martinez is a 68-year-old female with history of stage IV adenocarcinoma of left lung admitted with hypoxic respiratory failure and atrial flutter with RVR. Nephrology consult was requested for management of hyponatremia. Electronic medical records were reviewed in detail during patient's visit. Noemy presented to ER on 08/30/2023 after at home she was noted to be getting progressively hypoxic on room air. She was in hospital recently from 08/23/2023 to 08/25/2023 with outpatient abnormal Holter monitoring showing atrial flutter. During that admission she was started on amiodarone and discharged as clinically she was otherwise doing well. However over the last few days since discharge at home she was getting progressively short of breath and hypoxic. On admission she was found to be in atrial flutter with RVR. Chest x-ray showed left lower lobe consolidation and multifocal infiltrate consistent with her known history of adenocarcinoma. Lab showed sodium 122 on admission and sodium was 123 on her recent discharge from hospitalization on . She reports she was supposed to take 1 salt tablet a day but she ran out of the medication. urine osmolality was 530. Record review shows her sodium has been staying low previous urine osmolality also was elevated around 380. Urine sodium less than 10. Normal renal function, creatinine was 0.6, other electrolyte was acceptable. She was started on salt tablet 1 g twice a day and sodium improved to 129 this morning. She had a cardioversion on 09/01/2023 and converted to sinus rhythm and rate controlled. She was continued on amiodarone. Reports decent urine output. Has stage IV adenocarcinoma of left lung, currently on chemotherapy at [facility]. She initially started having upper respiratory illness like symptoms with fever cough and evaluated by her PCP in September 2022 and treated with outpatient antibiotic. However in December 2022 she again had chest pain and diagnosed with pneumonia and had abnormal chest x-ray showing consolidation in left lung. Eventually she was evaluated by pulmonary and had bronchoscopy on 03/10/2023 and diagnosed with low-grade adenocarcinoma of the lung. Since then she has been on chemotherapy with docetaxel at [facility], currently she gets chemo every third week last chemo was on 08/22/2023. Last brain MRI was negative for any metastatic disease. Past medical history also significant for nontoxic 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 goiter, dyslipidemia, prior history of colonic polyp. Never smoker. Drinks alcohol rarely. Retired. She reported feeling better at this morning although she was using nasal cannula oxygen and clearly she was quite short of breath. Allergies Allergy/AdvReac Type Severity Reaction Status Date / Time azithromycin Allergy Severe Difficulty Verified 08/23/23 18:16 Breathing Penicillins Allergy Intermediate HIVES A Verified 08/23/23 18:16 CHILD Home Medications Medication Instructions Recorded Confirmed Type omega-3 acid ethyl esters 1 gram 1 cap PO QAM 02/04/20 08/30/23 History capsule cholecalciferol (vitamin D3) 25 25 mcg PO QAM 11/20/20 08/30/23 History mcg (1,000 unit) tablet (Vitamin D3) cyanocobalamin (vitamin B-12) 1,000 mcg sublingual QAM 11/20/20 08/30/23 History 1,000 mcg sublingual tablet sodium chloride, sodium See Rx Instructions .Route 04/27/23 08/30/23 History bicarb-nasal rinse squeeze bottle .COMPLEX PRN congestion with packet (Neilmed Sinus Rinse Complete with packet) albuterol sulfate 90 mcg/actuation 2 inh inhalation Q6H PRN shortness 04/29/23 08/30/23 Rx aerosol inhaler of breath or wheezing #6.7 grams folic acid 1 mg tablet 1 mg PO QAM #30 tabs 04/29/23 08/30/23 Rx ipratropium 0.5 mg-albuterol 3 mg 3 ml inhalation Q6 PRN as directed 06/28/23 08/30/23 History (2.5 mg base)/3 mL nebulization soln prochlorperazine maleate 10 mg 10 mg PO Q6H PRN Nausea And 07/28/23 08/30/23 History tablet Vomiting polyethylene glycol 3350 17 17 g PO BID PRN constipation 08/01/23 08/30/23 History gram/dose oral powder (Miralax) sennosides 8.6 mg-docusate sodium 1 tab-cap PO DAILY PRN Constipation 08/01/23 08/30/23 History 50 mg tablet (Colace 2-In-1) Oxygen Home #1 ea 08/18/23 08/30/23 Rx Vibration Vest #1 ea 08/18/23 08/30/23 Rx budesonide 0.5 mg/2 mL suspension 0.5 mg (2 mL) inhalation BID #60 mL 08/19/23 08/30/23 Rx for nebulization formoterol fumarate 20 mcg/2 mL 2 ml inhalation BID #120 mL 08/19/23 08/30/23 Rx solution for nebulization (Perforomist) sodium chloride 3 % for 4 ml inhalation Q8H PRN secretions 08/19/23 08/30/23 Rx nebulization #240 mL dexamethasone 6 mg tablet 6 mg PO DIRECTED 08/23/23 08/30/23 History amiodarone 200 mg tablet 200 mg PO QAM #30 tabs 08/25/23 08/30/23 Rx ondansetron HCl 8 mg tablet 8 mg PO Q8H #20 tabs 08/26/23 08/30/23 Rx oxycodone 10 mg tablet,crush 10 mg PO BID #60 tabs 08/26/23 08/30/23 Rx resistant,extended release 12 hr (OxyContin) oxycodone 5 mg tablet 5 - 10 mg (1 - 2 x 5 mg) PO Q6H 08/26/23 08/30/23 Rx PRN moderate to severe pain #30 tabs ipratropium bromide 42 mcg (0.06 2 spray intranasal TID #15 mL 08/27/23 08/30/23 Rx %) nasal spray Magic Mouthwash 300 mL mouthwash 5 ml mucous membrane Q6H PRN mouth 08/30/23 Rx pain #300 mL Oxygen Home #1 ea 09/01/23 Rx Patient History Medical History Hypertension Adenocarcinoma of lung Tubular adenoma Osteoarthritis History of basal cell carcinoma Tinnitus of both ears Anxiety and depression Goiter, nontoxic, 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 Hyperlipidemia Vitamin D deficiency Surgical History Port-A-Cath in place (04/28/23) H/O colonoscopy History of surgical removal of ganglion cyst History of wisdom tooth extraction Hx of section History of carpal tunnel release History of tonsillectomy and adenoidectomy History of mandibular surgery Hx of tooth extraction Hx of needle biopsy History of Mohs surgery for squamous cell carcinoma in situ of skin Family History Father Colon cancer Prostate cancer Myocardial infarction Heart disease Mother Hypertension Cancer Uncle Diabetes Aunt Breast cancer Other No family history of adverse response to anesthesia Denies family history of Ovarian cancer Social History Smoking Status: Never smoker Second Hand Exposure: No; Do You Dip or Chew Tobacco: No; Hx Alcohol Use: Yes Alcohol type: wine Alcohol Intake Frequency: Monthly or Less Hx Substance Use: No Preferred Language: Andorran Communication Ability: Effective Visual Impairment: No Limitations Hearing Ability: Normal [employer] Center Recruiter Required: No Beliefs That Will Affect Care: None marital status: Current Living Situation: Spouse current occupational status: retired How many Children do You have: 2 Feels Safe at Home: Yes Childhood Exposure to Second-Hand Smoke: Yes during the past year weight has: decreased > 10 lbs Dental Care, Regularly: Yes Physical Activity Frequency: Does not Exercise Seatbelt Use: always Sunscreen Use: Yes Assistive Devices: Oxygen - Continuous, Walker and Wheelchair Review of Systems Review of Systems: Detailed review of system was done and pertinent positives and negatives are mentioned above. Physical Exam Constitutional: WD/WN, vitals as above no acute distress Eyes: + anicteric sclerae Neck: normal visual inspection Respiratory: + respiratory distress and able to speak in complete sentences Auscultation: + crackles; no wheezes Cardiovascular: RRR, no murmur, no edema Gastrointestinal (Abdomen): Inspection/Auscultation: abdomen normal to inspection Musculoskeletal: Extremities: extremities normal to inspection Skin: no rashes, warm and dry Neurologic: no focal motor deficits Psychiatric: Orientation: alert and oriented x 3 Affect: euthymic affect Results & Data Vital Signs (Past 12 Hours) Vital Signs Temp Pulse Pulse Resp BP Pulse Ox O2 Del Method 09/02/23 08:07 82 15 94 Nasal Cannula 09/02/23 07:49 36.6 C 80 21 117/70 93 Nasal Cannula 09/02/23 02:40 36.1 C L 74 24 113/68 99 Nebulizer 09/02/23 01:40 76 18 94 Nasal Cannula 09/02/23 00:00 87 O2 Flow Rate 09/02/23 08:07 4 09/02/23 07:49 7 09/02/23 02:40 09/02/23 01:40 7 09/02/23 00:00 PG Care Time/CCT Total # of Minutes Spent Total Time Spent with Patient: Total time spent is greater than 50% in coordination of care (as documented) at patient's floor/unit and/or counseling patient: Coding Level of Care Code 48396 IN/OBS CONSULT LVL 5,80M Diagnoses Hyponatremia E87.1 Acute on chronic respiratory failure with hypoxia J96.21 Atrial flutter with rapid ventricular response I48.92 Adenocarcinoma, lung C34.90 Left lower lobe consolidation J18.1
[2023-09-02] MEDS: ACETAMINOPHEN 325 MG TAB PO PRN (18:29)
[2023-09-02] MEDS: OPTIRAY 320 500ml IV ONE (20:38)
--- NOTE | 2023-09-02 21:03 | Hospitalist Progress Note ---
Date of Service September 02, 2023 Assessment & Plan (1) Acute on chronic respiratory failure with hypoxia: Plan: pt with metastatic adenocardinoma of lung undergoing chemotherapy at [facility] last chemotherapy 08/22/23 pt with ANC 890 on presentation did have neupogen, now rebound leukocytosis sees local pulmonary with vibration vest and formoterol/vilanterolol/budensondie on xopenex on vancomycin and Cefepime for concern of healthcare acquired pneumonia, covering MRSA and Gram negatives Patient is requiring 7 liters at rest which is more than what she normally takes at home. Her lesions in her lungs appear to progress which is likely explaining her worsening respiratory function. Patient was cardioverted and her heart rate has improved, patient symptomatically is feeling better but is now on 7 liters. 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 This also carries a poor prognosis. Patient has stated she is not ready for hospice. Concern that despite chemotherapy, her cancer is progressing and now she require s 7 liters nasal cannula while also having hyponatremia. appreciate input from nephrology. Order ct chest and abd/pelvis with IV contrast as per family. (2) Atrial flutter with rapid ventricular response: Plan: Last admission did convert with amiodarone GTT, lower blood pressures limit choices of medicines, will return to amiodarone gtt again Started heparin drip low-dose without bolus per protocol Most recent echo on 08/24/2023 showed ejection fraction 65-70%, with mild aortic regurgitation, and no significant change compared to 01/10/2023 augmenting magnesium as low on initial check Cardiology supports amiodarone and add metoprolol S/P conversion. Concerntrated metoprolol and switchec drip to oral amiodarone. transitioned heparin to eliquis. (3) Hyponatremia: Plan: Pt with significant hyponatremia,CXR looks progressed, will try lasix, add xopenex, use transderm scop to help secretions fluid restrict intermittent bolus' of hypertonic saline, with frequent chemistry checks consult nephro. appreciate input (4) Hypotension: Plan: Multifactoral cannot rule out her a flutter with rapid rate, and possible sepsis control aflutter rate volume resuscitation treat infection (5) Aphthous ulcer of tongue: Plan: local wound care consider thrush, nystatin No pressure ulcer noted. Admission and Anticipated Discharge Date Admission Date: August 30, 2023 Subjective Patient reports no new symptoms. Coughin up more phelgm Physical Exam Physical Exam: pt looks chronically ill cardiac is RRR lungs are decreased at the bases and coarse rales bilaterally extremities are with trace edema Results & Data Results & Data Vital Signs (Past 12 Hours) Vital Signs Temp Pulse Pulse Resp BP Pulse Ox O2 Del Method 09/02/23 19:00 36.7 C 86 20 153/78 H 96 Nasal Cannula 09/02/23 15:49 36.4 C L 80 20 102/63 93 Nasal Cannula 09/02/23 14:02 80 17 90 Oxymask 09/02/23 11:56 84 09/02/23 11:39 36.5 C 78 20 119/70 94 Nasal Cannula 09/02/23 11:22 Oxymask O2 Flow Rate 09/02/23 19:00 09/02/23 15:49 7 09/02/23 14:02 5 09/02/23 11:56 09/02/23 11:39 6 09/02/23 11:22 7 PG Care Time/CCT Total # of Minutes Spent Total Time Spent with Patient: Total time spent is greater than 50% in coordination of care (as documented) at patient's floor/unit and/or counseling patient: Coding Level of Care Code 52909 SUB INP/OBS CARE 3/50MIN Diagnoses Acute on chronic respiratory failure with hypoxia J96.21 Atrial flutter with rapid ventricular response I48.92 Hyponatremia E87.1 Hypotension I95.9 Aphthous ulcer of tongue K12.0
--- NOTE | 2023-09-02 21:31 | CT Scan Report ---
Exam(s): CT CHEST With Contrast IV Amt: 88 ml opti 320 EXAM: CT Chest With Intravenous Contrast CLINICAL HISTORY: stage 4 adenocarcinoma. TECHNIQUE: Axial computed tomography images of the chest with intravenous contrast. CTDI is 30 mGy and DLP is 1382.29 mGy-cm. Automated exposure control was utilized for the study. A dose lowering technique was utilized adhering to the principles of ALARA. CONTRAST: Patient received 88 ml opti 320 of IV contrast COMPARISON: CTA chest 08/24/2023 FINDINGS: Lungs: Near complete consolidation of the left lung, similar to the previous examination with only minimal aeration in the superior segment of the left lower lobe and the superior medial left apex, not significantly altered in appearance from the previous examination. There is scattered areas of patchy airspace opacity in the right upper lobe, similar in near complete confluent consolidation of the right middle lobe and posterior medial right lower lobe. The degree of aeration is similar to questionably only minimally improved involving the right lung when compared to the previous examination. Pleural space: Trace left pleural effusion is noted posteriorly and in the inferior major fissure. No right pleural effusion. No pneumothorax. Heart: The cardiac chambers are mildly prominent. No significant pericardial effusion. No significant coronary artery calcifications. Thyroid: Multiple heterogeneous and hypodense nodules throughout the thyroid, left greater than right with a large rim calcified nodule at the midline, stable. Bones/joints: Unremarkable. No acute fracture. No dislocation. Soft tissues: Unremarkable. Vasculature: The thoracic aorta is stable. No dissection. Lymph nodes: Unremarkable. No enlarged lymph nodes. IMPRESSION: 1. Overall, no significant alteration in appearance from the prior examination. 2. Extensive consolidative changes throughout both lungs, left greater than right, as detailed above. The degree of aeration is similar to questionably only minimally improved involving the right lung when compared to the previous examination. 3. Stable cardiomegaly. No developing pericardial effusion or significant adenopathy. 4. Trace free fluid in the left lung base, new from the previous examination. No loculation. Electronically signed by: Donal Ray MD 09/02/23 21:31 PM
--- NOTE | 2023-09-02 21:36 | CT Scan Report ---
Exam(s): CT ABDOMEN + PELVIS With Contrast IV Amt: 88 ml opti 320 EXAM: CT Abdomen and Pelvis With Intravenous Contrast CLINICAL HISTORY: stage 4 adenocarcinoma. TECHNIQUE: Axial computed tomography images of the abdomen and pelvis with intravenous contrast. CTDI is 30 mGy and DLP is 1382.29 mGy-cm. Automated exposure control was utilized for the study. A dose lowering technique was utilized adhering to the principles of ALARA. CONTRAST: Patient received 88 ml opti 320 of IV contrast COMPARISON: No relevant prior studies available. FINDINGS: Lung bases: For findings regarding the lung bases, please see the CT report of the chest performed concurrently. ABDOMEN: Liver: Unremarkable. No mass. Gallbladder and bile ducts: Punctate calcific density noted in the fundus of the gallbladder is a presumed subcentimeter gallstone. No gallbladder wall thickening or biliary dilatation. Pancreas: Unremarkable. No mass. No ductal dilation. Spleen: Unremarkable. No splenomegaly. Adrenals: Unremarkable. No mass. Kidneys and ureters: Unremarkable. No solid mass. No hydronephrosis. Stomach and bowel: Unremarkable. No obstruction. No mucosal thickening. PELVIS: Appendix: The appendix is not clearly delineated on this examination. Bladder: Unremarkable. No mass. Reproductive: Unremarkable as visualized. ABDOMEN and PELVIS: Intraperitoneal space: Unremarkable. No free air. No significant fluid collection. Bones/joints: No acute fracture. No dislocation. Soft tissues: Superficial subcutaneous fat stranding throughout the pelvis with minimal extension into the inferior abdomen. No loculated fluid collection. No hernia. Vasculature: Unremarkable. No abdominal aortic aneurysm. Lymph nodes: No significant abdominal or pelvic lymphadenopathy. IMPRESSION: 1. No significant abnormality within the abdomen or pelvis to suggest metastatic disease. 2. Superficial subcutaneous edema suggesting positive fluid status. Electronically signed by: Donal Ray MD 09/02/23 21:35 PM
[2023-09-03 07:54] LABS: Hematocrit (blood only) 26.9 % (37.0-47.0); Hemoglobin 9.1 g/dl (12.0-16.0); Mean Corpuscular Hemoglobin 30.4 pg (25.0-34.0); Mean Corpuscular Hgb Conc 33.8 g/dL (32.0-36.0); Mean Platelet Volume 8.9 fL (9.4-12.4); Nucleated RBC # (auto) 0.03 K/uL (0.00-0.12); Nucleated RBC % (auto) 0.1 %; Platelet Count 293 K/uL (130-400); RDW Coefficient of Variation 15.9 % (11.5-14.5); RDW Standard Deviation 52.6 fL (36.4-46.3); Red Blood Count 2.99 M/uL (4.20-5.40); White Blood Count 26.45 K/ul (4.8-10.8)
[2023-09-03 08:15] LABS: Est GFR (African American) 138.3 ml/min; Est GFR (Non-African American) 119.3 ml/min; Potassium 3.6 mmol/L (3.5-5.1)
[2023-09-03 08:16] LABS: BUN Creatinine Ratio 36.7 (10-20); Calcium 8.6 mg/dl (8.6-10.3); Creatinine Clr Calc Pharmacy 174.4 ml/min; Phosphorus 3.9 mg/dl (2.5-4.9)
[2023-09-03] MEDS ORDERED: HEPARIN 100 UNIT/ML 5ML FLUSH FLUSH PRN (12:28)
--- NOTE | 2023-09-06 13:44 | Discharge Summary ---
Date of Service September 03, 2023 Admission HPI Per Admitting Provider The patient is a 68-year-old female with a past medical history including adenocarcinoma of lung treated at [place], atrial flutter, Port-A-Cath in place left chest wall, hyponatremia, hypertension, anxiety and depression, mild ascending aorta dilatation, 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 nontoxic goiter, cardiomegaly and pleural effusion. She was most recently mated to [facility] from 08/24- 08/25/2023, at which time she left earlier than desired by medical staff, due to wanting to be home. Since she was in the hospital for that admission, she did go to [facility], and received chemotherapy treatment. Since that time she has become progressively weaker evidence and symptoms as noted above. Workup in the emergency department included chest x-ray which showed worsening left lung metastatic lung cancer and probable secondary pneumonia, with right lower lobe involvement. Significant laboratories: Sodium 122, chloride 85, bicarb 31, glucose 101, WBC 2.13 with ANC 0.89, hemoglobin 9.3, hematocrit 27.7. First EKG showed normal sinus rhythm, but while in the emergency department went into atrial flutter with 2-1 block, at a rate of 152. Her notes that she is a right buttock wound, for which she had been seeing wound care, and feels better lying on her left side Principal Diagnosis acute on chronic respiratory failure Discharge Exam pt looks chronically ill cardiac is RRR lungs are decreased at the bases and coarse rales bilaterally extremities are with trace edema Discharge Data Allergies Allergy/AdvReac Type Severity Reaction Status Date / Time azithromycin Allergy Severe Difficulty Verified 09/06/23 23:11 Breathing Penicillins Allergy Intermediate HIVES A Verified 09/06/23 23:11 CHILD Consultations 08/30/23 02:51 ED Decision to Admit Stat 08/31/23 11:21 Consult Cardiology Routine 09/01/23 07:06 Consult Anesthesiology Routine 09/01/23 17:17 Consult Nephrology Routine Procedures Performed Operation Date: 09/01/23 07:45 Actual Procedures p Cardioversion - Ramana Nam MD Ordered Studies 09/02/23 16:09 CT Abd and Pelvis [CT abd pelvis IV con only] Urgent CT chest with contrast [CT chest diagnostic w con] Urgent Hospital Course (1) Acute on chronic respiratory failure with hypoxia: pt with metastatic adenocardinoma of lung undergoing chemotherapy at [facility] last chemotherapy 08/22/23 pt with ANC 890 on presentation did have neupogen, now rebound leukocytosis sees local pulmonary with vibration vest and formoterol/vilanterolol/budensondie on xopenex on vancomycin and Cefepime for concern of healthcare acquired pneumonia, covering MRSA and Gram negatives Patient is requiring 7 liters at rest which is more than what she normally takes at home. Her lesions in her lungs appear to progress which is likely explaining her worsening respiratory function. Patient was cardioverted and her heart rate has improved, patient symptomatically is feeling better but is now on 7 liters. 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 This also carries a poor prognosis. Patient has stated she is not ready for hospice. Concern that despite chemotherapy, her cancer is progressing and now she requires 7 liters nasal cannula while also having hyponatremia. appreciate input from nephrology. Order ct chest and abd/pelvis with IV contrast as per family. family and patient asking for discharge Poor prognosis instructions below (2) Atrial flutter with rapid ventricular response: Last admission did convert with amiodarone GTT, lower blood pressures limit choices of medicines, will return to amiodarone gtt again Started heparin drip low-dose without bolus per protocol Most recent echo on 08/24/2023 showed ejection fraction 65-70%, with mild aortic regurgitation, and no significant change compared to 01/10/2023 augmenting magnesium as low on initial check Cardiology supports amiodarone and add metoprolol S/P conversion. Concerntrated metoprolol and switchec drip to oral amiodarone. transitioned heparin to eliquis. (3) Hyponatremia: Pt with significant hyponatremia,CXR looks progressed, will try lasix, add xopenex, use transderm scop to help secretions fluid restrict intermittent bolus' of hypertonic saline, with frequent chemistry checks consult nephro. appreciate input (4) Hypotension: Multifactoral cannot rule out her a flutter with rapid rate, and possible sepsis control aflutter rate volume resuscitation treat infection (5) Aphthous ulcer of tongue: local wound care consider thrush, nystatin No pressure ulcer noted. Total Time Total Time Spent Total Time Spent (In Minutes): 32 Discharge Plan Discharge Items Patient Disposition: Home - Home Health Services Reason For Visit: NEUTROPENIC INFECTION, SEPSIS, PNEUMONIA ON LUNG C Discharge Diagnosis: Adenocarcinoma of the lung Activity: Resume your previous activity Non-emergency contact: Primary Care Provider Call non-emergency contact if: you have any medication questions Follow-up/Referrals: Cliff Carmen MD [Primary Care Provider] - 09/13/23 11:00 am Diet: Regular Fluids: 1500ml (6 cups) Addtl Attending Provider Instructions: recommend followup with [facility] And palliative care with Dr. Kimberley Bob Nurse Practitioner lease continue antibiotics for 3 more days of cefuroxime and 5 days of doxycycline. Start first dose tonight. In regards to your sodium: Continue salt tablets, restrict fluid 1500 ml to 50 ounces a day. Continue lasix 20 mg daily. Also take supplemental potassium as the lasix will make you lose potassium, Recommend rechecking BMP in 1 week Also recommend followup with PCP in 1-2 weeks. Pending Studies at Discharge: No Stand-Alone Forms: My [employer], Smoking Cessation Medications and DC Order Prescriptions: New amiodarone 200 mg Tablet 200 mg PO BIDM Qty: 60 0RF Eliquis 5 mg Tablet 5 mg PO BID Qty: 60 0RF metoprolol succinate 100 mg tablet extended release 24 hr 100 mg PO PM Qty: 30 0RF scopolamine base [Transderm-Scop] 1 mg over 3 days Patch 3 Day 1 mg transdermal Q72H Qty: 10 0RF doxycycline hyclate 100 mg tablet 100 mg PO BID Qty: 10 0RF Rx Instructions: STARTED 09/03/23 FOR 5 DAYS. furosemide [Lasix] 20 mg tablet 20 mg PO DAILY Qty: 30 0RF sodium chloride 1,000 mg Tablet,Soluble 1,000 mg PO BID Qty: 60 0RF potassium chloride 10 mEq tablet extended release 10 meq PO Q2D Qty: 14 0RF Continued formoterol fumarate [Perforomist] 20 mcg/2 mL solution for nebulization 2 ml inhalation BID Qty: 120 2RF sodium chloride 3 % solution for nebulization 4 ml inhalation Q8H PRN (Reason: secretions) Qty: 240 0RF ondansetron HCl 8 mg tablet 8 mg PO Q8H Qty: 20 0RF oxycodone 5 mg tablet 5 - 10 mg PO Q6H PRN (Reason: moderate to severe pain) Qty: 30 0RF Hold Instructions: per Rx Instructions: 1 tablet for moderate pain 2 tablets for severe pain Magic Mouthwash 300 mL mouthwash 5 ml mucous membrane Q6H PRN (Reason: mouth pain) Qty: 300 0RF Rx Instructions: Nystatin 100,000 units; Benadryl 12.5 mg/5 mL oral elixir; Maalox 200 mg-200 mg-20 mg/5 mL oral suspension; Lidocaine Viscous 2 % mucosal solution;[Generic substitution ok] 1: 1:1:1 compound Per 300 mL (DME) Oxygen Home E0424 Liters Per Minute See Rx Instructions .Route Qty: 1 0RF Rx Instructions: Home O2 concentrator that goes to 10 lpm-LON99- Patient currently on 6lpm continuous-Adapt omega-3 acid ethyl esters 1 gram capsule 1 cap PO QAM polyethylene glycol 3350 [Miralax] 17 gram/dose powder 17 g PO BID PRN (Reason: constipation) sennosides-docusate sodium [Colace 2-In-1] 8.6-50 mg tablet 1 tab-cap PO DAILY PRN (Reason: Constipation) (DME) Oxygen Home E0424 Liters Per Minute See Rx Instructions .MEDSUPPLY Qty: 1 0RF Rx Instructions: Please evaluate patient for oxygen conserving device/pulse oxygen delivery system: [employer] health (DME) Vibration Vest Misc See Rx Instructions .Route Qty: 1 0RF Rx Instructions: Perform chest physiotherapy with vest twice daily cyanocobalamin (vitamin B-12) 1,000 mcg Tablet, Sublingual 1,000 mcg SUBLINGUAL QAM cholecalciferol (vitamin D3) [Vitamin D3] 25 mcg (1,000 unit) Tablet 25 mcg PO QAM Neilmed Sinus Rinse Complete Packet With Rinse Device See Rx Instructions .Route .COMPLEX PRN (Reason: congestion) Rx Instructions: use daily; folic acid 1 mg Tablet 1 mg PO QAM Qty: 30 0RF albuterol sulfate 90 mcg/actuation HFA aerosol inhaler 2 inh inhalation Q6H PRN (Reason: shortness of breath or wheezing) Qty: 6.7 0RF ipratropium-albuterol 0.5 mg-3 mg(2.5 mg base)/3 mL solution for nebulization 3 ml inhalation Q6 PRN (Reason: as directed) Hold Instructions: States not to use until see Cardiology ipratropium bromide 42 mcg (0.06 %) spray,non-aerosol 2 spray intranasal TID Qty: 15 4RF Rx Instructions: administer into each nostril prochlorperazine maleate 10 mg tablet 10 mg PO Q6H PRN (Reason: Nausea And Vomiting) Discontinued budesonide 0.5 mg/2 mL suspension for nebulization 0.5 mg inhalation BID Qty: 60 2RF oxycodone [OxyContin] 10 mg tablet,oral only,ext.rel.12 hr 10 mg PO BID Qty: 60 0RF dexamethasone 6 mg tablet 6 mg PO DIRECTED amiodarone 200 mg Tablet 200 mg PO QAM Qty: 30 5RF No Action nystatin 100,000 unit/mL suspension 5 ml PO QID PRN (Reason: mouth pain) Qty: 250 0RF Discharge Orders: Discharge Order (Routine); Ordered 09/03/23 Ordered By: Travis Chadwick/Other Patient Handouts: Neutropenia Admission Data Admit Date/Time: 08/30/23 03:21 Attending Provider: Travis Malik Admit Provider: Yoshi Ricketts Primary Care Provider: Cliff Carmen Other Providers: Ramana Nam; Cliff Howard; Michael Meier; Corona Werner; Kevin Varela Jr; Jordan Serna; Joan Barber; Fuad Landry; Fuad Rodarte; Tyler Harris; Britta Junior; Diogo De La Cruz; Bean Swartz; Homero Peng; Porter Yang; Boston Mabry Kevin C.; Nancie Pena; [facility],Home Healthcare Other Interventions: Discharge Summary Assessment (RN) Last Done: 09/03/23 15:14 Coding Level of Care Code 12735 INP/OBS DISCH >30 MIN Diagnoses Acute on chronic respiratory failure with hypoxia J96.21 Atrial flutter with rapid ventricular response I48.92 Hyponatremia E87.1 Hypotension I95.9 Aphthous ulcer of tongue K12.0
--- NOTE | 2023-09-07 13:06 | Coding Query ---
To promote full compliance with coding requirements relating to patient care, provider participation is requested in all cases of drama critic uncertainty. Please assist us with the question(s) below: Coding Question(s): The diagnosis(es) below was documented in the (H&P, progress notes) then subsequently fell off all further documentation. Please indicate if it is still a possible diagnosis or ruled out. Physician's Response(s): SEPSIS ( ) Diagnosed and POA ( ) Diagnosed and not POA ( x ) Ruled out ( ) Other (please specify) MTDD
--- NOTE | 2023-09-09 16:53 | Cardioversion ---
Date of Service September 01, 2023 PG Electrical Cardioversion Rp Electrical Cardioversion Report Indication: Atrial flutter Written consent was obtained after the risks and benefits were explained, including but not limited to pain, thermal burn, allergic reaction, aspiration, airway obstruction, laryngospasm, infection, hypotension, and cardiorespiratory arrest. Sedation was supervised by Anesthesiology. The biphasic defibrillator was set to 50 joules of energy and synched. After confirmation of sedation and "all clear" safety check the synchronized shock was delivered. This resulted in successful conversion of the dysrhythmia back into sinus rhythm. See nursing notes for dosages and times. There were no complications and the patient recovered uneventfully from the procedure. Coding Level of Care Code 28514 CARDIOVERSION, ELECTIVE Additional Codes Electrical Cardioversion Report ([id number])
== END 2023-09-03 16:33 | disposition home health service (06) | DRG 189 ==
LOC: ED 23:41 → SUATTDRO 08-30 03:21 → EDINP 08-30 03:21 → 2S 08-30 04:49

== ENCOUNTER 2023-09-06 22:12 | Inpatient (IN) ==
--- NOTE | 2023-09-06 22:27 | Emergency Department Note ---
Impression & Plan Acute on chronic respiratory failure with hypoxia, Adenocarcinoma, lung, Atrial flutter with rapid ventricular response ED Provider Note NAME: ANA PATTERSON AGE: 68 SEX: F : 1955 ARRIVES VIA: Ambulance INFORMANT: Patient, ED PROVIDER(S): Juni Graves MD CHIEF COMPLAINT: Elevated heart rate MEDICAL DECISION MAKING: Patient presents due to concern for increased heart rate in the known setting of a flutter and does have significant comorbidities including lung adenocarcinoma. IV was established and blood work was obtained. Patient was ordered Xopenex and ipratropium. I did speak with on-call impregnator helper Dr. Howard who did recommended amnio bolus and drip. Patient does have increasing oxygen requirements although does not complain of significant symptoms and the patient does require oxygen at all times. Patient's initial blood work did show a white count of 20. This is downtrending and after asking the and the states that she did receive some medication to help boost her white blood cell count as it was low during her prior admission. Patient is anemic with a hemoglobin 9.2 platelet count is unremarkable. Kidney function unremarkable. Lactate and procalcitonin ordered. Lactate and Pro-Benitez not elevated. Bio fire negative. Chest x-ray does show bilateral airspace opacities. I did speak with the on-call hospitalist Dr. Lind after performing a bedside ultrasound which showed the IVC appeared very flat no obvious pericardial effusion the patient's overall EF appeared normal. Patient was ordered small fluid bolus and did have empiric antibiotics ordered. Patient was reassessed and the patient did have improvement in her hypotension. Patient did not receive a 30 cc/kg bolus given the patient's significant comorbidities and history. The patient was fluid responsive with small amounts of fluids. Critical Care: I have personally spent 55 minutes of critical care time in direct management of this patient. This includes bedside care, interpretation of diagnostic studies, and testing, discussion with consultants, patient, and family members, and other require inpatient management activities. This 55 minutes is in excess of all separately billable procedures. Procedures: Limited Point of Care Cardiac Ultrasound performed by me: Indication: Tachycardia Findings: Limited echocardiography revealed no pericardial fluid. Wall motion appeared grossly normal. HR 120s. Additional findings: IVC flat Impression: No pericardial effusion Discussion w/ other healthcare providers: Dr. Howard cardiology Dr. Lind inpatient medicine service Prior /Outside records reviewed: I did review discharge summary from Dr. Malik patient does have a known history of lung adenocarcinoma treated at [facility] atrial flutter hyponatremia hypertension mild ascending aorta dilatation cardiomegaly and pleural effusion. 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 Patient reportedly not ready for hospice at that time. Patient did have atrial flutter was on amiodarone drip was started on heparin. Patient's EF was noted to be 65 to 70% with mild aortic regurgitation. Differential diagnosis: Reactive airway disease, pneumonia, pneumothorax, COPD, CHF, ACS, pulmonary embolism, musculoskeletal, GERD as well as other pathologies were considered. Diagnostics, as interpreted by me: ECG: Atrial flutter with 2 1 conduction rate of 127, normal QRS, normal axis no ST elevations. Cardiac monitoring: An order was placed for continuous cardiac monitoring. The monitor shows a rate of 125 with tachycardic and regular rhythm. Patient was placed on pulse oximetry Medical decision rules: None Imaging studies: I informally interpreted the patient's chest x-ray shows bilateral airspace opacities with formal report to follow. HPI: Patient presents due to concern for elevated heart rate. The patient did have a recent admission and was noted to be in atrial flutter at which point the patient did require new medications as well as a cardioversion per the . Patient currently denies any significant changes in her shortness of breath. The patient does suffer from lung adenocarcinoma and is chronically on oxygen. Patient reportedly had decreased oxygenation noted at home and thus called the ambulance and presented here for further evaluation and treatment. Patient has noticed some increasing lower extremity edema. Patient denies any chest pains. No vomiting or diarrhea. Patient has followed locally as well as at [facility] for treatment. PAST MEDICAL HISTORY: See Below PAST SURGICAL HISTORY: See Below SOCIAL HISTORY: See Below HOME MEDICATIONS: See Below ALLERGIES: See Below VITALS: See Below PHYSICAL EXAMINATION: GENERAL: Ill in appearance, nasal cannula in place. EYE EXAM: Normal conjunctiva. PERRL, no anisocoria and EOM's grossly intact w/o pain. OROPHARYNX: Moist mucus membranes, grossly normal dentition. NECK: Trachea midline, no stridor. Supple, no nuchal rigidity, no adenopathy, non-tender. No signs of meningismus. FROM of the neck with good chin to chest and neck extension. LUNGS: Coarse sounds throughout. Normal chest wall mechanics. HEART: Tachycardic and regular, no MRG. ABDOMEN: Abdomen soft, non-tender, no masses, no rebound or guarding. BACK: No CVA TTP. SKIN: No rashes and no bruising. UPPER EXTREMITIES: Upper extremities are grossly normal. LOWER EXTREMITIES: Grossly normal, lower extremity edema noted without any calf pain or erythema NEURO EXAM: A&O x3, cranial nerves II-XII grossly intact, normal speech, moves all 4 extremities. Past Med/Surg History Medical History Atrial flutter with rapid ventricular response Hypertension Adenocarcinoma of lung Tubular adenoma Osteoarthritis History of basal cell carcinoma scalp/tip of nose Tinnitus of both ears Anxiety and depression Goiter, nontoxic, 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 cellular phone repairer Hyperlipidemia Vitamin D deficiency Surgical History Port-A-Cath in place (04/28/23) Left Subclavian Mediport Insertion(Left) - Donal Maldonado DO H/O colonoscopy History of surgical removal of ganglion cyst left wrist History of wisdom tooth extraction Hx of section History of carpal tunnel release right wrist History of tonsillectomy and adenoidectomy History of mandibular surgery d/t underbite Hx of tooth extraction Hx of needle biopsy thyroid--benign History of Mohs surgery for squamous cell carcinoma in situ of skin x2 Family History Father Colon cancer Prostate cancer Myocardial infarction Heart disease Mother Hypertension Cancer Uncle Diabetes Aunt Breast cancer Other No family history of adverse response to anesthesia Denies family history of Ovarian cancer Social History Smoking Status: Never smoker Second Hand Exposure: No; Do You Dip or Chew Tobacco: No; Hx Alcohol Use: No Hx Substance Use: No Preferred Language: Divehi Communication Ability: Effective Visual Impairment: No Limitations Hearing Ability: Normal Pl Sql Programmer Required: No Beliefs That Will Affect Care: None marital status: Current Living Situation: Spouse current occupational status: retired How many Children do You have: 2 Feels Safe at Home: Yes Childhood Exposure to Second-Hand Smoke: Yes during the past year weight has: decreased > 10 lbs Dental Care, Regularly: Yes Physical Activity Frequency: Does not Exercise Seatbelt Use: always Sunscreen Use: Yes Assistive Devices: Walker and Other Allergies Allergies Allergy/AdvReac Type Severity Reaction Status Date / Time azithromycin Allergy Severe Difficulty Verified 09/06/23 23:11 Breathing Penicillins Allergy Intermediate HIVES A Verified 09/06/23 23:11 CHILD Home Meds Home Medications Medication Instructions Recorded Confirmed omega-3 acid ethyl esters 1 gram 1 cap PO QAM 02/04/20 09/06/23 capsule cholecalciferol (vitamin D3) 25 25 mcg PO QAM 11/20/20 09/06/23 mcg (1,000 unit) tablet (Vitamin D3) cyanocobalamin (vitamin B-12) 1,000 mcg sublingual QAM 11/20/20 09/06/23 1,000 mcg sublingual tablet sodium chloride, sodium See Rx Instructions .Route 04/27/23 09/06/23 bicarb-nasal rinse squeeze bottle .COMPLEX PRN congestion with packet (Neilmed Sinus Rinse Complete with packet) ipratropium 0.5 mg-albuterol 3 mg 3 ml inhalation Q6 PRN as directed 06/28/23 09/06/23 (2.5 mg base)/3 mL nebulization soln prochlorperazine maleate 10 mg 10 mg PO Q6H PRN Nausea And 07/28/23 09/06/23 tablet Vomiting polyethylene glycol 3350 17 17 g PO BID PRN constipation 08/01/23 09/06/23 gram/dose oral powder (Miralax) sennosides 8.6 mg-docusate sodium 1 tab-cap PO DAILY PRN Constipation 08/01/23 09/06/23 50 mg tablet (Colace 2-In-1) Previous Rx's Medication Instructions Recorded albuterol sulfate 90 mcg/actuation 2 inh inhalation Q6H PRN shortness 04/29/23 aerosol inhaler of breath or wheezing #6.7 grams folic acid 1 mg tablet 1 mg PO QAM #30 tabs 04/29/23 Oxygen Home #1 ea 08/18/23 Vibration Vest #1 ea 08/18/23 formoterol fumarate 20 mcg/2 mL 2 ml inhalation BID #120 mL 08/19/23 solution for nebulization (Perforomist) sodium chloride 3 % for 4 ml inhalation Q8H PRN secretions 08/19/23 nebulization #240 mL ondansetron HCl 8 mg tablet 8 mg PO Q8H #20 tabs 08/26/23 oxycodone 5 mg tablet 5 - 10 mg (1 - 2 x 5 mg) PO Q6H 08/26/23 PRN moderate to severe pain #30 tabs ipratropium bromide 42 mcg (0.06 2 spray intranasal TID #15 mL 08/27/23 %) nasal spray Magic Mouthwash 300 mL mouthwash 5 ml mucous membrane Q6H PRN mouth 08/30/23 pain #300 mL Oxygen Home #1 ea 09/01/23 amiodarone 200 mg tablet 200 mg PO BIDM #60 tabs 09/03/23 apixaban 5 mg tablet (Eliquis) 5 mg PO BID #60 tabs 09/03/23 doxycycline hyclate 100 mg tablet 100 mg PO BID #10 tabs 09/03/23 furosemide 20 mg tablet (Lasix) 20 mg PO DAILY #30 tabs 09/03/23 metoprolol succinate 100 mg 100 mg PO PM #30 tabs 09/03/23 tablet,extended release 24 hr potassium chloride 10 mEq 10 meq PO Q2D #14 tabs 09/03/23 tablet,extended release scopolamine base 1 mg over 3 days 1 mg transdermal Q72H #10 ea 09/03/23 transdermal patch (Transderm-Scop) sodium chloride 1,000 mg soluble 1,000 mg PO BID #60 tabs 09/03/23 tablet nystatin 100,000 unit/mL oral 5 ml PO QID PRN mouth pain #250 mL 09/05/23 suspension Results & Data (ED) Vital Signs Vital Signs - 24 hr 09/06/23 22:23 Pulse Rate 124 H Home Medications Current Medication List: was personally reviewed by me Laboratory Data Attestation: I reviewed the patient's lab results. 09/08/23 03:07 09/08/23 14:29 Lab Results 09/06/23 09/06/23 Range/Units 22:43 23:50 WBC 20.43 H (4.8-10.8) K/ul RBC 3.03 L (4.20-5.40) M/uL Hgb 9.2 L (12.0-16.0) g/dl Hct 27.9 L (37.0-47.0) % MCV 92.1 (80.0-100.0) fL MCH 30.4 (25.0-34.0) pg MCHC 33.0 (32.0-36.0) g/dL RDW Std Deviation 52.7 H (36.4-46.3) fL RDW Coeff of Thomas 15.6 H (11.5-14.5) % Plt Count 317 (130-400) K/uL MPV 8.7 L (9.4-12.4) fL Immature Gran % (Auto) 2.7 % Neut % (Auto) 86.2 % Lymph % (Auto) 7.0 % Grant % (Auto) 3.8 % Eos % (Auto) 0.0 % Baso % (Auto) 0.3 % Neut # (Auto) 17.63 H (1.40-6.50) K/uL Lymph # (Auto) 1.42 (1.20-3.40) K/uL Grant # (Auto) 0.77 H (0.11-0.59) K/uL Eos # (Auto) 0.00 (0.00-0.50) K/uL Baso # (Auto) 0.06 (0.00-0.20) K/uL Immature Gran # (Auto) 0.55 H (0.01-0.20) K/uL Sodium 123 L (136-145) mmol/L Potassium 4.2 (3.5-5.1) mmol/L Chloride 82 L (98-107) mmol/L Carbon Dioxide 37 H (21-32) mmol/L Anion Gap 4 (3-11) BUN 10 (6-23) mg/dl Creatinine 0.30 L (0.6-1.2) mg/dl Est Cr Clr Drug Dosing 176.9 ml/min Est GFR ( Amer) 138.3 ml/min Est GFR (Non-Af Amer) 119.3 ml/min BUN/Creatinine Ratio 33.3 H (10-20) Glucose 116 H (70-99(Fasting)) mg/dl Lactate 1.0 (0.4-2.0) mmol/L Calcium 8.6 (8.6-10.3) mg/dl Magnesium 1.3 L (1.7-2.4) mg/dl Total Bilirubin 0.3 (0.2-1.0) mg/dl AST 17 (13-39) U/L ALT 29 (7-52) U/L Alkaline Phosphatase 63 (34-104) U/L Troponin I High Sens 14.9 H (0-14) pg/ml B-Natriuretic Peptide 368 H (0-100) pg/ml Total Protein 5.8 L (6.0-8.3) gm/dl Albumin 3.1 L (3.4-5.0) gm/dl Globulin 2.7 (2.5-4.0) gm/dl Albumin/Globulin Ratio 1.1 (0.9-2) Procalcitonin 0.05 (0-0.5) ng/ml TSH 0.866 (0.300-4.500) uIu/ml Adenovirus (PCR) Not Detected (NotDetected) B. pertussis DNA (PCR) Not Detected (NotDetected) B.parapertussis DNA PCR Not Detected (NotDetected) C. pneumoniae DNA (PCR) Not Detected (NotDetected) Coronavirus OC43 (PCR) Not Detected (NotDetected) Coronavirus HKU1 (PCR) Not Detected (NotDetected) Coronavirus 229E (PCR) Not Detected (NotDetected) SARS-CoV-2 (PCR) Not Detected (NotDetected) Coronavirus NL63 (PCR) Not Detected (NotDetected) Human Metapneumovir PCR Not Detected (NotDetected) Influenza Type A (PCR) Not Detected (NotDetected) Influenza Type B (PCR) Not Detected (NotDetected) M. pneumoniae (PCR) Not Detected (NotDetected) Parainfluenza 1 (PCR) Not Detected (NotDetected) Parainfluenza 2 (PCR) Not Detected (NotDetected) Parainfluenza 3 (PCR) Not Detected (NotDetected) Parainfluenza 4 (PCR) Not Detected (NotDetected) RSV (PCR) Not Detected (NotDetected) Entero/Rhino (PCR) Not Detected (NotDetected) Administered Medications Formoterol Fumarate (Formoterol 20 Mcg/2 Ml Vial) 20 mcg INH BIDR CAROLYN Stop: 10/07/23 06:59 Last Admin: 09/08/23 07:20 Dose: 20 mcg Documented By: Admin: 09/07/23 20:36 Dose: 20 mcg Documented By: Admin: 09/07/23 07:07 Dose: 20 mcg Documented By: QUINN Furosemide (Furosemide 40 Mg/4 Ml Vial) 40 mg IV DAILY CAROLYN Stop: 10/08/23 08:59 Last Admin: 09/08/23 08:06 Dose: 40 mg Documented By: ANTOINETTE Glycopyrrolate (Glycopyrrolate 0.2 Mg/Ml Vial) 0.2 mg IV Q8 PRN PRN Reason: secretions Stop: 10/07/23 16:44 Last Admin: 09/08/23 05:17 Dose: 0.2 mg Documented By: Admin: 09/07/23 17:21 Dose: 0.2 mg Documented By: JULIA Amiodarone HCl/Dextrose (Nexterone / D5w) 360 mg in 200 mls @ 33.333 mls/hr IV .Q6H CAROLYN Stop: 10/07/23 04:59 Last Admin: 09/08/23 13:04 Dose: 1 mg/min, 33.3 mls/hr Documented By: ANTOINETTE Co-signed By: MASHA Infusion: 09/08/23 12:42 Dose: Infused Documented By: ANTOINETTE Co-signed By: MASHA Infusion: 09/08/23 07:19 Dose: 1 mg/min, 33.3 mls/hr Documented By: ALICIA Co-signed By: ANTOINETTE Admin: 09/08/23 06:41 Dose: 1 mg/min, 33.3 mls/hr Documented By: ALICIA Co-signed By: LLP Infusion: 09/08/23 06:36 Dose: Infused Documented By: ALICIA Co-signed By: LLP Admin: 09/08/23 00:35 Dose: 1 mg/min, 33.3 mls/hr Documented By: ALICIA Co-signed By: LLP Infusion: 09/08/23 00:08 Dose: Infused Documented By: ALICIA Co-signed By: LLP Infusion: 09/07/23 20:00 Dose: 1 mg/min, 33.3 mls/hr Documented By: ALICIA Co-signed By: VK Admin: 09/07/23 16:14 Dose: 0.5 mg/min, 16.7 mls/hr Documented By: JULIA Co-signed By: SARAHI Infusion: 09/07/23 16:14 Dose: Infused Documented By: JULIA Co-signed By: SARAHI Admin: 09/07/23 04:23 Dose: 0.5 mg/min, 16.7 mls/hr Documented By: RUCHI Co-signed By: MANOLO Heparin Sodium/Dextrose (Heparin Sodium/Dextrose) 25,000 units in 500 mls @ 15 mls/hr IV .Q24H CAROLYN; Protocol Stop: 10/07/23 19:14 Last Titration: 09/08/23 07:19 Dose: 750 units/hr, 15 mls/hr Documented By: ALICIA Co-signed By: ANTOINETTE Titration: 09/08/23 05:08 Dose: 750 units/hr, 15 mls/hr Documented By: ALICIA Co-signed By: CHERYL Admin: 09/07/23 21:44 Dose: 750 units/hr, 15 mls/hr Documented By: ALICIA Co-signed By: VAN Cefepime HCl 2,000 mg/ Syringe 20 mls @ 5 mls/min IV Q8H CAROLYN; Protocol Stop: 09/14/23 23:29 Last Admin: 09/08/23 17:07 Dose: 5 mls/min Documented By: Admin: 09/08/23 07:31 Dose: 5 mls/min Documented By: Admin: 09/08/23 00:58 Dose: 5 mls/min Documented By: ALICIA Metoprolol Tartrate (Metoprolol Tartrate 1 Mg/Ml Vial) 5 mg IV Q4 CAROLYN Stop: 10/08/23 07:59 Last Admin: 09/08/23 17:05 Dose: 5 mg Documented By: Admin: 09/08/23 13:09 Dose: Not Given Documented By: Admin: 09/08/23 08:05 Dose: 5 mg Documented By: ANTOINETTE Agudelo (Remove Transderm-Scop Patch) 1 each N/A Q72H CAROLYN Stop: 10/07/23 08:58 Last Admin: 09/07/23 07:44 Dose: 1 each Documented By: HEIDI Agudelo (Check Scopolamine Patch Placement) 1 each N/A QS CAROLYN Stop: 10/07/23 15:59 Last Admin: 02/15/24 17:05 Dose: 1 each Documented By: Admin: 09/08/23 07:31 Dose: 1 each Documented By: Admin: 09/07/23 23:17 Dose: 1 each Documented By: Admin: 09/07/23 15:48 Dose: 1 each Documented By: JULIA Scopolamine (Scopolamine 1 Mg Tdsy) 1 mg TD Q72H CAROLYN Stop: 10/07/23 08:59 Last Admin: 09/07/23 07:45 Dose: 1 mg Documented By: HEIDI Sodium Chloride (Sodium Chlor 7% 4 Ml Neb) 4 ml NEB BIDR CAROLYN Stop: 10/07/23 06:59 Last Admin: 09/08/23 07:20 Dose: 4 ml Documented By: Admin: 09/07/23 20:36 Dose: 4 ml Documented By: Admin: 09/07/23 07:07 Dose: 4 ml Documented By: QUINN Sodium Chloride (Sodium Chloride 1 Gm Tablet) 1 gm PO BID CAROLYN Stop: 10/07/23 10:29 Last Admin: 09/08/23 08:06 Dose: 1 gm Documented By: Admin: 09/07/23 22:15 Dose: 1 gm Documented By: Admin: 09/07/23 13:15 Dose: 1 gm Documented By: LEODAN Discontinued Medications Amiodarone HCl (Amiodarone Iv Bolus & Drip) 1 each IV NOW STA; Protocol Stop: 09/06/23 22:46 Last Admin: 09/07/23 03:04 Dose: Not Given Documented By: KHANGJ Apixaban (Apixaban 5 Mg Tablet) 5 mg PO BID CAROLYN Stop: 10/07/23 08:59 Last Admin: 09/07/23 07:45 Dose: 5 mg Documented By: HEIDI Doxycycline Hyclate (Doxycycline Hyclate 100 Mg Cap) 100 mg PO BID CAROLYN Stop: 09/08/23 23:59 Last Admin: 09/07/23 07:44 Dose: 100 mg Documented By: HEIDI Fentanyl Citrate (Fentanyl Citrate Pf 100 Mcg/2 Ml Vial) 100 mcg IV NOW STA Stop: 09/08/23 10:22 Last Admin: 09/08/23 10:38 Dose: 50 mcg Documented By: ANTOINETTE Fentanyl Citrate (Fentanyl Citrate Pf 100 Mcg/2 Ml Vial) Confirm Administered Dose 100 mcg .ROUTE .STK-MED ONE Stop: 09/08/23 10:25 Last Admin: 09/08/23 11:34 Dose: Not Given Documented By: ANTOINETTE Furosemide (Furosemide 20 Mg Tab) 20 mg PO DAILY CAROLYN Stop: 10/07/23 08:59 Last Admin: 09/07/23 07:45 Dose: 20 mg Documented By: HEIDI Furosemide (Furosemide Inj 20 Mg/2 Ml Vial) 20 mg IV ONE ONE Stop: 09/07/23 16:45 Last Admin: 09/07/23 17:18 Dose: 20 mg Documented By: JULIA Furosemide (Furosemide 40 Mg/4 Ml Vial) 40 mg IV ONE ONE Stop: 09/07/23 18:57 Last Admin: 09/07/23 19:25 Dose: 40 mg Documented By: JOSH Amiodarone HCl/Dextrose (Nexterone / D5w) 360 mg in 200 mls @ 33.333 mls/hr IV ONE ONE Stop: 09/07/23 04:55 Last Infusion: 09/08/23 06:50 Dose: Infused Documented By: ALICIA Co-signed By: ANTOINETTE Admin: 09/06/23 23:21 Dose: 1 mg/min, 33.3 mls/hr Documented By: BILLY Co-signed By: LOU Amiodarone HCl/Dextrose (Nexterone / D5w) 150 mg in 100 mls @ 600 mls/hr IV NOW STA Stop: 09/06/23 22:54 Last Infusion: 09/07/23 00:34 Dose: Infused Documented By: MED Co-signed By: HB Admin: 09/06/23 23:00 Dose: 600 mls/hr Documented By: LOU Co-signed By: AB Vancomycin HCl 1,750 mg/ (Sodium Chloride) 535 mls @ 200 mls/hr IV NOW ONE Stop: 09/07/23 02:39 Last Infusion: 09/07/23 04:28 Dose: Infused Documented By: Admin: 09/07/23 00:42 Dose: 200 mls/hr Documented By: MED Cefepime HCl (Maxipime) 2,000 mg in 20 mls @ 5 mls/min IV NOW STA; Protocol Stop: 09/07/23 00:02 Last Admin: 09/07/23 00:06 Dose: 5 mls/min Documented By: MED Sodium Chloride (Nss) 500 mls @ 999 mls/hr IV .Q31M ONE Stop: 09/07/23 00:29 Last Infusion: 09/07/23 00:33 Dose: Infused Documented By: lap winding machine operator: 09/07/23 00:05 Dose: 999 mls/hr Documented By: BILLY Magnesium Sulfate/Dextrose (Magnesium Sulfate / D5w) 1 gm in 100 mls @ 50 mls/hr IV Q2H CAROLYN Stop: 09/07/23 09:35 Last Infusion: 09/07/23 13:12 Dose: Infused Documented By: Admin: 09/07/23 10:36 Dose: 50 mls/hr Documented By: Infusion: 09/07/23 10:35 Dose: Infused Documented By: Admin: 09/07/23 08:35 Dose: 50 mls/hr Documented By: Admin: 09/07/23 08:35 Dose: Not Given Documented By: Infusion: 09/07/23 08:35 Dose: Infused Documented By: Admin: 09/07/23 04:22 Dose: 50 mls/hr Documented By: RUCHI Potassium Chloride (K Roddy / Wtr) 20 meq in 100 mls @ 50 mls/hr IV Q2H CAROLYN Stop: 09/08/23 13:59 Last Infusion: 09/08/23 15:09 Dose: Infused Documented By: Admin: 09/08/23 13:01 Dose: 50 mls/hr Documented By: Infusion: 09/08/23 13:01 Dose: Infused Documented By: Admin: 09/08/23 11:31 Dose: 50 mls/hr Documented By: Infusion: 09/08/23 10:20 Dose: Infused Documented By: Admin: 09/08/23 08:20 Dose: 50 mls/hr Documented By: ANTOINETTE Magnesium Sulfate/Dextrose (Magnesium Sulfate / D5w) 1 gm in 100 mls @ 50 mls/hr IV Q2H CAROLYN Stop: 09/08/23 11:59 Last Infusion: 09/08/23 12:28 Dose: Infused Documented By: Admin: 09/08/23 09:53 Dose: 50 mls/hr Documented By: Infusion: 09/08/23 09:53 Dose: Infused Documented By: Admin: 09/08/23 08:06 Dose: 50 mls/hr Documented By: ANTOINETTE Ipratropium Magness (Ipratropium Magness Neb Soln 0.02% 0.5mg/2.5ml Vial) 0.5 mg INH UD [facility] Stop: 10/06/23 22:44 Last Admin: 09/06/23 23:03 Dose: 0.5 mg Documented By: LOU Ipratropium Magness (Ipratropium Magness Nasal [place] 0.06% 15ml) 2 sprays NA TID CAROLYN Stop: 10/07/23 08:59 Last Admin: 09/07/23 17:26 Dose: Not Given Documented By: Admin: 09/07/23 07:44 Dose: 2 sprays Documented By: HEIDI Levalbuterol HCl (Levalbuterol 1.25 Mg/3 Ml Neb) 1.25 mg NEB UD [facility] Stop: 10/06/23 22:44 Last Admin: 09/06/23 23:04 Dose: 1.25 mg Documented By: LOU Lorazepam (Lorazepam 0.5 Mg Tab) 0.5 mg PO Q4H PRN PRN Reason: Anxiety Stop: 10/07/23 14:59 Last Admin: 09/07/23 15:07 Dose: 0.5 mg Documented By: SIDNEY Metoprolol Tartrate (Metoprolol Tartrate 1 Mg/Ml Vial) 5 mg IV Q6 CAROLYN Stop: 10/07/23 18:59 Last Admin: 09/08/23 05:19 Dose: 5 mg Documented By: Admin: 09/07/23 23:18 Dose: 5 mg Documented By: Admin: 09/07/23 19:25 Dose: 5 mg Documented By: JOSH Midazolam HCl (Midazolam Hcl 5 Mg/Ml 2ml Vial) 4 mg IV NOW STA Stop: 09/08/23 10:22 Last Admin: 09/08/23 10:38 Dose: 4 mg Documented By: ANTOINETTE Midazolam HCl (Midazolam Hcl 5 Mg/Ml 2ml Vial) Confirm Administered Dose 10 mg .ROUTE .STK-MED ONE Stop: 09/08/23 10:24 Last Admin: 09/08/23 11:34 Dose: Not Given Documented By: ANTOINETTE Miscellaneous (Xopenex/Atrovent 1.25mg/0.5mg Neb Combo) 1 each NEB Q6R STA; Protocol Stop: 09/06/23 22:39 Last Admin: 09/06/23 23:05 Dose: Not Given Documented By: LOU Miscellaneous (Stat Iv Infusion Titration Per Protocol) 1 each N/A NOW STA Stop: 09/06/23 22:46 Last Admin: 09/07/23 04:08 Dose: Not Given Documented By: RUCHI Morphine Sulfate (Morphine Sulfate 2 Mg/Ml Carp) 2 mg IV NOW STA Stop: 09/07/23 23:29 Last Admin: 09/07/23 23:39 Dose: 2 mg Documented By: ALICIA Morphine Sulfate (Morphine Sulfate 2 Mg/Ml Carp) 2 mg IV NOW STA Stop: 09/08/23 02:44 Last Admin: 09/08/23 03:02 Dose: 2 mg Documented By: ALICIA Morphine Sulfate (Morphine Sulfate 2 Mg/Ml Carp) 2 mg IV NOW STA Stop: 09/08/23 04:27 Last Admin: 09/08/23 05:28 Dose: Not Given Documented By: ALICIA Phenylephrine HCl (Phenylephrine Hcl 25 Mg/250 Ml Nss) Confirm Administered Dose 25 mg IV .STK-MED ONE Stop: 09/08/23 10:24 Last Admin: 09/08/23 11:34 Dose: Not Given Documented By: ANTOINETTE Imaging Data Radiologist's Impression: Chest X-Ray 09/06/23 22:38 XR chest 1V portable HISTORY: Dysrhythmia COMPARISON: Chest 08/31/2023. Chest CT 09/02/2023. FINDINGS: No pneumothorax. There is a left Port-A-Cath which terminate in the SVC. Slightly rotated study. Left greater than right extensive bilateral airspace opacities persist. No acute fractures. The heart is partially obscured by the overlying airspace opacities. IMPRESSION: Extensive bilateral airspace opacities most pronounced on the left. This is similar to the prior chest CT. ACT 112: Negative or not required by law. Electronically signed by: Boo Lechuga M.D. 09/07/2023 8:13 AM Discharge Plan Visit Data Chief Complaint: Tachycardia Stated Complaint: Aflutter, Tachycardia ED Provider: Juni Graves Discharge Problem: Acute on chronic respiratory failure with hypoxia, Adenocarcinoma, lung, Atrial flutter with rapid ventricular response Patient Disposition: Admitted As Inpatient Discharge Instructions Interventions: ED Discharge Assessment Last Done: 09/07/23 01:37 Discharge Problem: Adenocarcinoma, lung Qualifiers: Laterality: unspecified laterality Qualified Code(s): C34.90 - Malignant neoplasm of unspecified part of unspecified bronchus or lung
[2023-09-06] MEDS ORDERED: 0.2 MICRON FILTER SET 1 EACH IV STA (22:45)
[2023-09-06] MEDS: AMIODARONE / D5W 150 MG/100 ML BAG IV STA (23:00)
[2023-09-06] MEDS: IPRATROPIUM BROMIDE NEB SOLN 0.02% 0.5MG/2.5ML VIAL INH SCH (23:03)
[2023-09-06] MEDS: LEVALBUTEROL 1.25 MG/3 ML NEB NEB SCH (23:04)
[2023-09-06] MEDS: XOPENEX/ATROVENT 1.25mg/0.5MG NEB COMBO NEB STA (23:05)
[2023-09-06 23:11] LABS: Basophils # (auto) 0.06 K/uL (0.00-0.20); Basophils % (auto) 0.3 %; Hematocrit (blood only) 27.9 % (37.0-47.0); Hemoglobin 9.2 g/dl (12.0-16.0); Immature Granulocytes # (auto) 0.55 K/uL (0.01-0.20); Immature Granulocytes % (auto) 2.7 %; Lymphocytes # (auto) 1.42 K/uL (1.20-3.40); Mean Corpuscular Hemoglobin 30.4 pg (25.0-34.0); Mean Corpuscular Volume 92.1 fL (80.0-100.0); Mean Platelet Volume 8.7 fL (9.4-12.4); Monocytes # (auto) 0.77 K/uL (0.11-0.59); Monocytes % (auto) 3.8 %; Neutrophils # (auto) 17.63 K/uL (1.40-6.50); Neutrophils % (auto) 86.2 %; Platelet Count 317 K/uL (130-400); RDW Coefficient of Variation 15.6 % (11.5-14.5); RDW Standard Deviation 52.7 fL (36.4-46.3); Red Blood Count 3.03 M/uL (4.20-5.40); White Blood Count 20.43 K/ul (4.8-10.8)
[2023-09-06] MEDS: AMIODARONE / D5W 360 MG/200 ML BAG IV ONE (23:21)
[2023-09-06 23:25] LABS: Albumin Globulin Ratio 1.1 (0.9-2); Albumin Level 3.1 gm/dl (3.4-5.0); BUN Creatinine Ratio 33.3 (10-20); Bilirubin,Total 0.3 mg/dl (0.2-1.0); Calcium 8.6 mg/dl (8.6-10.3); Creatinine Clr Calc Pharmacy 176.9 ml/min; Est GFR (African American) 138.3 ml/min; Est GFR (Non-African American) 119.3 ml/min; Globulin 2.7 gm/dl (2.5-4.0); Magnesium 1.3 mg/dl (1.7-2.4); Potassium 4.2 mmol/L (3.5-5.1); Total Protein 5.8 gm/dl (6.0-8.3)
[2023-09-06 23:32] LABS: Troponin I High Sensitivity 14.9 pg/ml (0-14)
[2023-09-06 23:39] LABS: Thyroid Stimulating Hormone 0.866 uIu/ml (0.300-4.500)
[2023-09-06 23:48] LABS: Adenovirus PCR Not Detected (NotDetected); Bordetella parapertussis PCR Not Detected (NotDetected); Bordetella pertussis PCR Not Detected (NotDetected); Chlamydia pneumoniae PCR Not Detected (NotDetected); Coronavirus 229E PCR Not Detected (NotDetected); Coronavirus CoV-2 (COVID19)PCR Not Detected (NotDetected); Coronavirus HKU1 PCR Not Detected (NotDetected); Coronavirus NL63 PCR Not Detected (NotDetected); Coronavirus OC43PCR Not Detected (NotDetected); Human Metapneumovirus PCR Not Detected (NotDetected); Influenza A PCR Not Detected (NotDetected); Influenza B PCR Not Detected (NotDetected); Mycoplasma pneumoniae PCR Not Detected (NotDetected); Parainfluenza Virus 1 PCR Not Detected (NotDetected); Parainfluenza Virus 2 PCR Not Detected (NotDetected); Parainfluenza Virus 3 PCR Not Detected (NotDetected); Parainfluenza Virus 4 PCR Not Detected (NotDetected); Respiratory Syncytial VirusPCR Not Detected (NotDetected); Rhinovirus/Enterovirus PCR Not Detected (NotDetected)
[2023-09-06] MEDS ORDERED: VANCOMYCIN CONSULT ACTIVE PRN (23:59)
[2023-09-07] MEDS: SODIUM CHLORIDE 0.9% 500 ML IV ONE (00:05)
[2023-09-07] MEDS: CEFEPIME 2,000 MG/20 ML VIAL IV STA (00:06)
--- NOTE | 2023-09-07 00:22 | History & Physical Report ---
Date of Service September 07, 2023 Assessment & Plan (1) Atrial flutter with rapid ventricular response: Plan: Patient with atrial flutter, rate 115 bpm at present. Blood pressure is adequate. She is demonstrating possible mild failure as evidenced by trace edema and increased oxygen requirement -Continue Amiodarone drip -Continue Apixaban -Mg repletion x 4gm, repeat level in AM -Continue PO Metoprolol -If persistent atrial flutter consider Cardiology consultation for repeat cardioversion (2) Hyponatremia: Plan: Chronic. Likely secondary to underlying lung disease. Asymptomatic. Patient is on salt tablets at home -Hold salt tablets for now -Fluid restriction -Repeat chemistry (3) Acute and chronic respiratory failure ([id number]): Plan: Elevated heart rate, suspect some CHF in setting of atrial flutter -consider Lasix dose -Supplemental O2 -Continue inhalers - Duoneb, Albuterol, Formoterol (4) Adenocarcinoma of lung: Plan: Continue Zofran, Compazine, Oxycodone, Scopoloamine patch, hypertonic saline nebs and vibration vest for secretion management. History of Present Illness Chief Complaint: elevated heart rate Primary Care Provider: Cliff Carmen MD Noemy Martinez is a 68yo female with Stage IV adenocarcinoma of the lung on chemotherapy at [facility] - last administered 08/22/23 presenting with elevated heart rate. Patient admitted with similar complaint from 08/23/23 - 08/25/23 and was found to have atrial flutter. She was managed with Amiodarone IV and discharged on PO Amiodarone. She has been compliant with Eliquis anticoagulation as well. She presents to the ER tonight after noting to have an elevated heart rate at home. This was picked up on her watch - she did not have symptoms of palpitations, racing heart, chest pain or shortness of breath. She has required a bit more oxygen as well - typically on 3L but how is on 6L. No additional complaints. Patient recently had a cardioversion performed on 09/01/23 In the ER she is afebrile, tachycardic, atrial flutter, blood pressure is stable. Amio bolus and gtt initiated Allergies Allergy/AdvReac Type Severity Reaction Status Date / Time azithromycin Allergy Severe Difficulty Verified 09/06/23 23:11 Breathing Penicillins Allergy Intermediate HIVES A Verified 09/06/23 23:11 CHILD Home Medications Medication Instructions Recorded Confirmed Type omega-3 acid ethyl esters 1 gram 1 cap PO QAM 02/04/20 09/06/23 History capsule cholecalciferol (vitamin D3) 25 25 mcg PO QAM 11/20/20 09/06/23 History mcg (1,000 unit) tablet (Vitamin D3) cyanocobalamin (vitamin B-12) 1,000 mcg sublingual QAM 11/20/20 09/06/23 History 1,000 mcg sublingual tablet sodium chloride, sodium See Rx Instructions .Route 04/27/23 09/06/23 History bicarb-nasal rinse squeeze bottle .COMPLEX PRN congestion with packet (Neilmed Sinus Rinse Complete with packet) albuterol sulfate 90 mcg/actuation 2 inh inhalation Q6H PRN shortness 04/29/23 09/06/23 Rx aerosol inhaler of breath or wheezing #6.7 grams folic acid 1 mg tablet 1 mg PO QAM #30 tabs 04/29/23 09/06/23 Rx ipratropium 0.5 mg-albuterol 3 mg 3 ml inhalation Q6 PRN as directed 06/28/23 09/06/23 History (2.5 mg base)/3 mL nebulization soln prochlorperazine maleate 10 mg 10 mg PO Q6H PRN Nausea And 07/28/23 09/06/23 History tablet Vomiting polyethylene glycol 3350 17 17 g PO BID PRN constipation 08/01/23 09/06/23 History gram/dose oral powder (Miralax) sennosides 8.6 mg-docusate sodium 1 tab-cap PO DAILY PRN Constipation 08/01/23 09/06/23 History 50 mg tablet (Colace 2-In-1) Oxygen Home #1 ea 08/18/23 09/05/23 Rx Vibration Vest #1 ea 08/18/23 09/05/23 Rx formoterol fumarate 20 mcg/2 mL 2 ml inhalation BID #120 mL 08/19/23 09/06/23 Rx solution for nebulization (Perforomist) sodium chloride 3 % for 4 ml inhalation Q8H PRN secretions 08/19/23 09/06/23 Rx nebulization #240 mL ondansetron HCl 8 mg tablet 8 mg PO Q8H #20 tabs 02/02/24 02/13/24 Rx oxycodone 5 mg tablet 5 - 10 mg (1 - 2 x 5 mg) PO Q6H 08/26/23 09/06/23 Rx PRN moderate to severe pain #30 tabs ipratropium bromide 42 mcg (0.06 2 spray intranasal TID #15 mL 08/27/23 09/06/23 Rx %) nasal spray Magic Mouthwash 300 mL mouthwash 5 ml mucous membrane Q6H PRN mouth 08/30/23 09/06/23 Rx pain #300 mL Oxygen Home #1 ea 09/01/23 09/05/23 Rx amiodarone 200 mg tablet 200 mg PO BIDM #60 tabs 09/03/23 09/06/23 Rx apixaban 5 mg tablet (Eliquis) 5 mg PO BID #60 tabs 09/03/23 09/06/23 Rx doxycycline hyclate 100 mg tablet 100 mg PO BID #10 tabs 09/03/23 09/06/23 Rx furosemide 20 mg tablet (Lasix) 20 mg PO DAILY #30 tabs 09/03/23 09/06/23 Rx metoprolol succinate 100 mg 100 mg PO PM #30 tabs 09/03/23 09/06/23 Rx tablet,extended release 24 hr potassium chloride 10 mEq 10 meq PO Q2D #14 tabs 09/03/23 09/06/23 Rx tablet,extended release scopolamine base 1 mg over 3 days 1 mg transdermal Q72H #10 ea 09/03/23 09/06/23 Rx transdermal patch (Transderm-Scop) sodium chloride 1,000 mg soluble 1,000 mg PO BID #60 tabs 09/03/23 09/06/23 Rx tablet nystatin 100,000 unit/mL oral 5 ml PO QID PRN mouth pain #250 mL 09/05/23 09/06/23 Rx suspension Past Med/Surg History Medical History Hypertension Adenocarcinoma of lung Tubular adenoma Osteoarthritis History of basal cell carcinoma scalp/tip of nose Tinnitus of both ears Anxiety and depression Goiter, nontoxic, 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 Hyperlipidemia Vitamin D deficiency Surgical History Port-A-Cath in place (04/28/23) Left Subclavian Mediport Insertion(Left) - Donal Maldonado DO H/O colonoscopy History of surgical removal of ganglion cyst left wrist History of wisdom tooth extraction Hx of section History of carpal tunnel release right wrist History of tonsillectomy and adenoidectomy History of mandibular surgery d/t underbite Hx of tooth extraction Hx of needle biopsy thyroid--benign History of Mohs surgery for squamous cell carcinoma in situ of skin x2 Family History Father Colon cancer Prostate cancer Myocardial infarction Heart disease Mother Hypertension Cancer Uncle Diabetes Aunt Breast cancer Other No family history of adverse response to anesthesia Denies family history of Ovarian cancer Social History Smoking Status: Never smoker Second Hand Exposure: No; Do You Dip or Chew Tobacco: No; Hx Alcohol Use: No Hx Substance Use: No Preferred Language: Vietnamese Communication Ability: Effective Visual Impairment: No Limitations Hearing Ability: Normal [employer] Supervisor Required: No Beliefs That Will Affect Care: None marital status: Current Living Situation: Spouse current occupational status: retired How many Children do You have: 2 Feels Safe at Home: Yes Childhood Exposure to Second-Hand Smoke: Yes during the past year weight has: decreased > 10 lbs Dental Care, Regularly: Yes Physical Activity Frequency: Does not Exercise Seatbelt Use: always Sunscreen Use: Yes Assistive Devices: None Review of Systems Review of Systems: All systems reviewed & are unremarkable except as noted in HPI & below Physical Exam Physical Exam: General: patient resting comfortably, NAD, non-toxic in appearance, AA&O x 4. thin, appears chronically ill Skin: warm, dry, intact, no rashes or lesions HEENT: NC/AT, PERRL, EOMI, anicteric sclera, conjunctiva without injection, external ear normal to inspection and nontender, nares patent, moist mucus membranes, dentition intact, no oropharyngeal lesions, neck supple, trachea midline, no LAD, no thyromegaly, no JVD Heart: +S1/S2, regular, tachycardic, no m/r/g, port left chest wall Lungs: equal air entry bilaterally, crackles in bilateral bases, diminished breath sounds left lung Abd: +BS, soft, NT/ND, no masses/organomegaly/ascites Ext: warm, 2+ pulses in UE/LE bilaterally, no clubbing/cyanosis, trace edema Neuro: nonfocal, patient AA&O x 4, speech intact, no facial droop, moving all extremities on command with equal strength 5/5 Results & Data Results & Data Vital Signs (Past 12 Hours) Vital Signs Temp Pulse Pulse Resp BP BP Pulse Ox 09/07/23 00:00 121 H 26 H 99/79 L 09/06/23 22:26 09/06/23 22:26 36.6 C 127 H 26 H 95/73 L 86 L 09/06/23 22:23 124 H O2 Del Method O2 Flow Rate 09/07/23 00:00 High Flow Nasal Cannula 09/06/23 22:26 Nasal Cannula 8 09/06/23 22:26 Nasal Cannula 8 09/06/23 22:23 Laboratory Results Laboratory Results WBC 20.43 K/ul (4.8-10.8) H 09/06/23 22:43 RBC 3.03 M/uL (4.20-5.40) L 09/06/23 22:43 Hgb 9.2 g/dl (12.0-16.0) L 09/06/23 22:43 Hct 27.9 % (37.0-47.0) L 09/06/23 22:43 MCV 92.1 fL (80.0-100.0) 09/06/23 22:43 MCH 30.4 pg (25.0-34.0) 09/06/23 22:43 MCHC 33.0 g/dL (32.0-36.0) 09/06/23 22:43 RDW Std Deviation 52.7 fL (36.4-46.3) H 09/06/23 22:43 RDW Coeff of Thomas 15.6 % (11.5-14.5) H 09/06/23 22:43 Plt Count 317 K/uL (130-400) 09/06/23 22:43 MPV 8.7 fL (9.4-12.4) L 09/06/23 22:43 Immature Gran % (Auto) 2.7 % 09/06/23 22:43 Neut % (Auto) 86.2 % 09/06/23 22:43 Lymph % (Auto) 7.0 % 09/06/23 22:43 Kemper % (Auto) 3.8 % 09/06/23 22:43 Eos % (Auto) 0.0 % 09/06/23 22:43 Baso % (Auto) 0.3 % 09/06/23 22:43 Neut # (Auto) 17.63 K/uL (1.40-6.50) H 09/06/23 22:43 Lymph # (Auto) 1.42 K/uL (1.20-3.40) 09/06/23 22:43 Kemper # (Auto) 0.77 K/uL (0.11-0.59) H 09/06/23 22:43 Eos # (Auto) 0.00 K/uL (0.00-0.50) 09/06/23 22:43 Baso # (Auto) 0.06 K/uL (0.00-0.20) 09/06/23 22:43 Immature Gran # (Auto) 0.55 K/uL (0.01-0.20) H 09/06/23 22:43 Sodium 123 mmol/L (136-145) L 09/06/23 22:43 Potassium 4.2 mmol/L (3.5-5.1) 09/06/23 22:43 Chloride 82 mmol/L (98-107) L 09/06/23 22:43 Carbon Dioxide 37 mmol/L (21-32) H 09/06/23 22:43 Anion Gap 4 (3-11) 09/06/23 22:43 BUN 10 mg/dl (6-23) 09/06/23 22:43 Creatinine 0.30 mg/dl (0.6-1.2) L 09/06/23 22:43 Est Cr Clr Drug Dosing 176.9 ml/min 09/06/23 22:43 Est GFR ( Amer) 138.3 ml/min 09/06/23 22:43 Est GFR (Non-Af Amer) 119.3 ml/min 09/06/23 22:43 BUN/Creatinine Ratio 33.3 (10-20) H 09/06/23 22:43 Glucose 116 mg/dl (70-99(Fasting)) H 09/06/23 22:43 Lactate 1.0 mmol/L (0.4-2.0) 09/06/23 23:50 Calcium 8.6 mg/dl (8.6-10.3) 09/06/23 22:43 Magnesium 1.3 mg/dl (1.7-2.4) L 09/06/23 22:43 Total Bilirubin 0.3 mg/dl (0.2-1.0) 09/06/23 22:43 AST 17 U/L (13-39) 09/06/23 22:43 ALT 29 U/L (7-52) 09/06/23 22:43 Alkaline Phosphatase 63 U/L (34-104) 09/06/23 22:43 Troponin I High Sens 14.9 pg/ml (0-14) H 09/06/23 22:43 B-Natriuretic Peptide 368 pg/ml (0-100) H 09/06/23 22:43 Total Protein 5.8 gm/dl (6.0-8.3) L 09/06/23 22:43 Albumin 3.1 gm/dl (3.4-5.0) L 09/06/23 22:43 Globulin 2.7 gm/dl (2.5-4.0) 09/06/23 22:43 Albumin/Globulin Ratio 1.1 (0.9-2) 09/06/23 22:43 Procalcitonin 0.05 ng/ml (0-0.5) 09/06/23 22:43 TSH 0.866 uIu/ml (0.300-4.500) 09/06/23 22:43 Nasal Screen MRSA (PCR) Negative (Negative) 09/07/23 00:35 Adenovirus (PCR) Not Detected (NotDetected) 09/06/23 22:43 B. pertussis DNA (PCR) Not Detected (NotDetected) 09/06/23 22:43 B.parapertussis DNA PCR Not Detected (NotDetected) 09/06/23 22:43 C. pneumoniae DNA (PCR) Not Detected (NotDetected) 09/06/23 22:43 Coronavirus OC43 (PCR) Not Detected (NotDetected) 09/06/23 22:43 Coronavirus HKU1 (PCR) Not Detected (NotDetected) 09/06/23 22:43 Coronavirus 229E (PCR) Not Detected (NotDetected) 09/06/23 22:43 SARS-CoV-2 (PCR) Not Detected (NotDetected) 09/06/23 22:43 Coronavirus NL63 (PCR) Not Detected (NotDetected) 09/06/23 22:43 Human Metapneumovir PCR Not Detected (NotDetected) 09/06/23 22:43 Influenza Type A (PCR) Not Detected (NotDetected) 09/06/23 22:43 Influenza Type B (PCR) Not Detected (NotDetected) 09/06/23 22:43 M. pneumoniae (PCR) Not Detected (NotDetected) 09/06/23 22:43 Parainfluenza 1 (PCR) Not Detected (NotDetected) 09/06/23 22:43 Parainfluenza 2 (PCR) Not Detected (NotDetected) 09/06/23 22:43 Parainfluenza 3 (PCR) Not Detected (NotDetected) 09/06/23 22:43 Parainfluenza 4 (PCR) Not Detected (NotDetected) 09/06/23 22:43 RSV (PCR) Not Detected (NotDetected) 09/06/23 22:43 Entero/Rhino (PCR) Not Detected (NotDetected) 09/06/23 22:43 Code Status & VTE Plan VTE Prophylaxis Plan VTE Prophylaxis will be ordered: Yes PG Care Time/CCT Total # of Minutes Spent Total Time Spent with Patient: Total time spent is greater than 50% in coordination of care (as documented) at patient's floor/unit and/or counseling patient: Coding Level of Care Code 07498 INT INP/OBS CARE 2/55MIN Diagnoses Atrial flutter with rapid ventricular response I48.92 Hyponatremia E87.1 Acute and chronic respiratory failure ([id number]) J96.20 Adenocarcinoma of lung C34.92 Laterality: left (4) Adenocarcinoma of lung Laterality: left Qualified Code(s): C34.92 - Malignant neoplasm of unspecified part of left bronchus or lung
[2023-09-07] MEDS: VANCOMYCIN HCL 1,750 MG in SODIUM CHLORIDE 0.9% 500 ML IV ONE (00:42)
[2023-09-07] MEDS ORDERED: ACETAMINOPHEN 325 MG TAB PO PRN (01:36)
[2023-09-07] MEDS ORDERED: POLYETHYLENE (MIRALAX) 17 GM PACK PO PRN (01:36)
[2023-09-07] MEDS ORDERED: ALBUTEROL HFA 8 GM INHALER INH PRN (01:36)
[2023-09-07] MEDS ORDERED: DOCUSATE SODIUM/SENNA 50/8.6MG TAB PO PRN (01:36)
[2023-09-07] MEDS ORDERED: NYSTATIN SUSP 500,000 U/5 ML UDC PO PRN (01:36)
[2023-09-07] MEDS ORDERED: PROCHLORPERAZINE MALEATE 10 MG TAB PO PRN (01:36)
[2023-09-07] MEDS ORDERED: oxyCODONE HCL IR 5 MG TAB (IMMEDIATE RELEASE) PO PRN (01:36)
[2023-09-07] MEDS: AMIODARONE IV BOLUS & DRIP IV STA (03:04)
[2023-09-07] MEDS: STAT IV Infusion **Titration per Protocol STA (04:08)
[2023-09-07] MEDS: MAGNESIUM SULFATE / D5W 1 GM/100 ML BAG IV SCH (04:22)
[2023-09-07] MEDS: AMIODARONE / D5W 360 MG/200 ML BAG IV SCH (04:23)
[2023-09-07] MEDS ORDERED: FIRST - Mouthwash BLM 119 ML PO PRN (04:26)
[2023-09-07] MEDS: SODIUM CHLOR 7% 4 ML NEB NEB SCH (07:07)
[2023-09-07] MEDS: FORMOTEROL 20 MCG/2 ML VIAL INH SCH (07:07)
[2023-09-07] MEDS: IPRATROPIUM BROMIDE NASAL SPRAY 0.06% 15ML SCH (07:44)
[2023-09-07] MEDS: DOXYCYCLINE HYCLATE 100 MG CAP PO SCH (07:44)
[2023-09-07] MEDS: FUROSEMIDE 20 MG TAB PO SCH (07:45)
[2023-09-07] MEDS: APIXABAN 5 MG TABLET PO SCH (07:45)
[2023-09-07] MEDS: SCOPOLAMINE 1 MG TDSY TD SCH (07:45)
--- NOTE | 2023-09-07 08:14 | XRay Report ---
XR chest 1V portable HISTORY: Dysrhythmia COMPARISON: Chest 08/31/2023. Chest CT 09/02/2023. FINDINGS: No pneumothorax. There is a left Port-A-Cath which terminate in the SVC. Slightly rotated s tudy. Left greater than right extensive bilateral airspace opacities persist. No acute fractures. The heart is partially obscured by the overlying airspace opacities. IMPRESSION: Extensive bilateral airspace opacities most pronounced on the left. This is similar to the prior ches t CT. ACT 112: Negative or not required by law. Electronically signed by: Boo Lechuga M.D. 09/07/2023 8:13 AM
--- NOTE | 2023-09-07 10:57 | History & Physical Bridge Note ---
Date of Service September 07, 2023 History & Physical Bridge Note I have examined the patient, reviewed the History & Physical and in the interval since the performance of the History & Physical I have noted the following changes of clinical significance: Pt requiring 12L NC and attempts to wean down were unsuccessful thus far. She remains in atrial flutter with HRs in the 120s. She reports no change in her symptoms prompting admission, but only came in because her HR was noted to be fast and her POx levels were dropping slightly at home. She denies SOB or CP. No fevers. No increase in sputum production-coughing up same amount of clear sputum. I discussed her care with her at the bedside. Pt reports she still wants to be a full code and also reports no one has ever mentioned hospice to her but she does not want to hear about what i t has to offer at this point. requests I call her Oncologist at [facility] to see what her opinion is on the CT CHest sent there that was performed here on 09/02/23. Vitals reviewed thin, NAD, getting bathed, AAOx3 irreg irreg, tachycardic, no murmur Lungs with crackles throughout right lung steele and also lower left lung steele, no wheezing Abd +BS soft NT ND Ext trace edema right leg, 1+ edema left leg to mid tibia Skin no rashes, open wound right buttocks 68 yo female with metastatic lung adenocarcinoma on chemo, here with rapid atrial flutter, acute on chronic respiratory failure with hypoxia, and hyponatremia, hypomagnesemia. Atrial flutter fairly asymptomatic but does have worsening respiratory failure which could be from some pulm edema from acute HFpEF-placed on aiodarone gtt. Had cardioversion last week but has failed likely due to significant strain from extensive lung cancer and hypoxia. She did miss a dose of Eliqiuis last evening so unsure if cardioversion would be deemed safe-will discuss with Cardiology. Not a good candidate for SHEY at this point given pulm compromise. Consult Cardiology. Check serial trop. Mag replaced-check repeat level. Continue Toprol XL 100mg daily. Follow on tele Consider lasix, BNP is slightly elevated Resp failure--> 2/2 lung CA, possibly from pulm edema from rapid aflutter. Does not seem to be PNA as no fever, procal negative, no increased sputum production. WBC high from recent neupogen I believe. Was given Cefepime/Vanco x 1 dose and now on doxy po--> continue doxy po for now, check sputum cx, consult PULM, continue supplemental O2 and wean off as able. 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 Resume home NaCl tabs, fluid restrict. Check BMP now Mag-replaced with 3 grams, check level now Poor prognosis overall. Pt not interested in hearing about hospice but did broach the topic to have end of life discussion when she is ready to do so. Called her Oncologist's office and awaiting return call.
--- NOTE | 2023-09-07 11:39 | Pulmonary Consultation ---
Date of Consultation September 07, 2023 Assessment & Plan (1) Adenocarcinoma of lung: Laterality: left Qualified Code(s): C34.92 - Malignant neoplasm of unspecified part of left bronchus or lung (2) Acute and chronic respiratory failure ([id number]): (3) Cough: (4) Atrial flutter with rapid ventricular response: Plan IMPRESSION: 68-year-old female with a significant past medical history of stage IV adenocarcinoma of the lung, chronic hypoxic respiratory failure, and persistent effusions who presents to the hospital with acute on chronic hypoxic respiratory failure. RECOMMENDATIONS: 1. Stage IV adenocarcinoma of the lung - Unfortunately, the patient has persistent findings on recent chest CT despite secondary therapy being performed at [facility]. Patient and family were waiting [facility] evaluation and most recent imaging studies. Unfortunately, given the lack of improvement of tumor burden and her worsening symptoms, I am concerned that this represents in stages for the patient's condition. I did broach the subject regarding end-of-life decision with the patient and family. While the patient seems reasonable and implies that she understands where this is going, they are not comfortable with addressing CODE STATUS issues. They are waiting a Zoom call tomorrow with their primary oncologist at [facility] and feel as though this will help to make decisions moving forward. I would continue with offloading volume status as you are. Additionally, empiric antibiotic coverage in the setting of superimposed bacterial pneumonia is not an appropriate in this situation as well. I did explain to the patient and significant other at great length that we are providing empiric therapies for both volume overload as well as infection, however we are not treating the patient's underlying cancer diagnosis which is likely what is driving all of her symptoms at this point. Regardless, we will defer to their conversation tomorrow with their oncology team which will likely help the patient with closure and decision-making moving forward. 2. Acute on chronic respiratory failure with hypoxia - In the setting of metastatic adenocarcinoma with significant tumor burden of the lung with likely superimposed congestive changes in the setting of a flutter. Patient would benefit from rate control as well as ongoing diuresis as renal function tolerates. Do not disagree with antibiotic coverage at this time. Patient is somewhat dyspneic on exam. Will temporize with CPAP/BiPAP as tolerated to help with work of breathing. Did review intubation, and while the patient did not seem necessarily interested, she still remains a full code at this time. She can use BiPAP with sleep and as needed to help offload her work of breathing. Otherwise, she can continue with supplemental oxygen as needed. 3. Cough - In the setting of extensive tumor burden. She can continue with hypertonic saline, Perforomist, chest PT, and DuoNeb as needed. 4. A flutter with rapid ventricular response - Appreciate cardiology management moving forward. 5. Consideration for palliative consultation after patient has conversation with her primary oncologist at [facility]. Thank you for allowing us to participate in the care of this pleasant patient. We will continue to follow along. Supervising Physician Co-Signing Physician Notes I saw and evaluated the patient with Cristopher Patrick PA-C, and agree with findings and plan as documented in the note. 68-year-old female with past medical history of stage IV adenocarcinoma of the lung diagnosed 02/2023, rapidly progressing present to the hospital with complaints of worsening shortness of breath Follows up with Dr. Aleman as an outpatient. Notes reviewed. Patient has been was in the room at the time of examination. She was on BiPAP, breathing in the mid to high 20s. Did seem to be tired. She was saturating 99% with heart rate of 123. I went down on FiO2 to 50%. As per the patient's heart rate has been on the higher side since last day or so. Usually her heart rate is in the mid 80s with the medication that she takes. There is no fever or chills. No dysuria, or diarrhea. No hematuria, no hematochezia, no epistaxis. CT chest 09/02/2023 personally reviewed: There is infiltrative process in the whole left side of the lung, right middle and right lower lobe are also affected with tree-in-bud opacities and consolidative/groundglass process Minimal mediastinal lymphadenopathy CAT scan has not changed significantly compared to 08/24/2023 Constitutional: In respiratory distress HEENT: EOMI, PERRLA Respiratory system: Decreased air entry bilaterally, no wheeze, LAMA, positive crackles appreciated bilaterally anteriorly and posteriorly CVS: S1-S2 positive, no murmurs or gallops, tachycardia, accentuated P2 Abdomen: Soft, nontender, nondistended, positive bowel sounds x4 Extremities: +2 pulses bilaterally radialis/ dorsalis pedis, no cyanosis, +1 pitting edema bilateral lower extremity Neuro: Awake alert oriented to self and place, Psych: Flat mood and affect G/U: No Arellano Plan: Respiratory bio fire is negative for everything BNP elevated at 368, procalcitonin 0.05 Patient recently finished doxycycline as well as cefpodoxime as an outpatient Possibility of patient having infection in the lung is very low. Will recommend BiPAP nightly and as needed shortness of breath. Diuretics as needed I tried to answer all the questions of the patient as well as patient's and the best possible way. Overall prognosis of the patient is guarded. I would recommend palliative approach moving forward She will benefit from BiPAP even at home, we need to figure out how she can get it at home directly. Please note the above document was generated using voice recognition software. It may contain grammatical, syntax or spelling errors.Any formal questions or concerns about the content, text or information contained within the body of this dictation should be directly addressed to the provider for clarification. History of Present Illness Reason for Consultation: respiratory failure,lung CA Requesting Physician: Dr. Levy Attending Physician: Rosina Levy MD History of Present Illness Patient is a 68-year-old female with a significant past medical history of hypertension, goiter, hyperglycemia, hyperlipidemia, and recent diagnosis of adenocarcinoma of the lung who presents to the emergency department with worsening dyspnea. Patient had undergone bronchoscopic evaluation in January related to persistent infiltrative findings noted on chest CT. patient was subsequently diagnosed with adenocarcinoma of the lung. [facility] and had consultation with [facility]. Unfortunately, she has had progression of her disease process during subsequent visits and recently had an admission for COVID infection at the end of July was a bit of a setback for the patient. Unfortunately, now the patient is experiencing episodes of a flutter with associated failure. This has been recurrent despite aggressive cardiology management. She presented today with worsening dyspnea with an associated cough which has been ongoing. She continues to use her flutter valve and nebulizer treatments at home. She has not received her chest vest at this point. She had a follow-up CT on 09/02 which demonstrated persistent findings consistent with her diagnosis of malignancy. She is awaiting assessment of the images by her specialist at [facility]. Allergies Allergy/AdvReac Type Severity Reaction Status Date / Time azithromycin Allergy Severe Difficulty Verified 09/06/23 23:11 Breathing Penicillins Allergy Intermediate HIVES A Verified 09/06/23 23:11 CHILD Home Medications Medication Instructions Recorded Confirmed Type omega-3 acid ethyl esters 1 gram 1 cap PO QAM 02/04/20 09/06/23 History capsule cholecalciferol (vitamin D3) 25 25 mcg PO QAM 11/20/20 09/06/23 History mcg (1,000 unit) tablet (Vitamin D3) cyanocobalamin (vitamin B-12) 1,000 mcg sublingual QAM 11/20/20 09/06/23 History 1,000 mcg sublingual tablet sodium chloride, sodium See Rx Instructions .Route 04/27/23 09/06/23 History bicarb-nasal rinse squeeze bottle .COMPLEX PRN congestion with packet (Neilmed Sinus Rinse Complete with packet) albuterol sulfate 90 mcg/actuation 2 inh inhalation Q6H PRN shortness 04/29/23 09/06/23 Rx aerosol inhaler of breath or wheezing #6.7 grams folic acid 1 mg tablet 1 mg PO QAM #30 tabs 04/29/23 09/06/23 Rx ipratropium 0.5 mg-albuterol 3 mg 3 ml inhalation Q6 PRN as directed 06/28/23 09/06/23 History (2.5 mg base)/3 mL nebulization soln prochlorperazine maleate 10 mg 10 mg PO Q6H PRN Nausea And 07/28/23 09/06/23 History tablet Vomiting polyethylene glycol 3350 17 17 g PO BID PRN constipation 08/01/23 09/06/23 History gram/dose oral powder (Miralax) sennosides 8.6 mg-docusate sodium 1 tab-cap PO DAILY PRN Constipation 08/01/23 09/06/23 History 50 mg tablet (Colace 2-In-1) Oxygen Home #1 ea 08/18/23 09/05/23 Rx Vibration Vest #1 ea 08/18/23 09/05/23 Rx formoterol fumarate 20 mcg/2 mL 2 ml inhalation BID #120 mL 08/19/23 09/06/23 Rx solution for nebulization (Perforomist) sodium chloride 3 % for 4 ml inhalation Q8H PRN secretions 08/19/23 09/06/23 Rx nebulization #240 mL ondansetron HCl 8 mg tablet 8 mg PO Q8H #20 tabs 08/26/23 09/06/23 Rx oxycodone 5 mg tablet 5 - 10 mg (1 - 2 x 5 mg) PO Q6H 08/26/23 09/06/23 Rx PRN moderate to severe pain #30 tabs ipratropium bromide 42 mcg (0.06 2 spray intranasal TID #15 mL 08/27/23 09/06/23 Rx %) nasal spray Magic Mouthwash 300 mL mouthwash 5 ml mucous membrane Q6H PRN mouth 08/30/23 09/06/23 Rx pain #300 mL Oxygen Home #1 ea 09/01/23 09/05/23 Rx amiodarone 200 mg tablet 200 mg PO BIDM #60 tabs 09/03/23 09/06/23 Rx apixaban 5 mg tablet (Eliquis) 5 mg PO BID #60 tabs 09/03/23 09/06/23 Rx doxycycline hyclate 100 mg tablet 100 mg PO BID #10 tabs 09/03/23 09/06/23 Rx furosemide 20 mg tablet (Lasix) 20 mg PO DAILY #30 tabs 09/03/23 09/06/23 Rx metoprolol succinate 100 mg 100 mg PO PM #30 tabs 09/03/23 09/06/23 Rx tablet,extended release 24 hr potassium chloride 10 mEq 10 meq PO Q2D #14 tabs 09/03/23 09/06/23 Rx tablet,extended release scopolamine base 1 mg over 3 days 1 mg transdermal Q72H #10 ea 09/03/23 09/06/23 Rx transdermal patch (Transderm-Scop) sodium chloride 1,000 mg soluble 1,000 mg PO BID #60 tabs 09/03/23 09/06/23 Rx tablet nystatin 100,000 unit/mL oral 5 ml PO QID PRN mouth pain #250 mL 09/05/23 09/06/23 Rx suspension Patient History Medical History Hypertension Adenocarcinoma of lung Tubular adenoma Osteoarthritis History of basal cell carcinoma scalp/tip of nose Tinnitus of both ears Anxiety and depression Goiter, nontoxic, 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 Hyperlipidemia Vitamin D deficiency Surgical History Port-A-Cath in place (04/28/23) Left Subclavian Mediport Insertion(Left) - Donal Maldonado DO H/O colonoscopy History of surgical removal of ganglion cyst left wrist History of wisdom tooth extraction Hx of section History of carpal tunnel release right wrist History of tonsillectomy and adenoidectomy History of mandibular surgery d/t underbite Hx of tooth extraction Hx of needle biopsy thyroid--benign History of Mohs surgery for squamous cell carcinoma in situ of skin x2 Family History Father Colon cancer Prostate cancer Myocardial infarction Heart disease Mother Hypertension Cancer Uncle Diabetes Aunt Breast cancer Other No family history of adverse response to anesthesia Denies family history of Ovarian cancer Social History Smoking Status: Never smoker Second Hand Exposure: No; Do You Dip or Chew Tobacco: No; Hx Alcohol Use: No Hx Substance Use: No Preferred Language: Danish Communication Ability: Effective Visual Impairment: No Limitations Hearing Ability: Normal Car Sealer Required: No Beliefs That Will Affect Care: None marital status: Current Living Situation: Spouse current occupational status: retired How many Children do You have: 2 Feels Safe at Home: Yes Childhood Exposure to Second-Hand Smoke: Yes during the past year weight has: decreased > 10 lbs Dental Care, Regularly: Yes Physical Activity Frequency: Does not Exercise Seatbelt Use: always Sunscreen Use: Yes Assistive Devices: None Review of Systems 2 Review of Systems: A complete 10 point review of systems was reviewed with the patient with pertinent positives and negatives as per history of present illness. All else were negative. Physical Exam 2 Physical Exam: VITAL SIGNS - Vital signs and nursing notes were reviewed. GENERAL - 68-year-old female appearing her stated age who is in mild respiratory distress. SKIN - Without rashes or lesions. NOSE - Midline and without cyanosis. MOUTH/OROPHARYNX - Without perioral cyanosis. NECK - Neck with FROM. LUNGS - Chest wall evaluation demonstrates normal chest wall A:P diameter. Auscultation reveals diminished breath sounds to the based and large portion of the LEFT sided lung field with rales. No wheezes appreciated. CARDIAC - Tachycardia. No murmur, rubs, or gallops appreciated. ABDOMEN - Abdominal inspection demonstrates a flat abdomen. BS normoactive all four quadrants. No tenderness, palpable masses, or ascites noted. EXTREMITIES - Nail clubbing not present. No peripheral cyanosis. Mild pretibial edema present. +3/5 radial palpated throughout. PSYCH - A&Ox3 and cooperates fully with examiner. Results & Data Results & Data Vital Signs (Past 12 Hours) Vital Signs Temp Pulse Pulse Resp BP BP Pulse Ox 09/07/23 10:02 37.1 C 116 H 24 112/77 92 09/07/23 08:20 09/07/23 07:40 118 H 09/07/23 07:07 118 H 18 94 09/07/23 03:50 09/07/23 03:45 129/92 09/07/23 03:45 115 H 23 89 L 09/07/23 03:40 116 H 19 91 09/07/23 03:30 136/92 09/07/23 03:30 117 H 21 93 09/07/23 03:20 114 H 22 91 09/07/23 03:15 119 H 20 90 09/07/23 03:15 120/96 09/07/23 03:10 118 H 21 94 09/07/23 03:00 119 H 26 H 93 09/07/23 03:00 128/88 09/07/23 02:54 119 H 22 89 L 09/07/23 02:54 120/82 09/07/23 02:50 119 H 25 H 91 09/07/23 02:45 118 H 27 H 89 L 09/07/23 02:30 120 H 20 91 09/07/23 02:30 137/94 09/07/23 02:20 118 H 22 90 09/07/23 02:11 117 H 30 H 112/78 92 09/07/23 02:10 116 H 22 90 09/07/23 02:00 120 H 23 91 09/07/23 02:00 112/78 09/07/23 01:50 120 H 24 91 09/07/23 01:40 119 H 24 91 09/07/23 01:39 118 H 34 H 122/86 92 09/07/23 01:36 09/07/23 01:31 122/86 09/07/23 01:31 119 H 23 88 L 09/07/23 01:30 118 H 19 86 L 09/07/23 01:20 119 H 21 89 L 09/07/23 01:10 113 H 21 94 09/07/23 01:00 119 H 20 90 09/07/23 01:00 108/76 09/07/23 00:50 119 H 22 90 09/07/23 00:46 119 H 24 111/88 93 09/07/23 00:40 120 H 16 92 09/07/23 00:30 120 H 19 92 09/07/23 00:30 111/88 09/07/23 00:20 122 H 19 92 09/07/23 00:10 121 H 17 90 09/07/23 00:01 123 H 21 92 09/07/23 00:01 99/79 L 09/07/23 00:00 122 H 20 91 09/07/23 00:00 121 H 26 H 99/79 L 09/06/23 23:50 122 H 22 91 09/06/23 23:40 123 H 21 92 Pulse Ox O2 Del Method O2 Del Method O2 Flow Rate 09/07/23 10:02 High Flow Nasal Cannula 09/07/23 08:20 High Flow Nasal Cannula 09/07/23 07:40 09/07/23 07:07 Nasal Cannula 09/07/23 03:50 High Flow Nasal Cannula 09/07/23 03:45 09/07/23 03:45 09/07/23 03:40 09/07/23 03:30 09/07/23 03:30 09/07/23 03:20 09/07/23 03:15 09/07/23 03:15 09/07/23 03:10 09/07/23 03:00 09/07/23 03:00 09/07/23 02:54 09/07/23 02:54 09/07/23 02:50 09/07/23 02:45 09/07/23 02:30 09/07/23 02:30 09/07/23 02:20 09/07/23 02:11 High Flow Nasal Cannula 09/07/23 02:10 09/07/23 02:00 09/07/23 02:00 09/07/23 01:50 09/07/23 01:40 09/07/23 01:39 High Flow Nasal Cannula 09/07/23 01:36 90 Room Air 09/07/23 01:31 09/07/23 01:31 09/07/23 01:30 09/07/23 01:20 09/07/23 01:10 09/07/23 01:00 09/07/23 01:00 09/07/23 00:50 09/07/23 00:46 High Flow Nasal Cannula 09/07/23 00:40 09/07/23 00:30 09/07/23 00:30 09/07/23 00:20 09/07/23 00:10 09/07/23 00:01 09/07/23 00:01 09/07/23 00:00 09/07/23 00:00 High Flow Nasal Cannula 09/06/23 23:50 09/06/23 23:40 Laboratory Results 09/07/23 11:42 09/07/23 11:42 PG Care Time/CCT Total # of Minutes Spent Total Time Spent with Patient: Total time spent is greater than 50% in coordination of care (as documented) at patient's floor/unit and/or counseling patient: Coding Level of Care Code 89650 INT INP/OBS CARE 375MIN Diagnoses Adenocarcinoma of lung C34.92 Laterality: left Acute and chronic respiratory failure ([id number]) J96.20 Cough R05.9 Atrial flutter with rapid ventricular response I48.92
[2023-09-07 12:05] LABS: Basophils # (auto) 0.09 K/uL (0.00-0.20); Basophils % (auto) 0.5 %; Hematocrit (blood only) 27.6 % (37.0-47.0); Hemoglobin 9.3 g/dl (12.0-16.0); Immature Granulocytes # (auto) 0.27 K/uL (0.01-0.20); Immature Granulocytes % (auto) 1.4 %; Lymphocytes # (auto) 0.93 K/uL (1.20-3.40); Lymphocytes % (auto) 4.7 %; Mean Corpuscular Hemoglobin 30.9 pg (25.0-34.0); Mean Corpuscular Hgb Conc 33.7 g/dL (32.0-36.0); Mean Corpuscular Volume 91.7 fL (80.0-100.0); Mean Platelet Volume 8.6 fL (9.4-12.4); Monocytes # (auto) 0.72 K/uL (0.11-0.59); Monocytes % (auto) 3.7 %; Neutrophils # (auto) 17.58 K/uL (1.40-6.50); Neutrophils % (auto) 89.7 %; Nucleated RBC # (auto) 0.02 K/uL (0.00-0.12); Nucleated RBC % (auto) 0.1 %; Platelet Count 332 K/uL (130-400); RDW Coefficient of Variation 15.6 % (11.5-14.5); RDW Standard Deviation 51.4 fL (36.4-46.3); Red Blood Count 3.01 M/uL (4.20-5.40); White Blood Count 19.59 K/ul (4.8-10.8)
[2023-09-07 12:27] LABS: BUN Creatinine Ratio 34.5 (10-20); Calcium 8.3 mg/dl (8.6-10.3); Creatinine Clr Calc Pharmacy 184.5 ml/min; Est GFR (African American) 139.8 ml/min; Est GFR (Non-African American) 120.7 ml/min; Magnesium 2.1 mg/dl (1.7-2.4)
[2023-09-07 12:34] LABS: Troponin I High Sensitivity 13.8 pg/ml (0-14)
[2023-09-07] MEDS: SODIUM CHLORIDE 1 GM TABLET PO SCH (13:15)
[2023-09-07] MEDS: LORazepam 0.5 MG TAB PO PRN (15:07)
[2023-09-07] MEDS: CHECK SCOPOLAMINE PATCH PLACEMENT SCH (15:48)
[2023-09-07] MEDS: FUROSEMIDE INJ 20 MG/2 ML VIAL IV ONE (17:18)
[2023-09-07] MEDS: GLYCOPYRROLATE 0.2 MG/ML VIAL IV PRN (17:21)
--- NOTE | 2023-09-07 18:30 | Cardiology Consultation ---
Date of Consultation September 07, 2023 Assessment & Plan (1) Atrial flutter with rapid ventricular response: (2) Acute on chronic respiratory failure with hypoxia: (3) Adenocarcinoma of lung: Plan ASSESSMENT/PLAN: 1. Paroxysmal atrial flutter: Discussed the diagnosis with patient's daughter and who are present at the bedside. Underwent cardioversion on 09/01/2023 but once again in atrial flutter, based on smart watch started on 09/06/2023 at approximately 8 PM. Patient reportedly completely asymptomatic per family, consistent with prior atrial flutter episodes reported by colleagues in July and August 2023. Has converted spontaneously in July. Current heart rate in the 120s does not appear to be significantly affecting her clinically. Sedating her with her current respiratory status would likely pose high risk, and therefore would continue with amiodarone for now and can use beta-becky as she was tolerating in the outpatient setting. If her respiratory status improves, could consider DC cardioversion but likely needs more amiodarone on b oard as she was not loaded initially to help maintain sinus rhythm as reoccurrence is otherwise likely. Could consider ablation if she improves from a respiratory standpoint, but given what appears to be poor prognosis, unclear if any long-term benefit in doing such. Continue anticoagulation for stroke risk reduction if no contraindication, especially given recent cardioversion and possible cardioversion during this hospital stay. Can keep n.p.o. after midnight in case cardioversion pursued. 2. Acute on chronic respiratory failure with hypoxia: Has been seen by pulmonology. Agree with trying to maintain a net negative fluid balance. 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 3. Disposition: Poor prognosis given her advanced lung cancer. Cardiology will continue to follow along. Patient care discussed with nursing staff and also Dr. Levy of the primary hospitalist service. On discharge, follow-up with Dr. Howard. Addendum: Since she was evaluated earlier this evening by me, she has been transferred to the ICU by the primary hospitalist service for concerns that she may require mechanical ventilation. Highly complex medical issues. Thank you for allowing me to participate in the care of your patient. Please call for any other questions or concerns. Sincerely, Santhosh Serna M.D. History of Present Illness Reason for Consultation: Atrial flutter Requesting Physician: Rosina Levy MD Attending Physician: Rosina Levy MD History of Present Illness Mrs. Martinez is a pleasant 68-year-old female with a history significant for stage IV adenocarcinoma of the lung (on chemotherapy as per [facility]), paroxysmal atrial flutter (s/p DC CV 09/01/23), hypertension, and dyslipidemia. She is on supplemental oxygen at home from 5 to 7 L via nasal cannula. She was initially seen by Dr. Howard in July 2023 when she was noted to be in atrial flutter with rapid ventricular response. She converted on 08/24/2023 and then was placed on amiodarone in an attempt to maintain sinus rhythm. Leading up to that hospitalization, she was wearing an outpatient monitor and noted to develop atrial flutter with rapid ventricular response. Based on reports, she was asymptomatic. She was then hospitalized on 08/30/2023 and was seen by Dr. Nam of cardiology the following day. She was admitted for acute on chronic respiratory failure with hypoxia. She was initially in sinus and was reportedly hypotensive and then developed atrial flutter with rapid ventricular response. She underwent electrical cardioversion on 09/01/2023 according to cardiology progress note. Amiodarone was increased from 200 mg once daily to 200 mg twice daily. While home, it was noted on her smart phone that she developed atrial flutter with rapid ventricular response on 09/06/2023 at approximately 8 PM. Heart rate went from 80s, and then abruptly up into the 130s. She was completely asymptomatic according to her and daughter who are present at the bedside. Because of this, she was brought to the emergency department and was admitted on 09/07/2023. Her oxygen requirements increased while here and eventually was placed on BiPAP. With her copious mucus production however, there was difficulty managing her secretions according to family members. She was then placed on high flow nasal cannula. She received a low-dose of Ativan before I saw her this evening. Since then, she has been more somnolent. Her daughter states that this occurred in the past with pain medication as well. History was obtained by discussing with her daughter and patient's who are present at the bedside, as well as reviewing records. She has been taking Lasix 20 mg twice daily at home. She does not maintain a low-sodium diet. She has lost 10 pounds since February,. She has been compliant with beta-becky and amiodarone. She missed 1 dose of Eliquis last night but has been in this current episode of atrial flutter for less than 48 hours. There has not been any reported melena, hematochezia, hematuria. No reported chest pain. She has been seen by pulmonology earlier today and has a telehealth visit with her oncology team at [facility] tomorrow morning. Review of systems: As above and otherwise unobtainable due to patient's current mental status. Family history: Noncontributory. Social history: Non-smoker. No significant alcohol. Lives at home with her . Has 2 daughters. Uses a rolling walker for ambulation. Her daughter and were present at the bedside. Allergies Allergy/AdvReac Type Severity Reaction Status Date / Time azithromycin Allergy Severe Difficulty Verified 09/06/23 23:11 Breathing Penicillins Allergy Intermediate HIVES A Verified 09/06/23 23:11 CHILD Home Medications Medication Instructions Recorded Confirmed Type omega-3 acid ethyl esters 1 gram 1 cap PO QAM 02/04/20 09/06/23 History capsule cholecalciferol (vitamin D3) 25 25 mcg PO QAM 11/20/20 09/06/23 History mcg (1,000 unit) tablet (Vitamin D3) cyanocobalamin (vitamin B-12) 1,000 mcg sublingual QAM 11/20/20 09/06/23 History 1,000 mcg sublingual tablet sodium chloride, sodium See Rx Instructions .Route 04/27/23 09/06/23 History bicarb-nasal rinse squeeze bottle .COMPLEX PRN congestion with packet (Neilmed Sinus Rinse Complete with packet) albuterol sulfate 90 mcg/actuation 2 inh inhalation Q6H PRN shortness 04/29/23 09/06/23 Rx aerosol inhaler of breath or wheezing #6.7 grams folic acid 1 mg tablet 1 mg PO QAM #30 tabs 04/29/23 09/06/23 Rx ipratropium 0.5 mg-albuterol 3 mg 3 ml inhalation Q6 PRN as directed 06/28/23 09/06/23 History (2.5 mg base)/3 mL nebulization soln prochlorperazine maleate 10 mg 10 mg PO Q6H PRN Nausea And 07/28/23 09/06/23 History tablet Vomiting polyethylene glycol 3350 17 17 g PO BID PRN constipation 08/01/23 09/06/23 History gram/dose oral powder (Miralax) sennosides 8.6 mg-docusate sodium 1 tab-cap PO DAILY PRN Constipation 08/01/23 09/06/23 History 50 mg tablet (Colace 2-In-1) Oxygen Home #1 ea 08/18/23 09/05/23 Rx Vibration Vest #1 ea 08/18/23 09/05/23 Rx formoterol fumarate 20 mcg/2 mL 2 ml inhalation BID #120 mL 08/19/23 09/06/23 Rx solution for nebulization (Perforomist) sodium chloride 3 % for 4 ml inhalation Q8H PRN secretions 08/19/23 09/06/23 Rx nebulization #240 mL ondansetron HCl 8 mg tablet 8 mg PO Q8H #20 tabs 08/26/23 09/06/23 Rx oxycodone 5 mg tablet 5 - 10 mg (1 - 2 x 5 mg) PO Q6H 08/26/23 09/06/23 Rx PRN moderate to severe pain #30 tabs ipratropium bromide 42 mcg (0.06 2 spray intranasal TID #15 mL 08/27/23 09/06/23 Rx %) nasal spray Magic Mouthwash 300 mL mouthwash 5 ml mucous membrane Q6H PRN mouth 08/30/23 09/06/23 Rx pain #300 mL Oxygen Home #1 ea 09/01/23 09/05/23 Rx amiodarone 200 mg tablet 200 mg PO BIDM #60 tabs 09/03/23 09/06/23 Rx apixaban 5 mg tablet (Eliquis) 5 mg PO BID #60 tabs 09/03/23 09/06/23 Rx doxycycline hyclate 100 mg tablet 100 mg PO BID #10 tabs 09/03/23 09/06/23 Rx furosemide 20 mg tablet (Lasix) 20 mg PO DAILY #30 tabs 09/03/23 09/06/23 Rx metoprolol succinate 100 mg 100 mg PO PM #30 tabs 09/03/23 09/06/23 Rx tablet,extended release 24 hr potassium chloride 10 mEq 10 meq PO Q2D #14 tabs 09/03/23 09/06/23 Rx tablet,extended release scopolamine base 1 mg over 3 days 1 mg transdermal Q72H #10 ea 09/03/23 09/06/23 Rx transdermal patch (Transderm-Scop) sodium chloride 1,000 mg soluble 1,000 mg PO BID #60 tabs 09/03/23 09/06/23 Rx tablet nystatin 100,000 unit/mL oral 5 ml PO QID PRN mouth pain #250 mL 09/05/23 09/06/23 Rx suspension Patient History Medical History (Updated 09/07/23 @ 21:23 by Jordan Serna MD) Atrial flutter with rapid ventricular response Hypertension Adenocarcinoma of lung Tubular adenoma Osteoarthritis History of basal cell carcinoma scalp/tip of nose Tinnitus of both ears Anxiety and depression Goiter, nontoxic, 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 Hyperlipidemia Vitamin D deficiency Surgical History Port-A-Cath in place (04/28/23) Left Subclavian Mediport Insertion(Left) - Donal Maldonado DO H/O colonoscopy History of surgical removal of ganglion cyst left wrist History of wisdom tooth extraction Hx of section History of carpal tunnel release right wrist History of tonsillectomy and adenoidectomy History of mandibular surgery d/t underbite Hx of tooth extraction Hx of needle biopsy thyroid--benign History of Mohs surgery for squamous cell carcinoma in situ of skin x2 Family History Father Colon cancer Prostate cancer Myocardial infarction Heart disease Mother Hypertension Cancer Uncle Diabetes Aunt Breast cancer Other No family history of adverse response to anesthesia Denies family history of Ovarian cancer Social History Smoking Status: Never smoker Second Hand Exposure: No; Do You Dip or Chew Tobacco: No; Hx Alcohol Use: No Hx Substance Use: No Preferred Language: Cypriot Communication Ability: Effective Visual Impairment: No Limitations Hearing Ability: Normal Collar Starcher Required: No Beliefs That Will Affect Care: None marital status: Current Living Situation: Spouse current occupational status: retired How many Children do You have: 2 Feels Safe at Home: Yes Childhood Exposure to Second-Hand Smoke: Yes during the past year weight has: decreased > 10 lbs Dental Care, Regularly: Yes Physical Activity Frequency: Does not Exercise Seatbelt Use: always Sunscreen Use: Yes Assistive Devices: None Physical Exam Physical Exam: Gen.: No acute distress. Somnolent but arousable with verbal stimuli. HEENT: Anicteric sclera. Neck: No obvious JVD. Cardiac: No ventricular heave. Regular and tachycardic in the 120s. Normal S1- S2. No murmurs, rubs, or gallops. Pulmonary: Coarse breath sounds throughout. Abdomen: Soft, nontender, nondistended, with normoactive bowel sounds. No bruits noted. Extremities: 2+ radial pulses bilaterally. 2+ posterior tibialis pulses bilaterally. No edema or cyanosis. Results & Data Vital Signs (Past 12 Hours) Vital Signs Temp Pulse Pulse Resp BP BP Pulse Ox 09/07/23 14:27 36.4 C L 123 H 22 120/81 92 09/07/23 13:30 118/85 09/07/23 13:30 120 H 25 H 96 09/07/23 13:17 122 H 27 H 96 09/07/23 13:15 127/84 09/07/23 13:15 120 H 19 94 09/07/23 13:00 121 H 24 91 09/07/23 13:00 128/94 09/07/23 12:45 118 H 25 H 92 09/07/23 12:45 130/85 09/07/23 12:30 115/72 09/07/23 12:30 121 H 22 93 09/07/23 12:15 118/87 09/07/23 12:15 120 H 28 H 91 09/07/23 12:00 119 H 26 H 91 09/07/23 12:00 115/81 09/07/23 11:45 120 H 24 91 09/07/23 11:45 104/77 09/07/23 11:30 118 H 26 H 93 09/07/23 11:30 127/83 09/07/23 11:15 121 H 21 96 09/07/23 11:15 107/74 09/07/23 11:00 122 H 24 92 09/07/23 11:00 100/82 09/07/23 10:45 120 H 28 H 88 L 09/07/23 10:45 120/80 09/07/23 10:15 106/73 09/07/23 10:15 120 H 28 H 91 09/07/23 10:02 37.1 C 116 H 24 112/77 92 09/07/23 10:00 120 H 25 H 91 09/07/23 10:00 112/77 09/07/23 09:45 111/83 09/07/23 09:45 119 H 24 89 L 09/07/23 09:30 118/78 09/07/23 09:30 118 H 22 89 L 09/07/23 09:15 118/77 09/07/23 09:15 118 H 26 H 87 L 09/07/23 09:01 119 H 23 91 09/07/23 09:01 114/83 09/07/23 09:00 119 H 26 H 95 09/07/23 08:45 120 H 21 91 09/07/23 08:45 122/84 09/07/23 08:30 119 H 17 94 09/07/23 08:30 111/83 09/07/23 08:20 09/07/23 08:15 117 H 24 91 09/07/23 08:15 118/84 09/07/23 08:00 117 H 23 91 09/07/23 08:00 113/86 09/07/23 07:45 126/87 09/07/23 07:45 117 H 23 91 09/07/23 07:40 118 H 09/07/23 07:31 131/102 H 09/07/23 07:31 117 H 31 H 92 09/07/23 07:15 117 H 22 99 09/07/23 07:07 118 H 18 94 O2 Del Method O2 Flow Rate FiO2 09/07/23 14:27 BiPAP 09/07/23 13:30 09/07/23 13:30 BiPAP 60 09/07/23 13:17 60 09/07/23 13:15 09/07/23 13:15 09/07/23 13:00 Nasal Cannula 09/07/23 13:00 09/07/23 12:45 Nasal Cannula 12 09/07/23 12:45 09/07/23 12:30 09/07/23 12:30 Nasal Cannula 09/07/23 12:15 09/07/23 12:15 Nasal Cannula 12 09/07/23 12:00 Nasal Cannula 12 09/07/23 12:00 09/07/23 11:45 Nasal Cannula 12 09/07/23 11:45 09/07/23 11:30 Nasal Cannula 12 09/07/23 11:30 09/07/23 11:15 Nasal Cannula 12 09/07/23 11:15 09/07/23 11:00 Nasal Cannula 12 09/07/23 11:00 09/07/23 10:45 Nasal Cannula 12 09/07/23 10:45 09/07/23 10:15 09/07/23 10:15 Nasal Cannula 12 09/07/23 10:02 High Flow Nasal Cannula 12 09/07/23 10:00 Nasal Cannula 12 09/07/23 10:00 09/07/23 09:45 09/07/23 09:45 Nasal Cannula 12 09/07/23 09:30 09/07/23 09:30 Nasal Cannula 12 09/07/23 09:15 09/07/23 09:15 Nasal Cannula 12 09/07/23 09:01 Nasal Cannula 09/07/23 09:01 09/07/23 09:00 Nasal Cannula 12 09/07/23 08:45 Nasal Cannula 12 09/07/23 08:45 09/07/23 08:30 Nasal Cannula 12 09/07/23 08:30 09/07/23 08:20 High Flow Nasal Cannula 12 09/07/23 08:15 Nasal Cannula 12 09/07/23 08:15 09/07/23 08:00 Nasal Cannula 12 09/07/23 08:00 09/07/23 07:45 09/07/23 07:45 Nasal Cannula 09/07/23 07:40 09/07/23 07:31 09/07/23 07:31 Nasal Cannula 09/07/23 07:15 Nasal Cannula 12 09/07/23 07:07 Nasal Cannula 12 Laboratory Results Laboratory Results - last 24 hr 09/06/23 09/06/23 09/07/23 22:43 23:50 00:35 WBC 20.43 H RBC 3.03 L Hgb 9.2 L Hct 27.9 L MCV 92.1 MCH 30.4 MCHC 33.0 RDW Std Deviation 52.7 H RDW Coeff of Thomas 15.6 H Plt Count 317 MPV 8.7 L Immature Gran % (Auto) 2.7 Neut % (Auto) 86.2 Lymph % (Auto) 7.0 [place] % (Auto) 3.8 Eos % (Auto) 0.0 Baso % (Auto) 0.3 Neut # (Auto) 17.63 H Lymph # (Auto) 1.42 [place] # (Auto) 0.77 H Eos # (Auto) 0.00 Baso # (Auto) 0.06 Immature Gran # (Auto) 0.55 H Absolute Nucleated RBC Nucleated RBC % (auto) ABG pH ABG pCO2 ABG pO2 ABG HCO3 ABG O2 Saturation ABG Base Excess Nasir Test Oxygen Given Sodium 123 L Potassium 4.2 Chloride 82 L Carbon Dioxide 37 H Anion Gap 4 BUN 10 Creatinine 0.30 L Est Cr Clr Drug Dosing 176.9 Est GFR ( Amer) 138.3 Est GFR (Non-Af Amer) 119.3 BUN/Creatinine Ratio 33.3 H Glucose 116 H Lactate 1.0 Calcium 8.6 Magnesium 1.3 L Total Bilirubin 0.3 AST 17 ALT 29 Alkaline Phosphatase 63 Troponin I High Sens 14.9 H B-Natriuretic Peptide 368 H Total Protein 5.8 L Albumin 3.1 L Globulin 2.7 Albumin/Globulin Ratio 1.1 Procalcitonin 0.05 TSH 0.866 Nasal Screen MRSA (PCR) Negative Adenovirus (PCR) Not Detected B. pertussis DNA (PCR) Not Detected B.parapertussis DNA PCR Not Detected C. pneumoniae DNA (PCR) Not Detected Coronavirus OC43 (PCR) Not Detected Coronavirus HKU1 (PCR) Not Detected Coronavirus 229E (PCR) Not Detected SARS-CoV-2 (PCR) Not Detected Coronavirus NL63 (PCR) Not Detected Human Metapneumovir PCR Not Detected Influenza Type A (PCR) Not Detected Influenza Type B (PCR) Not Detected M. pneumoniae (PCR) Not Detected Parainfluenza 1 (PCR) Not Detected Parainfluenza 2 (PCR) Not Detected Parainfluenza 3 (PCR) Not Detected Parainfluenza 4 (PCR) Not Detected RSV (PCR) Not Detected Entero/Rhino (PCR) Not Detected 09/07/23 09/07/23 11:42 19:04 WBC 19.59 H RBC 3.01 L Hgb 9.3 L Hct 27.6 L MCV 91.7 MCH 30.9 MCHC 33.7 RDW Std Deviation 51.4 H RDW Coeff of Thomas 15.6 H Plt Count 332 MPV 8.6 L Immature Gran % (Auto) 1.4 Neut % (Auto) 89.7 Lymph % (Auto) 4.7 [place] % (Auto) 3.7 Eos % (Auto) 0.0 Baso % (Auto) 0.5 Neut # (Auto) 17.58 H Lymph # (Auto) 0.93 L [place] # (Auto) 0.72 H Eos # (Auto) 0.00 Baso # (Auto) 0.09 Immature Gran # (Auto) 0.27 H Absolute Nucleated RBC 0.02 Nucleated RBC % (auto) 0.1 ABG pH 7.42 ABG pCO2 58 H ABG pO2 73 L ABG HCO3 38 H ABG O2 Saturation 96.1 H ABG Base Excess 10.8 H Nasir Test Pos Oxygen Given 60% FiO2 Sodium 122 L Potassium 4.0 Chloride 81 L Carbon Dioxide 37 H Anion Gap 4 BUN 10 Creatinine 0.29 L Est Cr Clr Drug Dosing 184.5 Est GFR ( Amer) 139.8 Est GFR (Non-Af Amer) 120.7 BUN/Creatinine Ratio 34.5 H Glucose 147 H Lactate Calcium 8.3 L Magnesium 2.1 Total Bilirubin AST ALT Alkaline Phosphatase Troponin I High Sens 13.8 B-Natriuretic Peptide Total Protein Albumin Globulin Albumin/Globulin Ratio Procalcitonin TSH Nasal Screen MRSA (PCR) Adenovirus (PCR) B. pertussis DNA (PCR) B.parapertussis DNA PCR C. pneumoniae DNA (PCR) Coronavirus OC43 (PCR) Coronavirus HKU1 (PCR) Coronavirus 229E (PCR) SARS-CoV-2 (PCR) Coronavirus NL63 (PCR) Human Metapneumovir PCR Influenza Type A (PCR) Influenza Type B (PCR) M. pneumoniae (PCR) Parainfluenza 1 (PCR) Parainfluenza 2 (PCR) Parainfluenza 3 (PCR) Parainfluenza 4 (PCR) RSV (PCR) Entero/Rhino (PCR) Diagnostic Findings Chart reviewed including previous cardiology notes. Pulmonary consultation reviewed. History and physical report reviewed. Telemetry personally reviewed: Atrial flutter with rapid ventricular response with heart rates mostly consistently in the 120s. ECG personally reviewed: ECG 09/06/2023 at 2257: Atrial flutter 127 bpm. ECG 08/29/2023 2353: Sinus tachycardia with PACs. ECG 08/23/2023 1757: Atrial flutter 160 bpm. Event monitor report reviewed as noted above in HPI. Labs reviewed and notable for leukocytosis, anemia, chronic hyponatremia, normal potassium, stable renal function, initial hypomagnesemia which has since normalized, stable high-sensitivity troponin, elevated BNP, normal TSH CTA chest 08/24/2023: No PE. Extensive/diffuse multifocal airspace consolidation bilateral lungs. Cavitation seen at the left lung base. Majority of these findings likely represent multifocal adenocarcinoma per radiology. Increasing opacities could represent progression of the disease. Ascending aorta 4.3 cm. Chest x-ray 09/06/2023: Extensive bilateral airspace opacities most pronounced on the left, similar to prior chest CT per radiology. Chest x-ray image personally reviewed and noted bilateral opacities, much more significant on the left. Echo 08/24/2023: Normal LV systolic function. EF 65 to 70%. No regional wall motion abnormalities. Mild AI. Medications Administered Current Inpatient Medications Acetaminophen (Acetaminophen 325 Mg Tab) 650 mg PO Q4H PRN PRN Reason: Pain or Fever Stop: 10/07/23 01:35 Albuterol (Albut/Ipratrop 3mg/0.5mg Neb 3 Ml Vial) 3 ml INH Q6 PRN; Protocol PRN Reason: Shortness Of Breath Or Wheezing Stop: 10/07/23 01:35 Formoterol Fumarate (Formoterol 20 Mcg/2 Ml Vial) 20 mcg INH BIDR [facility] Stop: 10/07/23 06:59 Last Admin: 09/07/23 20:36 Dose: 20 mcg Glycopyrrolate (Glycopyrrolate 0.2 Mg/Ml Vial) 0.2 mg IV Q8 PRN PRN Reason: secretions Stop: 10/07/23 16:44 Last Admin: 09/07/23 17:21 Dose: 0.2 mg Amiodarone HCl/Dextrose (Nexterone / D5w) 360 mg in 200 mls @ 16.667 mls/hr IV .Q12H CAROLYN Stop: 10/07/23 04:59 Last Infusion: 09/07/23 20:00 Dose: 1 mg/min, 33.3 mls/hr Heparin Sodium/Dextrose (Heparin Sodium/Dextrose) 25,000 units in 500 mls @ 15 mls/hr IV .Q24H [facility]; Protocol Stop: 10/07/23 19:14 Metoprolol Tartrate (Metoprolol Tartrate 1 Mg/Ml Vial) 5 mg IV Q6 [facility] Stop: 10/07/23 18:59 Last Admin: 09/07/23 19:25 Dose: 5 mg Miscellaneous (Remove Transderm-Scop Patch) 1 each N/A Q72H [facility] Stop: 10/07/23 08:58 Last Admin: 09/07/23 07:44 Dose: 1 each Miscellaneous (Check Scopolamine Patch Placement) 1 each N/A QS [facility] Stop: 10/07/23 15:59 Last Admin: 09/07/23 15:48 Dose: 1 each Multi-Ingredient Mouthwash/Gargle (First - Mouthwash Blm 119 Ml) 5 ml PO Q6H PRN PRN Reason: mouth pain Stop: 10/07/23 04:25 Nystatin (Nystatin Susp 500,000 U/5 Ml Udc) 5 ml PO QID PRN PRN Reason: mouth pain Stop: 09/17/23 01:35 Ondansetron HCl (Ondansetron Inj 2 Mg/Ml 2 Ml Vial) 4 mg IV Q6H PRN PRN Reason: Nausea And Vomiting Stop: 10/07/23 01:35 Polyethylene Glycol (Polyethylene (Miralax) 17 Gm Pack) 17 gm PO BID PRN PRN Reason: constipation Stop: 10/07/23 01:35 Scopolamine (Scopolamine 1 Mg Tdsy) 1 mg TD Q72H [facility] Stop: 10/07/23 08:59 Last Admin: 09/07/23 07:45 Dose: 1 mg Senna/Docusate Sodium (Docusate Sodium/Senna 50/8.6mg Tab) 1 tab PO DAILY PRN PRN Reason: Constipation Stop: 10/07/23 01:35 Sodium Chloride (Sodium Chlor 7% 4 Ml Neb) 4 ml NEB BIDR [facility] Stop: 10/07/23 06:59 Last Admin: 09/07/23 20:36 Dose: 4 ml Sodium Chloride (Sodium Chloride 1 Gm Tablet) 1 gm PO BID [facility] Stop: 10/07/23 10:29 Last Admin: 09/07/23 13:15 Dose: 1 gm PG Care Time/CCT Total # of Minutes Spent Total Time Spent with Patient: Total time spent is greater than 50% in coordination of care (as documented) at patient's floor/unit and/or counseling patient: Coding Level of Care Code 99260 INT INP/OBS CARE 3/75MIN Diagnoses Atrial flutter with rapid ventricular response I48.92 Acute on chronic respiratory failure with hypoxia J96.21 Adenocarcinoma of lung C34.92 Laterality: left (3) Adenocarcinoma of lung Laterality: left Qualified Code(s): C34.92 - Malignant neoplasm of unspecified part of left bronchus or lung
--- NOTE | 2023-09-07 18:47 | Communication Note ---
Date of Service: September 07, 2023 Pt seen again in the evening as she was having copious secretions coming from mouth and had been on CPAP but this was removed and placed on HFNC to avoid aspiration. Spoke with daughter at bedside. I had ordered ativan 0.5mg po x 1 earlier in the afternoon for significant anxiety on CPAP. Daughter reports she had confusion in the past similar to now after receiving oxycodone. Pt confused, woke up at times and mumbling gibberish, frequent secretions from mouth irreg irreg rapid rates on CV Lungs diminished throughout especially on left, tachypnea, using accessory muscles POx 97% on 40L 60% FiO2 Will check abg, place Arellano gave lasix 20mg IV x 1 earlier and will give another dose now added robinul for excessive secretions rate control with aflutter and on amiodarone. cannot take po due to AMS so will hold Eliquis and po Toprol and give heparin gt and IV lopressor considering cardioversion tomorrow but likely cannot sedate her unless she ends up getting intubated tonight Daughter at bedside reports pt was agreeable to an outpt Palliative Medicine appt at last admission but was not arranged yet-will consult Palliative here I told daughter pt told me earlier she wanted to be a full code. Discussed care with International Manager and will transfer to ICU and prepare for [facility]
[2023-09-07] MEDS ORDERED: Heparin IV Adult Wt-Based Low-Dose *NO* INITIAL Bolus Protocol IV SCH (19:00)
[2023-09-07 19:16] LABS: Base Excess ABG 10.8 mEq/L (-9-1.8); HCO3 ABG 38 mmol/L (19-24); Oxygen Saturation ABG 96.1 % (90-95); PCO2 ABG 58 mmHg (35-46); PO2 ABG 73 mmHg (80-95); pH ABG 7.42 (7.35-7.45)
[2023-09-07 19:24] LABS: Allen Test Pos (Pos)
[2023-09-07] MEDS: FUROSEMIDE 40 MG/4 ML VIAL IV ONE (19:25)
[2023-09-07] MEDS: METOPROLOL TARTRATE 1 MG/ML VIAL IV SCH (19:25)
--- NOTE | 2023-09-07 20:34 | Critical Care Progress Note ---
Date of Service September 07, 2023 Assessment & Plan (1) Acute on chronic respiratory failure with hypoxia: Plan: IMPRESSION: 68-year-old female with a significant past medical history of stage IV adenocarcinoma of the lung, chronic hypoxic respiratory failure, and persistent effusions who presents to the hospital with acute on chronic hypoxic respiratory failure currently in A-fib RVR on amiodarone drip and requiring CPAP while undergoing diuresis. Neuro - CAM ICU negative Cardiac - Proximal A-fib/A-fib RVRcontinue amiodarone drip and IV MTP with goal of rate control -Cardiology consulted -Continue heparin drip -Continuous monitoring on telemetry Respiratory - Acute on chronic hypoxic respiratory failurelikely multifactorial in the setting of adenocarcinoma with tumor burden of lung, superimposed congestive changes in the setting of a flutter -Cannot rule out underlying pneumonia as well, see ID below -Undergoing treatment with CPAP, continue diuresis for negative fluid balance -Patient family currently okay with intubation if needed. Has low threshold -Nebs as needed -Was started on scopolamine patch to help with secretions -Continuous monitoring on pulse ox -Follow-up a.m. chest x-ray GI - N.p.o. for now RENAL/LYTES - Creatinine within normal limits, monitor routine BMPs and replete electrolytes as indicated Hyponatremiaappears to be chronic in patient with stage IV metastatic adenocarcinoma of the lung. Sodium currently 122. Continue sodium chloride p.o. and fluid restriction. Would be careful with fluid resuscitation at this time but may require hypertonic solution. She is also undergoing diuresis. Wi ll trend BMP every 4 hours with goal of increased sodium 6 to 8 mEq per 24 hours. - Arellano inserted for strict I's and O's ENDO - No history of diabetes or thyroid disease, ICU hyperglycemic protocol HEME - H&H stable, monitor routine CBC ID - Pneumonia?Patient recently underwent treatment with doxycycline and cefpodoxime as outpatient -Bio fire negative -Blood cultures negative on preliminary's -Nasal MRSA negative -Sputum culture pending -Continue with empiric pulmonary coverage with cefepime for now LINES/IV ACCESS - Peripheral IVs DVT PROPHYLAXIS - SCDs, heparin drip CODE STATUS: Full code, palliative care consult pending and patient family has meeting with [facility] tomorrow via Zoom call Thank you for allowing us to participate in the care of this patient. Please refer to my attending physician's documentation for any further recommendations. (2) Atrial flutter with rapid ventricular response: (3) Adenocarcinoma of lung: (4) Hyponatremia: Admission and Anticipated Discharge Date Admission Date: September 07, 2023 Subjective HPI: Patient is a 68-year-old female with a significant past medical history of hypertension, goiter, hyperglycemia, hyperlipidemia, and recent diagnosis of adenocarcinoma of the lung who presents to the emergency department with worsening dyspnea. Patient had undergone bronchoscopic evaluation in January related to persistent infiltrative findings noted on chest CT. patient was subsequently diagnosed with adenocarcinoma of the lung. [facility] and had consultation with [facility]. Unfortunately, she has had progression of her disease process during subsequent visits and recently had an admission for COVID infection at the end of July was a bit of a setback for the patient. Unfortunately, now the patient is experiencing episodes of a flutter with associated failure. This has been recurrent despite aggressive cardiology management. She presented today with worsening dyspnea with an associated cough which has been ongoing. She continues to use her flutter valve and nebulizer treatments at home. She has not received her chest vest at this point. She had a follow-up CT on 09/02 which demonstrated persistent findings consistent with her diagnosis of malignancy. She is awaiting assessment of the images by her specialist at [facility]. 09/07 1900: Was notified that through the primary team that the patient was requiring higher FiO2 requirements and transferring to ICU. She remains confused on exam, does not appear to have respiratory distress but was requiring FiO2 100% and 60 L on HFNC on arrival to the ICU. She appears to have frothy sputum, and crackles with auscultation. She was placed back on CPAP and given 40 mg IV Lasix. Following CPAP administration, patient appears to have improvement in oxygenation and currently weaning FiO2. She remains full code and low threshold for requiring intubation. She is currently on amiodarone drip to achieve rate control with A-fib RVR. Patient prognosis remains guarded. She remains full code and family okay with intubation if needed. Palliative consult pending. Physical Exam Constitutional: + thin and + frail appearing Eyes: PERRL, conjunctivae normal, anicteric sclerae ENMT: external ear and nose normal, oropharynx normal Neck: trachea midline, no thyromegaly Respiratory: normal respiratory effort, lungs clear to auscultation Cardiovascular: Rate/Rhythm: + tachycardic and + irregularly irregular Heart Sounds: no murmur Extremities: no edema Gastrointestinal (Abdomen): normal bowel sounds, soft, nontender, no hepatosplenomegaly Musculoskeletal: no cyanosis or clubbing, extremities motor strength 5/5 Skin: no rashes, warm and dry Neurologic: PERRL, EOMI, accommodation nl, no face palsy, no dysarthria Psychiatric: Orientation: oriented x 3 Eye Contact: good eye contact Genitourinary: Indwelling Arellano catheter present, urine yellow and clear Results & Data Results & Data Vital Signs (Past 12 Hours) Vital Signs Temp Pulse Pulse Resp BP BP Pulse Ox 09/07/23 19:25 122 H 100/66 09/07/23 14:27 36.4 C L 123 H 22 120/81 92 09/07/23 13:30 118/85 09/07/23 13:30 120 H 25 H 96 09/07/23 13:17 122 H 27 H 96 09/07/23 13:15 127/84 09/07/23 13:15 120 H 19 94 09/07/23 13:00 121 H 24 91 09/07/23 13:00 128/94 09/07/23 12:45 118 H 25 H 92 09/07/23 12:45 130/85 09/07/23 12:30 115/72 09/07/23 12:30 121 H 22 93 09/07/23 12:15 118/87 09/07/23 12:15 120 H 28 H 91 09/07/23 12:00 119 H 26 H 91 09/07/23 12:00 115/81 09/07/23 11:45 120 H 24 91 09/07/23 11:45 104/77 09/07/23 11:30 118 H 26 H 93 09/07/23 11:30 127/83 09/07/23 11:15 121 H 21 96 09/07/23 11:15 107/74 09/07/23 11:00 122 H 24 92 09/07/23 11:00 100/82 09/07/23 10:45 120 H 28 H 88 L 09/07/23 10:45 120/80 09/07/23 10:15 106/73 09/07/23 10:15 120 H 28 H 91 09/07/23 10:02 37.1 C 116 H 24 112/77 92 09/07/23 10:00 120 H 25 H 91 09/07/23 10:00 112/77 09/07/23 09:45 111/83 09/07/23 09:45 119 H 24 89 L 09/07/23 09:30 118/78 09/07/23 09:30 118 H 22 89 L 09/07/23 09:15 118/77 09/07/23 09:15 118 H 26 H 87 L 09/07/23 09:01 119 H 23 91 09/07/23 09:01 114/83 09/07/23 09:00 119 H 26 H 95 09/07/23 08:45 120 H 21 91 09/07/23 08:45 122/84 O2 Del Method O2 Flow Rate FiO2 09/07/23 19:25 09/07/23 14:27 BiPAP 09/07/23 13:30 09/07/23 13:30 BiPAP 60 09/07/23 13:17 60 09/07/23 13:15 09/07/23 13:15 09/07/23 13:00 Nasal Cannula 09/07/23 13:00 09/07/23 12:45 Nasal Cannula 09/07/23 12:45 09/07/23 12:30 09/07/23 12:30 Nasal Cannula 09/07/23 12:15 09/07/23 12:15 Nasal Cannula 09/07/23 12:00 Nasal Cannula 09/07/23 12:00 09/07/23 11:45 Nasal Cannula 09/07/23 11:45 09/07/23 11:30 Nasal Cannula 09/07/23 11:30 09/07/23 11:15 Nasal Cannula 09/07/23 11:15 09/07/23 11:00 Nasal Cannula 09/07/23 11:00 09/07/23 10:45 Nasal Cannula 09/07/23 10:45 09/07/23 10:15 09/07/23 10:15 Nasal Cannula 09/07/23 10:02 High Flow Nasal Cannula 09/07/23 10:00 Nasal Cannula 09/07/23 10:00 09/07/23 09:45 09/07/23 09:45 Nasal Cannula 09/07/23 09:30 09/07/23 09:30 Nasal Cannula 09/07/23 09:15 09/07/23 09:15 Nasal Cannula 09/07/23 09:01 Nasal Cannula 09/07/23 09:01 09/07/23 09:00 Nasal Cannula 09/07/23 08:45 Nasal Cannula 09/07/23 08:45 Coding Level of Care Code 67234 SUB INP/OBS CARE 2/35MIN Diagnoses Acute on chronic respiratory failure with hypoxia J96.21 Atrial flutter with rapid ventricular response I48.92 Adenocarcinoma of lung C34.92 Laterality: left Hyponatremia E87.1 Time Spent (min) 48 (3) Adenocarcinoma of lung Laterality: left Qualified Code(s): C34.92 - Malignant neoplasm of unspecified part of left bronchus or lung
[2023-09-07] MEDS ORDERED: FUROSEMIDE 40 MG/4 ML VIAL IV ONE (21:00)
[2023-09-07] MEDS ORDERED: METOPROLOL SUCC 50MG EXT REL TAB PO SCH (21:00)
[2023-09-07 21:28] LABS: ANTI-Xa, UFH(UnfractionatedHep 0.49 IU/ml (0.3-0.7); INR 1.1 (0.9-1.1); Prothrombin Time 11.6 Seconds (9.0-12.0)
[2023-09-07] MEDS: HEPARIN SODIUM/DEXTROSE 25,000 UNITS/500 ML BAG IV SCH (21:44)
[2023-09-07 23:22] LABS: BUN Creatinine Ratio 30.3 (10-20); Calcium 8.2 mg/dl (8.6-10.3); Est GFR (Non-African American) 115.6 ml/min; Potassium 3.8 mmol/L (3.5-5.1)
[2023-09-07] MEDS: MoRPHine SULFATE 2 MG/ML CARP IV STA (23:39)
[2023-09-08] MEDS: CEFEPIME 2,000 MG in SYRINGE 0 ML IV SCH (00:58)
[2023-09-08 01:32] LABS: Appearance Urine Clear (Clear); Bacteria Urine Automated Negative (Negative); Bilirubin Urine Negative (Negative); Blood Urine 2+ (Negative); Color Urine Yellow; Epithelial Cell Urine Auto 20-30 /lpf (0-5); Glucose Urine UA Negative (Negative); Ketones Urine Negative (Negative); Leukocyte Esterase Urine Negative (Negative); Nitrite Urine Negative (Negative); Protein Urine Trace (Negative); Specific Gravity Urine 1.013 (1.000-1.030); Urobilinogen Urine Negative (Negative)
[2023-09-08] MEDS: MoRPHine SULFATE 2 MG/ML CARP IV STA ×2 (03:02→05:28)
[2023-09-08 03:34] LABS: Hematocrit (blood only) 27.5 % (37.0-47.0); Hemoglobin 9.3 g/dl (12.0-16.0); Mean Corpuscular Hemoglobin 31.1 pg (25.0-34.0); Mean Corpuscular Hgb Conc 33.8 g/dL (32.0-36.0); Mean Platelet Volume 8.7 fL (9.4-12.4); Platelet Count 352 K/uL (130-400); RDW Coefficient of Variation 15.5 % (11.5-14.5); RDW Standard Deviation 51.3 fL (36.4-46.3); Red Blood Count 2.99 M/uL (4.20-5.40); White Blood Count 22.45 K/ul (4.8-10.8)
[2023-09-08 03:47] LABS: Albumin Level 3.3 gm/dl (3.4-5.0); BUN Creatinine Ratio 32.4 (10-20); Bilirubin,Total 0.3 mg/dl (0.2-1.0); Calcium 8.3 mg/dl (8.6-10.3); Creatinine Clr Calc Pharmacy 153.4 ml/min; Est GFR (African American) 132.7 ml/min; Est GFR (Non-African American) 114.5 ml/min; Magnesium 1.7 mg/dl (1.7-2.4); Phosphorus 3.7 mg/dl (2.5-4.9); Potassium 3.8 mmol/L (3.5-5.1)
[2023-09-08 03:49] LABS: ANTI-Xa, UFH(UnfractionatedHep 0.53 IU/ml (0.3-0.7)
--- NOTE | 2023-09-08 05:38 | Electrocardiogram Report ---
Test Reason : Blood Pressure : / mmHG Vent. Rate : 127 BPM Atrial Rate : 254 BPM P-R Int : 000 ms QRS Dur : 086 ms QT Int : 300 ms P-R-T Axes : 223 -23 093 degrees QTc Int : 436 ms Atrial flutter with 2:1 A-V conduction Abnormal ECG When compared with ECG of 01-SEP-2023 07:54, Atrial flutter has replaced Sinus rhythm Vent. rate has increased BY 52 BPM Nonspecific T wave abnormality no longer evident in Anterior leads Confirmed by Jordan Serna ([id number]) on 09/08/2023 5:37:56 AM Referred By: REFERRED SELF Confirmed By:Jordan Serna
[2023-09-08 05:46] LABS: iSTAT Allen Test Pass; iSTAT Art Bld Gas pCO2 Correct 81 mmHg (35-46); iSTAT Art Bld Gas pH Corrected 7.317 (7.35-7.45); iSTAT Arterial Blood Gas HCO3 42 meg/L (19-24); iSTAT Arterial Blood Gas pCO2 83 mmHg (35-46); iSTAT Arterial Blood Gas pH 7.31 (7.35-7.45); iSTAT Arterial Blood Gas pO2 67 mmHg (80-95); iSTAT Arterial Blood Gas pO2 C 66; iSTAT Carbon Dioxide > 40 mmol/L (24-31); iSTAT FiO2 60 %; iSTAT Hematocrit 29 % (37-47); iSTAT Hemoglobin 9.9 g/dl (12.0-16.0); iSTAT Potassium 3.6 mmol/L (3.3-5.0); iSTAT Site R Radial; iSTAT Sodium 121 mmol/L (135-144)
--- NOTE | 2023-09-08 07:49 | Critical Care Progress Note ---
Date of Service September 08, 2023 Assessment & Plan (1) Acute on chronic respiratory failure with hypoxia: (2) Atrial flutter with rapid ventricular response: (3) Adenocarcinoma of lung: (4) Hyponatremia: Plan IMPRESSION: 68-year-old female with a significant past medical history of stage IV adenocarcinoma of the lung, chronic hypoxic respiratory failure, and persistent effusions who presents to the hospital with acute on chronic hypoxic respiratory failure currently in A-fib RVR on amiodarone drip and requiring CPAP while undergoing diuresis. Neuro - CAM ICU negative Cardiac - Proximal A-fib/A-fib RVRcontinue amiodarone drip and IV MTP with goal of rate control -Continue heparin drip -Continuous monitoring on telemetry -Cardiology on board Respiratory - CT chest 09/02/2023 personally reviewed: There is infiltrative process in the whole left side of the lung, right middle and right lower lobe are also affected with tree-in-bud opacities and consolidative/groundglass process Minimal mediastinal lymphadenopathy CAT scan has not changed significantly compared to 08/24/2023 Acute on chronic hypoxic respiratory failurelikely multifactorial in the setting of adenocarcinoma with tumor burden of lung, superimposed congestive changes in the setting of a flutter -Cannot rule out underlying pneumonia as well, see ID below -BNP elevated at 368, procalcitonin 0.05 -Was started on scopolamine patch to help with secretions -Continuous monitoring on pulse ox GI - N.p.o. for now RENAL/LYTES - Creatinine within normal limits, monitor routine BMPs and replete electrolytes as indicated Hyponatremiaappears to be chronic in patient with stage IV metastatic adenocarcinoma of the lung. Sodium currently 122. Continue sodium chloride p.o. and fluid restriction. Will consider sodium tablets versus hypertonic saline - Arellano inserted for strict I's and O's ENDO - No history of diabetes or thyroid disease, ICU hyperglycemic protocol HEME - H&H stable, monitor routine CBC ID - Pneumonia?Patient recently underwent treatment with doxycycline and cefpodoxime as outpatient -Bio fire negative -Blood cultures negative on preliminary's -Nasal MRSA negative -Sputum culture pending -Continue with empiric pulmonary coverage with cefepime for now CODE STATUS: Full code, palliative care consult pending and patient family has meeting with [facility] tomorrow via Zoom call --Prophylaxis VTE: Heparin drip GI: None Lines: Central port, peripheral Diet: N.p.o. Plan: In/out: Negative 472, urine output 1810 Respiratory bio fire is negative for everything I increased the IPAP to 12. Increase metoprolol to 5 mg every 4 hours Potassium and magnesium being replaced Case discussed with cardiology, plan would be to cardiovert the patient. Overall prognosis is guarded. Recommend palliative care evaluation I have personally spent 54 minutes of critical care time in the direct management of this patient. This is a life/limb threatening event. This includes time spent evaluating patient, direct bedside care, chart review, placing orders, interpretation of diagnostic studies, discussion with consultants, patient, and family members, as well as other required patient management activities. This time is exclusive of all separately billable procedures, and teaching time and separate from and in addition to any other critical care service time. Please note the above document was generated using voice recognition software. It may contain grammatical, syntax or spelling errors. Admission and Anticipated Discharge Date Admission Date: September 07, 2023 Subjective Patient seen and examined at bedside. Was on BiPAP She was in mild respiratory distress Patient's family was also in the room She denied any headache, no nausea, no vomiting Stated that she is feeling better compared to when she was on the floor yesterday Denies any headache. Heart rate was still in the 120s. She is making good amount of urine Review of Systems 2 Review of Systems: Unobtainable due to mental health condition Physical Exam 2 Physical Exam: Constitutional: In mild respiratory distress HEENT: EOMI, PERRLA Respiratory system: Decreased air entry bilaterally, no wheeze, no rhonchi, positive crackles appreciated bilaterally anteriorly and posteriorly CVS: S1-S2 positive, no murmurs or gallops, tachycardia, accentuated P2 Abdomen: Soft, nontender, nondistended, positive bowel sounds x4 Extremities: +2 pulses bilaterally radialis/ dorsalis pedis, no cyanosis, +1 pitting edema bilateral lower extremity Neuro: Awake alert oriented to self and place Psych: Flat mood and affect G/U: Positive Arellano Results & Data Results & Data Vital Signs (Past 12 Hours) Vital Signs Temp Pulse Resp BP Pulse Ox Pulse Ox O2 Del Method 09/08/23 07:00 123 H 95 09/08/23 07:00 131/83 09/08/23 06:45 122 H 97 09/08/23 06:00 36.5 C 122 H 22 108/88 94 BiPAP 09/08/23 05:59 128 H 22 95 09/08/23 05:34 122 H 108/88 09/08/23 05:19 123 H 129/85 09/08/23 05:15 36.6 C 125 H 23 129/85 90 09/08/23 05:15 129/85 09/08/23 04:00 122 H 18 113/86 92 09/08/23 03:35 124 H 23 92 09/08/23 03:00 122 H 21 127/83 92 09/08/23 02:00 36.4 C L 124 H 25 H 119/86 91 CPAP 09/08/23 01:36 92 09/08/23 01:08 125 H 09/08/23 01:00 36.6 C 121 H 22 117/77 91 09/08/23 00:00 36.6 C 123 H 21 107/76 91 09/07/23 23:40 127 H 24 96 09/07/23 23:32 123 H 121/81 09/07/23 23:18 127 H 127/83 09/07/23 23:10 36.5 C 127 H 24 127/83 92 09/07/23 23:00 126 H 22 92 09/07/23 22:00 36.5 C 127 H 21 127/85 92 CPAP 09/07/23 21:34 CPAP 09/07/23 21:00 36.4 C L 124 H 25 H 108/84 93 09/07/23 20:27 124 H 26 H 116/75 94 09/07/23 20:00 36.3 C L 121 H 22 119/83 97 09/07/23 20:00 121 H 09/07/23 20:00 123 H 138/83 O2 Del Method FiO2 09/08/23 07:00 09/08/23 07:00 09/08/23 06:45 09/08/23 06:00 60 09/08/23 05:59 60 09/08/23 05:34 09/08/23 05:19 09/08/23 05:15 09/08/23 05:15 09/08/23 04:00 09/08/23 03:35 50 09/08/23 03:00 02/15/24 02:00 50 09/08/23 01:36 BiPAP 09/08/23 01:08 09/08/23 01:00 09/08/23 00:00 09/07/23 23:40 50 09/07/23 23:32 09/07/23 23:18 09/07/23 23:10 09/07/23 23:00 09/07/23 22:00 50 09/07/23 21:34 50 09/07/23 21:00 09/07/23 20:27 09/07/23 20:00 09/07/23 20:00 09/07/23 20:00 Laboratory Results 09/08/23 03:07 Coding Level of Care Code 08823 CRITICAL CARE 1ST 30-74M Diagnoses Acute on chronic respiratory failure with hypoxia J96.21 Atrial flutter with rapid ventricular response I48.92 Adenocarcinoma of lung C34.92 Laterality: left Hyponatremia E87.1 (3) Adenocarcinoma of lung Laterality: left Qualified Code(s): C34.92 - Malignant neoplasm of unspecified part of left bronchus or lung
[2023-09-08 07:58] LABS: BUN Creatinine Ratio 38.7 (10-20); Calcium 8.5 mg/dl (8.6-10.3); Creatinine Clr Calc Pharmacy 168.2 ml/min; Est GFR (African American) 136.8 ml/min; Potassium 3.9 mmol/L (3.5-5.1)
[2023-09-08] MEDS: METOPROLOL TARTRATE 1 MG/ML VIAL IV SCH (08:05)
[2023-09-08] MEDS: MAGNESIUM SULFATE / D5W 1 GM/100 ML BAG IV SCH (08:06)
[2023-09-08] MEDS: FUROSEMIDE 40 MG/4 ML VIAL IV SCH (08:06)
--- NOTE | 2023-09-08 08:09 | XRay Report ---
XR chest 1V portable CLINICAL HISTORY: Respiratory failure. COMPARISON STUDY: Chest CT September 02, 2023. Chest radiograph September 06, 2023. FINDINGS: Left subclavian [id number] is in place. There is no pneumothorax. Trace bilateral pleura l effusions are present. Extensive consolidation within both lungs, greater on the left, is unchanged . IMPRESSION: No change in extensive bilateral airspace opacities, more pronounced on the left, sugges tive of pneumonia. ACT 112: Negative or not required by law. Electronically signed by: Ryan Ortega M.D. 09/08/2023 8:08 AM
[2023-09-08] MEDS: POTASSIUM CHLORIDE / WTR 20 MEQ/100 ML PLCT IV SCH (08:20)
[2023-09-08] MEDS ORDERED: FOLIC ACID 1 MG TAB PO SCH (09:00)
[2023-09-08] MEDS ORDERED: CHOLECALCIFEROL 25 MCG (1000 UNITS) TAB PO SCH (09:00)
[2023-09-08] MEDS ORDERED: CYANOCOBALAMIN (B-12) 500 MCG TABLET PO SCH (09:00)
[2023-09-08] MEDS ORDERED: STAT IV Infusion **Titration per Protocol STA (10:21)
--- NOTE | 2023-09-08 10:22 | Pre Anesthesia Assessment ---
Date of Service September 08, 2023 Pre Sedation Assessment Vital Signs Temp Pulse Pulse Resp BP BP Pulse Ox 09/08/23 08:20 126 H 122/85 09/08/23 08:05 125 H 125/90 09/08/23 07:49 123 H 21 96 09/08/23 07:49 123 H 21 96 09/08/23 07:48 36.6 C 09/08/23 07:00 123 H 95 09/08/23 07:00 131/83 09/08/23 06:45 122 H 97 09/08/23 06:00 36.5 C 122 H 22 108/88 94 09/08/23 05:59 128 H 22 95 09/08/23 05:34 122 H 108/88 09/08/23 05:19 123 H 129/85 09/08/23 05:15 36.6 C 125 H 23 129/85 90 09/08/23 05:15 129/85 09/08/23 04:00 122 H 18 113/86 92 09/08/23 03:35 124 H 23 92 09/08/23 03:00 122 H 21 127/83 92 09/08/23 02:00 36.4 C L 124 H 25 H 119/86 91 09/08/23 01:36 09/08/23 01:08 125 H 09/08/23 01:00 36.6 C 121 H 22 117/77 91 09/08/23 00:00 36.6 C 123 H 21 107/76 91 09/07/23 23:40 127 H 24 96 09/07/23 23:32 123 H 121/81 09/07/23 23:18 127 H 127/83 09/07/23 23:10 36.5 C 127 H 24 127/83 92 09/07/23 23:00 126 H 22 92 09/07/23 22:00 36.5 C 127 H 21 127/85 92 09/07/23 21:34 09/07/23 21:00 36.4 C L 124 H 25 H 108/84 93 09/07/23 20:27 124 H 26 H 116/75 94 09/07/23 20:00 36.3 C L 121 H 22 119/83 97 09/07/23 20:00 121 H 09/07/23 20:00 123 H 138/83 09/07/23 19:25 122 H 100/66 09/07/23 19:20 124 H 21 100 09/07/23 14:27 36.4 C L 123 H 22 120/81 92 09/07/23 13:30 118/85 09/07/23 13:30 120 H 25 H 96 09/07/23 13:17 122 H 27 H 96 09/07/23 13:15 127/84 09/07/23 13:15 120 H 19 94 09/07/23 13:00 121 H 24 91 09/07/23 13:00 128/94 09/07/23 12:45 118 H 25 H 92 09/07/23 12:45 130/85 09/07/23 12:30 115/72 09/07/23 12:30 121 H 22 93 09/07/23 12:15 118/87 09/07/23 12:15 120 H 28 H 91 09/07/23 12:00 119 H 26 H 91 09/07/23 12:00 115/81 09/07/23 11:45 120 H 24 91 09/07/23 11:45 104/77 09/07/23 11:30 118 H 26 H 93 09/07/23 11:30 127/83 09/07/23 11:15 121 H 21 96 09/07/23 11:15 107/74 09/07/23 11:00 122 H 24 92 09/07/23 11:00 100/82 09/07/23 10:45 120 H 28 H 88 L 09/07/23 10:45 120/80 Pulse Ox O2 Del Method O2 Del Method O2 Flow Rate FiO2 09/08/23 08:20 09/08/23 08:05 09/08/23 07:49 60 09/08/23 07:49 BiPAP 60 09/08/23 07:48 09/08/23 07:00 09/08/23 07:00 09/08/23 06:45 09/08/23 06:00 BiPAP 60 09/08/23 05:59 60 09/08/23 05:34 09/08/23 05:19 09/08/23 05:15 09/08/23 05:15 09/08/23 04:00 09/08/23 03:35 50 09/08/23 03:00 09/08/23 02:00 CPAP 50 09/08/23 01:36 92 BiPAP 09/08/23 01:08 09/08/23 01:00 09/08/23 00:00 09/07/23 23:40 50 09/07/23 23:32 09/07/23 23:18 09/07/23 23:10 09/07/23 23:00 09/07/23 22:00 CPAP 50 09/07/23 21:34 CPAP 50 09/07/23 21:00 09/07/23 20:27 09/07/23 20:00 09/07/23 20:00 09/07/23 20:00 09/07/23 19:25 09/07/23 19:20 50 09/07/23 14:27 BiPAP 09/07/23 13:30 09/07/23 13:30 BiPAP 60 09/07/23 13:17 60 09/07/23 13:15 09/07/23 13:15 09/07/23 13:00 Nasal Cannula 12 09/07/23 13:00 09/07/23 12:45 Nasal Cannula 09/07/23 12:45 09/07/23 12:30 09/07/23 12:30 Nasal Cannula 12 09/07/23 12:15 09/07/23 12:15 Nasal Cannula 09/07/23 12:00 Nasal Cannula 12 09/07/23 12:00 09/07/23 11:45 Nasal Cannula 12 09/07/23 11:45 09/07/23 11:30 Nasal Cannula 09/07/23 11:30 09/07/23 11:15 Nasal Cannula 09/07/23 11:15 09/07/23 11:00 Nasal Cannula 09/07/23 11:00 09/07/23 10:45 Nasal Cannula 09/07/23 10:45 Pre-Sedation Airway Assessment Smoking Status: Never smoker Hx Sleep Apnea: No Mallampati Class: III ASA: ASA4 Procedure Planning Contraindications for Sedation: none Current Medications Reviewed: Yes Notes The planned sedation has been discussed with the patient. Informed Consent was obtained. I have identified the patient, determined the appropriateness of sedation and have assessed the patient immediately prior to the procedure. All medicine(s) and interventions are by my order. [facility] [place] Procedure Codes (Charges) Sedation/Anesthesia Procedure 1: Sedation/Anesthesia: 31964 Mod Sedation by the same physician;Init15 Min Child Age 5 & Up
[2023-09-08] MEDS: fentaNYL citrate PF 100 MCG/2 ML VIAL IV STA (10:38)
[2023-09-08] MEDS: MIDAZOLAM HCL 5 MG/ML 2ML VIAL IV STA (10:38)
--- NOTE | 2023-09-08 10:52 | Cardioversion ---
Date of Service September 08, 2023 PG Electrical Cardioversion Rp Electrical Cardioversion Report Procedure: DC Cardioversion Indication: Atrial flutter with RVR Informed Consent: Pt agreed verbally and had her daughter sign consent for her. Time Out: Performed by critical care team, Dr. Oneil. Sedation: Provided by Dr. Oneil of the critical care team. Antiarrhythmic: Amiodarone IV Anticoagulation: Heparin gtt and previously on Eliquis. Onset of atrial flutter: < 48 hours for this episode. Procedure Details: Once sedated, 50 Joules were delivered in a synchronized fashion and successfully converted atrial flutter to sinus rhythm. She remained hemodynamically stable without known complication at the time of this note. Plan: 1. Continue IV amiodarone for now and will convert to oral in the near future. 2. Continue therapeutic anticoagulation. 3. Family (daughters and ) were personally updated. Coding Level of Care Code 93820 CARDIOVERSION, ELECTIVE Additional Codes Electrical Cardioversion Report ([id number])
--- NOTE | 2023-09-08 10:52 | Cardiology Progress Note ---
Date of Service September 08, 2023 Assessment & Plan (1) Atrial flutter with rapid ventricular response: (2) Acute on chronic respiratory failure with hypoxia: (3) Adenocarcinoma of lung: Plan ASSESSMENT/PLAN: 1. Paroxysmal atrial flutter: Has had recurrent atrial flutter after undergoing cardioversion on 09/01/2023 and spontaneously converting in July 2023. Remains in atrial flutter. Family reports that her breathing does worsen when she is in atrial flutter. After discussion, they would like to pursue cardioversion. Discussed with Dr. Oneil of the critical care team and he agrees with pursuing cardioversion and feels that she is well enough to undergo sedation. He will provide sedation for the cardioversion. Risks and benefits of the procedure were discussed with patient and her family members in detail. She has given informed consent to proceed. We also discussed the fact that she is likely to have recurrent atrial flutter. Hopefully, as amiodarone continues to be loaded, sinus rhythm will be maintained. If not, could consider ablation to improve her quality of life, if deemed a suitable candidate. Continue amiodarone IV today and consider replacing with amiodarone 200 mg twice daily p.o. tomorrow. Continue anticoagulation for stroke risk reduction without interruption for at least 4 weeks, although long-term anticoagulation therapy is indicated for stroke risk reduction, if no contraindications arise. 2. Acute on chronic respiratory failure with hypoxia: Has been seen by pulmonology. Agree with trying to maintain a net negative fluid balance. 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 She has been receiving intermittent doses of Lasix. Monitor renal function and electrolytes. She does not appear to be significant hypervolemic on exam however, but is tolerating diuresis. 3. Hyperkalemia: This was noted this afternoon when repeat labs were performed by other providers. As per primary hospitalist service and critical care team. 4. Disposition: Cardiology will continue to follow. Dr. Howard will be on-call tomorrow as I will be away from the hospital. Will sign out to Dr. Howard. Please call on-call scientific research manager with any questions or concerns. Patient care discussed with Dr. Oneil of the critical care team, and Dr. Levy of the primary hospitalist service. Highly complex medical issues. Admission and Anticipated Discharge Date Admission Date: September 07, 2023 Subjective Patient seen earlier this morning. She was much more wide-awake on BiPAP. She denied pain. She had just received troubling news after having a telehealth visit with [facility] oncology. She learned that her malignancy had progressed and that she would not be receiving more chemotherapy for now. She wishes to undergo cardioversion. Her twin daughters and her were present at the bedside and they all agreed to proceed with cardioversion when deemed safe. No reported bleeding, syncope, palpitations, or edema. Review of systems as above. Physical Exam Physical Exam: Gen.: No acute distress. Alert. HEENT: Anicteric sclera. Neck: No obvious JVD. Cardiac: No ventricular heave. Regular and tachycardic in the 120s. Normal S1- S2. No murmurs, rubs, or gallops. Pulmonary: Coarse breath sounds throughout. Abdomen: Soft, nontender, nondistended, with normoactive bowel sounds. No bruits noted. Extremities: 2+ radial pulses bilaterally. 2+ posterior tibialis pulses bilaterally. No edema or cyanosis. Results & Data Vital Signs (Past 12 Hours) Vital Signs Temp Pulse Pulse Resp BP Pulse Ox Pulse Ox 09/08/23 08:20 126 H 122/85 09/08/23 08:05 125 H 125/90 09/08/23 07:49 123 H 21 96 09/08/23 07:49 123 H 21 96 09/08/23 07:48 36.6 C 09/08/23 07:00 123 H 95 09/08/23 07:00 131/83 09/08/23 06:45 122 H 97 09/08/23 06:00 36.5 C 122 H 22 108/88 94 09/08/23 05:59 128 H 22 95 09/08/23 05:34 122 H 108/88 09/08/23 05:19 123 H 129/85 09/08/23 05:15 36.6 C 125 H 23 129/85 90 09/08/23 05:15 129/85 09/08/23 04:00 122 H 18 113/86 92 09/08/23 03:35 124 H 23 92 09/08/23 03:00 122 H 21 127/83 92 09/08/23 02:00 36.4 C L 124 H 25 H 119/86 91 09/08/23 01:36 92 09/08/23 01:08 125 H 09/08/23 01:00 36.6 C 121 H 22 117/77 91 09/08/23 00:00 36.6 C 123 H 21 107/76 91 09/07/23 23:40 127 H 24 96 09/07/23 23:32 123 H 121/81 09/07/23 23:18 127 H 127/83 09/07/23 23:10 36.5 C 127 H 24 127/83 92 09/07/23 23:00 126 H 22 92 O2 Del Method O2 Del Method FiO2 09/08/23 08:20 09/08/23 08:05 09/08/23 07:49 60 09/08/23 07:49 BiPAP 60 09/08/23 07:48 09/08/23 07:00 09/08/23 07:00 09/08/23 06:45 09/08/23 06:00 BiPAP 60 09/08/23 05:59 60 09/08/23 05:34 09/08/23 05:19 09/08/23 05:15 09/08/23 05:15 09/08/23 04:00 09/08/23 03:35 50 09/08/23 03:00 09/08/23 02:00 CPAP 50 09/08/23 01:36 BiPAP 09/08/23 01:08 09/08/23 01:00 09/08/23 00:00 09/07/23 23:40 50 09/07/23 23:32 09/07/23 23:18 09/07/23 23:10 09/07/23 23:00 Laboratory Results Laboratory Results - last 24 hr 09/07/23 09/07/23 09/07/23 19:04 20:58 22:49 WBC RBC Hgb POC Hgb Hct POC Hct MCV MCH MCHC RDW Std Deviation RDW Coeff of Thomas Plt Count MPV PT 11.6 INR 1.1 Heparin Anti-Xa, Unfract 0.49 Sample Site POC pH POC pCO2 POC pO2 POC HCO3 POC Total CO2 POC Base Excess ABG pH 7.42 ABG pH (Temp Correct) ABG pCO2 58 H ABG pCO2 (Temp Corrct ABG pO2 73 L POC ABG pO2 at Pt Temp ABG HCO3 38 H POC ABG O2 Sat ABG O2 Saturation 96.1 H ABG Base Excess 10.8 H Nasir Test Pos Oxygen Given 60% FiO2 O2 Delivery Device POC FiO2 POC Sodium Sodium 123 L POC Potassium Potassium 3.8 Chloride 79 L Carbon Dioxide 38 H Anion Gap 6 BUN 10 Creatinine 0.33 L Est Cr Clr Drug Dosing 158.0 Est GFR ( Amer) 134.0 Est GFR (Non-Af Amer) 115.6 BUN/Creatinine Ratio 30.3 H Glucose 122 H Osmolality Calcium 8.2 L Phosphorus Magnesium Total Bilirubin Direct Bilirubin AST ALT Alkaline Phosphatase Ammonia Total Protein Albumin Urine Color Urine Appearance Urine pH Ur Specific [place] Urine Protein Urine Glucose (UA) Urine Ketones Urine Blood Urine Nitrite Urine Bilirubin Urine Urobilinogen Ur Leukocyte Esterase Urine WBC (Auto) Urine RBC (Auto) U Hyaline Cast (Auto) U Epithel Cells (Auto) Urine Bacteria (Auto) Urine Osmolality Ur Random Sodium 09/07/23 09/07/23 09/08/23 23:32 23:55 03:07 WBC 22.45 H RBC 2.99 L Hgb 9.3 L POC Hgb Hct 27.5 L POC Hct MCV 92.0 MCH 31.1 MCHC 33.8 RDW Std Deviation 51.3 H RDW Coeff of Thomas 15.5 H Plt Count 352 MPV 8.7 L PT INR Heparin Anti-Xa, Unfract 0.53 Sample Site POC pH POC pCO2 POC pO2 POC HCO3 POC Total CO2 POC Base Excess ABG pH ABG pH (Temp Correct) ABG pCO2 ABG pCO2 (Temp Corrct ABG pO2 POC ABG pO2 at Pt Temp ABG HCO3 POC ABG O2 Sat ABG O2 Saturation ABG Base Excess Nasir Test Oxygen Given O2 Delivery Device POC FiO2 POC Sodium Sodium 123 L POC Potassium Potassium 3.8 Chloride 79 L Carbon Dioxide 38 H Anion Gap 6 BUN 11 Creatinine 0.34 L Est Cr Clr Drug Dosing 153.4 Est GFR ( Amer) 132.7 Est GFR (Non-Af Amer) 114.5 BUN/Creatinine Ratio 32.4 H Glucose 137 H Osmolality 255 L Calcium 8.3 L Phosphorus 3.7 Magnesium 1.7 Total Bilirubin 0.3 Direct Bilirubin 0.0 AST 15 ALT 26 Alkaline Phosphatase 64 Ammonia 27.0 Total Protein 6.0 Albumin 3.3 L Urine Color Yellow Urine Appearance Clear Urine pH 5.0 Ur Specific [place] 1.013 Urine Protein Trace H Urine Glucose (UA) Negative Urine Ketones Negative Urine Blood 2+ H Urine Nitrite Negative Urine Bilirubin Negative Urine Urobilinogen Negative Ur Leukocyte Esterase Negative Urine WBC (Auto) 1-5 Urine RBC (Auto) 5-10 H U Hyaline Cast (Auto) 1-5 U Epithel Cells (Auto) 20-30 H Urine Bacteria (Auto) Negative Urine Osmolality 395 L Ur Random Sodium 74 09/08/23 09/08/23 09/08/23 05:33 07:20 10:29 WBC RBC Hgb POC Hgb 9.9 L Hct POC Hct 29 L MCV MCH MCHC RDW Std Deviation RDW Coeff of Thomas Plt Count MPV PT INR Heparin Anti-Xa, Unfract 0.40 Sample Site R Radial POC pH 7.31 L POC pCO2 83 H POC pO2 67 L POC HCO3 42 H POC Total CO2 > 40 H* POC Base Excess 16.0 H ABG pH ABG pH (Temp Correct) 7.317 L ABG pCO2 ABG pCO2 (Temp Corrct 81 H ABG pO2 POC ABG pO2 at Pt Temp 66 ABG HCO3 POC ABG O2 Sat 90.0 ABG O2 Saturation ABG Base Excess Nasir Test Pass Oxygen Given O2 Delivery Device BIPAP POC FiO2 60 POC Sodium 121 L Sodium 124 L 122 L POC Potassium 3.6 Potassium 3.9 3.7 Chloride 79 L 77 L Carbon Dioxide 39 H 38 H Anion Gap 6 7 BUN 12 11 Creatinine 0.31 L 0.29 L Est Cr Clr Drug Dosing 168.2 179.8 Est GFR ( Amer) 136.8 139.8 Est GFR (Non-Af Amer) 118.0 120.7 BUN/Creatinine Ratio 38.7 H 37.9 H Glucose 122 H 148 H Osmolality Calcium 8.5 L 8.3 L Phosphorus Magnesium Total Bilirubin Direct Bilirubin AST ALT Alkaline Phosphatase Ammonia Total Protein Albumin Urine Color Urine Appearance Urine pH Ur Specific [place] Urine Protein Urine Glucose (UA) Urine Ketones Urine Blood Urine Nitrite Urine Bilirubin Urine Urobilinogen Ur Leukocyte Esterase Urine WBC (Auto) Urine RBC (Auto) U Hyaline Cast (Auto) U Epithel Cells (Auto) Urine Bacteria (Auto) Urine Osmolality Ur Random Sodium 09/08/23 14:29 WBC RBC Hgb POC Hgb Hct POC Hct MCV MCH MCHC RDW Std Deviation RDW Coeff of Thomas Plt Count MPV PT INR Heparin Anti-Xa, Unfract Sample Site POC pH POC pCO2 POC pO2 POC HCO3 POC Total CO2 POC Base Excess ABG pH ABG pH (Temp Correct) ABG pCO2 ABG pCO2 (Temp Corrct ABG pO2 POC ABG pO2 at Pt Temp ABG HCO3 POC ABG O2 Sat ABG O2 Saturation ABG Base Excess Nasir Test Oxygen Given O2 Delivery Device POC FiO2 POC Sodium Sodium 121 L POC Potassium Potassium 5.4 H D Chloride 77 L Carbon Dioxide 39 H Anion Gap 5 BUN 12 Creatinine 0.30 L Est Cr Clr Drug Dosing 173.8 Est GFR ( Amer) 138.3 Est GFR (Non-Af Amer) 119.3 BUN/Creatinine Ratio 40.0 H Glucose 136 H Osmolality Calcium 8.3 L Phosphorus Magnesium Total Bilirubin Direct Bilirubin AST ALT Alkaline Phosphatase Ammonia Total Protein Albumin Urine Color Urine Appearance Urine pH Ur Specific [place] Urine Protein Urine Glucose (UA) Urine Ketones Urine Blood Urine Nitrite Urine Bilirubin Urine Urobilinogen Ur Leukocyte Esterase Urine WBC (Auto) Urine RBC (Auto) U Hyaline Cast (Auto) U Epithel Cells (Auto) Urine Bacteria (Auto) Urine Osmolality Ur Random Sodium Diagnostic Findings Telemetry personally reviewed this morning: Atrial flutter with rapid ventricular response mostly in the low 120s. Labs reviewed and notable for leukocytosis, stable anemia, stable renal function, potassium this morning was normal at 3.7 and has since been checked by other providers and now mildly hyperkalemic (will defer to critical care team). Medications Administered Current Inpatient Medications Acetaminophen (Acetaminophen 325 Mg Tab) 650 mg PO Q4H PRN PRN Reason: Pain or Fever Stop: 10/07/23 01:35 Albuterol (Albut/Ipratrop 3mg/0.5mg Neb 3 Ml Vial) 3 ml INH Q6 PRN; Protocol PRN Reason: Shortness Of Breath Or Wheezing Stop: 10/07/23 01:35 Formoterol Fumarate (Formoterol 20 Mcg/2 Ml Vial) 20 mcg INH BIDR CAROLYN Stop: 10/07/23 06:59 Last Admin: 09/08/23 07:20 Dose: 20 mcg Furosemide (Furosemide 40 Mg/4 Ml Vial) 40 mg IV DAILY CAROLYN Stop: 10/08/23 08:59 Last Admin: 09/08/23 08:06 Dose: 40 mg Glycopyrrolate (Glycopyrrolate 0.2 Mg/Ml Vial) 0.2 mg IV Q8 PRN PRN Reason: secretions Stop: 10/07/23 16:44 Last Admin: 09/08/23 05:17 Dose: 0.2 mg Amiodarone HCl/Dextrose (Nexterone / D5w) 360 mg in 200 mls @ 33.333 mls/hr IV .Q6H CAROLYN Stop: 10/07/23 04:59 Last Admin: 09/08/23 13:04 Dose: 1 mg/min, 33.3 mls/hr Heparin Sodium/Dextrose (Heparin Sodium/Dextrose) 25,000 units in 500 mls @ 15 mls/hr IV .Q24H CAROLYN; Protocol Stop: 10/07/23 19:14 Last Titration: 09/08/23 07:19 Dose: 750 units/hr, 15 mls/hr Cefepime HCl 2,000 mg/ Syringe 20 mls @ 5 mls/min IV Q8H CAROLYN; Protocol Stop: 09/14/23 23:29 Last Admin: 09/08/23 07:31 Dose: 5 mls/min Phenylephrine HCl (Phenylephrine/Nss) 25 mg in 250 mls @ 20.16 mls/hr IV .[id number] CAROLYN; Protocol Stop: 10/08/23 10:29 Metoprolol Tartrate (Metoprolol Tartrate 1 Mg/Ml Vial) 5 mg IV Q4 CAROLYN Stop: 10/08/23 07:59 Last Admin: 09/08/23 13:09 Dose: Not Given Miscellaneous (Remove Transderm-Scop Patch) 1 each N/A Q72H CAROLYN Stop: 10/07/23 08:58 Last Admin: 09/07/23 07:44 Dose: 1 each Miscellaneous (Check Scopolamine Patch Placement) 1 each N/A QS [facility] Stop: 10/07/23 15:59 Last Admin: 09/08/23 07:31 Dose: 1 each Multi-Ingredient Mouthwash/Gargle (First - Mouthwash Blm 119 Ml) 5 ml PO Q6H PRN PRN Reason: mouth pain Stop: 10/07/23 04:25 Nystatin (Nystatin Susp 500,000 U/5 Ml Udc) 5 ml PO QID PRN PRN Reason: mouth pain Stop: 09/17/23 01:35 Ondansetron HCl (Ondansetron Inj 2 Mg/Ml 2 Ml Vial) 4 mg IV Q6H PRN PRN Reason: Nausea And Vomiting Stop: 10/07/23 01:35 Polyethylene Glycol (Polyethylene (Miralax) 17 Gm Pack) 17 gm PO BID PRN PRN Reason: constipation Stop: 10/07/23 01:35 Scopolamine (Scopolamine 1 Mg Tdsy) 1 mg TD Q72H [facility] Stop: 10/07/23 08:59 Last Admin: 09/07/23 07:45 Dose: 1 mg Senna/Docusate Sodium (Docusate Sodium/Senna 50/8.6mg Tab) 1 tab PO DAILY PRN PRN Reason: Constipation Stop: 10/07/23 01:35 Sodium Chloride (Sodium Chlor 7% 4 Ml Neb) 4 ml NEB BIDR [facility] Stop: 10/07/23 06:59 Last Admin: 09/08/23 07:20 Dose: 4 ml Sodium Chloride (Sodium Chloride 1 Gm Tablet) 1 gm PO BID [facility] Stop: 10/07/23 10:29 Last Admin: 09/08/23 08:06 Dose: 1 gm PG Care Time/CCT Total # of Minutes Spent Total Time Spent with Patient: Total time spent is greater than 50% in coordination of care (as documented) at patient's floor/unit and/or counseling patient: Coding Level of Care Code 69700 SUB INP/OBS CARE 3/50MIN Diagnoses Atrial flutter with rapid ventricular response I48.92 Acute on chronic respiratory failure with hypoxia J96.21 Adenocarcinoma of lung C34.92 Laterality: left (3) Adenocarcinoma of lung Laterality: left Qualified Code(s): C34.92 - Malignant neoplasm of unspecified part of left bronchus or lung
--- NOTE | 2023-09-08 10:58 | Post Anesthesia Assessment ---
Date of Service September 08, 2023 Post Sedation Assessment Vital Signs Temp Pulse Pulse Resp BP Pulse Ox Pulse Ox 09/08/23 15:30 140/76 09/08/23 15:30 78 0 L 94 09/08/23 15:07 128/72 09/08/23 15:07 77 0 L 96 09/08/23 15:00 79 0 L 97 09/08/23 14:54 78 24 96 09/08/23 14:52 78 09/08/23 14:31 79 0 L 88 L 09/08/23 14:31 142/86 H 09/08/23 14:00 79 33 H 91 09/08/23 14:00 141/86 H 09/08/23 13:30 143/85 H 09/08/23 13:30 82 32 H 96 09/08/23 13:10 122/68 09/08/23 13:10 83 27 H 98 09/08/23 13:08 83 27 H 91 09/08/23 13:08 140/77 09/08/23 13:06 80 25 H 93 09/08/23 13:06 125/67 09/08/23 13:04 136/69 09/08/23 13:04 80 25 H 97 09/08/23 13:03 128/73 09/08/23 13:03 80 27 H 97 09/08/23 13:00 89/65 L 09/08/23 13:00 80 31 H 81 L 09/08/23 12:58 138/77 09/08/23 12:58 81 31 H 94 09/08/23 12:56 137/73 09/08/23 12:56 80 30 H 96 09/08/23 12:55 116/77 09/08/23 12:55 87 30 H 96 09/08/23 12:52 125/75 09/08/23 12:52 82 28 H 91 09/08/23 12:50 131/71 09/08/23 12:50 84 31 H 95 09/08/23 12:48 126/96 09/08/23 12:48 79 29 H 93 09/08/23 12:46 82 27 H 96 09/08/23 12:46 126/77 09/08/23 12:44 142/72 H 09/08/23 12:44 81 30 H 96 09/08/23 12:40 93/71 L 09/08/23 12:40 85 30 H 95 09/08/23 12:36 79 27 H 96 09/08/23 12:36 139/66 09/08/23 12:35 129/77 09/08/23 12:35 81 28 H 99 09/08/23 12:32 106/63 09/08/23 12:32 77 30 H 96 09/08/23 12:30 125/77 09/08/23 12:30 76 26 H 96 09/08/23 12:29 77 27 H 95 09/08/23 12:29 121/62 09/08/23 12:26 122/80 09/08/23 12:26 77 24 95 09/08/23 12:24 119/75 09/08/23 12:24 85 32 H 96 09/08/23 12:22 108/67 09/08/23 12:22 76 30 H 98 09/08/23 12:20 100/57 L 09/08/23 12:20 75 28 H 98 09/08/23 11:38 79 28 H 95 09/08/23 11:38 98/68 L 09/08/23 11:36 109/63 09/08/23 11:36 82 26 H 95 09/08/23 11:34 90/57 L 09/08/23 11:34 78 28 H 95 09/08/23 11:32 90/57 L 09/08/23 11:32 78 26 H 95 09/08/23 11:30 78 30 H 95 09/08/23 11:30 89/58 L 09/08/23 11:28 78 33 H 96 09/08/23 11:28 84/59 L 09/08/23 11:26 85/59 L 09/08/23 11:26 79 24 96 09/08/23 11:24 87/55 L 09/08/23 11:24 79 29 H 96 09/08/23 11:22 97/58 L 09/08/23 11:22 81 36 H 95 09/08/23 11:18 79 30 H 94 09/08/23 11:18 80/49 L 09/08/23 11:16 79 33 H 94 09/08/23 11:14 80 35 H 95 09/08/23 11:14 82/50 L 09/08/23 11:12 80 32 H 95 09/08/23 11:12 82/52 L 09/08/23 11:10 82/55 L 09/08/23 11:10 81 26 H 95 09/08/23 11:08 81 33 H 95 09/08/23 11:08 98/58 L 09/08/23 11:06 80 30 H 94 09/08/23 11:06 88/60 L 09/08/23 11:04 90/64 L 09/08/23 11:04 81 27 H 94 09/08/23 11:02 89/61 L 09/08/23 11:02 81 30 H 93 09/08/23 11:00 85/63 L 09/08/23 11:00 80 28 H 94 09/08/23 10:58 82 30 H 94 09/08/23 10:58 92/57 L 09/08/23 10:56 95/62 L 09/08/23 10:56 82 31 H 94 09/08/23 10:54 93/67 L 09/08/23 10:54 82 31 H 94 09/08/23 10:52 92/63 L 09/08/23 10:52 83 31 H 95 09/08/23 10:50 82 30 H 96 09/08/23 10:50 81 31 H 96 09/08/23 10:50 104/66 09/08/23 10:48 82 37 H 98 09/08/23 10:48 110/67 09/08/23 10:46 110/78 09/08/23 10:46 82 25 H 99 09/08/23 10:44 81 23 98 09/08/23 10:44 121/71 09/08/23 10:42 119/75 09/08/23 10:42 82 25 H 98 09/08/23 10:40 147/87 H 09/08/23 10:40 90 31 H 98 09/08/23 10:38 115 H 27 H 97 09/08/23 10:38 123/88 09/08/23 10:36 126 H 24 94 09/08/23 10:36 126/90 09/08/23 10:30 124/84 09/08/23 10:30 126 H 24 91 09/08/23 10:00 117/93 09/08/23 10:00 125 H 27 H 94 09/08/23 09:30 123/90 09/08/23 09:30 124 H 23 92 09/08/23 09:00 129/88 09/08/23 09:00 124 H 22 92 09/08/23 08:30 123 H 23 92 09/08/23 08:30 122/85 09/08/23 08:20 126 H 122/85 09/08/23 08:05 125 H 125/90 09/08/23 08:00 123 H 23 95 09/08/23 08:00 125/90 09/08/23 07:49 123 H 21 96 09/08/23 07:49 123 H 21 96 09/08/23 07:48 36.6 C 09/08/23 07:30 124 H 21 94 09/08/23 07:30 129/89 09/08/23 07:30 09/08/23 07:00 123 H 95 09/08/23 07:00 131/83 09/08/23 06:48 119 H 09/08/23 06:45 122 H 97 09/08/23 06:00 36.5 C 122 H 22 108/88 94 09/08/23 05:59 128 H 22 95 09/08/23 05:34 122 H 108/88 09/08/23 05:19 123 H 129/85 09/08/23 05:15 36.6 C 125 H 23 129/85 90 09/08/23 05:15 129/85 09/08/23 04:00 122 H 18 113/86 92 09/08/23 03:35 124 H 23 92 09/08/23 03:00 122 H 21 127/83 92 09/08/23 02:00 36.4 C L 124 H 25 H 119/86 91 09/08/23 01:36 92 09/08/23 01:08 125 H 09/08/23 01:00 36.6 C 121 H 22 117/77 91 09/08/23 00:00 36.6 C 123 H 21 107/76 91 09/07/23 23:40 127 H 24 96 09/07/23 23:32 123 H 121/81 09/07/23 23:18 127 H 127/83 09/07/23 23:10 36.5 C 127 H 24 127/83 92 09/07/23 23:00 126 H 22 92 09/07/23 22:00 36.5 C 127 H 21 127/85 92 09/07/23 21:34 09/07/23 21:00 36.4 C L 124 H 25 H 108/84 93 09/07/23 20:27 124 H 26 H 116/75 94 09/07/23 20:00 36.3 C L 121 H 22 119/83 97 09/07/23 20:00 121 H 09/07/23 20:00 123 H 138/83 09/07/23 19:25 122 H 100/66 09/07/23 19:20 124 H 21 100 O2 Del Method O2 Del Method O2 Flow Rate FiO2 09/08/23 15:30 09/08/23 15:30 09/08/23 15:07 09/08/23 15:07 09/08/23 15:00 09/08/23 14:54 High Flow Nasal Cannula 40 90 09/08/23 14:52 09/08/23 14:31 09/08/23 14:31 09/08/23 14:00 09/08/23 14:00 09/08/23 13:30 09/08/23 13:30 09/08/23 13:10 09/08/23 13:10 09/08/23 13:08 09/08/23 13:08 09/08/23 13:06 09/08/23 13:06 09/08/23 13:04 09/08/23 13:04 09/08/23 13:03 09/08/23 13:03 09/08/23 13:00 09/08/23 13:00 09/08/23 12:58 09/08/23 12:58 09/08/23 12:56 09/08/23 12:56 09/08/23 12:55 09/08/23 12:55 09/08/23 12:52 09/08/23 12:52 09/08/23 12:50 09/08/23 12:50 09/08/23 12:48 09/08/23 12:48 09/08/23 12:46 09/08/23 12:46 09/08/23 12:44 09/08/23 12:44 09/08/23 12:40 09/08/23 12:40 09/08/23 12:36 09/08/23 12:36 09/08/23 12:35 09/08/23 12:35 09/08/23 12:32 09/08/23 12:32 09/08/23 12:30 09/08/23 12:30 09/08/23 12:29 09/08/23 12:29 09/08/23 12:26 09/08/23 12:26 09/08/23 12:24 09/08/23 12:24 09/08/23 12:22 09/08/23 12:22 09/08/23 12:20 09/08/23 12:20 09/08/23 11:38 09/08/23 11:38 09/08/23 11:36 09/08/23 11:36 09/08/23 11:34 09/08/23 11:34 09/08/23 11:32 09/08/23 11:32 09/08/23 11:30 09/08/23 11:30 09/08/23 11:28 09/08/23 11:28 09/08/23 11:26 09/08/23 11:26 09/08/23 11:24 09/08/23 11:24 09/08/23 11:22 09/08/23 11:22 09/08/23 11:18 09/08/23 11:18 09/08/23 11:16 09/08/23 11:14 09/08/23 11:14 09/08/23 11:12 09/08/23 11:12 09/08/23 11:10 09/08/23 11:10 09/08/23 11:08 09/08/23 11:08 09/08/23 11:06 09/08/23 11:06 09/08/23 11:04 09/08/23 11:04 09/08/23 11:02 09/08/23 11:02 09/08/23 11:00 09/08/23 11:00 09/08/23 10:58 09/08/23 10:58 09/08/23 10:56 09/08/23 10:56 09/08/23 10:54 09/08/23 10:54 09/08/23 10:52 09/08/23 10:52 09/08/23 10:50 60 09/08/23 10:50 09/08/23 10:50 09/08/23 10:48 09/08/23 10:48 09/08/23 10:46 09/08/23 10:46 09/08/23 10:44 09/08/23 10:44 09/08/23 10:42 09/08/23 10:42 09/08/23 10:40 09/08/23 10:40 09/08/23 10:38 09/08/23 10:38 09/08/23 10:36 09/08/23 10:36 09/08/23 10:30 09/08/23 10:30 09/08/23 10:00 09/08/23 10:00 09/08/23 09:30 09/08/23 09:30 09/08/23 09:00 09/08/23 09:00 09/08/23 08:30 09/08/23 08:30 09/08/23 08:20 09/08/23 08:05 09/08/23 08:00 09/08/23 08:00 09/08/23 07:49 60 09/08/23 07:49 BiPAP 60 09/08/23 07:48 09/08/23 07:30 09/08/23 07:30 09/08/23 07:30 BiPAP 09/08/23 07:00 09/08/23 07:00 09/08/23 06:48 09/08/23 06:45 09/08/23 06:00 BiPAP 60 09/08/23 05:59 60 09/08/23 05:34 09/08/23 05:19 09/08/23 05:15 09/08/23 05:15 09/08/23 04:00 09/08/23 03:35 50 09/08/23 03:00 09/08/23 02:00 CPAP 50 09/08/23 01:36 BiPAP 09/08/23 01:08 09/08/23 01:00 09/08/23 00:00 09/07/23 23:40 50 09/07/23 23:32 09/07/23 23:18 09/07/23 23:10 09/07/23 23:00 09/07/23 22:00 CPAP 50 09/07/23 21:34 CPAP 50 09/07/23 21:00 09/07/23 20:27 09/07/23 20:00 09/07/23 20:00 09/07/23 20:00 09/07/23 19:25 09/07/23 19:20 50 Discharge Sedation Level of Care: Phase I Post Sedation Plan On clinical assessment, the patient appears to have tolerated the sedation without complications. Patient is recovering as anticipated. Patient will continue to be 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 nursing and may be discharged when sedation discharge criteria are met per below protocol. Upon Completions of procedure up to 15 minutes continue every 5 minute vital signs and the P.A.R. score; then discharge to a Phase I or Fast Track to Phase II per the following guidelines: * Discharge Patient to appropriate Phase II area if PAR is 8 or greater or return to pre- procedure baseline. The post - procedure orders will be as directed. * If PAR score is less than 8 or not return to pre-procedure baseline then patient will follow Phase I monitoring till PAR is reached for Phase II. The Phase I may be done in procedure room or may call to secure a Phase I area. * If naloxone or flumazenil are used for reversal, hold in Phase I for continued monitoring from when last reversal dose was given for a minimum of 60 minutes or longer pending the nurse and/or physician discretion of patient condition before discharge to Phase II. Please call the Sedation Physician to re-evaluate and complete post-note for discharge to Phase II area. Do NOT discharge from procedure sedation or Phase 1 until post- sedation evaluation note is complete by procedure /sedation MD Sedation Discharge Instructions to be given to the patient at discharge to home. [facility] Procedure Codes (Charges) Sedation/Anesthesia Procedure 1: Sedation/Anesthesia: 41752 Mod Sedation by the same physician;Init15 Min Child Age 5 & Up
[2023-09-08 11:05] LABS: BUN Creatinine Ratio 37.9 (10-20); Calcium 8.3 mg/dl (8.6-10.3); Creatinine Clr Calc Pharmacy 179.8 ml/min; Est GFR (African American) 139.8 ml/min; Est GFR (Non-African American) 120.7 ml/min; Potassium 3.7 mmol/L (3.5-5.1)
[2023-09-08] MEDS: fentaNYL citrate PF 100 MCG/2 ML VIAL ONE (11:34)
[2023-09-08] MEDS: PHENYLEPHRINE HCL 25 MG/250 ML NSS IV ONE (11:34)
[2023-09-08] MEDS: MIDAZOLAM HCL 5 MG/ML 2ML VIAL ONE (11:34)
[2023-09-08 15:20] LABS: Calcium 8.3 mg/dl (8.6-10.3); Creatinine Clr Calc Pharmacy 173.8 ml/min; Est GFR (African American) 138.3 ml/min; Est GFR (Non-African American) 119.3 ml/min; Potassium 5.4 mmol/L (3.5-5.1)
--- NOTE | 2023-09-08 18:41 | Hospitalist Progress Note ---
Date of Service September 08, 2023 Assessment & Plan (1) Acute and chronic respiratory failure ([id number]): Plan: Acute on chronic respiratory failure with hypoxia and hypercarbia-2.2 acute on chronic HFpEF from rapid aflutter on top of metastatic lung CA which is extensive Patient requiring BiPAP alternating with high flow nasal cannula for the last 2 days Continue IV diuresis Continue supplemental O2 and wean off as able to Cardioverted to sinus rhythm out of atrial flutter which will help with rate control Follow chest x-rays Appreciate ICU management (2) Atrial flutter with rapid ventricular response: Plan: Patient with atrial flutter with rates in the 120s since admission, blood pressure stable, contributing to heart failure and respiratory failure as above -Continue Amiodarone drip, IV metoprolol as was having difficulty with p.o. intake on BiPAP -Continue heparin drip -Now status post cardioversion on 09/08 -Appreciate cardiology management -Follow BMP, magnesium and replace electrolytes as needed Follow on telemetry (3) (HFpEF) heart failure with preserved ejection fraction: Plan: Acute diastolic (congestive) heart failure With management as above, secondary to rapid atrial flutter Diuresis Follow I's and O's, daily weights (4) Hyponatremia: Plan: Chronic. 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 Asymptomatic. Patient is on salt tablets at home and Lasix Continue salt tablets, diuresis Follow BMP (5) Adenocarcinoma of lung: Plan: Metastatic widely throughout lungs, progressing despite docetaxel Discussed her care with her oncology team at [facility] on 09/07 Patient had a telehealth visit on the morning of 09/08-they recommend stabilization from cardiac standpoint and delaying treatment for now. Follow-up once stable for discharge and plan to do third line chemotherapy Prognosis poor Continue Zofran, Compazine, Scopoloamine patch for excessive secretions, hypertonic saline nebs and vibration vest for secretion management. Plan DVT prophylaxis-heparin drip Disposition-continued stay in ICU, very guarded prognosis Palliative medicine consult pending but have had discussions with patient and and daughters regarding goals of care-patient wishes to be full code and wants to keep going with chemotherapy treatments Admission and Anticipated Discharge Date Admission Date: September 07, 2023 Subjective Remained on BiPAP most of the day after cardioversion to sinus rhythm this AM and now on HFNC, more awake and alert. Feeling hungry Continues to cough up clear sputum, copious amount but this is her baseline Denies pain I discussed her care with [employer], Cardiology Physical Exam Constitutional: + ill appearing and + thin Respiratory: + cough and + tachypneic (mild but impro jose) Auscultation: + crackles (throughout all lung steele) and + rhonchi (throughout ) Cardiovascular: Rate/Rhythm: regular rate and regular rhythm Heart Sounds: no murmur Extremities: + edema (trace edema legs bilat) Gastrointestinal (Abdomen): normal bowel sounds, soft, nontender, no hepatosplenomegaly Psychiatric: A+Ox3, euthymic affect Genitourinary: Arellano in place Results & Data Results & Data Vital Signs (Past 12 Hours) Vital Signs Temp Pulse Pulse Resp BP Pulse Ox O2 Del Method 09/08/23 18:00 95 09/08/23 18:00 124/68 09/08/23 17:31 70 99 09/08/23 17:31 132/71 09/08/23 17:20 80 09/08/23 17:05 79 139/72 09/08/23 17:00 139/72 09/08/23 17:00 80 0 L 97 09/08/23 16:30 138/73 09/08/23 16:30 78 0 L 99 09/08/23 16:00 146/77 H 09/08/23 16:00 75 0 L 98 09/08/23 15:30 140/76 09/08/23 15:30 78 0 L 94 09/08/23 15:07 128/72 09/08/23 15:07 77 0 L 96 09/08/23 15:00 79 0 L 97 09/08/23 14:54 78 24 96 High Flow Nasal Cannula 09/08/23 14:52 78 09/08/23 14:31 79 0 L 88 L 09/08/23 14:31 142/86 H 09/08/23 14:00 79 33 H 91 09/08/23 14:00 141/86 H 09/08/23 13:30 143/85 H 09/08/23 13:30 82 32 H 96 09/08/23 13:10 122/68 09/08/23 13:10 83 27 H 98 09/08/23 13:08 83 27 H 91 09/08/23 13:08 140/77 09/08/23 13:06 80 25 H 93 09/08/23 13:06 125/67 09/08/23 13:04 136/69 09/08/23 13:04 80 25 H 97 09/08/23 13:03 128/73 09/08/23 13:03 80 27 H 97 09/08/23 13:00 89/65 L 09/08/23 13:00 80 31 H 81 L 09/08/23 12:58 138/77 09/08/23 12:58 81 31 H 94 09/08/23 12:56 137/73 09/08/23 12:56 80 30 H 96 09/08/23 12:55 116/77 09/08/23 12:55 87 30 H 96 09/08/23 12:52 125/75 09/08/23 12:52 82 28 H 91 09/08/23 12:50 131/71 09/08/23 12:50 84 31 H 95 09/08/23 12:48 126/96 09/08/23 12:48 79 29 H 93 09/08/23 12:46 82 27 H 96 09/08/23 12:46 126/77 09/08/23 12:44 142/72 H 09/08/23 12:44 81 30 H 96 09/08/23 12:40 93/71 L 09/08/23 12:40 85 30 H 95 09/08/23 12:36 79 27 H 96 09/08/23 12:36 139/66 09/08/23 12:35 129/77 09/08/23 12:35 81 28 H 99 09/08/23 12:32 106/63 09/08/23 12:32 77 30 H 96 09/08/23 12:30 125/77 09/08/23 12:30 76 26 H 96 09/08/23 12:29 77 27 H 95 09/08/23 12:29 121/62 09/08/23 12:26 122/80 09/08/23 12:26 77 24 95 09/08/23 12:24 119/75 09/08/23 12:24 85 32 H 96 09/08/23 12:22 108/67 09/08/23 12:22 76 30 H 98 09/08/23 12:20 100/57 L 09/08/23 12:20 75 28 H 98 09/08/23 11:38 79 28 H 95 09/08/23 11:38 98/68 L 09/08/23 11:36 109/63 09/08/23 11:36 82 26 H 95 09/08/23 11:34 90/57 L 09/08/23 11:34 78 28 H 95 09/08/23 11:32 90/57 L 09/08/23 11:32 78 26 H 95 09/08/23 11:30 78 30 H 95 09/08/23 11:30 89/58 L 09/08/23 11:28 78 33 H 96 09/08/23 11:28 84/59 L 09/08/23 11:26 85/59 L 09/08/23 11:26 79 24 96 09/08/23 11:24 87/55 L 09/08/23 11:24 79 29 H 96 09/08/23 11:22 97/58 L 09/08/23 11:22 81 36 H 95 09/08/23 11:18 79 30 H 94 09/08/23 11:18 80/49 L 09/08/23 11:16 79 33 H 94 09/08/23 11:14 80 35 H 95 09/08/23 11:14 82/50 L 09/08/23 11:12 80 32 H 95 09/08/23 11:12 82/52 L 09/08/23 11:10 82/55 L 09/08/23 11:10 81 26 H 95 09/08/23 11:08 81 33 H 95 09/08/23 11:08 98/58 L 09/08/23 11:06 80 30 H 94 09/08/23 11:06 88/60 L 09/08/23 11:04 90/64 L 09/08/23 11:04 81 27 H 94 09/08/23 11:02 89/61 L 09/08/23 11:02 81 30 H 93 09/08/23 11:00 85/63 L 09/08/23 11:00 80 28 H 94 09/08/23 10:58 82 30 H 94 09/08/23 10:58 92/57 L 09/08/23 10:56 95/62 L 09/08/23 10:56 82 31 H 94 09/08/23 10:54 93/67 L 09/08/23 10:54 82 31 H 94 09/08/23 10:52 92/63 L 09/08/23 10:52 83 31 H 95 09/08/23 10:50 82 30 H 96 09/08/23 10:50 81 31 H 96 09/08/23 10:50 104/66 09/08/23 10:48 82 37 H 98 09/08/23 10:48 110/67 09/08/23 10:46 110/78 09/08/23 10:46 82 25 H 99 09/08/23 10:44 81 23 98 09/08/23 10:44 121/71 09/08/23 10:42 119/75 09/08/23 10:42 82 25 H 98 09/08/23 10:40 147/87 H 09/08/23 10:40 90 31 H 98 09/08/23 10:38 115 H 27 H 97 09/08/23 10:38 123/88 09/08/23 10:36 126 H 24 94 09/08/23 10:36 126/90 09/08/23 10:30 124/84 09/08/23 10:30 126 H 24 91 09/08/23 10:00 117/93 09/08/23 10:00 125 H 27 H 94 09/08/23 09:30 123/90 09/08/23 09:30 124 H 23 92 09/08/23 09:00 129/88 09/08/23 09:00 124 H 22 92 09/08/23 08:30 123 H 23 92 09/08/23 08:30 122/85 09/08/23 08:20 126 H 122/85 09/08/23 08:05 125 H 125/90 09/08/23 08:00 123 H 23 95 09/08/23 08:00 125/90 09/08/23 07:49 123 H 21 96 09/08/23 07:49 123 H 21 96 BiPAP 09/08/23 07:48 36.6 C 09/08/23 07:30 124 H 21 94 09/08/23 07:30 129/89 09/08/23 07:30 BiPAP 09/08/23 07:00 123 H 95 09/08/23 07:00 131/83 09/08/23 06:48 119 H 09/08/23 06:45 122 H 97 O2 Flow Rate FiO2 09/08/23 18:00 09/08/23 18:00 09/08/23 17:31 09/08/23 17:31 09/08/23 17:20 09/08/23 17:05 09/08/23 17:00 09/08/23 17:00 09/08/23 16:30 09/08/23 16:30 09/08/23 16:00 09/08/23 16:00 09/08/23 15:30 09/08/23 15:30 09/08/23 15:07 09/08/23 15:07 09/08/23 15:00 09/08/23 14:54 40 90 09/08/23 14:52 09/08/23 14:31 09/08/23 14:31 09/08/23 14:00 09/08/23 14:00 09/08/23 13:30 09/08/23 13:30 09/08/23 13:10 09/08/23 13:10 09/08/23 13:08 09/08/23 13:08 09/08/23 13:06 09/08/23 13:06 09/08/23 13:04 09/08/23 13:04 09/08/23 13:03 09/08/23 13:03 09/08/23 13:00 09/08/23 13:00 09/08/23 12:58 09/08/23 12:58 09/08/23 12:56 09/08/23 12:56 09/08/23 12:55 09/08/23 12:55 09/08/23 12:52 09/08/23 12:52 09/08/23 12:50 09/08/23 12:50 09/08/23 12:48 09/08/23 12:48 09/08/23 12:46 09/08/23 12:46 09/08/23 12:44 09/08/23 12:44 09/08/23 12:40 09/08/23 12:40 09/08/23 12:36 09/08/23 12:36 09/08/23 12:35 09/08/23 12:35 09/08/23 12:32 09/08/23 12:32 09/08/23 12:30 09/08/23 12:30 09/08/23 12:29 09/08/23 12:29 09/08/23 12:26 09/08/23 12:26 09/08/23 12:24 09/08/23 12:24 09/08/23 12:22 09/08/23 12:22 09/08/23 12:20 09/08/23 12:20 09/08/23 11:38 09/08/23 11:38 09/08/23 11:36 09/08/23 11:36 09/08/23 11:34 09/08/23 11:34 09/08/23 11:32 09/08/23 11:32 09/08/23 11:30 09/08/23 11:30 09/08/23 11:28 09/08/23 11:28 09/08/23 11:26 09/08/23 11:26 09/08/23 11:24 09/08/23 11:24 09/08/23 11:22 09/08/23 11:22 09/08/23 11:18 09/08/23 11:18 09/08/23 11:16 09/08/23 11:14 09/08/23 11:14 09/08/23 11:12 09/08/23 11:12 09/08/23 11:10 09/08/23 11:10 09/08/23 11:08 09/08/23 11:08 09/08/23 11:06 09/08/23 11:06 09/08/23 11:04 09/08/23 11:04 09/08/23 11:02 09/08/23 11:02 09/08/23 11:00 09/08/23 11:00 09/08/23 10:58 09/08/23 10:58 09/08/23 10:56 09/08/23 10:56 09/08/23 10:54 09/08/23 10:54 09/08/23 10:52 09/08/23 10:52 09/08/23 10:50 60 09/08/23 10:50 09/08/23 10:50 09/08/23 10:48 09/08/23 10:48 09/08/23 10:46 09/08/23 10:46 09/08/23 10:44 09/08/23 10:44 09/08/23 10:42 09/08/23 10:42 09/08/23 10:40 09/08/23 10:40 09/08/23 10:38 09/08/23 10:38 09/08/23 10:36 09/08/23 10:36 09/08/23 10:30 09/08/23 10:30 09/08/23 10:00 09/08/23 10:00 09/08/23 09:30 09/08/23 09:30 09/08/23 09:00 09/08/23 09:00 09/08/23 08:30 09/08/23 08:30 09/08/23 08:20 09/08/23 08:05 09/08/23 08:00 09/08/23 08:00 09/08/23 07:49 60 09/08/23 07:49 60 09/08/23 07:48 09/08/23 07:30 09/08/23 07:30 09/08/23 07:30 09/08/23 07:00 09/08/23 07:00 09/08/23 06:48 09/08/23 06:45 Laboratory Results CBC, BMP , ABG, urine Na and Osm reviewed Diagnostic Findings CXR reviewed PG Care Time/CCT Total # of Minutes Spent Total Time Spent with Patient: Total time spent is greater than 50% in coordination of care (as documented) at patient's floor/unit and/or counseling patient: Coding Level of Care Code 95903 SUB INP/OBS CARE 3/50MIN Diagnoses Acute and chronic respiratory failure ([id number]) J96.20 Atrial flutter with rapid ventricular response I48.92 (HFpEF) heart failure with preserved ejection fraction I50.30 Hyponatremia E87.1 Adenocarcinoma of lung C34.90 Laterality: unspecified laterality (5) Adenocarcinoma of lung Laterality: unspecified laterality Qualified Code(s): C34.90 - Malignant neoplasm of unspecified part of unspecified bronchus or lung
[2023-09-08 19:22] LABS: BUN Creatinine Ratio 40.6 (10-20); Calcium 8.2 mg/dl (8.6-10.3); Est GFR (African American) 135.4 ml/min; Est GFR (Non-African American) 116.8 ml/min; Potassium 4.2 mmol/L (3.5-5.1)
[2023-09-08] MEDS: PHENYLEPHRINE/NSS 25 MG/250 ML BAG IV SCH (23:30)
[2023-09-09] MEDS: ALBUT/IPRATROP 3MG/0.5MG NEB 3 ML VIAL INH PRN (04:11)
[2023-09-09 05:06] LABS: ANTI-Xa, UFH(UnfractionatedHep 0.28 IU/ml (0.3-0.7)
--- NOTE | 2023-09-09 07:18 | Critical Care Progress Note ---
Date of Service September 09, 2023 Assessment & Plan (1) Acute on chronic respiratory failure with hypoxia: (2) Atrial flutter with rapid ventricular response: (3) Adenocarcinoma of lung: (4) Hyponatremia: Plan IMPRESSION: 68-year-old female with a significant past medical history of stage IV adenocarcinoma of the lung, chronic hypoxic respiratory failure, and persistent effusions who presents to the hospital with acute on chronic hypoxic respiratory failure currently in A-fib RVR on amiodarone drip and requiring CPAP while undergoing diuresis. Neuro - CAM ICU negative Cardiac - Proximal A-fib/A-fib RVRcontinue amiodarone drip and IV MTP with goal of rate control -Continue heparin drip -s/p cardioversion 09/08/2023 -Cardiology on board Respiratory - CT chest 09/02/2023 personally reviewed: There is infiltrative process in the whole left side of the lung, right middle and right lower lobe are also affected with tree-in-bud opacities and consolidative/groundglass process Minimal mediastinal lymphadenopathy CAT scan has not changed significantly compared to 08/24/2023 Acute on chronic hypoxic respiratory failurelikely multifactorial in the setting of adenocarcinoma with tumor burden of lung, superimposed congestive changes in the setting of a flutter -Cannot rule out underlying pneumonia as well, see ID below -BNP elevated at 368, procalcitonin 0.05 -Was started on scopolamine patch to help with secretions -Continuous monitoring on pulse ox GI - N.p.o. for now RENAL/LYTES - Creatinine within normal limits, monitor routine BMPs and replete electrolytes as indicated Hyponatremiaappears to be chronic in patient with stage IV metastatic adenocarcinoma of the lung. Sodium currently 122. Continue sodium chloride p.o. and fluid restriction. Continue with sodium tablets - Arellano inserted for strict I's and O's ENDO - No history of diabetes or thyroid disease, ICU hyperglycemic protocol HEME - H&H stable, monitor routine CBC ID - Pneumonia?Patient recently underwent treatment with doxycycline and cefpodoxime as outpatient -Bio fire negative -Blood cultures negative on preliminary's -Nasal MRSA negative -Sputum culture pending -Continue with empiric pulmonary coverage CODE STATUS: Full code, palliative care consult pending and patient family has meeting with [facility] tomorrow via Zoom call --Prophylaxis VTE: Heparin drip GI: None Lines: Central port, peripheral Diet: N.p.o. Plan: In/out: -48, urine output 1675 Decrease amiodarone to 0.5 DC phenylephrine as patient never needed it Decrease metoprolol to 5 mg every 6 hours Continue with high flow with BiPAP nightly and as needed shortness of breath Okay to start clear liquid diet Overall prognosis is guarded. Recommend palliative care evaluation I have personally spent 33 minutes of critical care time in the direct management of this patient. This is a life/limb threatening event. This includes time spent evaluating patient, direct bedside care, chart review, placing orders, interpretation of diagnostic studies, discussion with consultants, patient, and family members, as well as other required patient management activities. This time is exclusive of all separately billable procedures, and teaching time and separate from and in addition to any other critical care service time. Please note the above document was generated using voice recognition software. It may contain grammatical, syntax or spelling errors. Admission and Anticipated Discharge Date Admission Date: September 07, 2023 Subjective Patient seen and examined at bedside. No acute distress. She was on high flow 40 L 90% saturating 94%. We were able to go down to 80% She says she is feeling a little bit better compared to yesterday. Still complaining of bringing up copious amount of clear phlegm. No chest pain, no headache, no dizziness Asking to have something to eat Review of Systems 2 Review of Systems: All systems reviewed & are unremarkable except as noted in Subjective Physical Exam 2 Physical Exam: Constitutional: Mild respiratory distress HEENT: EOMI, PERRLA Respiratory system: Decreased air entry bilaterally, no wheeze, no rhonchi, positive crackles appreciated bilaterally anteriorly and posteriorly CVS: S1-S2 positive, no murmurs or gallops, accentuated P2 Abdomen: Soft, nontender, nondistended, positive bowel sounds x4 Extremities: +2 pulses bilaterally radialis/ dorsalis pedis, no cyanosis, +1 pitting edema bilateral lower extremity Neuro: Awake alert oriented to self and place Psych: Normal mood and affect G/U: Positive Arellano Skin: no rashes, warm and dry Lymphatic: no cervical or axillary lymphadenopathy Results & Data Results & Data Vital Signs (Past 12 Hours) Vital Signs Temp Pulse Pulse Resp BP BP Pulse Ox 09/09/23 07:01 75 22 128/73 96 09/09/23 06:00 74 23 132/67 98 09/09/23 05:01 70 132/74 09/09/23 05:00 36.6 C 75 20 132/74 97 09/09/23 04:30 69 20 138/73 94 09/09/23 04:24 72 135/84 09/09/23 04:22 72 135/84 09/09/23 04:12 80 22 93 09/09/23 04:08 79 20 96 09/09/23 04:00 36.5 C 72 22 109/58 L 95 09/09/23 03:00 36.6 C 71 21 128/69 95 09/09/23 02:30 88 23 145/84 H 99 09/09/23 02:00 83 20 134/81 100 09/09/23 01:30 36.5 C 84 17 153/88 H 98 09/09/23 01:00 75 25 H 145/84 H 93 09/09/23 01:00 09/09/23 00:00 72 22 134/72 99 09/08/23 23:51 73 09/08/23 23:50 76 143/100 H 09/08/23 23:40 76 19 100 09/08/23 23:35 78 140/84 09/08/23 23:00 36.5 C 74 20 126/70 94 09/08/23 22:24 36.6 C 72 23 122/73 97 09/08/23 21:00 36.6 C 23 119/66 98 09/08/23 20:47 09/08/23 20:44 75 22 95 09/08/23 20:26 36.6 C 71 22 114/70 97 09/08/23 20:18 76 119/64 09/08/23 20:03 87 114/70 09/08/23 20:00 36.5 C 90 22 114/70 98 Pulse Ox O2 Del Method O2 Del Method O2 Flow Rate FiO2 09/09/23 07:01 09/09/23 06:00 09/09/23 05:01 09/09/23 05:00 09/09/23 04:30 09/09/23 04:24 09/09/23 04:22 09/09/23 04:12 High Flow Nasal Cannula 40 80 09/09/23 04:08 High Flow Nasal Cannula 40 80 09/09/23 04:00 BiPAP 60 09/09/23 03:00 BiPAP 60 09/09/23 02:30 BiPAP 60 09/09/23 02:00 BiPAP 60 09/09/23 01:30 BiPAP 60 09/09/23 01:00 BiPAP 60 09/09/23 01:00 99 BiPAP 09/09/23 00:00 BiPAP 60 09/08/23 23:51 09/08/23 23:50 09/08/23 23:40 60 09/08/23 23:35 09/08/23 23:00 High Flow Nasal Cannula 40 90 09/08/23 22:24 High Flow Nasal Cannula 40 90 09/08/23 21:00 High Flow Nasal Cannula 40 90 09/08/23 20:47 High Flow Nasal Cannula 40 90 09/08/23 20:44 High Flow Nasal Cannula 40 80 09/08/23 20:26 High Flow Nasal Cannula 40 90 09/08/23 20:18 09/08/23 20:03 09/08/23 20:00 High Flow Nasal Cannula 40 90 Laboratory Results 09/08/23 03:07 09/08/23 18:38 Coding Level of Care Code 49029 CRITICAL CARE 1ST 30-74M Diagnoses Acute on chronic respiratory failure with hypoxia J96.21 Atrial flutter with rapid ventricular response I48.92 Adenocarcinoma of lung C34.90 Laterality: unspecified laterality Hyponatremia E87.1 (3) Adenocarcinoma of lung Laterality: unspecified laterality Qualified Code(s): C34.90 - Malignant neoplasm of unspecified part of unspecified bronchus or lung
[2023-09-09 08:54] LABS: Hematocrit (blood only) 25.3 % (37.0-47.0); Hemoglobin 8.6 g/dl (12.0-16.0); Mean Corpuscular Hemoglobin 30.9 pg (25.0-34.0); Platelet Count 362 K/uL (130-400); RDW Coefficient of Variation 15.9 % (11.5-14.5); RDW Standard Deviation 53.1 fL (36.4-46.3); Red Blood Count 2.78 M/uL (4.20-5.40); White Blood Count 20.31 K/ul (4.8-10.8)
--- NOTE | 2023-09-09 08:54 | Palliative Care Consultation ---
Date of Consultation September 09, 2023 Assessment & Plan (1) Cancer related pain: (2) Dyspnea and respiratory abnormalities: (3) Weakness generalized: (4) Declining performance status: (5) Advanced care planning/counseling discussion: A face to face ACP discussion was held at bedside with pt, her and their daughter for 45 minutes. With their consent and voluntary participation, we discussed the recent changes to her cancer treatment plan and current complications. We discussed cancer progression, declining PS, no role for chemo, worsening resp decline, rising O2 needs and inability to wean down from HFNC. She is aware her cancer progression is significant and no more chemo is planned. states they have an appt with Dr Duke next but could she see pt while admitted bc wants to know if there are non systemic therapies to be offered given that her mutations are amenable to some options in this category. 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 They have an above average comprehension about the science of her cancer and how various treatment pathways might work. I have offered to let medical oncology know that she is admitted for possible inpatient visit with them on Tuesday. They were appreciative this and agreed. We discussed the overall progressive nature of her lung cancer, which is a progressive adenocarcinoma with rapid interval progression. She is no longer responding to chemotherapy. Her primary oncology team at [facility] has advised there is no more chemotherapeutic options available. Patient is a rising and worsening respiratory failure and is now high flow dependent. She is on an FiO2 of 80%. She is not tolerating weaning. So far this morning, she has required FiO2 increased to 90% which was then reduced back down to 85% and now 80% at rest. She is tachypneic. She speaks in short sentences. There is use of accessory muscles noted. We discussed what her goals might be at this junction. She, her and daughter reiterated goal to focus on quality of life and return home if at all possible. Patient has 3 dogs ages 10, 6 and 2. She has raised the specific read for a very long time. 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 She wants to be able to have some time at home with her family and her pets. We discussed the process of weaning someone from high flow nasal cannula with the intention of returning home on nasal cannula or facemask oxygen. Advised the dyspnea may result as a result of the high flow de- escalation that would need to be relieved with the addition of opioid therapies. Patient was open and receptive to this intervention and wanted to proceed. Her daughter then inquired about resuscitation. We discussed CPR survival data as follows.CPR survival: Only about 10% of patients who have [id number] sudden cardiac arrest survive to hospital discharge, with many survivors having neurologic impairment. This rate is even lower among patients with serious coexisting conditions, ie chance of survival to hospital discharge for in- hospital CPR in older people is low to moderate (15%) and decreases with age, comorbidities, performance status and frailty: for pts > 70 yo, more than half of the patients who initially survived resuscitation in the hospital before hospital discharge. The pooled survival to discharge after in-hospital CPR was 18% for patients between 70 and 79 years old, 15% for patients between 80 and 89 years old and 11% for patients of 90 years and older. (Dale ZARAGOZA, Zeeshan LJ, Deandre F, et al. Trends in short- and long-term survival among [id number] cardiac arrest patients alive at hospital arrival. Circulation 2014;130:1883-1 890. AND Lisa C, Bolivar T, Bg R, et al. Performance of clinical risk scores to predict mortality and neurological outcome in cardiac arrest patients. Resuscitation 2019;136:21-29.) Patient tells me she does not wish to on machines and does not want to have CPR. I advised her I agreed with this choice, and that CPR would not extend, reverse or cure her underlying medical issues. At this point, putting on life support would serve the purpose to only prolong or extend her dying process and suffering. I do not believe it will add any meaningful benefit to her living process. We discussed the option of transitioning to a focus that is more about comfort and quality of life with a focus on symptom management. She and her family were in agreement. CODE STATUS will be changed to DNR/DNI. For now she is open to continuing her cardiac medications and infusions, with the intention of seeing how high flow de-escalation proceeds through the weekend. We discussed the goals of hospice as a patient service and the goals of care; we discussed EOL trajectories and transitions chelsi the emotional impact of realizing mortality as a concrete reality from prior abstract considerations. Pt was reassured that no matter where they are along this trajectory, they are not alone - their medical team will remain by their side through their journey. Discussed the pros/cons of accepting help when especially weakened and distressed by pain-which would also help provide relief/decrease caregiver burden/strain. I provided education about the hospice benefit: an interdisciplinary program offered by nurses, nurses aides, social workers, chaplains and a medical device for patients with a terminal condition and a life expectancy of less than 6 months. This is covered by Medicare at 100%/no out of pocket expense to patient and all meds/supplies needed by patient for the reason they are on hospice are paid for/covered by hospice. The goal is assure quality of life of the patient in their home setting (home, long term, inpatient hospice setting) by providing symptoms management, psychosocial and spiritual support. However, they cannot offer 24 hours care and if the family is unable to provide that care, they will have to consider personal care with out of pocket cost vs. long term placement. We discussed the goals of hospice as a patient service and the goals of care; we discussed EOL trajectories and transitions chelsi the emotional impact of realizing mortality as a concrete reality from prior abstract considerations. Pt was reassured that no matter where they are along this trajectory, they are not alone - their medical team will remain by their side through their journey. Discussed the pros/cons of accepting help when especially weakened and distressed by pain-which would also help provide relief/decrease caregiver burden/strain. We very specifically discussed that she may not survive this admission. I provided her with interventions for Legacy work at this stage. Patient advised of recommendations from Dr. Alexa Lopez at the [facility]: there are four simple phrases: Please forgive me, I forgive you, Thank you, and I love you which carry enormous power to mend, nurture relationships and inner lives. These four phrases and the sentiments they convey can help resolve interpersonal difficulties with integrity and kevin, providing a path to emotional wellbeing, allows patients/families to live lives with integrity/kevin, help reconcile the rifts that divide people, and cut through "old history." Per Dr. Lopez, if we in healthcare attend only to the physiologic, without intending to we are inadvertently abandoning people to figure out how to live through these difficult times of life by themselves. (6) Palliative care by specialist: Met with pt/family. Provided overview of Palliative Medicine, a subspecialty that provides specialized medical care for people living with a serious illness by offering a focus on quality of life. Palliative Medicine is often conflated with hospice: I advised patient/family that Palliative and hospice can be partners but we are not the same. It is important to understand the difference so that we may be informed, and not afraid. Palliative Medicine works to improve QOL through reduction of symptom burden/more control over their illness, for both the patient and family. Palliative medicine clinicians are board certified, specially-trained and another member of the patient's medical care team. We often provide an extra layer of support because our care is based on the needs of the patient, not the prognosis; as such, it's appropriate at any age/advancing stage of a serious illness and can be provided along with curative treatment. Palliative Medicine clinicians are also trained in advanced communication methodologies, to facilitate complex discussions about advanced illness planning, which are needed to help assure that the treatment choices match the patient's goals, aka delivering Goal Concordant care. Finally, we discussed that hospice is a visiting nurse service that focuses on care delivered at the very end of life for patients with terminal illness, with life expectancy less than 6 month. Plan * Transition to comfort care. Orders written. * Change CODE STATUS to DNR/DNI; order written. * Await potential oncology discussion on Tuesday with regards to nonsystemic therapy options, I have notified Dr. Duke. * Extensive psychosocial support and reassurance provided. I have very specifically advised patient and her family that I was not sure she would survive this admission. We discussed ways that she could say goodbye to the people and animals important in her life. * I have updated nursing, primary team and oncology. Thank you for allowing us to participate in the ongoing care of this patient. Please don't hesitate to call or page with any additional concerns. Dr. Kimberley Bob DNP Director, Palliative Care History of Present Illness Reason for Consultation: On 09/07/23 @ 18:40 Rosina Levy Wrote To Kimberley Bob metastatic lung CA,respiratory failure Attending Physician: Rosina Levy MD History of Present Illness Noemy is a 68-year-old female with a significant past medical history of stage IV adenocarcinoma of the lung, chronic hypoxic respiratory failure, and persistent effusions who presents to the hospital with acute on chronic hypoxic respiratory failure currently in A-fib RVR on amiodarone drip and requiring CPAP while undergoing diuresis. She has recurrent atrial flutter after undergoing cardioversion on 09/01/2023 and spontaneously converting in July 2023. She remains in ICU with Proximal A-fib/A-fib RVR on amiodarone gtt, IV metoprolol w/goal of rate control on heparin drip and telemetry. She sees [facility] oncology and chart review indicates her recent telemed visit with them revealed her malignancy had progressed and that she would not be receiving more chemotherapy for now. She has acute on chronic hypoxic respiratory failure which is multifactorial - tumor burden d/t adenocarcinoma lung + congestive changes in the setting of a flutter; her BNP elevated at 368, procalcitonin 0.05 CT chest 09/02/2023 revealed: + infiltrative process in the whole left side of the lung, right middle and right lower lobe are also affected with tree-in-bud opacities and consolidative/groundglass process; +minimal mediastinal lymphadenopathy. The CT has not changed significantly compared to 08/24/2023 She had meeting with [facility] via Zoom this admission. Her overall prognosis is extremely poor. She is seen bedside with one of her twin daughters and her (stepfather to daughters) Noemy tells me she does not currently have cancer pain but dyspnea is significant as is secretion production. She has been having copious amounts thin/watery white to clear secretions via cough and nasal dc. Denies n/v. Appetite diminished. SHe is very tired. She is feeling hungry and thirsty but has been kept NPO. She is not sleeping well. She is aware of cancer progression and that there is no more role for chemo Allergies Allergy/AdvReac Type Severity Reaction Status Date / Time azithromycin Allergy Severe Difficulty Verified 09/06/23 23:11 Breathing Penicillins Allergy Intermediate HIVES A Verified 09/06/23 23:11 CHILD Home Medications Medication Instructions Recorded Confirmed Type omega-3 acid ethyl esters 1 gram 1 cap PO QAM 02/04/20 09/06/23 History capsule cholecalciferol (vitamin D3) 25 25 mcg PO QAM 11/20/20 09/06/23 History mcg (1,000 unit) tablet (Vitamin D3) cyanocobalamin (vitamin B-12) 1,000 mcg sublingual QAM 11/20/20 09/06/23 History 1,000 mcg sublingual tablet sodium chloride, sodium See Rx Instructions .Route 04/27/23 09/06/23 History bicarb-nasal rinse squeeze bottle .COMPLEX PRN congestion with packet (Neilmed Sinus Rinse Complete with packet) albuterol sulfate 90 mcg/actuation 2 inh inhalation Q6H PRN shortness 04/29/23 09/06/23 Rx aerosol inhaler of breath or wheezing #6.7 grams folic acid 1 mg tablet 1 mg PO QAM #30 tabs 04/29/23 09/06/23 Rx ipratropium 0.5 mg-albuterol 3 mg 3 ml inhalation Q6 PRN as directed 06/28/23 09/06/23 History (2.5 mg base)/3 mL nebulization soln prochlorperazine maleate 10 mg 10 mg PO Q6H PRN Nausea And 07/28/23 09/06/23 History tablet Vomiting polyethylene glycol 3350 17 17 g PO BID PRN constipation 08/01/23 09/06/23 History gram/dose oral powder (Miralax) sennosides 8.6 mg-docusate sodium 1 tab-cap PO DAILY PRN Constipation 08/01/23 09/06/23 History 50 mg tablet (Colace 2-In-1) Oxygen Home E0424 #1 ea 08/18/23 09/05/23 Rx Vibration Vest #1 ea 08/18/23 09/05/23 Rx formoterol fumarate 20 mcg/2 mL 2 ml inhalation BID #120 mL 08/19/23 09/06/23 Rx solution for nebulization (Perforomist) sodium chloride 3 % for 4 ml inhalation Q8H PRN secretions 08/19/23 09/06/23 Rx nebulization #240 mL ondansetron HCl 8 mg tablet 8 mg PO Q8H #20 tabs 08/26/23 09/06/23 Rx oxycodone 5 mg tablet 5 - 10 mg (1 - 2 x 5 mg) PO Q6H 08/26/23 09/06/23 Rx PRN moderate to severe pain #30 tabs ipratropium bromide 42 mcg (0.06 2 spray intranasal TID #15 mL 08/27/23 09/06/23 Rx %) nasal spray Magic Mouthwash 300 mL mouthwash 5 ml mucous membrane Q6H PRN mouth 08/30/23 09/06/23 Rx pain #300 mL Oxygen Home E0424 #1 ea 09/01/23 09/05/23 Rx amiodarone 200 mg tablet 200 mg PO BIDM #60 tabs 09/03/23 09/06/23 Rx apixaban 5 mg tablet (Eliquis) 5 mg PO BID #60 tabs 09/03/23 09/06/23 Rx doxycycline hyclate 100 mg tablet 100 mg PO BID #10 tabs 09/03/23 09/06/23 Rx furosemide 20 mg tablet (Lasix) 20 mg PO DAILY #30 tabs 09/03/23 09/06/23 Rx metoprolol succinate 100 mg 100 mg PO PM #30 tabs 09/03/23 09/06/23 Rx tablet,extended release 24 hr potassium chloride 10 mEq 10 meq PO Q2D #14 tabs 09/03/23 09/06/23 Rx tablet,extended release scopolamine base 1 mg over 3 days 1 mg transdermal Q72H #10 ea 09/03/23 09/06/23 Rx transdermal patch (Transderm-Scop) sodium chloride 1,000 mg soluble 1,000 mg PO BID #60 tabs 09/03/23 09/06/23 Rx tablet nystatin 100,000 unit/mL oral 5 ml PO QID PRN mouth pain #250 mL 09/05/23 09/06/23 Rx suspension Patient History Medical History (Updated 09/09/23 @ 08:58 by Kimberley Bob, JAYMIE) Declining performance status Weakness generalized Dyspnea and respiratory abnormalities Cancer related pain Advanced care planning/counseling discussion Palliative care by specialist (HFpEF) heart failure with preserved ejection fraction Atrial flutter with rapid ventricular response Hypertension Adenocarcinoma of lung Tubular adenoma Osteoarthritis History of basal cell carcinoma scalp/tip of nose Tinnitus of both ears Anxiety and depression Goiter, nontoxic, 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 windows software developer Hyperlipidemia Vitamin D deficiency Surgical History (Updated 09/09/23 @ 00:10 by Hoda Andrew) Port-A-Cath in place (04/28/23) Left Subclavian Mediport Insertion(Left) - Donal Maldonado, DO H/O colonoscopy History of surgical removal of ganglion cyst left wrist History of wisdom tooth extraction Hx of section History of carpal tunnel release right wrist History of tonsillectomy and adenoidectomy History of mandibular surgery d/t underbite Hx of tooth extraction Hx of needle biopsy thyroid--benign History of Mohs surgery for squamous cell carcinoma in situ of skin x2 Family History Father Colon cancer Prostate cancer Myocardial infarction Heart disease Mother Hypertension Cancer Uncle Diabetes Aunt Breast cancer Other No family history of adverse response to anesthesia Denies family history of Ovarian cancer Social History Smoking Status: Never smoker Second Hand Exposure: No; Do You Dip or Chew Tobacco: No; Hx Alcohol Use: No Hx Substance Use: No Preferred Language: Slovenian Communication Ability: Effective Visual Impairment: No Limitations Hearing Ability: Normal Commercial Insulator Required: No Beliefs That Will Affect Care: Latter-Day marital status: Current Living Situation: Spouse current occupational status: retired How many Children do You have: 2 Feels Safe at Home: Yes Childhood Exposure to Second-Hand Smoke: Yes during the past year weight has: decreased > 10 lbs Dental Care, Regularly: Yes Physical Activity Frequency: Does not Exercise Seatbelt Use: always Sunscreen Use: Yes Assistive Devices: Walker and Other Review of Systems Review of Systems: All systems reviewed & are unremarkable except as noted in Subjective Physical Exam Constitutional: + acute distress, + ill appearing, + thi n, + cachectic, + frail appearing and + diaphoretic Eyes: PERRL, normal accommodation and EOM intact bilaterally ENMT: Nose: + nasal discharge (clear) Neck: trachea midline, no thyromegaly trachea midline Respiratory: + respiratory distress, + labored breath ing, + uses accessory muscles, + cough, + pursed lip breathing and symmetric chest movement on hi flow nasal cannula with FiO2 80% Cardiovascular: Rate/Rhythm: regular rhythm and + tachycardic Vessels: + femoral bruit and dorsalis pedis pulses present Chest (Breasts): Chest: normal inspection of chest and + vascular access device or port Gastrointestinal (Abdomen): Inspection/Auscultation: abdomen normal to inspection and normal bowel sounds Musculoskeletal: gen weakness Skin: + turgor decreased, + skin tightening, + pallor, + patchy alopecia and + hair sheds easily Neurologic: PERRL, EOMI, accommodation nl, no face palsy, no dysarthria awake Psychiatric: Orientation: alert and oriented x 3 Apperance: appropriately dressed and appropriately groomed Eye Contact: good eye contact Speech: normal rate/rhythm/volume of speech Affect: + depressed affect Mood: + depressed mood Thought Process: goal directed thought process and linear/logical thought process Thought Content: + loneliness Cognition: recent memory grossly intact, remote memory grossly intact, attention grossly intact and language grossly intact Estimated Intelligence: + above average estimated intelligence Insight: excellent insight Judgment: excellent judgement Results & Data Vital Signs (Past 12 Hours) Vital Signs Temp Pulse Pulse Resp BP BP Pulse Ox 09/09/23 08:07 79 25 H 89 L 09/09/23 07:40 79 24 93 09/09/23 07:40 75 18 95 09/09/23 07:30 77 22 139/76 93 09/09/23 07:01 75 22 128/73 96 09/09/23 06:00 74 23 132/67 98 09/09/23 05:01 70 132/74 09/09/23 05:00 36.6 C 75 20 132/74 97 09/09/23 04:30 69 20 138/73 94 09/09/23 04:24 72 135/84 09/09/23 04:22 72 135/84 09/09/23 04:12 80 22 93 09/09/23 04:08 79 20 96 09/09/23 04:00 36.5 C 72 22 109/58 L 95 09/09/23 03:00 36.6 C 71 21 128/69 95 09/09/23 02:30 88 23 145/84 H 99 09/09/23 02:00 83 20 134/81 100 09/09/23 01:30 36.5 C 84 17 153/88 H 98 09/09/23 01:00 75 25 H 145/84 H 93 09/09/23 01:00 09/09/23 00:00 72 22 134/72 99 09/08/23 23:51 73 09/08/23 23:50 76 143/100 H 09/08/23 23:40 76 19 100 09/08/23 23:35 78 140/84 09/08/23 23:00 36.5 C 74 20 126/70 94 09/08/23 22:24 36.6 C 72 23 122/73 97 09/08/23 21:00 36.6 C 23 119/66 98 Pulse Ox O2 Del Method O2 Del Method O2 Flow Rate FiO2 09/09/23 08:07 40 85 09/09/23 07:40 40 80 09/09/23 07:40 High Flow Nasal Cannula 40 80 09/09/23 07:30 High Flow Nasal Cannula 80 09/09/23 07:01 09/09/23 06:00 09/09/23 05:01 09/09/23 05:00 09/09/23 04:30 09/09/23 04:24 09/09/23 04:22 09/09/23 04:12 High Flow Nasal Cannula 40 80 09/09/23 04:08 High Flow Nasal Cannula 40 80 09/09/23 04:00 BiPAP 60 09/09/23 03:00 BiPAP 60 09/09/23 02:30 BiPAP 60 09/09/23 02:00 BiPAP 60 09/09/23 01:30 BiPAP 60 09/09/23 01:00 BiPAP 60 09/09/23 01:00 99 BiPAP 09/09/23 00:00 BiPAP 60 09/08/23 23:51 09/08/23 23:50 09/08/23 23:40 60 09/08/23 23:35 09/08/23 23:00 High Flow Nasal Cannula 40 90 09/08/23 22:24 High Flow Nasal Cannula 40 90 09/08/23 21:00 High Flow Nasal Cannula 40 90 Laboratory Results data reviewed Diagnostic Findings data reviewed PG Care Time/CCT Total # of Minutes Spent Total Time Spent: 115 Total Time Spent with Patient: Total time spent is greater than 50% in coordination of care (as documented) at patient's floor/unit and/or counseling patient: I spent 115 minutes overall addressing this case: 15 min in medical data review/discussion with referring provider(s) and/or preparation for the visit 20 min in direct interaction with the patient/exam 45 min in Advance Care Planning/Goals of Care discussions as detailed above in note (must be >16min) 15 min in subsequent review and synthesis of assessment and plan 20 min communicating with other providers regarding the patient's case: Advanced Care Planning 75475 Advanced Care Planning 30 Min [id number] Advanced Care Planning Additional 30 [place] [address] IN/OBS CONSULT LVL 5,80M Patient Type New Exam Comprehensive Medical Decision Making High Complexity Diagnoses Cancer related pain G89.3 Dyspnea and respiratory abnormalities R06.00; R06.89 Weakness generalized R53.1 Declining performance status R53.81 Advanced care planning/counseling discussion Z71.89 Palliative care by specialist Z51.5 Additional Codes Advanced Care Planning - 10264 Advanced Care Planning 30 Min: 24915 Advanced Care Planning 30 Min ([id number]) Advanced Care Planning - 33300 Advanced Care Planning Additional 30 Min: 15078 Advanced Care Planning Additional 30 Min ([id number])
[2023-09-09 09:11] LABS: Basophils # (auto) 0.08 K/uL (0.00-0.20); Basophils % (auto) 0.4 %; Immature Granulocytes # (auto) 0.14 K/uL (0.01-0.20); Immature Granulocytes % (auto) 0.7 %; Lymphocytes # (auto) 0.69 K/uL (1.20-3.40); Lymphocytes % (auto) 3.4 %; Monocytes # (auto) 0.93 K/uL (0.11-0.59); Monocytes % (auto) 4.6 %; Neutrophils # (auto) 18.47 K/uL (1.40-6.50); Neutrophils % (auto) 90.9 %; Polychromasia 1+; Toxic Granulation 2+; Toxic Vacuolation 2+
[2023-09-09 10:06] LABS: BUN Creatinine Ratio 53.6 (10-20); Calcium 8.4 mg/dl (8.6-10.3); Creatinine Clr Calc Pharmacy 186.3 ml/min; Est GFR (African American) 141.5 ml/min; Est GFR (Non-African American) 122.1 ml/min; Potassium 4.2 mmol/L (3.5-5.1)
--- NOTE | 2023-09-09 10:50 | Cardiology Progress Note ---
Date of Service September 09, 2023 Assessment & Plan (1) Atrial flutter with rapid ventricular response: Plan: -s/p electrical cardioversion yesterday. -remains in sinus rhythm on intravenous amiodarone. -continue intravenous amiodarone for another 24 hours. -could convert to oral amiodarone 200 mg b.i.d. tomorrow. -remains on intravenous heparin. -was on Eliquis 5 mg b.i.d. as an outpatient. (2) Acute on chronic respiratory failure with hypoxia: Plan: -remains on Lasix 40 mg IV daily. -management per ICU team. (3) Adenocarcinoma of lung: Plan: -extensive stage IV adenocarcinoma of the lung. Admission and Anticipated Discharge Date Admission Date: September 07, 2023 Subjective The patient is resting comfortably in bed without chest discomfort palpitations. She does refractory productive cough. Her daughter is at the bedside. Physical Exam Physical Exam: In general is a well-developed well-nourished white female in no acute distress. HEENT exam is negative. Neck is supple with full carotid upstrokes. No carotid bruits. Jugular is pressure is flat at 90. There is no thyromegaly. Cardiovascular exam reveals a regular rhythm with distant heart sounds. No obvious murmurs. Lungs note diffuse rhonchi. Abdomen is soft. Extremities reveal intact radial artery pulses bilaterally. There is no peripheral edema. Results & Data Vital Signs (Past 12 Hours) Vital Signs Temp Pulse Pulse Resp BP BP Pulse Ox 09/09/23 08:07 79 25 H 89 L 09/09/23 07:40 79 24 93 09/09/23 07:40 75 18 95 09/09/23 07:30 77 22 139/76 93 09/09/23 07:01 75 22 128/73 96 09/09/23 06:00 74 23 132/67 98 09/09/23 05:01 70 132/74 09/09/23 05:00 36.6 C 75 20 132/74 97 09/09/23 04:30 69 20 138/73 94 09/09/23 04:24 72 135/84 09/09/23 04:22 72 135/84 09/09/23 04:12 80 22 93 09/09/23 04:08 79 20 96 09/09/23 04:00 36.5 C 72 22 109/58 L 95 09/09/23 03:00 36.6 C 71 21 128/69 95 09/09/23 02:30 88 23 145/84 H 99 09/09/23 02:00 83 20 134/81 100 09/09/23 01:30 36.5 C 84 17 153/88 H 98 09/09/23 01:00 75 25 H 145/84 H 93 09/09/23 01:00 09/09/23 00:00 72 22 134/72 99 09/08/23 23:51 73 09/08/23 23:50 76 143/100 H 09/08/23 23:40 76 19 100 09/08/23 23:35 78 140/84 09/08/23 23:00 36.5 C 74 20 126/70 94 Pulse Ox O2 Del Method O2 Del Method O2 Flow Rate FiO2 09/09/23 08:07 40 85 09/09/23 07:40 40 80 09/09/23 07:40 High Flow Nasal Cannula 40 80 09/09/23 07:30 High Flow Nasal Cannula 80 09/09/23 07:01 09/09/23 06:00 09/09/23 05:01 09/09/23 05:00 09/09/23 04:30 09/09/23 04:24 09/09/23 04:22 09/09/23 04:12 High Flow Nasal Cannula 40 80 09/09/23 04:08 High Flow Nasal Cannula 40 80 09/09/23 04:00 BiPAP 60 09/09/23 03:00 BiPAP 60 09/09/23 02:30 BiPAP 60 09/09/23 02:00 BiPAP 60 09/09/23 01:30 BiPAP 60 09/09/23 01:00 BiPAP 60 09/09/23 01:00 99 BiPAP 09/09/23 00:00 BiPAP 60 09/08/23 23:51 09/08/23 23:50 09/08/23 23:40 60 09/08/23 23:35 09/08/23 23:00 High Flow Nasal Cannula 40 90 Diagnostic Findings radiation monitor notes sinus rhythm since her cardioversion yesterday. PG Care Time/CCT Total # of Minutes Spent Total Time Spent with Patient: Total time spent is greater than 50% in coordination of care (as documented) at patient's floor/unit and/or counseling patient: Coding Level of Care Code 50969 SUB INP/OBS CARE 3/50MIN Diagnoses Atrial flutter with rapid ventricular response I48.92 Acute on chronic respiratory failure with hypoxia J96.21 Adenocarcinoma of lung C34.90 Laterality: unspecified laterality (3) Adenocarcinoma of lung Laterality: unspecified laterality Qualified Code(s): C34.90 - Malignant neoplasm of unspecified part of unspecified bronchus or lung
[2023-09-09] MEDS: METOPROLOL TARTRATE 1 MG/ML VIAL IV SCH (11:00)
[2023-09-09] MEDS: ACETYLCYSTEINE 20% INHAL SOLN 4ML ***DISPENSED BY RESP. INH SCH (11:10)
--- NOTE | 2023-09-09 11:37 | Electrocardiogram Report ---
Test Reason : Blood Pressure : / mmHG Vent. Rate : 072 BPM Atrial Rate : 072 BPM P-R Int : 202 ms QRS Dur : 090 ms QT Int : 418 ms P-R-T Axes : 031 -09 066 degrees QTc Int : 457 ms Normal sinus rhythm Poor R wave progression, consider anterior ND vs. lead placement vs. LVH Abnormal ECG When compared with ECG of 06-SEP-2023 22:57, Sinus rhythm has replaced Atrial flutter Vent. rate has decreased BY [address] no longer depressed in Inferior leads Nonspecific T wave abnormality no longer evident in Lateral leads Confirmed by Cliff Howard ([id number]) on 09/09/2023 11:37:17 AM Referred By: REFERRED SELF Confirmed By:Cliff Howard
[2023-09-09 12:47] LABS: ANTI-Xa, UFH(UnfractionatedHep 0.23 IU/ml (0.3-0.7)
[2023-09-09] MEDS ORDERED: LORazepam 0.5 MG in SYRINGE 0.25 ML IV PRN (12:51)
[2023-09-09] MEDS ORDERED: MoRPHine SULFATE 2 MG/ML CARP IV PRN (12:51)
[2023-09-09] MEDS ORDERED: LORazepam 0.25 MG in SYRINGE 0.125 ML IV PRN (13:00)
--- NOTE | 2023-09-09 15:06 | Hospitalist Progress Note ---
Date of Service September 09, 2023 Assessment & Plan (1) Comfort measures only status: Plan: Patient with widely metastatic adenocarcinoma of the lung with progression despite second line chemotherapy Now with significant respiratory failure, paroxysmal rapid atrial flutter, acute on chronic HFpEF Patient has decided to pursue comfort measures only with a goal of trying to get home prior to passing away Appreciate palliative medicine consultation -Hold off on opioids and Ativan until all family present as patient gets significantly confused and lethargic with these types of medications and she wants to build to speak with family -Continue high flow nasal cannula and continue CPAP as needed for respiratory support until patient is ready to fully pursue comfort -Morphine, Ativan, Robinul, scopolamine patch all as needed for comfort -Stop all lab draws and antibiotics -Continue IV Lasix for now to try to get fluid out of lungs to help wean off oxygen to get home (2) Acute and chronic respiratory failure ([id number]): Plan: Acute on chronic respiratory failure with hypoxia and hypercarbia-2.2 acute on chronic HFpEF from rapid aflutter on top of metastatic lung CA which is exten sive Patient requiring BiPAP alternating with high flow nasal cannula throughout her admission Now pursuing comfort measures as above Continue IV diuresis for now to try to wean off oxygen to get home Continue supplemental O2 and wean off as able to Cardioverted to sinus rhythm out of atrial flutter which will help with rate control Appreciate ICU management-downgrade out of ICU Morphine as needed for breathlessness (3) Atrial flutter with rapid ventricular response: Plan: Patient with atrial flutter with rates in the 120s since admission, blood pressure stable, contributing to heart failure and respiratory failure as above Now status post cardioversion and remains in sinus rhythm for now -Discontinue amiodarone drip, IV metoprolol and convert to p.o. amiodarone and metoprolol at lower dose of 50 -Discontinue heparin drip and resume home p.o. Eliquis for now No further lab draws on comfort measures (4) (HFpEF) heart failure with preserved ejection fraction: Plan: Acute diastolic (congestive) heart failure With management as above, secondary to rapid atrial flutter Diuresis (5) Hyponatremia: Plan: Chronic. 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 Asymptomatic. Patient is on salt tablets at home and Lasix Discontinue salt tablets on comfort measures No need for labs (6) Adenocarcinoma of lung: Plan: Metastatic widely throughout lungs, progressing despite docetaxel Discussed her care with her oncology team at [facility] on 09/07 Patient had a telehealth visit on the morning of 09/08-they recommend stabilization from cardiac standpoint and delaying treatment for now. Follow-up once stable for discharge and plan to do third line chemotherapy Prognosis poor And now transitioning to comfort measures Continue Zofran, Compazine, Scopoloamine patch and Robinul for excessive secretions, hypertonic saline nebs and vibration vest for secretion management. Plan DVT prophylaxis-heparin drip now converting Eliquis Disposition-downgrade to PCU until fully comfort measures Admission and Anticipated Discharge Date Admission Date: September 07, 2023 Subjective Patient seen with her daughter marcial at the bedside in the afternoon after they had a discussion with palliative medicine earlier in the day. Patient has decided she wants to pursue comfort measures once all of her family arrives from out of town. Until that time, she does not want to take any opioids or Ativan as long as she remains fairly comfortable because these tend to affect her with significant drowsiness and confusion. She would like to try to get home and would like to do what ever possible to wean her oxygen down to 10 L so she can get home. She continues to bring up copious amounts of clear sputum Remains in sinus rhythm Physical Exam Constitutional: + ill appearing and + thin; no acute dis tress Respiratory: + cough and + tachypneic (mild but impro jose) Auscultation: + crackles (throughout all lung steele) and + rhonchi (throughout ) Cardiovascular: Rate/Rhythm: regular rate and regular rhythm Heart Sounds: no murmur Extremities: + edema (trace edema legs bilat) Gastrointestinal (Abdomen): normal bowel sounds, soft, nontender, no hepatosplenomegaly Psychiatric: A+Ox3, euthymic affect Results & Data Results & Data Vital Signs (Past 12 Hours) Vital Signs Temp Pulse Pulse Resp BP BP Pulse Ox 09/09/23 11:18 79 25 H 95 09/09/23 11:17 76 25 H 96 09/09/23 11:00 77 109/73 09/09/23 08:07 79 25 H 89 L 09/09/23 07:40 79 24 93 09/09/23 07:40 75 18 95 09/09/23 07:30 77 22 139/76 93 09/09/23 07:01 75 22 128/73 96 09/09/23 06:00 74 23 132/67 98 09/09/23 05:01 70 132/74 09/09/23 05:00 36.6 C 75 20 132/74 97 09/09/23 04:30 69 20 138/73 94 09/09/23 04:24 72 135/84 09/09/23 04:22 72 135/84 09/09/23 04:12 80 22 93 09/09/23 04:08 79 20 96 09/09/23 04:00 36.5 C 72 22 109/58 L 95 O2 Del Method O2 Flow Rate FiO2 09/09/23 11:18 High Flow Nasal Cannula 40 80 09/09/23 11:17 High Flow Nasal Cannula 40 80 09/09/23 11:00 09/09/23 08:07 40 85 09/09/23 07:40 40 80 09/09/23 07:40 High Flow Nasal Cannula 40 80 09/09/23 07:30 High Flow Nasal Cannula 80 09/09/23 07:01 09/09/23 06:00 09/09/23 05:01 09/09/23 05:00 09/09/23 04:30 09/09/23 04:24 09/09/23 04:22 09/09/23 04:12 High Flow Nasal Cannula 40 80 09/09/23 04:08 High Flow Nasal Cannula 40 80 09/09/23 04:00 BiPAP 60 Laboratory Results CBC, BMP, magnesium, phosphorus reviewed PG Care Time/CCT Total # of Minutes Spent Total Time Spent with Patient: Total time spent is greater than 50% in coordination of care (as documented) at patient's floor/unit and/or counseling patient: Coding Level of Care Code 02324 SUB INP/OBS CARE 3/50MIN Diagnoses Comfort measures only status Z51.5 Acute and chronic respiratory failure ([id number]) J96.20 Atrial flutter with rapid ventricular response I48.92 (HFpEF) heart failure with preserved ejection fraction I50.30 Hyponatremia E87.1 Adenocarcinoma of lung C34.90 Laterality: unspecified laterality (6) Adenocarcinoma of lung Laterality: unspecified laterality Qualified Code(s): C34.90 - Malignant neoplasm of unspecified part of unspecified bronchus or lung
[2023-09-09] MEDS: FUROSEMIDE 40 MG/4 ML VIAL IV ONE (15:21)
[2023-09-09] MEDS: GLYCOPYRROLATE 0.2 MG/ML VIAL IV PRN (15:21)
[2023-09-09] MEDS ORDERED: ICU ELECTROLYTE REPLACEMENT PROTOCOL SCH (18:00)
[2023-09-09] MEDS: AMIODARONE 200 MG TAB PO SCH (19:14)
--- NOTE | 2023-09-09 19:20 | Palliative Family Discussion ---
Date of Service September 09, 2023 Patient Directed Conference Time of Meetin-12pm Participants: Kimberley Bob DNP Patient participation: yes Patient Support System and dtr Other Healthcare Provider Participation: None Meeting Location: bedside A family meeting was held for ANA PATTERSON. This meeting was necessary for determining the appropriate course of treatment. 11 Topics of Discussion Topics of Discussion: A face to face ACP discussion was held at bedside with pt, her and their daughter for 45 minutes. With their consent and voluntary participation, we discussed the recent changes to her cancer treatment plan and current complications. We discussed cancer progression, declining PS, no role for chemo, worsening resp decline, rising O2 needs and inability to wean down from HFNC. She is aware her cancer progression is significant and no more chemo is planned. states they have an appt with Dr Duke next but could she see pt while admitted bc wants to know if there are non systemic therapies to be offered given that her mutations are amenable to some options in this category. 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 They have an above average comprehension about the science of her cancer and how various treatment pathways might work. I have offered to let medical oncology know that she is admitted for possible inpatient visit with them on Tuesday. They were appreciative this and agreed. We discussed the overall progressive nature of her lung cancer, which is a progressive adenocarcinoma with rapid interval progression. She is no longer responding to chemotherapy. Her primary oncology team at [facility] has advised there is no more chemotherapeutic options available. Patient is a rising and worsening respiratory failure and is now high flow dependent. She is on an FiO2 of 80%. She is not tolerating weaning. So far this morning, she has required FiO2 increased to 90% which was then reduced back down to 85% and now 80% at rest. She is tachypneic. She speaks in short sentences. There is use of accessory muscles noted. We discussed what her goals might be at this junction. She, her and daughter reiterated goal to focus on quality of life and return home if at all possible. Patient has 3 dogs ages 10, 6 and 2. She has raised the specific read for a very long time. 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 She wants to be able to have some time at home with her family and her pets. We discussed the process of weaning someone from high flow nasal cannula with the intention of returning home on nasal cannula or facemask oxygen. Advised the dyspnea may result as a result of the high flow de- escalation that would need to be relieved with the addition of opioid therapies. Patient was open and receptive to this intervention and wanted to proceed. Her daughter then inquired about resuscitation. We discussed CPR survival data as follows.CPR survival: Only about 10% of patients who have rda-xa-nzwdzrrq sudden cardiac arrest survive to hospital discharge, with many survivors having neurologic impairment. This rate is even lower among patients with serious coexisting conditions, ie chance of survival to hospital discharge for in- hospital CPR in older people is low to moderate (15%) and decreases with age, comorbidities, performance status and frailty: for pts > 70 yo, more than half o f the patients who initially survived resuscitation in the hospital before hospital discharge. The pooled survival to discharge after in-hospital CPR was 18% for patients between 70 and 79 years old, 15% for patients between 80 and 89 years old and 11% for patients of 90 years and older. (Dale ZARAGOZA, Zeeshan LJ, Deandre F, et al. Trends in short- and long-term survival among njf-bn-rvoreqwo cardiac arrest patients alive at hospital arrival. Circulation 2014;130:1883- 1890. AND Lisa C, Bolivar T, Bg R, et al. Performance of clinical risk scores to predict mortality and neurological outcome in cardiac arrest patients. Resuscitation 2019;136:21-29.) Patient tells me she does not wish to on machines and does not want to have CPR. I advised her I agreed with this choice, and that CPR would not extend, reverse or cure her underlying medical issues. At this point, putting on life support would serve the purpose to only prolong or extend her dying process and suffering. I do not believe it will add any meaningful benefit to her living process. We discussed the option of transitioning to a focus that is more about comfort and quality of life with a focus on symptom management. She and her family were in agreement. CODE STATUS will be changed to DNR/DNI. For now she is open to continuing her cardiac medications and infusions, with the intention of seeing how high flow de-escalation proceeds through the weekend. We discussed the goals of hospice as a patient service and the goals of care; we discussed EOL trajectories and transitions chelsi the emotional impact of realizing mortality as a concrete reality from prior abstract considerations. Pt was reassured that no matter where they are along this trajectory, they are not alone - their medical team will remain by their side through their journey. Discussed the pros/cons of accepting help when especially weakened and distressed by pain-which would also help provide relief/decrease caregiver burden/strain. I provided education about the hospice benefit: an interdisciplinary program offered by nurses, nurses aides, social workers, chaplains and a certified medical dosimetrist for patients with a terminal condition and a life expectancy of less than 6 months. This is covered by Medicare at 100%/no out of pocket expense to patient and all meds/supplies needed by patient for the reason they are on hosp ice are paid for/covered by hospice. The goal is assure quality of life of the patient in their home setting (home, halfway, inpatient hospice setting) by providing symptoms management, psychosocial and spiritual support. However, they cannot offer 24 hours care and if the family is unable to provide that care, they will have to consider personal care with out of pocket cost vs. halfway placement. We discussed the goals of hospice as a patient service and the goals of care; we discussed EOL trajectories and transitions chelsi the emotional impact of realizing mortality as a concrete reality from prior abstract considerations. Pt was reassured that no matter where they are along this trajectory, they are not alone - their medical team will remain by their side through their journey. Discussed the pros/cons of accepting help when especially weakened and distressed by pain-which would also help provide relief/decrease caregiver burden/strain. We very specifically discussed that she may not survive this admission. I provided her with interventions for Legacy work at this stage. Patient advised of recommendations from Dr. Alexa Lopez at the [facility]: there are four simple phrases: Please forgive me, I forgive you, Thank you, and I love you which carry enormous power to mend, nurture relationships and inner lives. These four phrases and the sentiments they convey can help resolve interpersonal difficulties with integrity and kevin, providing a path to emotional wellbeing, allows patients/families to live lives with integrity/kevin, help reconcile the rifts that divide people, and cut through "old history." Per Dr. Lopez, if we in healthcare attend only to the physiologic, without intending to we are inadvertently abandoning people to figure out how to live through these difficult times of life by themselves. Other Content of Meetin. Opportunity given for participants to speak and ask questions. 2. Participants were assured of attention to patient comfort. 3. Reassurance provided. 4. Support was provided for informed, good-gagan decisions. 5. Emotions expressed by family were acknowledged and addressed. 6. Dying patients fear dyspnea and pain, therefore, symptom control is one cornerstone of pulmonary palliative care. Dyspnea is a prominent symptom of the patient with advanced respiratory disease of any cause: nearly all patients with COPD had dyspnea during the last 3 days of their lives. Providers routinely care for patients with chronic or advanced respiratory diseases and critical illnesses. The ATS recognizes: the growing importance and complexity of palliative care for patients with life-threatening and life-limiting diseases and disorders and the need for improving professional competence and teamwork in providing such care. The statement strongly endorses the concept that palliative care should be available to patients at all stages of illness and should be individualized based on the needs and preferences of the patient and the patients family. Clinicians should consult with palliative care specialists as appropriate for managing palliative care situations beyond the clinicians level of competence. (ATS Clinical Policy Statement: Palliative Care for Patients with Respiratory Diseases and Critical Illnesses; Farhat Antonio, et al., for the [employer], the [employer], the [employer] [employer], and the Respiratory Society* Diagnosis and Management of Stable Chronic Obstructive Pulmonary Disease: A Clinical Practice Guideline Update from the [employer], [employer], [employer] Society, and Respiratory Society . Marisa Supervisor [employer] [facility] Med. 2011;155:179-191.) 7. Dying process: Discussed changes pt may move through in the dying process including but not limited to sleeping more, disorientation when awake, restlessness, diminished senses/inability to respond to stimulus although ability to be aware of them remains intact longer, and changes in body temperatures, skin changes/mottling/cyanosis, respiratory pattern changes, and oral secretions. Family verbalized understanding. The goal is to assure a peaceful . 8. EOL Rally: When a person facing the end of life rallies, they seem to become "more stable" - may want to talk or even begin taking PO; this phenomenon is usually seen as a sudden burst of energy before . This period of perking up can be accompanied by such a notable change in mental clarity that is often referred to as terminal lucidity. This change in cognition and behavior goes against everything families learn about the physical signs that the end of life is near. It is important to note that evidence-based data is elusive, if nonexistent. Theories support that it may be a search for a final, strong connection. Also, as organs shut down, they can release a steroid like compound that briefly rouses the body - in the specific case of brain tumors, swelling occurs in the confined space of the skull. The edema shrinks as EOL care patients are weaned off food and drink, waking up the brain a bit. Families and caregivers may grasp at what seems to be a turnaround in a loved ones health, however, the EOL Rally is a hallmark pre- sign. It is not uncommon for patients to show improvement before : they may want to talk while others may become restless or act as if they need to start preparing for a trip. Some patients will become more relaxed yet remain tuned in to what is going on around them, others will show signs of physical stability when, seconds before, they seemed on the verge of letting go. A rally can last for a few moments or even days. Short or long, these temporary improvements can have a profound effect on loved ones who are keeping ly. Like a moment of clarity for someone who has dementia, a rally is one last opportunity to connect with a loved one. Each persons experience is unique and impossible to predict with total accuracy. Life is full of questions, and some of them simply are not meant to be answered. Read more: [email or web address]//well/xkp-[email or web address]-blu-tu-bnjp-rallies.html 9. Oxygen at EOL: For patients at the end of life, oxygen delivered by a nasal cannula provides no additional symptomatic benefit for relief of refractory dyspnea in patients with life-limiting illness compared with room air: there's a point at which that the oxygen level gets so low that it's no longer compatible with life. By providing supplemental oxygen, the dying process will be unnecessarily prolonged. Please use less burdensome but more effective strategies such as comfort care meds, oscillating fan, massage, repositioning, etc. (Elysia CASTRO, Donnell CF, Harish PA, et al. Effect of palliative oxygen versus room air in relief of breathlessness in patients with refractory dyspnoea: a double-blind, randomised controlled trial. Lancet. 2010;376(0669):572-940. doi:10.1016/G1655-7972(93)59986-4) 10. Secretions at EOL/management: I discussed with family that as the level of consciousness decreases in the dying process, patients lose their ability to swallow and clear oral secretions. As air moves over the secretions, which have pooled in the oropharynx and bronchi, the resulting turbulence produces noisy ventilation with each breath, described as gurgling or rattling noises. While there is no evidence that patients find this rattle disturbing, evidence from bereaved surveys suggests the noises can be disturbing to the pa tients visitors and caregivers who may fear that the patient is choking to . We recommend a combination of Non-Pharmacological and Pharmacological Treatments: * 1. Position the patient on their side or in a semi-prone position to facilitate postural drainage * 2. Communication with family and caregivers to reaffirm commitment to their loves ones care, reduce anxiety and fears. * 3. Gentle oropharyngeal suctioning is used although this can be ineffective when fluids are beyond the reach of the catheter. Avoid deep suctioning as it is very irritating. Note that frequent suctioning is disturbing to both the patient and the visitors. * 4. Reduction of fluid intake. * 5. Consider a 1-2 min Trendelenburg positioning, to move fluids up into the oropharynx for easier removal BUT note that ASPIRATION RISK WILL INCREASE. * 6. Muscarinic receptor blockers (anti-cholinergic drugs) are most often used: glycopyrrolate (Robinul), scopolamine (Transderm Scop), hyoscyamine and atropine. Of these, I prefer to using glycopyrrolate as first line treatment, because it is a quaternary amine (therefore does not cross the blood-brain barrier) which reduces the potential anti cholinergic agent associated WELD INSPECTOR toxicity (sedation, delirium). * 7. Glycopyrrolate has five times the anti-secretory potency compared to atropine, while scopolamine dries/thickens secretions and causes dry mouth, which may be more distressing to the patient and detract from comfort. Time Involved in Meeting: I spent 45 minutes overall addressing ACP for this complex case. Thank you for allowing us to participate in the ongoing care of this patient. Please don't hesitate to call or page with any additional concerns. Dr. Kimberley Bob DNP Director, Palliative Care
[2023-09-09] MEDS: METOPROLOL SUCC 50MG EXT REL TAB PO SCH (21:55)
[2023-09-09] MEDS: APIXABAN 5 MG TABLET PO SCH (21:55)
[2023-09-10] MEDS: ONDANSETRON INJ 2 MG/ML 2 ML VIAL IV PRN (05:33)
[2023-09-10] MEDS: HEPARIN 100 UNIT/ML 5ML FLUSH FLUSH PRN (08:11)
--- NOTE | 2023-09-10 08:21 | Cardiology Progress Note ---
Date of Service September 10, 2023 Assessment & Plan (1) Atrial flutter with rapid ventricular response: Plan Atrial fibrillation/flutter: She remains in sinus rhythm, now on oral amiodarone. Now on comfort measures, if she has recurrence I doubt we will want to intervene therefore I am going to sign off. If you would like her seen again please contact us. Thank you for this consult. Admission and Anticipated Discharge Date Admission Date: September 07, 2023 Subjective Patient has no complaints today. She is off of IV amiodarone and on oral. I believe she is on comfort measures. Results & Data Vital Signs (Past 12 Hours) Vital Signs Temp Pulse Resp BP Pulse Ox Pulse Ox O2 Del Method 09/10/23 07:54 36.4 C L 84 24 120/75 92 High Flow Nasal Cannula 09/10/23 06:02 76 20 93 High Flow Nasal Cannula 09/10/23 04:45 36.6 C 76 24 104/61 95 High Flow Nasal Cannula 09/10/23 03:38 85 20 93 High Flow Nasal Cannula 09/10/23 01:30 36.7 C 87 25 H 131/71 84 L High Flow Nasal Cannula 09/10/23 01:00 92 09/09/23 23:16 94 H 20 94 High Flow Nasal Cannula 09/09/23 21:48 36.8 C 86 20 126/74 88 L High Flow Nasal Cannula 09/09/23 21:16 85 22 90 High Flow Nasal Cannula 09/09/23 21:15 85 22 90 High Flow Nasal Cannula 09/09/23 20:30 High Flow Nasal Cannula O2 Del Method O2 Flow Rate FiO2 09/10/23 07:54 40 80 09/10/23 06:02 40 80 09/10/23 04:45 40 80 09/10/23 03:38 40 80 09/10/23 01:30 09/10/23 01:00 High Flow Nasal Cannula 09/09/23 23:16 40 80 09/09/23 21:48 60 09/09/23 21:16 40 60 09/09/23 21:15 40 60 09/09/23 20:30 40 60 Diagnostic Findings Telemetry: Sinus rhythm, heart rate is well-controlled. PG Care Time/CCT Total # of Minutes Spent Total Time Spent with Patient: Total time spent is greater than 50% in coordination of care (as documented) at patient's floor/unit and/or counseling patient: Coding Level of Care Code 22898 SUB INP/OBS CARE 08/18MIN Diagnoses Atrial flutter with rapid ventricular response I48.92
[2023-09-10] MEDS ORDERED: MoRPHine SULFATE 10 MG/0.5 ML UDP PO PRN (08:23)
[2023-09-10] MEDS ORDERED: bisacodyL 10 MG SUPP PR PRN (16:46)
--- NOTE | 2023-09-10 16:47 | Hospitalist Progress Note ---
Date of Service September 10, 2023 Assessment & Plan (1) Comfort measures only status: Plan: Patient with widely metastatic adenocarcinoma of the lung with progression despite second line chemotherapy Now with significant respiratory failure, paroxysmal rapid atrial flutter, acute on chronic HFpEF Patient has decided to pursue comfort measures only with a goal of trying to get home prior to passing away-needs to wean down to 10 L oxygen prior to discharge Appreciate palliative medicine consultation -Hold off on opioids and Ativan until all family present as patient gets significantly confused and lethargic with these types of medications and she wants to build to speak with family -Continue high flow nasal cannula as needed for comfort and respiratory support until patient is ready to fully pursue comfort -Morphine, Ativan, Robinul, scopolamine patch all as needed for comfort -Stop all lab draws and antibiotics -Continue IV Lasix for now to try to get fluid out of lungs to help wean off oxygen to get home-given extra dose of IV Lasix now -Give bisacodyl IA suppository for constipation (2) Acute and chronic respiratory failure (kvyky-xh-axouext): Plan: Acute on chronic respiratory failure with hypoxia and hypercarbia-2.2 acute on chronic HFpEF from rapid aflutter on top of metastatic lung CA which is extensive Patient requiring BiPAP alternating with high flow nasal cannula throughout her admission Now pursuing comfort measures as above Continue IV diuresis for now to try to wean off oxygen to get home Continue supplemental O2 and wean off as able to-weaned from Vapotherm to 15 L nasal cannula-will attempt to get down to 10 L Cardioverted to sinus rhythm out of atrial flutter which will help with rate control Morphine as needed for breathlessness but she does not want to use this yet (3) Atrial flutter with rapid ventricular response: Plan: Patient with atrial flutter with rates in the 120s, contributing to heart failure and respiratory failure as above Now status post cardioversion and remains in sinus rhythm -Discontinued amiodarone drip, IV metoprolol and converted to p.o. amiodarone and metoprolol at lower dose of 50 -Discontinued heparin drip and resumed home p.o. Eliquis for now as long as able to take pills No further lab draws on comfort measures (4) (HFpEF) heart failure with preserved ejection fraction: Plan: Acute diastolic (congestive) heart failure With management as above, secondary to rapid atrial flutter Diuresis (5) Hyponatremia: Plan: Chronic. 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 Asymptomatic. Patient is on salt tablets at home and Lasix Discontinued salt tablets on comfort measures No need for labs (6) Adenocarcinoma of lung: Plan: Metastatic widely throughout lungs, progressing despite docetaxel/second line chemotherapy Discussed her care with her oncology team at [facility] on 09/07 Patient had a telehealth visit on the morning of 09/08-they recommend stabilization from cardiac standpoint and delaying treatment for now. Follow-up once stable for discharge and plan to do third line chemotherapy Prognosis poor And now transitioned to comfort measures Continue Zofran, Compazine, Scopoloamine patch and Robinul for excessive secretions, hypertonic saline nebs and vibration vest for secretion management. Plan DVT prophylaxis- Eliquis Disposition-continued stay PCU until fully comfort measures/discharge Consulted case management to help arrange home hospice Admission and Anticipated Discharge Date Admission Date: September 07, 2023 Subjective Patient feels like she is tiring out. She was weaned to 15 L wall high flow nasal cannula today Her goal is still to try to wean down to 10 L oxygen so she can get home. She declines to take any morphine or Ativan at this time She has had multiple family members and friends come to visit today. Still feels constipated and cannot move bowels I discussed her care with her and daughter Physical Exam Constitutional: + ill appearing and + thin Respiratory: + tachypneic Auscultation: + crackles (throughout all lung steele) and + rhonchi (throughout ) Cardiovascular: Rate/Rhythm: regular rate and regular rhythm Heart Sounds: no murmur Extremities: + edema (trace edema legs bilat) Gastrointestinal (Abdomen): normal bowel sounds, soft, nontender, no hepatosplenomegaly Psychiatric: A+Ox3, euthymic affect Results & Data Results & Data Vital Signs (Past 12 Hours) Vital Signs Temp Pulse Resp BP Pulse Ox O2 Del Method O2 Flow Rate 09/10/23 09:00 High Flow Nasal Cannula 40 09/10/23 07:54 36.4 C L 84 24 120/75 92 High Flow Nasal Cannula 40 09/10/23 06:02 76 20 93 High Flow Nasal Cannula 40 FiO2 09/10/23 09:00 80 09/10/23 07:54 80 09/10/23 06:02 80 PG Care Time/CCT Total # of Minutes Spent Total Time Spent with Patient: Total time spent is greater than 50% in coordination of care (as documented) at patient's floor/unit and/or counseling patient: Coding Level of Care Code 22053 SUB INP/OBS CARE 2/35MIN Diagnoses Comfort measures only status Z51.5 Acute and chronic respiratory failure (xwyji-xx-ynxurrj) J96.20 Atrial flutter with rapid ventricular response I48.92 (HFpEF) heart failure with preserved ejection fraction I50.30 Hyponatremia E87.1 Adenocarcinoma of lung C34.90 Laterality: unspecified laterality (6) Adenocarcinoma of lung Laterality: unspecified laterality Qualified Code(s): C34.90 - Malignant neoplasm of unspecified part of unspecified bronchus or lung
[2023-09-10] MEDS: FUROSEMIDE 40 MG/4 ML VIAL IV ONE (17:31)
[2023-09-10] MEDS: MoRPHine SULFATE 4 MG/ML 1 ML CARP\\VIAL IV PRN (22:40)
[2023-09-10] MEDS: LORazepam 1 MG in SYRINGE 0.5 ML IV PRN (23:33)
[2023-09-10] MEDS: MoRPHine SULFATE 10 MG/ML CARP/VIAL IV STA (23:34)
[2023-09-10] MEDS: MoRPHine SULFATE 2 MG/ML CARP ONE (23:36)
[2023-09-10] MEDS: MoRPHine SULFATE 4 MG/ML 1 ML CARP\\VIAL ONE (23:37)
--- NOTE | 2023-09-11 04:10 | Death Pronouncement Note ---
Date of Service September 11, 2023 Pronouncement Note Admission Date Admission Date: September 07, 2023 Contributing Factors (1) Comfort measures only status: (2) Acute and chronic respiratory failure (mdehm-my-ayqoshl): (3) Atrial flutter with rapid ventricular response: (4) (HFpEF) heart failure with preserved ejection fraction: (5) Hyponatremia: (6) Adenocarcinoma of lung: Summary Additional details: I was called to pronounce the of Noemy Martinez (: 1955) on 09/11/2023 Upon entering the room, patient was found to be in a terminal state. They were unresponsive to, and did not withdrawal from, verbal or tactile stimuli. They were unresponsive to corneal, pupillary, and oculocephalic reflexes. On cardiopulmonary exam, they were found to be without detectable carotid pulses, and without spontaneous heart tones or respirations. Time of was pronounced by me on 09/11/2023 at 0402 Attending physician was notified was notified. Next of kin was beside. Signed: Dr. Nicanor Porter Additional Data Confirmation of : no pulse, no respirations, no heart sounds and pupils fixed and dilated Family: at bedside Attending/PCP notified?: Yes Attending physician: Rosina Levy MD Was code activated?: No
--- NOTE | 2023-09-11 07:20 | Discharge Summary ---
Discharge Summary Date of Service September 11, 2023 Notes For Next Care Provider Noemy on 09/11/23 at 0402 Admission HPI Per Admitting Provider Noemy Martinez is a 68yo female with Stage IV adenocarcinoma of the lung on chemotherapy at [facility] - last administered 08/22/23 presenting with elevated heart rate. Patient admitted with similar complaint from 08/23/23 - 08/25/23 and was found to have atrial flutter. She was managed with Amiodarone IV and discharged on PO Amiodarone. She has been compliant with Eliquis anticoagulation as well. She presents to the ER tonight after noting to have an elevated heart rate at home. This was picked up on her watch - she did not have symptoms of palpitations, racing heart, chest pain or shortness of breath. She has required a bit more oxygen as well - typically on 3L but how is on 6L. No additional complaints. Patient recently had a cardioversion performed on 09/01/23 In the ER she is afebrile, tachycardic, atrial flutter, blood pressure is stable. Amio bolus and gtt initiated Principal Dx & Hospital Course #1 = Principal Diagnosis (1) Comfort measures only status: Patient with widely metastatic adenocarcinoma of the lung with progression despite second line chemotherapy Presented with significant respiratory failure, paroxysmal rapid atrial flutter, acute on chronic HFpEF Patient, along with her family, ultimately decided to pursue comfort measures only Appreciate palliative medicine consultation -Morphine, Robinul, scopolamine patch all given as needed for comfort She at 0402 on 09/11/23 with family at bedside (2) Acute and chronic respiratory failure ([id number]): Acute on chronic respiratory failure with hypoxia and hypercarbia-2.2 acute on chronic HFpEF from rapid aflutter on top of metastatic lung CA which is extensive Patient was requiring BiPAP alternating with high flow nasal cannula throughout her admission Cardioverted to sinus rhythm out of atrial flutter which will help with rate control Pursued comfort measures as above (3) Atrial flutter with rapid ventricular response: Patient with atrial flutter with rates in the 120s, contributing to heart failure and respiratory failure as above, placed on amiodarone gtt, heparin gtt, IV metoprolol Status post cardioversion and remained in sinus rhythm (4) (HFpEF) heart failure with preserved ejection fraction: Acute diastolic (congestive) heart failure With management as above, secondary to rapid atrial flutter Diuresis was given without improvement (5) Hyponatremia: Chronic. 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 Asymptomatic. Patient is on salt tablets at home and Lasix Discontinued salt tablets on comfort measures (6) Adenocarcinoma of lung: Metastatic widely throughout lungs, progressing despite docetaxel/second line chemotherapy Discussed her care with her oncology team at [facility] on 09/07 Patient had a telehealth visit on the morning of 09/08-they recommend stabi lization from cardiac standpoint and delaying treatment for now. Follow-up once stable for discharge and plan to do third line chemotherapy Prognosis poor And then transitioned to comfort measures Was given Scopolamine patch and Robinul for excessive secretions, hypertonic saline nebs and vibration vest for secretion management. Plan Disposition- Updated Medication List Medication Instructions Recorded Confirmed Type omega-3 acid ethyl esters 1 gram 1 cap PO QAM 02/04/20 09/06/23 History capsule cholecalciferol (vitamin D3) 25 25 mcg PO QAM 11/20/20 09/06/23 History mcg (1,000 unit) tablet (Vitamin D3) cyanocobalamin (vitamin B-12) 1,000 mcg sublingual QAM 11/20/20 09/06/23 History 1,000 mcg sublingual tablet sodium chloride, sodium See Rx Instructions .Route 04/27/23 09/06/23 History bicarb-nasal rinse squeeze bottle .COMPLEX PRN congestion with packet (Neilmed Sinus Rinse Complete with packet) albuterol sulfate 90 mcg/actuation 2 inh inhalation Q6H PRN shortness 04/29/23 09/06/23 Rx aerosol inhaler of breath or wheezing #6.7 grams folic acid 1 mg tablet 1 mg PO QAM #30 tabs 04/29/23 09/06/23 Rx ipratropium 0.5 mg-albuterol 3 mg 3 ml inhalation Q6 PRN as directed 06/28/23 09/06/23 History (2.5 mg base)/3 mL nebulization soln prochlorperazine maleate 10 mg 10 mg PO Q6H PRN Nausea And 07/28/23 09/06/23 History tablet Vomiting polyethylene glycol 3350 17 17 g PO BID PRN constipation 08/01/23 09/06/23 History gram/dose oral powder (Miralax) sennosides 8.6 mg-docusate sodium 1 tab-cap PO DAILY PRN Constipation 08/01/23 09/06/23 History 50 mg tablet (Colace 2-In-1) Oxygen Home E0424 #1 ea 08/18/23 09/05/23 Rx Vibration Vest #1 ea 08/18/23 09/05/23 Rx formoterol fumarate 20 mcg/2 mL 2 ml inhalation BID #120 mL 08/19/23 09/06/23 Rx solution for nebulization (Perforomist) sodium chloride 3 % for 4 ml inhalation Q8H PRN secretions 08/19/23 09/06/23 Rx nebulization #240 mL ondansetron HCl 8 mg tablet 8 mg PO Q8H #20 tabs 08/26/23 09/06/23 Rx oxycodone 5 mg tablet 5 - 10 mg (1 - 2 x 5 mg) PO Q6H 08/26/23 09/06/23 Rx PRN moderate to severe pain #30 tabs ipratropium bromide 42 mcg (0.06 2 spray intranasal TID #15 mL 08/27/23 09/06/23 Rx %) nasal spray Magic Mouthwash 300 mL mouthwash 5 ml mucous membrane Q6H PRN mouth 08/30/23 09/06/23 Rx pain #300 mL Oxygen Home E0424 #1 ea 09/01/23 09/05/23 Rx amiodarone 200 mg tablet 200 mg PO BIDM #60 tabs 09/03/23 09/06/23 Rx apixaban 5 mg tablet (Eliquis) 5 mg PO BID #60 tabs 09/03/23 09/06/23 Rx doxycycline hyclate 100 mg tablet 100 mg PO BID #10 tabs 09/03/23 09/06/23 Rx furosemide 20 mg tablet (Lasix) 20 mg PO DAILY #30 tabs 09/03/23 09/06/23 Rx metoprolol succinate 100 mg 100 mg PO PM #30 tabs 09/03/23 09/06/23 Rx tablet,extended release 24 hr potassium chloride 10 mEq 10 meq PO Q2D #14 tabs 09/03/23 09/06/23 Rx tablet,extended release scopolamine base 1 mg over 3 days 1 mg transdermal Q72H #10 ea 09/03/23 09/06/23 Rx transdermal patch (Transderm-Scop) sodium chloride 1,000 mg soluble 1,000 mg PO BID #60 tabs 09/03/23 09/06/23 Rx tablet nystatin 100,000 unit/mL oral 5 ml PO QID PRN mouth pain #250 mL 09/05/23 09/06/23 Rx suspension Hospital Stay Data Consultations 09/07/23 00:00 ED Decision to Admit Stat 09/07/23 10:25 Consult Pulmonology Routine 09/07/23 10:26 Consult Cardiology Routine 09/07/23 18:40 Consult Palliative Care Routine 09/07/23 18:58 Consult Chisel Grinder Stat Total Time Total Time Spent Total Time Spent (In Minutes): 10 min preparing discharge summary but I did not see the patient on the day of discharge Coding Level of Care Code None Diagnoses Comfort measures only status Z51.5 Acute and chronic respiratory failure ([id number]) J96.20 Atrial flutter with rapid ventricular response I48.92 (HFpEF) heart failure with preserved ejection fraction I50.30 Hyponatremia E87.1 Adenocarcinoma of lung C34.90 Laterality: unspecified laterality
[2023-09-11] MEDS ORDERED: DOCUSATE SODIUM/SENNA 50/8.6MG TAB PO SCH (09:00)
== END 2023-09-11 05:05 | disposition expired | DRG 308 ==
LOC: ED 22:12 → SUATTDRO 09-07 00:21 → EDINP 09-07 00:21 → 2S 09-07 01:37 → 1E 09-07 19:48 → 2E 09-09 20:22